=== PATIENT | male | born 1970 | race Caucasian/White ===

== ENCOUNTER 2018-09-16 15:24 | Outpatient (CLI) | payer MEDICARE ==
[2018-09-16 16:27] LABS: #Basophils 0.1 thou/uL (0.0-0.2); #Eosinphils 0.2 thou/uL (0.0-0.7); #Lymphocytes 1.7 thou/uL (1.20-3.40); #Monocytes 0.8 thou/uL (0.11-0.59); #Neutrophils 8.3 thou/uL (1.40-6.50); %Basophils 0.6 % (0.0-1.0); %Eosinophils 2.2 % (0.0-10.0); %Lymphocytes 15.2 % (21.0-51.0); %Monocytes 7.3 % (0.0-10.0); %Neutrophils 74.7 % (42.0-75.0); Hemoglobin 13.9 g/dL (14.0-18.0); Mean Corpuscular HGB CONC 34.6 g/dL (32.0-36.0); Mean Corpuscular Hemoglobin 32.6 pg (27.0-31.0); Mean Corpuscular Volume 94.1 fL (78.0-98.0); Mean Platelet Volume 7.2 fL (7.4-10.4); Platelet Count 209 thou/uL (130-400); RBC Distribution Width 11.6 % (11.5-14.5); Red Blood Cell (RBC) Count 4.27 mill/uL (4.70-6.10); White Blood Cell (WBC) Count 11.2 thou/uL (4.8-10.8)
[2018-09-16 16:41] LABS: ALT (SGPT) 30 U/L (8-55); AST (SGOT) 31 U/L (5-34); Albumin 4.7 g/dL (3.5-5.0); Alkaline Phosphatase 91 U/L (40-150); Anion Gap 18 mmol/L (10-20); BUN (Urea Nitrogen) 16 mg/dL (8.9-20.6); Bilirubin, Total 0.6 mg/dL (0.2-1.2); Calc. Creatinine Clearance 0 mL/min (70-130); Calcium 10.2 mg/dL (7.8-10.44); Carbon Dioxide 25 mmol/L (22-29); Chloride 103 mmol/L (98-107); Estimated GFR-MDRD 72; Glucose 91 mg/dL (70-105); Potassium 4.7 mmol/L (3.5-5.1); Protein, Total 7.7 g/dL (6.0-8.3); Sodium 141 mmol/L (136-145)
== END 2018-09-16 15:25 | disposition home or self-care (01) ==
LOC: LABBT 15:24
PROVIDERS: ATTEND Internal Medicine Cardiovascular Disease
DX: Z01.812 Encounter for preprocedural laboratory examination (principal); R06.02 Shortness of breath
CPT/HCPCS: 80053; 83880; 85025

== ENCOUNTER 2018-09-19 05:33 | Day surgery (SDC) | payer MEDICARE ==
[2018-09-16 15:07] VITALS: BMI 45.8
[2018-09-19] MEDS ORDERED: Diazepam 5 MG TAB ONE (06:42)
[2018-09-19] MEDS ORDERED: Verapamil 5 MG/2 ML VIAL ONE (07:05)
[2018-09-19] MEDS ORDERED: Heparin 10,000 UNITS/1 ML VIAL ONE (07:05)
[2018-09-19] MEDS ORDERED: Nitroglycerin 100MG/250ML BOT 250 ML ONE (07:05)
[2018-09-19] MEDS ORDERED: Fentanyl 100 MCG/2 ML VIAL ONE (07:49)
[2018-09-19] MEDS ORDERED: Iopamidol 370 76% 100 ML VIAL ONE (11:22)
[2018-09-19] MEDS ORDERED: HYDROcodone/Acetaminophen 10/325 mg Tablet ONE (11:25)
[2018-09-19] MEDS ORDERED: HYDROcodone/Acetaminophen 10/325 mg Tablet PO PRN (11:37)
[2018-09-19] MEDS ORDERED: Lorazepam 1 MG TAB PO PRN (11:38)
== END 2018-09-19 14:16 | disposition home or self-care (01) ==
LOC: CCL 05:33
PROVIDERS: ATTEND Internal Medicine Cardiovascular Disease
PROC: 4A023N7 Measurement of Cardiac Sampling and Pressure, Left Heart, Percutaneous Approach (ICD-10-PCS; principal; 2018-09-19)
PROC: B2111ZZ Fluoroscopy of Multiple Coronary Arteries using Low Osmolar Contrast (ICD-10-PCS; 2018-09-19)
DX: I25.10 Atherosclerotic heart disease of native coronary artery without angina pectoris (principal); I10 Essential (primary) hypertension; E78.5 Hyperlipidemia, unspecified; F17.290 Nicotine dependence, other tobacco product, uncomplicated; Z79.1 Long term (current) use of non-steroidal anti-inflammatories (NSAID); Z79.82 Long term (current) use of aspirin; Z79.899 Other long term (current) drug therapy; Z88.2 Allergy status to sulfonamides
CPT/HCPCS: 76942; 93458; C1760; C1769; J1644; J3010; Q9967

== ENCOUNTER 2020-05-23 07:10 | Outpatient (CLI) | payer MEDICARE ==
[2020-05-24 03:58] LABS: SARS-CoV-2 MS2 Positive; SARS-CoV-2 N Gene Negative; SARS-CoV-2 S Gene Negative; SARS-CoV-2 by NAA Not Detected (NotDetected); SARS-CoV-2 orf1ab Negative
== END 2020-05-23 07:11 | disposition home or self-care (01) ==
LOC: LABBT 07:10
PROVIDERS: ATTEND Internal Medicine Gastroenterology
DX: Z20.828 Contact with and (suspected) exposure to other viral communicable diseases (principal)
CPT/HCPCS: 87635; U0003

== ENCOUNTER 2020-05-26 12:03 | Day surgery (SDC) | payer MEDICARE ==
[2020-05-25 11:39] VITALS: BMI 46.1
[~2020-05-26 12:03] MED LIST: Lidocaine 1% PF 5 ML VIAL ONE; PROPOFOL 200 MG/20 ML VIAL ONE
[2020-05-26] MEDS ORDERED: Midazolam HCl 2 mg/2 ml Vial ONE (14:58)
--- NOTE | 2020-05-26 20:39 | OP ---
DATE OF PROCEDURE: 05/26/2020 TITLE OF PROCEDURE: Incomplete colonoscopy with biopsy and injection for purposes of tattoo. PREPROCEDURE DIAGNOSES: 1. Hematochezia. 2. Anemia due to blood loss. POSTPROCEDURE DIAGNOSES: 1. Exam to mid sigmoid colon. 2. Large ulcerated exophytic nearly obstructing mass in the sigmoid colon at 37 cm from the anal verge, biopsied. 3. Small internal hemorrhoids, not actively bleeding. 4. Not able to examine the portion of the colon proximal to the mass. 5. Status post injection of 3.5 mL of SPOT sterile ink just inferior to the sigmoid mass. PROCEDURE IN DETAIL: Written informed consent was obtained. The patient was brought to the endoscopy suite. Total intravenous anesthesia was administered by Dr. Pavon and associates. The patient was placed in the left lateral decubitus position. A digital rectal exam was performed, which revealed small palpable internal hemorrhoids. A Pentax video colonoscope was inserted through the anal canal and advanced under direct visualization to about the mid sigmoid colon. At this level, a nearly obstructing mass was identified and the colonoscope could not be advanced safely above this point. A large nearly obstructing ulcerated exophytic mass was identified. The lesion was friable and firm. Multiple biopsies were obtained for histology. The endoscopic appearance was consistent with a malignant neoplasm. Using the sterile tattoo ink called SPOT, a total of 3 mL of tattoo was injected subcutaneously just at the inferior margin of the tumor to facilitate identification during surgery. No other synchronous masses were identified. A retroflexed exam in the rectum demonstrated small internal hemorrhoids that were not actively bleeding. The colon was decompressed as the colonoscope was completely removed from the patient. There were no immediate complications. He was transferred to the Day Stay surgery area for postprocedure monitoring. RECOMMENDATIONS: 1. Await pathology results. 2. I have spoken with Dr. Eve Griffin, who is on-call for general surgery today. She will see the patient either today or tomorrow morning for a new patient consultation. 3. Further imaging studies and laboratory tests as per Dr. Griffin. 4. Pending clinical course, the patient will likely require a repeat colonoscopy in 6 months to 1 year to clear the proximal colon above the sigmoid mass. 5. Resume previous medications. 6. We will advise the patient to eat a soft low-residue diet for the next 2 days until instructed otherwise by Surgery. Job ID: [id number]
== END 2020-05-26 16:12 | disposition home or self-care (01) ==
LOC: SDC 12:03
PROVIDERS: ATTEND Internal Medicine Gastroenterology
PROC: 0DBN8ZX Excision of Sigmoid Colon, Via Natural or Artificial Opening Endoscopic, Diagnostic (ICD-10-PCS; principal; 2020-05-26)
DX: D12.5 Benign neoplasm of sigmoid colon (principal); K64.8 Other hemorrhoids; D50.0 Iron deficiency anemia secondary to blood loss (chronic); K59.00 Constipation, unspecified; F41.9 Anxiety disorder, unspecified; F32.9 Major depressive disorder, single episode, unspecified; M19.90 Unspecified osteoarthritis, unspecified site; E78.00 Pure hypercholesterolemia, unspecified; G47.30 Sleep apnea, unspecified; F17.290 Nicotine dependence, other tobacco product, uncomplicated; Z79.899 Other long term (current) drug therapy; Z88.2 Allergy status to sulfonamides; Z95.5 Presence of coronary angioplasty implant and graft
CPT/HCPCS: 88305; J2250; J2704

== ENCOUNTER 2020-05-27 12:38 | Outpatient (CLI) | payer MEDICARE ==
[2020-05-27 14:45] LABS: #Basophils 0.1 10x3/uL (0.0-0.2); #Eosinphils 0.3 10x3/uL (0.0-0.5); #Monocytes 0.8 10x3/uL (0.0-1.1); #Neutrophils 5.6 10x3/uL (1.5-8.4); %Basophils 1.1 % (0.0-2.0); %Lymphocytes 17.7 % (18.0-47.0); %Neutrophils 66.8 % (40.0-75.0); Hemoglobin 10.7 g/dL (14.0-18.0); Mean Corpuscular Hemoglobin 24.4 PG (27.0-33.0); Mean Corpuscular Volume 81.5 fl (80.0-100.0); Mean Platelet Volume 9.9 fl (7.4-10.4); Platelet Count 280 10x3/uL (130-400); RBC Distribution Width 14.7 % (11.5-14.5); Red Blood Cell (RBC) Count 4.38 10x6/uL (4.40-5.80); White Blood Cell (WBC) Count 8.3 10x3/uL (4.5-11.0)
[2020-05-27 14:51] LABS: Anion Gap 15 mmol/L (10-20); BUN (Urea Nitrogen) 9 mg/dL (8.9-20.6); Calc. Creatinine Clearance 0 mL/min (70-130); Calcium 9.5 mg/dL (7.8-10.44); Carbon Dioxide 29 mmol/L (22-29); Chloride 100 mmol/L (98-107); Glucose 107 mg/dL (70-105); Potassium 4.4 mmol/L (3.5-5.1); Sodium 140 mmol/L (136-145)
--- NOTE | 2020-05-27 16:20 | EKG ---
Test Reason : Blood Pressure : / mmHG Vent. Rate : 084 BPM Atrial Rate : 084 BPM P-R Int : 184 ms QRS Dur : 098 ms QT Int : 374 ms P-R-T Axes : 070 052 071 degrees QTc Int : 441 ms Normal sinus rhythm Normal ECG Confirmed by DR. Brandi WHITTINGTON ([id number]) on 05/27/2020 4:19:42 PM Referred By: Staurt ANTONIO Confirmed By:DR. Brandi WHITTINGTON
[2020-05-27 20:43] LABS: Hemoglobin A1c 5.5 % (4.0-6.0)
[2020-05-28 03:28] LABS: SARS-CoV-2 MS2 Positive; SARS-CoV-2 N Gene Negative; SARS-CoV-2 S Gene Negative; SARS-CoV-2 by NAA Not Detected (NotDetected); SARS-CoV-2 orf1ab Negative
--- NOTE | 2020-06-12 13:19 | PRG ---
DATE OF SERVICE: 06/12/2020 PRESENT ILLNESS: Mr. Crum is 49-year-old morbidly obese man, BMI of 49.2. The patient is postop day #6, status post laparoscopic hand-assisted abdominal washout, takedown of the colorectal anastomosis and descending colostomy placement. The patient is awake and alert today. He reports adequate pain control. He has poor cough effort. Urinary output remains adequate for this patient's age and weight. He is on no vasopressor or inotropic support. OBJECTIVE: VITAL SIGNS: This morning include, blood pressure 148/89, pulse is 87, respiratory rate is 18, maximum temperature in the last 24 hours 98.9 degrees Fahrenheit, oxygen saturation is 100% on FiO2 of 2 L by nasal cannula oxygen. HEENT: Pupils are equal, round, reactive to light and accommodation. HEART: Reveals regular rate and rhythm. No murmurs or gallops auscultated. LUNGS: Reveal bibasilar rhonchi. Breathing regular and unlabored. ABDOMEN: Soft, morbidly obese. He has medi-qt-[id number] tenderness to palpation with no gross rebound tenderness present. Incisions remain intact and clean. Colostomy is viable and functional with gas, but no stool output. NEUROLOGIC: Reveals no focal deficits present. LABORATORY FINDINGS: Today include a CBC with 14,100 white blood cells, hemoglobin and hematocrit are 7.8 and 25.1 respectively. The platelet count is 303,000. Metabolic profile: Sodium 143, potassium 3.7, chloride is 107, bicarb is 28, BUN 31, creatinine 0.79, glucose 124, magnesium is 2.4, and phosphorus 3.0. IMPRESSION: 1. Postop day #6, status post laparoscopic hand-assisted abdominal washout, takedown of colorectal anastomosis, and creation of descending colostomy. 2. Resolving adynamic ileus. PLAN: 1. Increase activity per Physical and Occupational therapy. 2. Initiate clear liquid diet. The patient is encouraged to increase the activity with the help of the physical and occupational therapy. 3. He is also encouraged to be more aggressive with his pulmonary toilet to avoid pulmonary complications. He indicates understanding information provided to him in the presence of his at bedside. I answered his questions. Job ID: [id number]
--- NOTE | 2020-06-16 10:21 | PRG ---
DATE OF SERVICE: 06/16/2020 SUBJECTIVE: Mr. Crum remains in his bed on the surgical floor. He is postoperative day #10 from his washout following his colorectal anastomotic leak with colostomy creation. He has steadily improved each day. He has been here on the surgical floor. His Casillas catheter was removed a couple of days ago and he is urinating uneventfully. He was advanced to a regular diet yesterday, which he appears to be tolerating. His colostomy continues to function well. His level of activity has increased and he is getting up and going to the bathroom as well as walking outside his room using his walker. He denies any significant pain. He still has a wound VAC on the open portion of his abdominal incision. I planned to see that today and potentially close in a delayed fashion. OBJECTIVE: VITAL SIGNS: Temperature is 97.4, pulse 80, blood pressure 117/79. LUNGS: Clear to auscultation. ABDOMEN: Soft, nondistended, nontender with excellent normoactive bowel sounds. All drains were removed yesterday uneventfully secondary to only serous output. LABORATORY DATA: Chemistry profile is obtained today. Electrolytes are normal. Liver function tests are normal. Albumin is stable at 2.9. CBC was not obtained today, but yesterday showed a stable hemoglobin of 7.9 with a white blood cell count of 15.1, but a descending bandemia. ASSESSMENT AND PLAN: The patient is stable following resection of his colon cancer and treatment of his anastomotic leak. His abdominal sepsis appears to have resolved appropriately. He is tolerating his diet nicely. Today, I will discontinue his TPN. I will hope to examine his wound with the wound care team and potentially close this in a delayed fashion. I will recheck his labs tomorrow. If all appears to be stable, he may be ready for discharge tomorrow. I have consulted to obtain home health nursing for discharge for assistance with ostomy care. Hopefully, this can be arranged for discharge tomorrow even though tomorrow is . Job ID: [id number]
== END 2020-05-27 12:39 | disposition home or self-care (01) ==
LOC: LABBT 12:38
PROVIDERS: ATTEND Surgery
DX: Z01.818 Encounter for other preprocedural examination (principal); Z20.828 Contact with and (suspected) exposure to other viral communicable diseases; K63.89 Other specified diseases of intestine
CPT/HCPCS: 80048; 82378; 83036; 85025; 93005; U0003; 87635; 93010

== ENCOUNTER 2020-05-27 18:00 | Inpatient (IN) | payer MEDICARE ==
[2020-06-01] MEDS ORDERED: Lidocaine 1% PF 5 ML VIAL ONE (09:13)
[2020-06-01] MEDS ORDERED: Ondansetron PF 4 MG/2 ML Vial ONE (09:13)
[2020-06-01] MEDS ORDERED: PROPOFOL 200 MG/20 ML VIAL ONE (09:13)
[2020-06-01] MEDS ORDERED: Succinylcholine 200 MG/10 ml SYRINGE FS ONE (09:13)
[2020-06-01] MEDS ORDERED: Bupivacaine HCl 0.5%/Epinephrine 1:200,000/PF 30 ml Vial ONE (09:13)
[2020-06-01] MEDS ORDERED: Rocuronium Bromide 10 MG/ML (10ML VIAL) ONE (09:13)
[2020-06-01] MEDS ORDERED: Dexamethasone 20 MG/5 ML VIAL ONE (09:13)
[2020-06-01] MEDS ORDERED: Midazolam HCl 2 mg/2 ml Vial ONE (10:21)
[2020-06-01] MEDS ORDERED: Fentanyl 100 MCG/2 ML VIAL ONE ×4 (10:21→19:02)
[2020-06-01] MEDS ORDERED: Ketorolac Tromethamine 30 MG/ML VIAL ONE (10:26)
[2020-06-01] MEDS ORDERED: Acetaminophen 500 MG TAB ONE (10:26)
[2020-06-01] MEDS ORDERED: cefOXitin Sodium/Dextrose 2 GM/50 ML BAG ONE (10:26)
[2020-06-01] MEDS ORDERED: Promethazine HCl 25 MG/ML VIAL IM PRN ×2 (13:05→17:26)
[2020-06-01] MEDS ORDERED: Promethazine HCl 25 MG/ML VIAL SLOW IVP PRN ×2 (13:05→17:26)
[2020-06-01] MEDS ORDERED: Ondansetron HCl/PF 4 MG/2 ML Vial IVP PRN ×2 (13:05→17:26)
[2020-06-01] MEDS ORDERED: Rocuronium Bromide 50 MG/5 ML VIAL ONE (13:38)
[2020-06-01] MEDS ORDERED: ceFOXitin 1 GM VIAL ONE (14:36)
[2020-06-01] MEDS ORDERED: Heparin 1,000 UNITS/ML VIAL ONE (15:16)
[2020-06-01] MEDS ORDERED: SUGAMMADEX SODIUM 500 MG/5 ML VIAL ONE (15:37)
[2020-06-01] MEDS ORDERED: HYDROmorphone 2 MG/ML VIAL ONE (19:23)
[2020-06-01] MEDS ORDERED: D5 1/2 NS w/20 mEq KCL 1,000 ML ONE (19:29)
[2020-06-01] MEDS ORDERED: HYDROcodone/Acetaminophen 10/325 mg Tablet PO PRN (19:35)
[2020-06-01] MEDS ORDERED: Morphine 4 MG/ML VIAL SLOW IVP PRN (19:35)
[2020-06-01] MEDS ORDERED: HYDROmorphone 0.5 MG/0.5 ML SYRINGE ONE (21:01)
[2020-06-01] MEDS ORDERED: Morphine 4 MG/ML VIAL ONE ×2 (21:55→23:40)
[2020-06-02] MEDS: D5 1/2 NS w/20 mEq KCL 1,000 ML IV SCH ×4 (00:18→17:07)
[2020-06-02] MEDS ORDERED: cefOXitin Sodium/Dextrose 2 GM/50 ML BAG ONE (00:28)
[2020-06-02] MEDS ORDERED: Morphine 2 MG/ML VIAL ONE ×5 (01:51→10:32)
[2020-06-02] MEDS ORDERED: Morphine 4 MG/ML VIAL ONE ×5 (01:51→10:32)
[2020-06-02] MEDS: cefOXitin Sodium/Dextrose,Iso 2 GM in Premix Bag 1 BAG IVPB SCH ×4 (04:00→19:51)
[2020-06-02 05:17] LABS: #Lymphocytes 0.9 thou/uL (1.20-3.40); #Monocytes 1.3 thou/uL (0.11-0.59); #Neutrophils 15.2 thou/uL (1.40-6.50); %Basophils 0.1 % (0.0-1.0); %Eosinophils 0.1 % (0.0-10.0); %Lymphocytes 5.1 % (21.0-51.0); %Monocytes 7.7 % (0.0-10.0); %Neutrophils 87.1 % (42.0-75.0); Hemoglobin 9.8 g/dL (14.0-18.0); Mean Corpuscular HGB CONC 32.1 g/dL (32.0-36.0); Mean Corpuscular Hemoglobin 25.8 pg (27.0-31.0); Mean Corpuscular Volume 80.5 fL (78.0-98.0); Mean Platelet Volume 7.5 fL (7.4-10.4); Platelet Count 262 thou/uL (130-400); RBC Distribution Width 14.3 % (11.5-14.5); Red Blood Cell (RBC) Count 3.81 mill/uL (4.70-6.10); White Blood Cell (WBC) Count 17.4 thou/uL (4.8-10.8)
[2020-06-02 05:40] LABS: Anion Gap 12 mmol/L (10-20); BUN (Urea Nitrogen) 10 mg/dL (8.9-20.6); Calc. Creatinine Clearance 0 mL/min (70-130); Calcium 8.1 mg/dL (7.8-10.44); Carbon Dioxide 26 mmol/L (22-29); Chloride 103 mmol/L (98-107); Glucose 152 mg/dL (70-105); Potassium 4.5 mmol/L (3.5-5.1); Sodium 136 mmol/L (136-145)
[2020-06-02] MEDS ORDERED: D5 1/2 NS w/20 mEq KCL 1,000 ML ONE (08:43)
[2020-06-02] MEDS: Pantoprazole 40 MG VIAL IVP SCH (09:25)
[2020-06-02] MEDS: Enoxaparin Sodium 40 MG/0.4 ML SYRINGE SC SCH (09:25)
[2020-06-02] MEDS: Losartan/Hydrochlorothiazide 100 mg/25 mg Tablet PO SCH (09:25)
[2020-06-02] MEDS: Furosemide 40 MG TAB PO SCH (09:25)
[2020-06-02] MEDS ORDERED: HYDROcodone/Acetaminophen 10/325 mg Tablet ONE (09:45)
[2020-06-02] MEDS: Carvedilol 6.25 MG TAB PO SCH ×3 (10:43→19:48)
[2020-06-02] MEDS ORDERED: cefOXitin 2 GM in Sodium Chloride 0.9% 100 ML IVPB SCH (12:00)
[2020-06-02] MEDS: Morphine 4 MG/ML VIAL SLOW IVP PRN (12:42)
--- NOTE | 2020-06-02 14:39 | PDOC.OP ---
Operative Note - Operative Note Operative Note: PROCEDURE: Laparoscopic hand-assisted sigmoid colectomy with splenic flexure mobilization SURGEON: Eve Griffin M.D. DATE: 06/01/2020 PREOPERATIVE DIAGNOSIS: Near obstructing sigmoid colon mass POSTOPERATIVE DIAGNOSIS: Near obstructing sigmoid colon mass HISTORY: Patient with a history of bloody stools who recently underwent a colonoscopy. He was found to have a near obstructing sigmoid mass which had a malignant appearance. The scope was unable to be passed past the mass. Biopsy showed villous adenoma with severe dysplasia but CT showed enlarged mesenteric lymph nodes so the mass is presumed malignant. Recommendation was made to proceed with laparoscopic hand-assisted sigmoid colectomy. FINDINGS: Large mass in the sigmoid colon. No other palpable masses in the remaining colon. PROCEDURE IN DETAIL: After informed consent was obtained and appropriate bowel preparation and oral and IV antibiotics were administered the patient was taken to the operating room where he was placed in supine position and general endotracheal anesthesia was administered. He was placed in lithotomy position and prepped and draped in standard sterile fashion. Local anesthesia was infused the skin and subcutaneous tissues at the periumbilical area and a 6 cm incision made. Dissection was carried down to the fascia which was incised under direct vision. The peritoneal cavity was entered and no adhesions noted. A wound protector and GelPort were placed and carbon dioxide gas insufflated to an intra-abdominal pressure of 15 which the patient tolerated well. The patient was noted to have a large, puckered, hard malignant appearing mass in the sigmoid colon with tattooing distal to the mass. A 5 mm epigastric and 12 mm and 5 mm right lower quadrant ports were placed under direct laparoscopic vision. The white line of Toldt was incised and the sigmoid descending colon mobilized medially to the midline. The splenic flexure was mobilized by dividing the connections at the splenic flexure, allowing the distal transverse colon and splenic flexure to come down into the mid abdomen. The colon was palpated no additional masses were felt. The ureter and gonadal vessels were easily palpable well lateral to the mesentery of the sigmoid colon. The retroperitoneum was incised and the ureter carefully examined. This was confirmed to peristalse and the course was noted to be well away from the area of dissection. The mesorectum at the upper rectum was divided using LigaSure and a laparoscopic stapler placed across the upper rectum. This was closed and fired dividing the upper rectum. The mesorectum and mesentery of the sigmoid colon were then divided at their base using LigaSure, completely resecting the mesentery of the sigmoid colon to its origin. The operative site was examined and hemostasis was verified. The sigmoid colon was then externalized through the wound protector and towels were placed around it. An incision was made in the lower descending colon at the level of the anticipated anastomosis and a [address] d into the descending colon. The colon was divided and the specimen passed from the field. Pursestring suture was placed through the distal descending colon and the 33 mm EEA anvil placed into the descending colon and the pursestring suture tightened around the stalk. The colon was dropped back into the abdominal cavity and the abdomen was reinsufflated. Sizers were easily passed to the end of the rectal stump under direct laparoscopic vision. A 33 mm EEA stapler was then passed to the end of the rectal stump and the spike advanced through the end of the rectum just above the staple line. This was mated to the anvil and the stapler was closed and fired. The EEA stapler was then removed and 2 full-thickness donuts were confirmed on the back table. Saline was instilled into the pelvis and a proctoscope placed into the distal rectum and air insufflated into the rectum with the descending colon digitally clamped, distending the staple line with gas. No bubbling was seen from the staple line which appeared entirely healthy. The saline was then suctioned out of the pelvis and the small intestine returned to its normal anatomic position. The omentum was drawn down over the small bowel. The 12 mm trocar in the right lower quadrant was removed and the fascial defect closed with a 0 Vicryl suture on a GraNee needle under direct laparoscopic vision. The 5 mm right lower quadrant and epigastric trocars were removed and hemostasis verified. The GelPort and wound protector were removed and Seprafilm placed anterior to the omentum. The fascia was closed with a running PDS suture. The wound was copiously irrigated and the skin was closed with interrupted subcutaneous 3-0 Monocryl sutures and a running subcuticular Monocryl sutures. The trocar sites were closed with 4-0 subcuticular Monocryl sutures. Due to the thickness of the subcutaneous tissues a SELAM surface wound VAC was placed to the periumbilical incision. Dermabond dressings were placed to the other incisions and the patient was extubated and taken to recovery in good condition. Estimated blood loss was minimal. There were no complications. Specimen is sigmoid colon, with staple line distal.
[2020-06-02] MEDS ORDERED: Sodium Chloride 0.9% 500 ML IV SCH ×2 (15:30→17:00)
--- NOTE | 2020-06-02 15:31 | PDOC.GSPN ---
Surgery Progress Note: Subj - Subjective Narrative: Patient had a large bloody bowel movement early this morning around 4 AM. This measured about 225 mL. He had another bloody bowel movement which was smaller shortly afterwards. His hemoglobin had dropped about 1.5 preoperative on his morning labs and he was not having any symptoms able to walk without lightheadedness. Around noon he had another small bloody bowel movement but this was not quantified. His most recent blood pressure was 89/47 but other vital signs are normal. I have already ordered a repeat H&H this afternoon but it has not been drawn yet. He is otherwise feeling well. His incisions look good and he has minimal soreness at his operative sites. Assessment/plan: Status post laparoscopic hand-assisted sigmoid colectomy with postoperative rectal bleeding. Likely anastomotic bleeding. Patient is not symptomatic but his blood pressure is a little low. He is not tachycardic or having any other symptoms. I ordered 500 mL of normal saline and he has been typed and crossed. If he continues to bleed I will ask GI to do a flex sig and look at the staple line to see if there is anything they can clip or inject but I would prefer not to do this with close to the time of his surgery. Usually this is self-limiting so we will continue to just observe for now. Surgery Progress Note: Obj - Vital signs Vital signs: Vital Signs - Most Recent Temp Pulse Resp BP Pulse Ox 97.7 F 79 16 89/47 L 94 L 06/02/20 10:55 06/02/20 14:57 06/02/20 10:55 06/02/20 14:57 06/02/20 14:57 Surgery Progress Note: Results - Labs Result Diagrams: 06/02/20 05:02 06/02/20 05:02 Lab results: Laboratory Results - last 12 hr 06/02/20 06/02/20 05:02 05:02 WBC 17.4 H RBC 3.81 L Hgb 9.8 L Hct 30.7 L MCV 80.5 MCH 25.8 L MCHC 32.1 RDW 14.3 Plt Count 262 MPV 7.5 Neutrophils % 87.1 H Lymphocytes % 5.1 L Monocytes % 7.7 Eosinophils % 0.1 Basophils % 0.1 Neutrophils # 15.2 H Lymphocytes # 0.9 L Monocytes # 1.3 H Eosinophils # 0.0 Basophils # 0.0 Sodium 136 Potassium 4.5 Chloride 103 Carbon Dioxide 26 Anion Gap 12 BUN 10 Creatinine 1.16 Estimated GFR (MDRD) 67 Glucose 152 H Calcium 8.1
[2020-06-02 15:33] LABS: Hemoglobin 8.7 g/dL (14.0-18.0)
[2020-06-02] MEDS: Morphine 2 MG/ML VIAL SLOW IVP PRN ×2 (18:06→21:54)
[2020-06-03] MEDS: Morphine 2 MG/ML VIAL SLOW IVP PRN ×2 (00:44→04:16)
[2020-06-03] MEDS: D5 1/2 NS w/20 mEq KCL 1,000 ML IV SCH ×4 (02:06→19:23)
[2020-06-03] MEDS: cefOXitin Sodium/Dextrose,Iso 2 GM in Premix Bag 1 BAG IVPB SCH ×2 (05:03→11:53)
[2020-06-03 05:44] LABS: #Eosinphils 0.1 thou/uL (0.0-0.7); #Lymphocytes 1.6 thou/uL (1.20-3.40); #Monocytes 1.2 thou/uL (0.11-0.59); #Neutrophils 8.6 thou/uL (1.40-6.50); %Basophils 0.3 % (0.0-1.0); %Lymphocytes 14.1 % (21.0-51.0); %Neutrophils 74.5 % (42.0-75.0); Mean Corpuscular HGB CONC 31.2 g/dL (32.0-36.0); Mean Corpuscular Hemoglobin 25.6 pg (27.0-31.0); Mean Corpuscular Volume 81.9 fL (78.0-98.0); Mean Platelet Volume 7.1 fL (7.4-10.4); Platelet Count 222 thou/uL (130-400); RBC Distribution Width 14.3 % (11.5-14.5); Red Blood Cell (RBC) Count 3.11 mill/uL (4.70-6.10); White Blood Cell (WBC) Count 11.6 thou/uL (4.8-10.8)
[2020-06-03 06:02] LABS: Anion Gap 13 mmol/L (10-20); BUN (Urea Nitrogen) 11 mg/dL (8.9-20.6); Calc. Creatinine Clearance 173 mL/min (70-130); Calcium 7.6 mg/dL (7.8-10.44); Carbon Dioxide 24 mmol/L (22-29); Chloride 104 mmol/L (98-107); Glucose 115 mg/dL (70-105); Potassium 4.1 mmol/L (3.5-5.1); Sodium 137 mmol/L (136-145)
[2020-06-03] MEDS: Enoxaparin Sodium 40 MG/0.4 ML SYRINGE SC SCH (08:42)
[2020-06-03] MEDS: Pantoprazole 40 MG VIAL IVP SCH (08:42)
[2020-06-03] MEDS: Morphine 4 MG/ML VIAL SLOW IVP PRN ×4 (08:43→20:54)
[2020-06-03] MEDS: Losartan/Hydrochlorothiazide 100 mg/25 mg Tablet PO SCH (08:44)
[2020-06-03] MEDS: Furosemide 40 MG TAB PO SCH (08:44)
[2020-06-03] MEDS: Carvedilol 6.25 MG TAB PO SCH ×2 (08:44→20:52)
[2020-06-03] MEDS: HYDROcodone/Acetaminophen 10/325 mg Tablet PO PRN ×3 (10:43→22:35)
[2020-06-03] MEDS ORDERED: Losartan/Hydrochlorothiazide 100 mg/25 mg Tablet PO SCH (18:30)
--- NOTE | 2020-06-03 19:44 | PDOC.GSPN ---
Surgery Progress Note: Subj - Subjective Narrative: Patient is feeling better today. He is having some gas pain but is also passing some gas. No further bloody bowel movements since yesterday. He did not really get up much yesterday but denies any shortness of breath chest pain or lightheadedness. No nausea or vomiting. Tolerating ice chips. Hemoglobin is 8. Electrolytes are okay. Urine output is adequate. Abdomen is soft and nondistended. He does have bowel sounds. His incisions look good. He has a Prevena wound VAC on his hand port incision. Assessment/plan: Status post sigmoid colectomy doing well overall. He did have some rectal bleeding likely from his anastomosis but this appears to have st opped. His hemoglobin has drifted down to 8 but he is asymptomatic. We will check this again in the afternoon and again tomorrow morning. I am going to start him on a clear liquid diet and if he tolerates that he can advance to full's. Dr. Nascimento will be taking care of him this weekend. Home once he has resumption of bowel function. I am available if he has any issues. Surgery Progress Note: Obj - Vital signs Vital signs: Vital Signs - Most Recent Temp Pulse Resp BP Pulse Ox 97.6 F 79 18 118/70 96 06/03/20 16:03 06/03/20 16:03 06/03/20 16:03 06/03/20 16:03 06/03/20 16:03 Surgery Progress Note: Results - Labs Result Diagrams: 06/03/20 13:48 06/03/20 05:21 Lab results: Laboratory Results - last 12 hr 06/03/20 13:48 Hgb 8.0 L Hct 25.7 L
[2020-06-03] MEDS: Ketorolac Tromethamine 30 MG/ML VIAL IVP SCH (23:46)
[2020-06-04] MEDS: Morphine 4 MG/ML VIAL SLOW IVP PRN ×3 (02:40→14:29)
[2020-06-04] MEDS: HYDROcodone/Acetaminophen 10/325 mg Tablet PO PRN ×3 (04:21→21:47)
[2020-06-04 05:36] LABS: Mean Corpuscular HGB CONC 29.7 g/dL (32.0-36.0); Mean Corpuscular Hemoglobin 24.3 pg (27.0-31.0); Mean Corpuscular Volume 81.7 fL (78.0-98.0); Mean Platelet Volume 7.2 fL (7.4-10.4); Platelet Count 266 thou/uL (130-400); RBC Distribution Width 14.3 % (11.5-14.5); Red Blood Cell (RBC) Count 3.28 mill/uL (4.70-6.10); White Blood Cell (WBC) Count 15.7 thou/uL (4.8-10.8)
[2020-06-04 05:52] LABS: Anion Gap 12 mmol/L (10-20); BUN (Urea Nitrogen) 6 mg/dL (8.9-20.6); Calc. Creatinine Clearance 215 mL/min (70-130); Calcium 7.7 mg/dL (7.8-10.44); Carbon Dioxide 25 mmol/L (22-29); Chloride 104 mmol/L (98-107); Glucose 120 mg/dL (70-105); Potassium 4.4 mmol/L (3.5-5.1); Sodium 137 mmol/L (136-145)
[2020-06-04] MEDS: D5 1/2 NS w/20 mEq KCL 1,000 ML IV SCH ×3 (07:35→22:29)
[2020-06-04] MEDS: Ketorolac Tromethamine 30 MG/ML VIAL IVP SCH ×2 (09:31→14:27)
[2020-06-04] MEDS: Furosemide 40 MG TAB PO SCH (09:33)
[2020-06-04] MEDS: Losartan/Hydrochlorothiazide 100 mg/25 mg Tablet PO SCH (09:33)
[2020-06-04] MEDS: Carvedilol 6.25 MG TAB PO SCH ×2 (09:33→20:13)
[2020-06-04] MEDS: Enoxaparin Sodium 40 MG/0.4 ML SYRINGE SC SCH (09:33)
[2020-06-04] MEDS: Pantoprazole 40 MG VIAL IVP SCH (09:34)
--- NOTE | 2020-06-04 10:01 | PDOC.GSPN ---
Surgery Progress Note: Subj - Subjective Narrative: The patient is postoperative day 2 from a hand-assisted laparoscopic sigmoid colectomy According to the patient and his , he had a "rough night". He was having d ifficulty getting comfortable. Was having fairly profuse diaphoresis as well as some anxiety. His volunteered that he has done this before when he was unable to have access to his usual volume of beer in the evenings. Otherwise, he states that he is feeling somewhat better this morning. He is passing some flatus. Tolerating his diet without any nausea or vomiting. Incisional pain seems to be well controlled. Surgery Progress Note: Obj - Vital signs Vital signs: Vital Signs - Most Recent Temp Pulse Resp BP Pulse Ox 98.5 F 113 H 14 119/60 93 L 06/04/20 08:04 06/04/20 08:04 06/04/20 08:04 06/04/20 09:33 06/04/20 08:04 - Physical Exam Additional exam: General-obese, nontoxic but borderline anxious Head-[normocephalic, atraumatic] HEENT- [EOMI], [PERRLA] Neck-[trachea midline, supple] Lungs-[grossly clear to auscultation], [normal air movement] Heart-[regular regular], [no murmurs], slightly tachycardic Abdomen-[soft], obese, [nondistended], appropriately tender around incisions, [normal active bowel sounds], no peritoneal findings. Surgery Progress Note: Results - Labs Result Diagrams: 06/04/20 05:01 06/04/20 05:00 Lab results: Laboratory Results - last 12 hr 06/04/20 06/04/20 05:00 05:01 WBC 15.7 H RBC 3.28 L Hgb 8.0 L Hct 26.8 L MCV 81.7 MCH 24.3 L MCHC 29.7 L RDW 14.3 Plt Count 266 MPV 7.2 L Neutrophils % (Manual) Not Reportable Sodium 137 Potassium 4.4 Chloride 104 Carbon Dioxide 25 Anion Gap 12 BUN 6 L Creatinine 0.92 Estimated GFR (MDRD) 87 Glucose 120 H Calcium 7.7 L Surgery Progress Note: A/P - Problem (1) Sigmoid colectomy Current Visit: Yes Status: Acute Assessment and Plan: Patient has not had a fever but he is slightly tachycardic. His hemoglobin has been stable. His bedsheets were fairly damp. I think this is probably more likely sequelae from alcohol withdrawal than an anastomotic leak. He seems to be passing flatus and tolerating his diet. The night sweats and tachycardia could be symptoms of either, but at this point I have a lower suspicion for anastomotic leak. Regardless, I will get plain films. He could also just have an ileus that was causing some abdominal pain and discomfort, but the fact that he is passing flatus weighs against this. White blood cell count is up a little bit. Given his body habitus and general immobility from bilateral hip replacements and osteoarthritis, he is at risk for pulmonary complications. Physical therapy with a walking program as already been ordered. Continue with his diet. Plain films Repeat labs tomorrow (2) Alcohol use Current Visit: Yes Code(s): Z72.89 - OTHER PROBLEMS RELATED TO LIFESTYLE Status: Acute Assessment and Plan: I found a fairly significant that the would volunteer his alcohol use and that he has had a similar episode before. He is also on lorazepam at home. I think this may help with his current situation. I will reorder that.
--- NOTE | 2020-06-04 12:16 | RAD ---
2 VIEWS OF THE ABDOMEN AND UPRIGHT VIEW OF THE CHEST: Date: 06/04/2020 COMPARISON: None. HISTORY: Postop day #2 from colectomy, with abdominal pain. FINDINGS: Supine and upright views of the abdomen and upright views of the chest were performed. There is an enlarged cardiomediastinal silhouette. There is a small left pleural effusion. No consoli dation is seen. There is free air beneath the diaphragms. This is likely related to recent surgery. Air is seen in lo ops of large and small bowel. Degenerative changes are seen in the spine. The patient has bilateral hip prostheses. IMPRESSION: 1. Free air in the abdomen is likely related to recent surgery. 2. Small left pleural effusion. POS: EAA
[2020-06-04] MEDS: Lorazepam 1 MG TAB PO PRN (22:27)
[2020-06-05] MEDS: Ketorolac Tromethamine 30 MG/ML VIAL IVP SCH (00:27)
[2020-06-05] MEDS: HYDROcodone/Acetaminophen 10/325 mg Tablet PO PRN ×4 (05:04→17:55)
[2020-06-05 05:15] LABS: #Eosinphils 0.3 thou/uL (0.0-0.7); #Lymphocytes 1.3 thou/uL (1.20-3.40); #Monocytes 1.4 thou/uL (0.11-0.59); #Neutrophils 12.7 thou/uL (1.40-6.50); %Eosinophils 1.9 % (0.0-10.0); %Lymphocytes 8.5 % (21.0-51.0); %Monocytes 8.6 % (0.0-10.0); Hemoglobin 7.5 g/dL (14.0-18.0); Mean Corpuscular HGB CONC 31.6 g/dL (32.0-36.0); Mean Corpuscular Hemoglobin 25.7 pg (27.0-31.0); Mean Corpuscular Volume 81.4 fL (78.0-98.0); Mean Platelet Volume 7.1 fL (7.4-10.4); Platelet Count 232 thou/uL (130-400); RBC Distribution Width 14.3 % (11.5-14.5); Red Blood Cell (RBC) Count 2.91 mill/uL (4.70-6.10); White Blood Cell (WBC) Count 15.6 thou/uL (4.8-10.8)
[2020-06-05 05:29] LABS: Anion Gap 13 mmol/L (10-20); BUN (Urea Nitrogen) 14 mg/dL (8.9-20.6); Calc. Creatinine Clearance 192 mL/min (70-130); Carbon Dioxide 24 mmol/L (22-29); Chloride 103 mmol/L (98-107); Glucose 112 mg/dL (70-105); Magnesium 1.9 mg/dL (1.6-2.6); Phosphorus 2.8 mg/dL (2.3-4.7); Potassium 4.1 mmol/L (3.5-5.1); Sodium 136 mmol/L (136-145)
[2020-06-05] MEDS: D5 1/2 NS w/20 mEq KCL 1,000 ML IV SCH ×3 (10:35→22:17)
[2020-06-05] MEDS: Enoxaparin Sodium 40 MG/0.4 ML SYRINGE SC SCH (10:41)
[2020-06-05] MEDS: Carvedilol 6.25 MG TAB PO SCH ×2 (10:41→21:33)
[2020-06-05] MEDS: Furosemide 40 MG TAB PO SCH (10:42)
[2020-06-05] MEDS: Losartan/Hydrochlorothiazide 100 mg/25 mg Tablet PO SCH (10:42)
[2020-06-05] MEDS: Pantoprazole 40 MG VIAL IVP SCH (10:43)
--- NOTE | 2020-06-05 12:10 | PDOC.GSPN ---
Surgery Progress Note: Subj - Subjective Narrative: Patient is postoperative day 3 from a hand-assisted laparoscopic sigmoidectomy Patient states that he had a rough night, but when further questioned, this is more to do with hip and shoulder pain from working with physical therapy than anything else. He seems to be tolerating his clears at this point. No nausea or vomiting. He states he is passing small amounts of flatus. Is not having any bowel movements. Incisional pain is stable. The night sweats that he was having the day before seem to have passed. He feels less anxious now that he is back on his lorazepam. Surgery Progress Note: Obj - Vital signs Vital signs: Vital Signs - Most Recent Temp Pulse Resp BP Pulse Ox 97.7 F 77 20 132/79 97 06/05/20 08:00 06/05/20 08:00 06/05/20 08:00 06/05/20 10:41 06/05/20 08:00 - Physical Exam Additional exam: General-[no acute distress, well-nourished], obese, comfortable Head-[normocephalic, atraumatic] HEENT- [EOMI], [PERRLA] Neck-[trachea midline, supple] Lungs-[grossly clear to auscultation], [normal air movement] Heart-[regular regular], [no murmurs] Abdomen-[soft], appears somewhat distended to me-his says it is about normal for him, appropriately tender around incisions, no tenderness to percussion, no peritoneal signs, very hypoactive bowel sounds Musculosketal-[full range of motion], [no gross deformity] Psychiatric-[good insight, good judgment] Skin-[good turgor, no jaundice] Neuro- [GCS 15], [CN II-XII intact] Surgery Progress Note: Results - Labs Result Diagrams: 06/05/20 04:49 06/05/20 04:49 Lab results: Laboratory Results - last 12 hr 06/05/20 06/05/20 04:49 04:49 WBC 15.6 H RBC 2.91 L Hgb 7.5 L Hct 23.7 L MCV 81.4 MCH 25.7 L MCHC 31.6 L RDW 14.3 Plt Count 232 MPV 7.1 L Neutrophils % 81.0 H Lymphocytes % 8.5 L Monocytes % 8.6 Eosinophils % 1.9 Basophils % 0.0 Neutrophils # 12.7 H Lymphocytes # 1.3 Monocytes # 1.4 H Eosinophils # 0.3 Basophils # 0.0 Sodium 136 Potassium 4.1 Chloride 103 Carbon Dioxide 24 Anion Gap 13 BUN 14 Creatinine 1.03 Estimated GFR (MDRD) 76 Glucose 112 H Calcium 8.0 Phosphorus 2.8 Magnesium 1.9 Surgery Progress Note: A/P - Problem (1) Sigmoid colectomy Current Visit: Yes Status: Acute Assessment and Plan: He is postop day 3-he has some tympany without peritoneal signs or increasing pain. His heart rate has decreased back to normal after restarting his lorazepam. He has been afebrile. His white count is the same as it was yesterday. Neutrophils are 81. Platelets are normal. At this point, he is acting more as if he has some delayed restarting of postoperative bowel function. He is not vomiting. He has no nausea. At this point, continue to work with physical therapy. I have encouraged him to be out of bed more than in bed. Continue working with incentive spirometry. Check labs tomorrow. His electrolytes are all within normal limits today. (2) Alcohol use Current Visit: Yes Code(s): Z72.89 - OTHER PROBLEMS RELATED TO LIFESTYLE Status: Acute Assessment and Plan: Better with his lorazepam. Heart rates better. Night sweats seem to have stop ped
[2020-06-05] MEDS: diphenhydrAMINE 25 MG CAP PO PRN (17:55)
[2020-06-05] MEDS: Morphine 4 MG/ML VIAL SLOW IVP PRN (22:15)
[2020-06-06] MEDS: Morphine 4 MG/ML VIAL SLOW IVP PRN ×4 (02:52→08:43)
[2020-06-06] MEDS: Ondansetron PF 4 MG/2 ML Vial IVP PRN (04:18)
[2020-06-06 06:30] LABS: Band 28 % (5-11); Hypochromia SLIGHT = 6-15 cells (100X) (0-5/hpf); Lymphocytes 3 % (21-51); MDiff Complete? YES; Mean Corpuscular HGB CONC 31.1 g/dL (32.0-36.0); Mean Corpuscular Hemoglobin 25.4 pg (27.0-31.0); Mean Corpuscular Volume 81.7 fL (78.0-98.0); Monocytes 4 % (0-10); Neutrophil 65 % (42-75); Platelet Count 380 thou/uL (130-400); Platelet Morphology Comment Appears Adequate; RBC Distribution Width 14.1 % (11.5-14.5); Red Blood Cell (RBC) Count 3.52 mill/uL (4.70-6.10); White Blood Cell (WBC) Count 10.2 thou/uL (4.8-10.8)
[2020-06-06] MEDS: D5 1/2 NS w/20 mEq KCL 1,000 ML IV SCH (08:43)
[2020-06-06] MEDS: Pantoprazole 40 MG VIAL IVP SCH (08:48)
[2020-06-06] MEDS: Enoxaparin Sodium 40 MG/0.4 ML SYRINGE SC SCH (08:49)
[2020-06-06] MEDS ORDERED: Iopamidol 370 76% 50 ML VIAL FS ONE (09:24)
[2020-06-06] MEDS ORDERED: Iopamidol 370 76% 100 ML VIAL ONE (09:24)
[2020-06-06] MEDS ORDERED: PHENYLEPHRINE-NS 100 MCG/ML 10 ML SYRINGE ONE (09:46)
[2020-06-06] MEDS ORDERED: Succinylcholine 200 MG/10 ml SYRINGE FS ONE (09:46)
[2020-06-06] MEDS ORDERED: Vecuronium 10 MG VIAL ONE ×3 (09:46→15:17)
--- NOTE | 2020-06-06 10:04 | PDOC.GSPN ---
Surgery Progress Note: Subj - Subjective Narrative: Patient is still having a lot of pain in his shoulders and back. His abdominal pain is about the same. He describes it as burning. He has gotten up into a chair but has not really felt up to walking. He did have a bowel movement this morning which was nonbloody. He was made n.p.o. last night due to nausea and vomiting but this is better today and he would like to have something to eat. Wound VAC is in place with minimal drainage. Port site incisions look good. Abdomen is soft and nondistended and minimally tender. White count is back down to normal and hemoglobin is actually up a little bit. Vital signs are okay except for some tachycardia this morning. When the nurse rechecked it it was lower however. He did not get his carvedilol or his lorazepam last night or this morning due to being n.p.o. Assessment/plan: Status post sigmoid colectomy with nausea and vomiting last night but passing gas and having a bowel movement this morning. I suspect he had a postoperative ileus due to narcotics and immobility. It has been a challenge getting him up as he is disabled at baseline and morbidly obese. I had ordered walking program for him postoperatively but I have put in a formal order for physical therapy today. I am going to recheck abdominal films due to his nausea and vomiting last night before restarting clears. He is slightly tachycardic this morning but this may be due to missing his lorazepam and carvedilol. I will keep a close eye on this. He is not having any fevers and his white count is normal. Surgery Progress Note: Obj - Vital signs Vital signs: Vital Signs - Most Recent Temp Pulse Resp BP Pulse Ox 98.5 F 117 H 14 107/71 93 L 06/06/20 07:49 06/06/20 07:49 06/06/20 07:49 06/06/20 07:49 06/06/20 07:49 Surgery Progress Note: Results - Labs Result Diagrams: 06/06/20 05:51 06/05/20 04:49 Lab results: Laboratory Results - last 12 hr 06/06/20 05:51 WBC 10.2 RBC 3.52 L Hgb 9.0 L Hct 28.8 L MCV 81.7 MCH 25.4 L MCHC 31.1 L RDW 14.1 Plt Count 380 MPV 7.0 L Neutrophils % (Manual) 65 Band Neuts % (Manual) 28 H Lymphocytes % (Manual) 3 L Monocytes % (Manual) 4 Hypochromia SLIGHT = 6-15 cells Plt Morphology Comment Appears Adequate
[2020-06-06] MEDS: HYDROcodone/Acetaminophen 10/325 mg Tablet PO PRN (10:08)
[2020-06-06] MEDS: Lorazepam 1 MG TAB PO PRN (10:09)
[2020-06-06] MEDS: Losartan/Hydrochlorothiazide 100 mg/25 mg Tablet PO SCH (10:18)
--- NOTE | 2020-06-06 11:25 | RAD ---
XR Abdomen 2 View/1 View Cxr History: Colectomy with nausea and vomiting Comparison: Radiograph 2 days prior Findings: Moderate layering right pleural effusion. No evidence for pneumothorax. Moderate pneumoperitoneum. Left lung is clear. Distended loops of small bowel in the upper abdomen. Impression: 1. Moderate layering right pleural effusion is new. 2. Moderate pneumoperitoneum. 3. Distended loops of small bowel in the abdomen may reflect ileus.
[2020-06-06] MEDS: Carvedilol 6.25 MG TAB PO SCH (12:05)
[2020-06-06] MEDS ORDERED: Sodium Chloride 0.9% 500 ML IV SCH (12:30)
--- NOTE | 2020-06-06 12:55 | PDOC.EVN ---
Event Note - Event Note Event Note: After return from Xray pt moved to bed, c/o worse pain, was noted to be tachycardic in 130's and tachypnic in 30's. BP was low w SBP 90's and O2 sat 93% so placed on 3l NC. XRay showed new R pleural effusion, free air as before, gas in small intestine suggestive of ileus. EKG showed sinus tach w no ST changes. Pt states his pain is better and denies CP or SOB but still has shallow rapid breaths. Have ordered STAT CT chest PE protocol w CT abd/pelvis w IV and rectal contrast to check for PE, leak, abscess. Will move to CCU and get cardiology and hospitalist involved.
[2020-06-06] MEDS: Furosemide 40 MG TAB PO SCH (12:56)
[2020-06-06] MEDS ORDERED: Fentanyl 100 MCG/2 ML VIAL ONE (14:08)
[2020-06-06] MEDS ORDERED: Ketamine 50 MG/ML (10ML VIAL) ONE (14:09)
[2020-06-06] MEDS ORDERED: Phenylephrine 10 MG/ML VIAL ONE (14:09)
[2020-06-06] MEDS ORDERED: Norepinephrine 4 MG/4 ML VIAL ONE (14:09)
[2020-06-06] MEDS ORDERED: Meropenem 2 GM in Sodium Chloride 0.9% 100 ML IVPB SCH (14:15)
[2020-06-06] MEDS ORDERED: Meropenem 2 GM in Admixture Fee 1 EACH IVPB SCH (14:15)
[2020-06-06] MEDS ORDERED: Bupivacaine PF 0.5% 30 ML VIAL ONE (14:17)
[2020-06-06] MEDS ORDERED: EPINEPHrine 1 MG/ML AMP ONE (14:18)
[2020-06-06] MEDS ORDERED: EPINEPHrine 1 MG/10 ML Abboject SYRINGE ONE (14:18)
[2020-06-06] MEDS ORDERED: Sodium Chloride 0.9% 10 ML ONE (14:19)
[2020-06-06] MEDS ORDERED: Sodium Chloride 0.9% 40 ML ONE (14:20)
--- NOTE | 2020-06-06 14:21 | CT ---
CT angiogram thorax with IV contrast and 3-D reconstructions CT abdomen and pelvis with IV contrast HISTORY: Patient is post colectomy with nausea and vomiting and tachycardia. Mass seen within sigmoid colon on prior CT examination on 05/31/2020. COMPARISON: CT abdomen and pelvis on 05/31/2020 CTA THORAX: Due to significant respiratory motion, there is limited evaluation of the segmental and subsegmental pulmonary arteries for evaluation of pulmonary embolus. However, no filling defects are seen within the central pulmonary arteries. Vascular calcifications are seen in the coronary arteries. The thoracic aorta is normal in caliber wi thout evidence of an aortic dissection. There is patchy parenchymal density at left lung base likely related to volume loss. Trace right pleu ral effusion and volume loss is present. Calcified right hilar lymph nodes are identified. Esophagus is filled with fluid like related to gastroesophageal reflux. There is S-shaped scoliotic curvature of thoracolumbar spine with left convex scoliosis of the thorac ic spine. CT ABDOMEN AND PELVIS: There is a large amount of free intraperitoneal gas seen within the abdomen with associated contrast seen freely within the abdomen which arises from the colonic anastomosis at the level of the sigmoid colon. Fluid and gas extends into the upper abdomen. There is also gas seen within the nursing student ior inferior mediastinum likely due to gas tracking from the abdomen. Previously seen mass associated with the sigmoid colon is no longer visualized related to postoperative changes. The liver, spleen, pancreas, bilateral adrenal glands, and kidneys demonstrate a normal CT appearance . Urinary bladder is slightly decompressed and also not well evaluated due to significant artifact from bilateral total hip prostheses. Vascular calcifications are seen in the abdominal aorta and iliac arteries. S-shaped scoliotic curvature of thoracolumbar spine is present. No other interval change. IMPRESSION: 1. Findings most compatible with a bowel leak arising from the sigmoid anastomosis with free intraper itoneal gas as well as contrast seen within the abdomen and pelvis. 2. Pneumomediastinum involving the posterior inferior mediastinum likely related to free intraperiton eal gas tracking into the mediastinum. 3. The esophagus is filled with fluid likely related to gastroesophageal reflux. The stomach is diste nded. 4. Suboptimal evaluation of the segmental and subsegmental pulmonary arteries for evaluation of pulmo nary emboli due to significant motion and primarily related to respiratory motion. No filling defects are seen in the central pulmonary arteries to suggest a large central pulmonary embolus. 5. Above findings discussed with Dr. Griffin on 06/06/2020 at 1406 hours.
[2020-06-06] MEDS ORDERED: Midazolam HCl 5 mg/5 ml Vial ONE (14:57)
[2020-06-06] MEDS ORDERED: Albumin 5% 250 ML ONE (15:25)
[2020-06-06] MEDS ORDERED: Sodium Bicarb 50 MEQ/50 ML Abboject 8.4% SYRINGE ONE ×3 (17:12→19:25)
[2020-06-06] MEDS ORDERED: Albumin 5% 500 ML ONE (17:12)
[2020-06-06 19:21] LABS: CO2 Tension 40.2 mmHg (35.0-45.0); Calcium, Ionized (arterial) 1.12 mmol/L (1.12-1.30); Hemoglobin (Hb) 9.6 g/dL (14.0-18.0); O2 Tension (PaO2), arterial 134.2 mmHg (80.0-100.0); Potassium - ABG Lab 3.75 mmol/L (3.70-5.30); pH, Arterial 7.29 (7.35-7.45)
[2020-06-06 19:23] LABS: Puncture Site Arterial Line
--- NOTE | 2020-06-06 19:23 | RAD ---
Exam: Chest one view HISTORY:Intubation. Status post endotracheal tube placement Comparison: 06/06/2020 at 10:52 AM FINDINGS: Cardiac silhouette:Cardiomegaly, accentuated by portable technique Lines and tubes: Endotracheal tube beyond the clavicles. Nasogastric tube is identified. Sidehole dafne ears to be at the GE junction. Aorta: Unremarkable Pulmonary vessels: Normal Costophrenic angles: Small bilateral effusions LUNGS: Scattered interstitial and alveolar opacities, greatest in the right upper lobe. Pneumothorax: None Osseous abnormalities: None IMPRESSION: 1. Endotracheal tube to the level of the clavicles 2. Nasogastric tube with the sidehole tip in the GE junction. Consider advancing NG tube. CODE T
[2020-06-06] MEDS: Vasopressin 20 UNIT, Admixture Fee 1 EACH in Sodium Chloride 0.9% 50 ML IV SCH (19:30)
[2020-06-06 19:32] LABS: Mean Corpuscular HGB CONC 31.5 g/dL (32.0-36.0); Mean Corpuscular Hemoglobin 25.9 pg (27.0-31.0); Mean Corpuscular Volume 82.3 fL (78.0-98.0); Mean Platelet Volume 7.2 fL (7.4-10.4); Platelet Count 417 thou/uL (130-400); RBC Distribution Width 14.2 % (11.5-14.5); Red Blood Cell (RBC) Count 3.46 mill/uL (4.70-6.10); White Blood Cell (WBC) Count 14.4 thou/uL (4.8-10.8)
[2020-06-06 19:35] LABS: INR-International Normal Ratio 1.2; PTT 37.3 sec (22.9-36.1); Prothrombin Time 15.6 sec (12.0-14.7)
[2020-06-06] MEDS ORDERED: Hydrocortisone Sod Succ/PF 100 mg/2 ml Vial ONE (19:46)
[2020-06-06 19:52] LABS: Lactic Acid 3.2 mmol/L (0.5-2.2)
[2020-06-06] MEDS: Hydrocortisone Sod Succ/PF 100 mg/2 ml Vial IVP SCH (19:52)
[2020-06-06 19:54] LABS: Band 40 % (5-11); Hypochromia SLIGHT = 6-15 cells (100X) (0-5/hpf); Lymphocytes 12 % (21-51); MDiff Complete? YES; Metamyelocyte 11 % (0-0); Monocytes 5 % (0-10); Myelocyte 2 % (0-0); Neutrophil 29 % (42-75); Ovalocytes SLIGHT = 2-5 cells (100X) (0-1/hpf); Platelet Morphology Comment Appears Increased; Polychromasia SLIGHT = 2-3 cells (100X) (0-2/hpf); Reactive Lymphocytes 1 % (0-10); Vacuoles SLIGHT
--- NOTE | 2020-06-06 19:56 | CON ---
DATE OF CONSULTATION: 06/06/2020 TIME SPENT: 45 minutes of critical care time. CONSULTING PHYSICIAN: Eve Griffin MD REASON FOR CONSULTATION: Postoperative ICU management. HISTORY OF PRESENT ILLNESS: The patient is a male, who was taken to the OR today for repair of a postop anastomotic bowel leak. He has been hypotensive since surgery. He is requiring Levophed and vasopressin and was left on mechanical ventilation. PAST MEDICAL HISTORY: Significant for, 1. Morbid obesity. 2. Arthritis. 3. Scoliosis. 4. Hypertension. 5. Hyperlipidemia. PAST SURGICAL HISTORY: 1. He has had bilateral hip replacements. 2. Tonsillectomy. 3. Recent resection of a sigmoid colon mass with pending pathology. FAMILY MEDICAL HISTORY: Remarkable for diabetes, pancreatic cancer. SOCIAL HISTORY: He is a nonsmoker. Does not use illicit drugs. Does not drink. ALLERGIES: SEPTRA AND SULFA DRUGS. MEDICATIONS: Prior to admission, 1. Losartan/hydrochlorothiazide. 2. Lorazepam. 3. Bystolic. 4. Furosemide. 5. Aspirin. 6. Fluoxetine. 7. Pravastatin. 8. Diclofenac. 9. Pantoprazole. 10. Hydrocodone/acetaminophen. 11. Methocarbamol. 12. Benadryl. 13. Stool softener. REVIEW OF SYSTEMS: Cannot be obtained as the patient is currently on mechanical ventilation. PHYSICAL EXAMINATION: VITAL SIGNS: Heart rate 94, blood pressure 95/64, O2 saturation 100%, and respiratory rate 18. The patient is about 6 feet tall and weighs 348 pounds. GENERAL: He is obtunded on mechanical ventilation. HEENT: Pupils are reactive. He has blink reflex. Oropharynx is intubated. NECK: No adenopathy or JVD. LUNGS: He has coarse expiratory wheezing bilaterally. CARDIOVASCULAR: S1 and S2. Regular. ABDOMEN: Soft and nontender. He has a low midline surgical bandage. He has multiple drains coming from that region. EXTREMITIES: No clubbing, cyanosis, or edema. LABORATORY DATA: On ABG, pH of 7.29, pCO2 of 40, pO2 of 134 that was on SIMV rate 16, tidal volume 650, PEEP 5, pressure support 10, and FiO2 of 60%. A chemistry is pending. Hemoglobin on his blood gas is 9.6. Preoperative hemoglobin today was 9.0, platelet count 380, and white count 10.2. IMAGING DATA: Chest x-ray shows cardiomegaly, evidence of pulmonary edema. ASSESSMENT: 1. Postoperative hypotension related to peritonitis/septic shock. 2. Underlying reactive airway disease. 3. Anastomotic leak. PLAN: 1. Support with vasopressors. 2. Adjust mechanical ventilation. 3. Placed on [id number] cardiac monitoring. 4. IV fluids. 5. Bicarb. 6. Empiric antibiotics. 7. Check cortisol, rule out adrenal insufficiency. Job ID: [id number]
[2020-06-06] MEDS ORDERED: Propofol BOLUS 1,000 MG/100 ML VIAL IV PRN (20:00)
[2020-06-06] MEDS ORDERED: Hydrocortisone Sod Succ/PF 100 mg/2 ml Vial IVP SCH (20:00)
[2020-06-06] MEDS ORDERED: DISCONTINUE PREVIOUS NARCOTIC PAIN MEDICATIONS AND BENZODIAZEPINES FS SCH (20:00)
[2020-06-06] MEDS ORDERED: Fentanyl BOLUS 250 ML IVPB PRN (20:00)
[2020-06-06] MEDS ORDERED: Propofol 1,000 MG/100 ML VIAL IV PRN (20:00)
[2020-06-06] MEDS ORDERED: Ventilator Sedation Protocol 1 EACH FS SCH (20:00)
[2020-06-06] MEDS: fentaNYL Citrate/PF 2,000 MCG in Sodium Chloride 0.9% 60 ML IV SCH (20:06)
[2020-06-06 20:08] LABS: ALT (SGPT) 18 U/L (8-55); AST (SGOT) 26 U/L (5-34); Albumin 2.8 g/dL (3.5-5.0); Alkaline Phosphatase 50 U/L (40-110); Anion Gap 14 mmol/L (10-20); BUN (Urea Nitrogen) 17 mg/dL (8.9-20.6); Bilirubin, Total 1.3 mg/dL (0.2-1.2); Calc. Creatinine Clearance 97 mL/min (70-130); Calcium 7.9 mg/dL (7.8-10.44); Carbon Dioxide 20 mmol/L (22-29); Chloride 106 mmol/L (98-107); Globulin 2.3 g/dL (2.4-3.5); Glucose 138 mg/dL (70-105); Magnesium 1.4 mg/dL (1.6-2.6); Phosphorus 1.8 mg/dL (2.3-4.7); Potassium 3.8 mmol/L (3.5-5.1); Protein, Total 5.1 g/dL (6.0-8.3); Sodium 136 mmol/L (136-145)
[2020-06-06] MEDS ORDERED: Electrolyte Replacement Protocol 1 EACH FS PRN (20:15)
[2020-06-06 20:45] LABS: Troponin I 0.024 ng/mL (< 0.028)
[2020-06-06] MEDS ORDERED: Potassium Phosphate 15 MMOL in Sodium Chloride 0.9% 100 ML IVPB SCH (21:00)
[2020-06-06] MEDS ORDERED: Magnesium Sulfate 4 GM in Sodium Chloride 0.9% 250 ML 250 ML IVPB SCH (21:00)
[2020-06-06] MEDS: Sodium Bicarbonate 150 MEQ in Dextrose 5% in Water 1,000 ML IV SCH (21:04)
[2020-06-06] MEDS: EPINEPHrine 4 MG in Dextrose 5% in Water 250 ML IV SCH (21:20)
[2020-06-06 21:21] LABS: Actual Bicarbonate (HCO3a) 20.3 mEq/L (22-28); Base Excess (BEa) -5.6 mEq/L (-2.0 to +3.0); CO2 Tension 41.6 mmHg (35.0-45.0); Calcium, Ionized (arterial) 1.11 mmol/L (1.12-1.30); Carboxyhemoglobin (COHb) 0.8 gm% (0.0-3.0); Hemoglobin (Hb) 9.9 g/dL (14.0-18.0); O2 Tension (PaO2), arterial 134.5 mmHg (80.0-100.0); Potassium - ABG Lab 3.76 mmol/L (3.70-5.30); pH, Arterial 7.31 (7.35-7.45)
[2020-06-06 21:24] LABS: Puncture Site Arterial Line
[2020-06-06] MEDS: Norepinephrine 8 MG in Dextrose 5% in Water 242 ML IVPB PRN (22:24)
[2020-06-06] MEDS: Meropenem 2 GM, Admixture Fee 1 EACH in Sodium Chloride 0.9% 100 ML IVPB SCH (23:52)
[2020-06-07] MEDS: Lorazepam 2 MG/ML VIAL SLOW IVP PRN ×5 (00:17→22:34)
[2020-06-07] MEDS: Norepinephrine 8 MG in Dextrose 5% in Water 242 ML IVPB PRN ×5 (01:44→16:24)
[2020-06-07] MEDS: EPINEPHrine 4 MG in Dextrose 5% in Water 250 ML IV SCH (02:41)
[2020-06-07] MEDS: Hydrocortisone Sod Succ/PF 100 mg/2 ml Vial IVP SCH ×4 (02:42→20:58)
[2020-06-07] MEDS: Vasopressin 20 UNIT, Admixture Fee 1 EACH in Sodium Chloride 0.9% 50 ML IV SCH ×2 (02:45→11:59)
[2020-06-07 03:34] LABS: Lactic Acid 4.1 mmol/L (0.5-2.2)
[2020-06-07 03:38] LABS: ALT (SGPT) 19 U/L (8-55); AST (SGOT) 25 U/L (5-34); Albumin 2.5 g/dL (3.5-5.0); Alkaline Phosphatase 43 U/L (40-110); Anion Gap 17 mmol/L (10-20); BUN (Urea Nitrogen) 21 mg/dL (8.9-20.6); Bilirubin, Total 1.3 mg/dL (0.2-1.2); Calc. Creatinine Clearance 80 mL/min (70-130); Calcium 7.5 mg/dL (7.8-10.44); Carbon Dioxide 22 mmol/L (22-29); Chloride 102 mmol/L (98-107); Globulin 2.3 g/dL (2.4-3.5); Glucose 206 mg/dL (70-105); Magnesium 2.2 mg/dL (1.6-2.6); Potassium 4.5 mmol/L (3.5-5.1); Protein, Total 4.8 g/dL (6.0-8.3); Sodium 136 mmol/L (136-145)
[2020-06-07 03:43] LABS: Band 50 % (5-11); Hemoglobin 9.3 g/dL (14.0-18.0); Lymphocytes 6 % (21-51); MDiff Complete? YES; Mean Corpuscular HGB CONC 30.7 g/dL (32.0-36.0); Mean Corpuscular Hemoglobin 25.4 pg (27.0-31.0); Mean Corpuscular Volume 82.9 fL (78.0-98.0); Mean Platelet Volume 7.5 fL (7.4-10.4); Metamyelocyte 4 % (0-0); Monocytes 6 % (0-10); Neutrophil 34 % (42-75); Phosphorus 3.5 mg/dL (2.3-4.7); Platelet Count 417 thou/uL (130-400); Platelet Morphology Comment Appears Increased; RBC Distribution Width 14.5 % (11.5-14.5); Red Blood Cell (RBC) Count 3.67 mill/uL (4.70-6.10); White Blood Cell (WBC) Count 24.8 thou/uL (4.8-10.8)
[2020-06-07] MEDS: Sodium Bicarbonate 150 MEQ in Dextrose 5% in Water 1,000 ML IV SCH ×3 (05:17→20:48)
[2020-06-07] MEDS ORDERED: Sodium Chloride 0.9% 1,000 ML IV SCH (07:30)
--- NOTE | 2020-06-07 07:51 | PRG ---
DATE OF SERVICE: 06/07/2020 35 minutes of critical care time. SUBJECTIVE: Mr. Crum remains critical condition on mechanical ventilation, multiple vasopressors with septic shock from peritonitis. His blood pressure has required norepinephrine, vasopressin, and epinephrine in order to maintain systolic pressure of 90. His urine output has been very low. OBJECTIVE: VITAL SIGNS: Temperature 98.7, pulse in the 90s, blood pressure 93/52. Total intake has been 3468, output 607, but urine output has been minimal over the last 4 hours. HEENT: Shows dusky skin and intubated oropharynx. NECK: No JVD. LUNGS: Improved wheezing compared to yesterday. CARDIOVASCULAR: S1 and S2, regular. ABDOMEN: Distended. Low midline surgical bandage. Multiple drains, one with purulent drainage. EXTREMITIES: No clubbing, cyanosis, or edema. LABORATORY DATA: His white blood cell count is 24.8, hematocrit 30, and platelet count 417. Sodium 136, potassium 4.5, chloride 102, CO2 of 22, BUN 21, creatinine 2.4, and glucose 206, lactate 4.1, calcium 7.5, total bilirubin 1.3. TSH 0.2. Cortisol level was 26.5. Chest x-ray demonstrates cardiomegaly, no overt infiltrates, ET tube in good position. ASSESSMENT: 1. Peritonitis, status post anastomotic leak after sigmoid colon resection. 2. Acute respiratory failure, requiring mechanical ventilation. 3. Septic shock. 4. Acute renal failure. 5. Morbid obesity. PLAN: His hemodynamics indicate that the patient is in continued shock despite aggressive resuscitation. I think that he would benefit from further fluid challenge, so I will give him a liter of normal saline as well as some albumin. We will continue antibiotics. He may require a second look in the OR. He is not weanable at this time. He was not adrenally insufficient as noted on his cortisol test. Job ID: [id number]
[2020-06-07 07:53] LABS: Actual Bicarbonate (HCO3a) 18.4 mEq/L (22-28); Base Excess (BEa) -6.7 mEq/L (-2.0 to +3.0); CO2 Tension 35.2 mmHg (35.0-45.0); Calcium, Ionized (arterial) 1.05 mmol/L (1.12-1.30); Hemoglobin (Hb) 9.7 g/dL (14.0-18.0); O2 Tension (PaO2), arterial 102.1 mmHg (80.0-100.0); Potassium - ABG Lab 4.48 mmol/L (3.70-5.30); pH, Arterial 7.34 (7.35-7.45)
[2020-06-07 07:59] LABS: Puncture Site Arterial Line
[2020-06-07] MEDS: Albumin 25% 25 GM/100 ML BOT IVPB SCH ×3 (08:01→20:49)
[2020-06-07] MEDS: Pantoprazole 40 MG VIAL IVP SCH (08:15)
--- NOTE | 2020-06-07 08:30 | RAD ---
PORTABLE CHEST: INDICATION: Pneumonia and CCU followup. COMPARISON: 06/06/2020. FINDINGS/IMPRESSION: ET tube and NG Tube again noted. Bilateral effusions. Left basilar atelectasis and/or infiltrate ap pear stable. Upper lung acevedo appear aerated. No acute interval change. POS: AGW
[2020-06-07] MEDS: Meropenem 2 GM, Admixture Fee 1 EACH in Sodium Chloride 0.9% 100 ML IVPB SCH ×3 (08:37→23:05)
[2020-06-07] MEDS: Enoxaparin Sodium 40 MG/0.4 ML SYRINGE SC SCH (08:46)
--- NOTE | 2020-06-07 10:12 | PDOC.GSPN ---
Surgery Progress Note: Subj - Subjective Narrative: Patient is more alert today. He is answering questions yes and no and seems to understand when I tell him about the events of yesterday and his operation. NG output has been minimal. No colostomy output yet. HAI output is serous and also fairly minimal. He is almost 4 L positive yesterday but still requiring a lot of pressors. Epinephrine was added overnight to the Levophed and vasopressin. Urine output has been marginal but he is still making some urine. Cortisol and TSH were both normal. Hemoglobin has actually gone up further. White count and bandemia have also increased. BUN and creatinine are rising. Abdomen is distended. Incisions are dressed. Colostomy mucosa is viable. Chest x-ray looks stable. Not a lot of peripheral edema. Assessment/plan: Critically ill with sepsis due to anastomotic leak after sigmoid colectomy. The intra-abdominal source is controlled. He does not have an anastomotic line any longer and has been thoroughly washed out. He has drains in both paracolic gutters in the pelvis and the output is clear. I do n ot believe there is any benefit to a second look at this time. I agree with Dr. Collins that he is intravascularly depleted despite fluids and albumin yesterday and agree with additional fluids and albumin today. Cardiology and nephrology to take a look at him today. Continue supportive care. I have ordered TPN to start today as he is coming up on a week of no significant oral intake and his prealbumin is quite low. Surgery Progress Note: Obj - Vital signs Vital signs: Vital Signs - Most Recent Temp Pulse Resp BP Pulse Ox 98.7 F 87 18 91/48 L 99 06/07/20 04:00 06/07/20 07:38 06/07/20 07:36 06/07/20 07:38 06/07/20 07:36 Surgery Progress Note: Results - Labs Result Diagrams: 06/07/20 02:55 06/07/20 02:55 Lab results: Laboratory Results - last 12 hr 06/07/20 06/07/20 06/07/20 02:55 02:55 02:55 WBC 24.8 H RBC 3.67 L Hgb 9.3 L Hct 30.5 L MCV 82.9 MCH 25.4 L MCHC 30.7 L RDW 14.5 Plt Count 417 H MPV 7.5 Neutrophils % (Manual) 34 L Band Neuts % (Manual) 50 H Lymphocytes % (Manual) 6 L Monocytes % (Manual) 6 Metamyelocytes % (Man) 4 H Plt Morphology Comment Appears Increased H Specimen Type Puncture Site Bicarbonate Actual ABG pH ABG pCO2 ABG pO2 ABG O2 Sat (Measured) ABG O2 Content ABG Base Excess ABG Hematocrit ABG Hemoglobin ABG Oxyhemoglobin ABG Carboxyhemoglobin ABG Methemoglobin ABG Deoxyhemoglobin Diogenes Test A-a O2 Gradient Ionized Calcium Mode of Support Mechanical Rate Inspired O2 Tidal Volume Pressure Support PEEP or CPAP Sodium 136 Potassium 4.5 Chloride 102 Carbon Dioxide 22 Anion Gap 17 BUN 21 H Creatinine 2.47 H Estimated GFR (MDRD) 28 Glucose 206 H Lactic Acid 4.1 H* Calcium 7.5 L Phosphorus Magnesium 2.2 Total Bilirubin 1.3 H AST 25 ALT 19 Alkaline Phosphatase 43 Serum Total Protein 4.8 L Albumin 2.5 L Globulin 2.3 L Albumin/Globulin Ratio 1.1 L TSH 3rd Generation 06/07/20 06/07/20 06/07/20 02:55 02:55 07:40 WBC RBC Hgb Hct MCV MCH MCHC RDW Plt Count MPV Neutrophils % (Manual) Band Neuts % (Manual) Lymphocytes % (Manual) Monocytes % (Manual) Metamyelocytes % (Man) Plt Morphology Comment Specimen Type ARTERIAL Puncture Site Arterial Line Bicarbonate Actual 18.4 L ABG pH 7.34 L ABG pCO2 35.2 ABG pO2 102.1 H ABG O2 Sat (Measured) 97.9 ABG O2 Content 13.3 L ABG Base Excess -6.7 L ABG Hematocrit 29.0 L ABG Hemoglobin 9.7 L ABG Oxyhemoglobin 96.6 ABG Carboxyhemoglobin 1.0 ABG Methemoglobin 0.30 ABG Deoxyhemoglobin 2.1 Diogenes Test NOT DONE A-a O2 Gradient 210.400 H Ionized Calcium 1.05 L Mode of Support PSIMV Mechanical Rate 18 Inspired O2 50 Tidal Volume 500 Pressure Support 10 PEEP or CPAP 5.0 Sodium 131 L Potassium 4.48 Chloride 101 Carbon Dioxide Anion Gap BUN Creatinine Estimated GFR (MDRD) Glucose Lactic Acid Calcium Phosphorus 3.5 Magnesium Total Bilirubin AST ALT Alkaline Phosphatase Serum Total Protein Albumin Globulin Albumin/Globulin Ratio TSH 3rd Generation 0.2164 L
--- NOTE | 2020-06-07 11:18 | OP ---
DATE OF PROCEDURE: 06/06/2020 PROCEDURE PERFORMED: Laparoscopic hand-assisted abdominal washout, takedown of colorectal anastomosis and descending colostomy, femoral central venous catheter placement with ultrasound guidance, resection of Meckel's diverticulum. PREOPERATIVE DIAGNOSIS: Anastomotic leak. POSTOPERATIVE DIAGNOSES: Anastomotic leak with ischemia of the distal descending colon. HISTORY OF PRESENT ILLNESS: Mr. Crum is a 49-year-old man with a sigmoid cancer, which was near obstructing. He underwent a laparoscopic hand-assisted sigmoid colectomy on Saturday, but this morning became tachycardic, had increased pain and CT revealed an anastomotic leak which was fairly high volume. He was taken directly from [place] to the preop holding area for emergency washout and diversion. DESCRIPTION OF PROCEDURE: After verbal consent was obtained, the patient was placed in supine position in the preop holding area. His groin was prepped and draped in standard sterile fashion. A sterile ultrasound probe used to identify the patent compressible right femoral vein. This was accessed under direct ultrasound guidance with excellent flow of dark venous nonpulsatile blood. A wire was threaded and the tract dilated and a triple-lumen central venous catheter placed over the wire. All 3 ports easily aspirated dark venous nonpulsatile blood and easily flushed without resistance. The catheter was secured to the skin. A sterile dressing placed and vasopressor support instituted. He was then taken to the operating room where he was placed in supine position and general endotracheal anesthesia was administered. An arterial line was placed by Anesthesia and he was prepped and draped in standard sterile fashion. The periumbilical hand port incision was reopened and dissection carried down to the fascia. The fascial sutures were cut and the abdominal cavity entered with gas and some purulent fluid encountered. A wound protector was placed and fluid suctioned out of all 4 quadrants of the body; this had a brownish tinge, but no formed or solid material. Warm saline was instilled in the abdomen, irrigated and interloop adhesions broken up. A GelPort was then placed and carbon dioxide gas insufflated and the previous dissecting ports incisions were reopened and trocars placed under direct laparoscopic vision. The small bowel was drawn out of the pelvis and the colorectal anastomosis identified. There was no obvious leakage from the left side of the anastomosis, but on the right side, there were 2 areas of feculent leakage. Initially, these were going to be addressed with suture repair, but the colon had a somewhat dusky appearance and on examination of the posterior suture line, there was another larger area of breakdown and it was felt that the anastomosis could be narrowed by over-sewing all 3 areas, and there could be ischemia that would lead to failure of the repair. Therefore, the decision was made to resect the anastomosis. An endoscopic stapler was placed across the rectal stump inferior to the anastomosis and fired, dividing the upper rectum. The dusky appearing segment of the distal descending colon was then divided with another load of the laparoscopic stapler and the anastomosis removed through the GelPort and sent to pathology. The abdomen was then copiously irrigated with almost 20 L total of warm saline until all return was clear taking care to irrigate up over the liver and spleen into both pericolic gutters and between all of the bowel loops. The entire small bowel was run from the ligament of Treitz to the terminal ileum. The patient was noted to have a Meckel's diverticulum and there was an irregular growth of the tip of the Meckel's, so this was divided with the stapler in a transverse manner so as not to narrow the lumen and the staple line was inverted with Lembert sutures. The patient was noted to have some bowel adhesions which were more chronic in appearance with fibrinous exudate and reactive thickening of the bowel, whereas most of the other adhesions were more acute. It was felt that he might have had a contained leak which then became generalized leading to his clinical deterioration today. The distal descending colon was somewhat thickened and inflamed and there were multiple thickened appendix epiploica which were resected to allow easier passage of the colon through the abdominal wall for end-colostomy. A circular incision was made over the rectus sheath in the left lower quadrant and dissection carried down to the fascia which was incised in a cruciate manner. The rectus muscles were split in the direction of the fibers and the posterior sheath incised in a cruciate manner as well. The tract was dilated and the colon brought out through the abdominal wall and secured to the fascia with 3-0 Vicryl sutures. HAI drains were placed through the laparoscopic port sites with the medial right lower quadrant drain placed in the pelvis, the lateral right lower quadrant drain placed to the right pericolic gutter and up over the liver, and the left lateral drain placed to the left pericolic gutter and up over the spleen. The NG tube was confirmed to be in good position in the stomach and the 12 mm trocar site in the right lower quadrant was closed under direct laparoscopic vision with 0 Vicryl suture on a GraNee needle. The omentum was drawn back down under the midline incision and Seprafilm placed anterior to this. The wound protector was removed and the midline fascia closed with a running PDS suture. The incisions were copiously irrigated and the midline incision packed with saline-moistened gauze. The HAI drains were secured to the skin with 3-0 nylon sutures and drain dressings placed. The 12 mm port site in the right lower quadrant was copiously irrigated and loosely approximated with a nylon suture as was the epigastric incision. Attention was then turned to maturation of the colostomy. The staple line was removed and an everted [place] type colostomy made by securing the dermis to the full-thickness of the colon edge and a Lembert suture a couple centimeters proximal. This was performed in 4 quadrants and the intervening dermis secured to the full-thickness of the colon edge between these sutures. Colostomy appliance was placed and the JPs were placed to bulb suction and the patient was taken to the critical care unit in critical condition. He did require high-dose pressors throughout the case to maintain a blood pressure, although his O2 sats were normal and his heart rate had diminished into the 90s. Estimated blood loss was minimal. There were no complications. SPECIMENS: Colorectal anastomosis and Meckel's diverticulum. Job ID: [id number] MTDD
--- NOTE | 2020-06-07 12:01 | CON ---
DATE OF CONSULTATION: REASON FOR CONSULTATION: Elevated creatinine. HISTORY OF PRESENT ILLNESS: This is a very pleasant 49-year-old gentleman who developed low blood pressure with a baseline creatinine of 1.0 two days ago which increased to 2.0 and 2.4 today. The patient is making 30 mL of urine per hour. The patient maintains normal blood pressure and is on medicine that is supporting his blood pressure. The patient has a history of morbid obesity. PAST MEDICAL HISTORY: Significant for anastomotic leak, history of contrast exposure, history of sigmoid colectomy, history of arthritis, morbid obesity, hypertension, history of drug use, tonsillectomy, colonic mass. FAMILY HISTORY: Negative for ESRD. ALLERGIES: REVIEWED. HOME MEDICATIONS: List reviewed. HOSPITAL MEDICATIONS: List reviewed. REVIEW OF SYSTEMS: Unobtainable. PHYSICAL EXAMINATION: GENERAL: The patient is resting. VITAL SIGNS: Pulse 81, breathing at 16, blood pressure 130/85. HEENT: Head normocephalic and atraumatic. Eyes intact, no ulcers. Nose intact, no ulcers. Ears intact, no ulcers. NECK: Supple. No JVD. CHEST: Symmetrical and clear. CARDIOVASCULAR: Shows S1 and S2, no rub, no murmur. GASTROINTESTINAL: Abdomen is soft, bowel sounds positive. EXTREMITIES: Show no edema or ulcers. SKIN: Shows no rash or petechiae. MUSCULOSKELETAL: Shows no joint swelling or stiffness. GENITOURINARY: Shows no [place] or CVA tenderness. NEUROLOGIC: Motor intact. Cranial nerves intact. LABORATORY DATA: Reviewed. ASSESSMENT AND PLAN: 1. Chronic kidney disease stage 4 with acute kidney injury, most likely multifactorial. No indication for dialysis. The patient did have a history of contrast exposure. 2. Anemia, stable. Medication based GFR appropriate. No indication for dialysis at this time. The patient remains nonoliguric. Job ID: [id number]
[2020-06-07] MEDS: D5 1/2 NS w/20 mEq KCL 1,000 ML IV SCH (12:05)
[2020-06-07 12:37] LABS: Lactic Acid 3.3 mmol/L (0.5-2.2)
[2020-06-07] MEDS ORDERED: POTASSIUM CHLORIDE IV SCH (14:00)
[2020-06-07] MEDS ORDERED: SODIUM ACETATE IV SCH (14:00)
[2020-06-07] MEDS ORDERED: [UNRECOGNIZED DRUG - OTHER] IV SCH (14:00)
--- NOTE | 2020-06-07 14:44 | CT ---
CT angiogram thorax with IV contrast and 3-D reconstructions CT abdomen and pelvis with IV contrast HISTORY: Patient is post colectomy with nausea and vomiting and tachycardia. Mass seen within sigmoid colon on prior CT examination on 05/31/2020. COMPARISON: CT abdomen and pelvis on 05/31/2020 CTA THORAX: Due to significant respiratory motion, there is limited evaluation of the segmental and subsegmental pulmonary arteries for evaluation of pulmonary embolus. However, no filling defects are seen within the central pulmonary arteries. Vascular calcifications are seen in the coronary arteries. The thoracic aorta is normal in caliber wi thout evidence of an aortic dissection. There is patchy parenchymal density at left lung base likely related to volume loss. Trace right pleu ral effusion and volume loss is present. Calcified right hilar lymph nodes are identified. Esophagus is filled with fluid like related to gastroesophageal reflux. There is S-shaped scoliotic curvature of thoracolumbar spine with left convex scoliosis of the thorac ic spine. CT ABDOMEN AND PELVIS: There is a large amount of free intraperitoneal gas seen within the abdomen with associated contrast seen freely within the abdomen which arises from the colonic anastomosis at the level of the sigmoid colon. Fluid and gas extends into the upper abdomen. There is also gas seen within the assembler golf wood head ior inferior mediastinum likely due to gas tracking from the abdomen. Previously seen mass associated with the sigmoid colon is no longer visualized related to postoperative changes. The liver, spleen, pancreas, bilateral adrenal glands, and kidneys demonstrate a normal CT appearance . Urinary bladder is slightly decompressed and also not well evaluated due to significant artifact from bilateral total hip prostheses. Vascular calcifications are seen in the abdominal aorta and iliac arteries. S-shaped scoliotic curvature of thoracolumbar spine is present. No other interval change. IMPRESSION: 1. Findings most compatible with a bowel leak arising from the sigmoid anastomosis with free intraper itoneal gas as well as contrast seen within the abdomen and pelvis. 2. Pneumomediastinum involving the posterior inferior mediastinum likely related to free intraperiton eal gas tracking into the mediastinum. 3. The esophagus is filled with fluid likely related to gastroesophageal reflux. The stomach is diste nded. 4. Suboptimal evaluation of the segmental and subsegmental pulmonary arteries for evaluation of pulmo nary emboli due to significant motion and primarily related to respiratory motion. No filling defects are seen in the central pulmonary arteries to suggest a large central pulmonary embolus. 5. Above findings discussed with Dr. Griffin on 06/06/2020 at 1406 hours. Transcribed Date/Time: 06/07/2020 2:44 PM
--- NOTE | 2020-06-07 15:50 | CON ---
DATE OF CONSULTATION: REASON FOR CONSULTATION: CAD management. HISTORY OF PRESENT ILLNESS: Mr. Crum is a very pleasant 49-year-old gentleman, whom I have seen and evaluated in the past. He recently had a colonic mass with removal. He continued to have abdominal discomfort. He required reexploration due to free air. Since that time, he has been intubated. He has required pressor support and likely appears to be septic. HOME MEDICATIONS: Include, 1. Losartan/hydrochlorothiazide. 2. Pantoprazole. 3. Diclofenac. 4. Hydrocodone/acetaminophen. 5. Lorazepam. 6. Pravastatin. 7. Methocarbamol. 8. Benadryl. 9. Aspirin. 10. Bystolic. 11. Lasix. PAST MEDICAL HISTORY: Hypertension, hyperlipidemia, scoliosis, osteoarthritis, sleep apnea. PAST SURGICAL HISTORY: Angiogram performed in 08/2018 with [id number] coronary artery disease, hip replacement. SOCIAL HISTORY: No cigarette use. He does dip snuff. ALLERGIES: BACTRIM. REVIEW OF SYSTEMS: Unobtainable. He is currently intubated and sedated. PHYSICAL EXAMINATION: GENERAL: He is currently intubated and sedated. VITAL SIGNS: Blood pressure 109/64, pulse 94, temperature afebrile. The patient is currently on Levophed, vasopressin, and bicarb drip. NEUROLOGIC: The patient is alert and oriented x3 with no focal neurologic deficits. HEENT: Sclerae without icterus. Mouth has moist mucous membranes with normal pallor. NECK: No JVD. Carotid upstroke brisk. No bruits bilaterally. LUNGS: Clear to auscultation with unlabored respirations. BACK: No scoliosis or kyphosis. CARDIAC: Regular rate and rhythm with normal S1 and S2. No S3 or S4 noted. No significant rubs, murmurs, thrills, or gallops noted throughout the precordium. PMI is not displaced. There is no parasternal heave. ABDOMEN: Soft, nontender, nondistended. No peritoneal signs present. No hepatosplenomegaly. No abnormal striae. EXTREMITIES: 2 to 3+ pitting edema. SKIN: No gross abnormalities. PERTINENT LABORATORY DATA: Hemoglobin 9.3. INR 1.2. The pH is 7.34, pO2 of 102, and pCO2 of 35.2. IMPRESSION: 1. Sepsis. 2. Recent colonic surgery. 3. [id number]-[id number] coronary artery disease. RECOMMENDATIONS: We will continue pressor support. The patient's cardiac output is 7.5 with cardiac index of 2.6. SVR is 568. We will recommend echo to assess LVEF. Last LVEF was within normal limits. His urine output has been less than optimal over the last 24 hours. We will continue to monitor closely. We will to follow closely with you. Job ID: [id number]
[2020-06-07] MEDS: fentaNYL Citrate/PF 2,000 MCG in Sodium Chloride 0.9% 60 ML IV SCH (17:36)
[2020-06-07 17:44] LABS: Cardiac Risk 4.3 (Less than 4.5)
[2020-06-08] MEDS: EPINEPHrine 4 MG in Dextrose 5% in Water 250 ML IV SCH ×2 (00:16→04:55)
[2020-06-08] MEDS: Albumin 25% 25 GM/100 ML BOT IVPB SCH ×2 (01:35→09:48)
[2020-06-08] MEDS: Hydrocortisone Sod Succ/PF 100 mg/2 ml Vial IVP SCH ×4 (01:35→20:00)
[2020-06-08] MEDS: Lorazepam 2 MG/ML VIAL SLOW IVP PRN ×2 (02:26→13:05)
[2020-06-08] MEDS: Sodium Bicarbonate 150 MEQ in Dextrose 5% in Water 1,000 ML IV SCH (04:56)
[2020-06-08] MEDS: fentaNYL Citrate/PF 2,000 MCG in Sodium Chloride 0.9% 60 ML IV SCH ×2 (06:38→21:43)
[2020-06-08 06:50] LABS: ALT (SGPT) 13 U/L (8-55); AST (SGOT) 14 U/L (5-34); Alkaline Phosphatase 47 U/L (40-110); Anion Gap 15 mmol/L (10-20); BUN (Urea Nitrogen) 27 mg/dL (8.9-20.6); Bilirubin, Total 1.9 mg/dL (0.2-1.2); Calc. Creatinine Clearance 122 mL/min (70-130); Calcium 7.2 mg/dL (7.8-10.44); Carbon Dioxide 30 mmol/L (22-29); Chloride 95 mmol/L (98-107); Globulin 2.1 g/dL (2.4-3.5); Glucose 203 mg/dL (70-105); Potassium 3.6 mmol/L (3.5-5.1); Protein, Total 5.1 g/dL (6.0-8.3); Sodium 136 mmol/L (136-145)
[2020-06-08 07:07] LABS: Free T4 (Free Thyroxine) 0.77 ng/dL (0.70-1.48)
[2020-06-08 07:08] LABS: Thyroid Stimulating Hormone 0.3805 uIU/mL (0.35-4.94)
[2020-06-08 07:10] LABS: Band 19 % (5-11); Hemoglobin 6.6 g/dL (14.0-18.0); Hypochromia SLIGHT = 6-15 cells (100X) (0-5/hpf); Lymphocytes 10 % (21-51); MDiff Complete? YES; Mean Corpuscular HGB CONC 30.7 g/dL (32.0-36.0); Mean Corpuscular Hemoglobin 25.3 pg (27.0-31.0); Mean Corpuscular Volume 82.4 fL (78.0-98.0); Mean Platelet Volume 7.4 fL (7.4-10.4); Metamyelocyte 1 % (0-0); Monocytes 16 % (0-10); Neutrophil 54 % (42-75); Platelet Count 215 thou/uL (130-400); Platelet Morphology Comment Appears Adequate; RBC Distribution Width 14.4 % (11.5-14.5); Red Blood Cell (RBC) Count 2.63 mill/uL (4.70-6.10)
[2020-06-08 07:16] LABS: Actual Bicarbonate (HCO3a) 30.8 mEq/L (22-28); Base Excess (BEa) 5.5 mEq/L (-2.0 to +3.0); CO2 Tension 50.4 mmHg (35.0-45.0); Calcium, Ionized (arterial) 0.96 mmol/L (1.12-1.30); O2 Tension (PaO2), arterial 100.8 mmHg (80.0-100.0); Potassium - ABG Lab 3.41 mmol/L (3.70-5.30)
[2020-06-08 07:21] LABS: Puncture Site RRA
--- NOTE | 2020-06-08 07:23 | PDOC.PULCC ---
CCU Progress Note: Subj/Obj - Subjective Date: 06/08/20 Time: 07:21 - Objective Allergies/Adverse Reactions: Allergies Allergy/AdvReac Type Severity Reaction Status Date / Time Sulfa (Sulfonamide Allergy "knots on Verified 05/31/20 09:17 Antibiotics) my feet" Medications: Current Medications Albumin Human (Albumin 25% 25 Gm/100 Ml Bot) 25 gm IVPB 0200,0800,1400,2000 [facility] Stop: 06/08/20 14:01 Last Admin: 06/08/20 01:35 Dose: 25 gm Documented by: Albuterol/Ipratropium (Ipratropium/Albuterol Sulfate 3 Ml Neb) 3 ml NEB [id number] [facility]AN Last Admin: 06/08/20 06:51 Dose: 3 ml Documented by: Diphenhydramine HCl (Diphenhydramine 25 Mg Cap) 25 mg PO Q4H PRN PRN Reason: Itching Last Admin: 06/05/20 17:55 Dose: 25 mg Documented by: Enoxaparin Sodium (Enoxaparin Sodium 40 Mg/0.4 Ml Syringe) 40 mg SC 0900 [facility] Last Admin: 06/07/20 08:46 Dose: 40 mg Documented by: Hydrocortisone Sodium Succinate (Hydrocortisone Sod Succ/Pf 100 Mg/2 Ml Vial) 100 mg IVP Q6H [facility] Last Admin: 06/08/20 01:35 Dose: 100 mg Documented by: Norepinephrine Bitartrate 8 mg (/ Dextrose/Water) 250 mls @ 0 mls/hr IVPB INF PRN PRN Reason: Blood Pressure Last Admin: 06/07/20 16:24 Dose: 250 mls Documented by: Vasopressin 20 unit/Miscellaneous Medication 1 each/ Sodium Chloride 51 mls @ 0 mls/hr IV INF [facility]; Protocol Last Admin: 06/07/20 11:59 Dose: 51 mls Documented by: Sodium Bicarbonate 150 meq/ (Dextrose/Water) 1,150 mls @ 150 mls/hr IV .Q7H40M [facility] Last Admin: 06/08/20 04:56 Dose: 1,150 mls Documented by: Fentanyl Citrate 2,000 mcg/ (Sodium Chloride) 100 mls @ 0 mls/hr IV INF [facility]; Protocol Stop: 07/06/20 20:00 Last Admin: 06/08/20 06:38 Dose: 100 mls Documented by: Fentanyl Citrate (Fentanyl Bolus) 250 mls @ 0 mls/hr IVPB PRN PRN PRN Reason: Breakthrough pain/agitation Stop: 07/06/20 20:00 Meropenem 2 gm/ Miscellaneous Medication 1 each/ Sodium Chloride 100 mls @ 200 mls/hr IVPB 0700,1500,2300 [facility] Last Admin: 06/07/20 23:05 Dose: 100 mls Documented by: Epinephrine 4 mg/ Dextrose/ (Water) 254 mls @ 0 mls/hr IV INF [facility]; Protocol Last Admin: 06/08/20 04:55 Dose: 254 mls Documented by: Sodium Acetate 70 meq/Potassium Chloride 20 meq/Potassium Phosphate 15 mmol/Calcium Gluconate 5 meq/Magnesium Sulfate 24 meq/Multivitamins 10 ml/ Chromium/Copper/Manganese/Zinc 10 ml/Amino Acids/Dextrose/ Fat Emulsion Intravenous 2,336.7809 mls @ 50 mls/hr IV 1400 [facility] Last Admin: 06/07/20 15:53 Dose: 2,336.7809 mls Documented by: Dexmedetomidine HCl 400 mcg/ (Sodium Chloride) 100 mls @ 0 mls/hr IVPB INF [facility]; Protocol Lorazepam (Lorazepam 1 Mg Tab) 2 mg PO TID PRN PRN Reason: Anxiety Last Admin: 06/06/20 10:09 Dose: 2 mg Documented by: Lorazepam (Lorazepam 2 Mg/Ml Vial) 2 mg SLOW IVP Q1H PRN PRN Reason: Breakthrough agitation Stop: 07/06/20 20:00 Last Admin: 06/08/20 02:26 Dose: 2 mg Documented by: Miscellaneous Medication (Electrolyte Replacement Protocol 1 Each) 1 each FS PRN PRN PRN Reason: ELECTROLYTES Morphine Sulfate (Morphine 2 Mg/Ml Vial) 2 mg SLOW IVP Q1H PRN PRN Reason: Breakthrough Pain/Agitation Stop: 07/06/20 20:00 Discontinue Previous Narcotic Pain Medications And Benzodiazepines 1 each FS .ONE [facility] Stop: 07/06/20 20:00 Ondansetron HCl (Ondansetron Pf 4 Mg/2 Ml Vial) 4 mg IVP Q4H PRN PRN Reason: Nausea/Vomiting Last Admin: 06/06/20 04:18 Dose: 4 mg Documented by: Pantoprazole Sodium (Pantoprazole 40 Mg Vial) 40 mg IVP DAILY [facility] Last Admin: 06/07/20 08:15 Dose: 40 mg Documented by: Propofol (Propofol 1,000 Mg/100 Ml Vial) 1,000 mg IV INF PRN; Protocol PRN Reason: TO ACHIEVE GOAL RASS Stop: 07/06/20 20:00 Propofol (Propofol Bolus 1,000 Mg/100 Ml Vial) 20 mg IV Q5MIN PRN PRN Reason: BREAKTHROUGH AGITATION Stop: 07/06/20 20:00 Sodium Chloride (Flush - Normal Saline 10 Ml Syringe) 10 ml IVF Q12HR [facility] Last Admin: 06/07/20 21:07 Dose: 10 ml Documented by: Sodium Chloride (Flush - Normal Saline 10 Ml Syringe) 10 ml IVF PRN PRN PRN Reason: Saline Flush Vital Signs and I&O: Vital Signs Temp 98.8 F 06/08/20 04:00 Pulse 85 06/08/20 06:51 Resp 18 06/08/20 06:51 BP 110/59 L 06/08/20 06:50 Pulse Ox 98 06/08/20 06:51 Intake & Output 06/07/20 06/08/20 06/08/20 18:59 06:59 18:59 Intake Total 4866 3531 Output Total 680 1355 Balance 4186 2176 Weight 348 lb 5.286 oz 381 lb 2.868 oz Intake: Intake, IV Amount 4866 3531 Albumin 25% 25 gm IVPB 785 023 5722,0800,1400,2000 [facility] Rx#:[id number] EPINEPHrine 4 mg In 450 Dextrose 5% in Water 250 ml @ Titrate IV INF [facility] Rx#:[id number] Meropenem 2 gm Admixture 100 Fee 1 each In Sodium Chloride 0.9% 100 ml @ 200 mls/hr IVPB 0700,1500 ,2300 [facility] Rx#:[id number] Meropenem 2 gm In Sodium 300 Chloride 0.9% 100 ml @ 200 mls/hr IVPB [facility] Rx#:[id number] Norepinephrine 8 mg In 956 802 Dextrose 5% in Water 242 ml @ As Directed IVPB INF PRN Rx#:[id number] Sodium Acetate 2 mEq/ml 103 622 70 meq Potassium Chloride 20 meq Potassium Phosphate 15 mmol Calcium Gluconate 5 meq Magnesium Sulfate 4.06 MEQ/ML 24 meq Multivitamins, Adult 10 ml Multitrace-4 10 ml In [id number] 5% w/o Lytes 2,000 ml In Fat Emulsion 250 ml @ 50 mls/ hr IV 1400 [facility] Rx#: [id number] Sodium Bicarbonate 150 1753 1807 meq In Dextrose 5% in Water 1,000 ml @ 150 mls/ hr IV .Q7H40M [facility] Rx#: [id number] Sodium Chloride 0.9% 1, 1000 000 ml @ 999 mls/hr IV . Q1H1M [facility] Rx#:[id number] Sodium Chloride 0.9% 10 139 ml IVF PRN PRN Rx#: [id number] Vasopressin 20 unit 65 Admixture Fee 1 each In Sodium Chloride 0.9% 50 ml @ As Directed IV INF [facility] Rx#:[id number] Output: Gastric Drainage 100 50 Drainage 80 HAI #1 30 HAI #2 10 HAI# 3 40 Output, [place] [id number] Other: Voiding Method Indwelling Catheter CCU Progress Note: Data - Labs Result Diagrams: 06/08/20 06:23 06/08/20 06:23 Lab results: Laboratory Results 06/06/20 06/06/20 06/06/20 14:22 15:07 16:12 WBC RBC Hgb Hct MCV MCH MCHC RDW Plt Count MPV Neutrophils % (Manual) Band Neuts % (Manual) Lymphocytes % (Manual) Reactive Lymphs % Monocytes % (Manual) Metamyelocytes % (Man) Myelocytes % Lymphocytes # WBC Morphology Hypochromia Plt Morphology Comment Polychromasia Ovalocytes PT INR APTT Specimen Type Puncture Site Bicarbonate Actual ABG pH ABG pCO2 ABG pO2 ABG O2 Sat (Measured) ABG O2 Content ABG Base Excess ABG Hematocrit ABG Hemoglobin ABG Oxyhemoglobin ABG Carboxyhemoglobin ABG Methemoglobin ABG Deoxyhemoglobin Diogenes Test A-a O2 Gradient Sodium Potassium Chloride Ionized Calcium Mode of Support Mechanical Rate Inspired O2 Tidal Volume Pressure Support PEEP or CPAP Carbon Dioxide Anion Gap BUN Creatinine Estimated GFR (MDRD) Glucose POC Glucose 121 H 122 H Lactic Acid Calcium Phosphorus Magnesium Total Bilirubin AST ALT Alkaline Phosphatase Troponin I Serum Total Protein Albumin Globulin Albumin/Globulin Ratio Prealbumin Triglycerides Cholesterol LDL Cholesterol, Calc HDL Cholesterol Heart Disease Risk Ratio Free T4 Free T3 TSH 3rd Generation Cortisol Blood Type O NEGATIVE Antibody Screen NEGATIVE Crossmatch See Detail 06/06/20 06/06/20 06/06/20 17:10 19:01 19:15 WBC RBC Hgb Hct MCV MCH MCHC RDW Plt Count MPV Neutrophils % (Manual) Band Neuts % (Manual) Lymphocytes % (Manual) Reactive Lymphs % Monocytes % (Manual) Metamyelocytes % (Man) Myelocytes % Lymphocytes # WBC Morphology Hypochromia Plt Morphology Comment Polychromasia Ovalocytes PT INR APTT Specimen Type ARTERIAL Puncture Site Arterial Line Bicarbonate Actual 19.0 L ABG pH 7.29 L ABG pCO2 40.2 ABG pO2 134.2 H ABG O2 Sat (Measured) 98.7 H ABG O2 Content 13.4 L ABG Base Excess -7.0 L ABG Hematocrit 28.0 L ABG Hemoglobin 9.6 L ABG Oxyhemoglobin 97.4 ABG Carboxyhemoglobin 1.0 ABG Methemoglobin 0.30 ABG Deoxyhemoglobin 1.3 Diogenes Test Not Reportable A-a O2 Gradient 243.350 H Sodium 133 L 136 Potassium 3.75 3.8 Chloride 107 H 106 Ionized Calcium 1.12 Mode of Support SIMV Mechanical Rate 16 Inspired O2 60 Tidal Volume 650 Pressure Support 10 PEEP or CPAP 5.0 Carbon Dioxide 20 L Anion Gap 14 BUN 17 Creatinine 2.03 H Estimated GFR (MDRD) 35 Glucose 138 H POC Glucose 121 H Lactic Acid Calcium 7.9 Phosphorus 1.8 L Magnesium 1.4 L Total Bilirubin 1.3 H AST 26 ALT 18 Alkaline Phosphatase 50 Troponin I Serum Total Protein 5.1 L Albumin 2.8 L Globulin 2.3 L Albumin/Globulin Ratio 1.2 Prealbumin Triglycerides Cholesterol LDL Cholesterol, Calc HDL Cholesterol Heart Disease Risk Ratio Free T4 Free T3 TSH 3rd Generation Cortisol Blood Type Antibody Screen Crossmatch 06/06/20 06/06/20 06/06/20 19:15 19:15 19:15 WBC 14.4 H RBC 3.46 L Hgb 9.0 L Hct 28.5 L MCV 82.3 MCH 25.9 L MCHC 31.5 L RDW 14.2 Plt Count 417 H MPV 7.2 L Neutrophils % (Manual) 29 L Band Neuts % (Manual) 40 H Lymphocytes % (Manual) 12 L Reactive Lymphs % 1 Monocytes % (Manual) 5 Metamyelocytes % (Man) 11 H Myelocytes % 2 H Lymphocytes # Not Reportable WBC Morphology SLIGHT Hypochromia SLIGHT = 6-15 cells Plt Morphology Comment Appears Increased H Polychromasia SLIGHT = 2-3 cells Ovalocytes SLIGHT = 2-5 cells PT INR APTT Specimen Type Puncture Site Bicarbonate Actual ABG pH ABG pCO2 ABG pO2 ABG O2 Sat (Measured) ABG O2 Content ABG Base Excess ABG Hematocrit ABG Hemoglobin ABG Oxyhemoglobin ABG Carboxyhemoglobin ABG Methemoglobin ABG Deoxyhemoglobin Diogenes Test A-a O2 Gradient Sodium Potassium Chloride Ionized Calcium Mode of Support Mechanical Rate Inspired O2 Tidal Volume Pressure Support PEEP or CPAP Carbon Dioxide Anion Gap BUN Creatinine Estimated GFR (MDRD) Glucose POC Glucose Lactic Acid 3.2 H Calcium Phosphorus Magnesium Total Bilirubin AST ALT Alkaline Phosphatase Troponin I Serum Total Protein Albumin Globulin Albumin/Globulin Ratio Prealbumin 7.0 L Triglycerides Cholesterol LDL Cholesterol, Calc HDL Cholesterol Heart Disease Risk Ratio Free T4 Free T3 TSH 3rd Generation Cortisol Blood Type Antibody Screen Crossmatch 06/06/20 06/06/20 06/06/20 19:15 19:15 19:15 WBC RBC Hgb Hct MCV MCH MCHC RDW Plt Count MPV Neutrophils % (Manual) Band Neuts % (Manual) Lymphocytes % (Manual) Reactive Lymphs % Monocytes % (Manual) Metamyelocytes % (Man) Myelocytes % Lymphocytes # WBC Morphology Hypochromia Plt Morphology Comment Polychromasia Ovalocytes PT 15.6 H INR 1.2 APTT 37.3 H Specimen Type Puncture Site Bicarbonate Actual ABG pH ABG pCO2 ABG pO2 ABG O2 Sat (Measured) ABG O2 Content ABG Base Excess ABG Hematocrit ABG Hemoglobin ABG Oxyhemoglobin ABG Carboxyhemoglobin ABG Methemoglobin ABG Deoxyhemoglobin Diogenes Test A-a O2 Gradient Sodium Potassium Chloride Ionized Calcium Mode of Support Mechanical Rate Inspired O2 Tidal Volume Pressure Support PEEP or CPAP Carbon Dioxide Anion Gap BUN Creatinine Estimated GFR (MDRD) Glucose POC Glucose Lactic Acid Calcium Phosphorus Magnesium Total Bilirubin AST ALT Alkaline Phosphatase Troponin I 0.024 Serum Total Protein Albumin Globulin Albumin/Globulin Ratio Prealbumin Triglycerides Cholesterol LDL Cholesterol, Calc HDL Cholesterol Heart Disease Risk Ratio Free T4 Free T3 TSH 3rd Generation Cortisol 26.50 Blood Type Antibody Screen Crossmatch 06/06/20 06/07/20 06/07/20 21:18 02:55 02:55 WBC RBC Hgb Hct MCV MCH MCHC RDW Plt Count MPV Neutrophils % (Manual) Band Neuts % (Manual) Lymphocytes % (Manual) Reactive Lymphs % Monocytes % (Manual) Metamyelocytes % (Man) Myelocytes % Lymphocytes # WBC Morphology Hypochromia Plt Morphology Comment Polychromasia Ovalocytes PT INR APTT Specimen Type ARTERIAL Puncture Site Arterial Line Bicarbonate Actual 20.3 L ABG pH 7.31 L ABG pCO2 41.6 ABG pO2 134.5 H ABG O2 Sat (Measured) 98.7 H ABG O2 Content 13.9 L ABG Base Excess -5.6 L ABG Hematocrit 29.0 L ABG Hemoglobin 9.9 L ABG Oxyhemoglobin 97.6 ABG Carboxyhemoglobin 0.8 ABG Methemoglobin 0.30 ABG Deoxyhemoglobin 1.3 Diogenes Test A-a O2 Gradient 241.300 H Sodium 134 L 136 Potassium 3.76 4.5 Chloride 106 102 Ionized Calcium 1.11 L Mode of Support SIMV Mechanical Rate 18 Inspired O2 60 Tidal Volume 500 Pressure Support 10 PEEP or CPAP 5.0 Carbon Dioxide 22 Anion Gap 17 BUN 21 H Creatinine 2.47 H Estimated GFR (MDRD) 28 Glucose 206 H POC Glucose Lactic Acid 4.1 H* Calcium 7.5 L Phosphorus Magnesium 2.2 Total Bilirubin 1.3 H AST 25 ALT 19 Alkaline Phosphatase 43 Troponin I Serum Total Protein 4.8 L Albumin 2.5 L Globulin 2.3 L Albumin/Globulin Ratio 1.1 L Prealbumin Triglycerides Cholesterol LDL Cholesterol, Calc HDL Cholesterol Heart Disease Risk Ratio Free T4 Free T3 TSH 3rd Generation Cortisol Blood Type Antibody Screen Crossmatch 06/07/20 06/07/20 06/07/20 02:55 02:55 02:55 WBC 24.8 H RBC 3.67 L Hgb 9.3 L Hct 30.5 L MCV 82.9 MCH 25.4 L MCHC 30.7 L RDW 14.5 Plt Count 417 H MPV 7.5 Neutrophils % (Manual) 34 L Band Neuts % (Manual) 50 H Lymphocytes % (Manual) 6 L Reactive Lymphs % Monocytes % (Manual) 6 Metamyelocytes % (Man) 4 H Myelocytes % Lymphocytes # WBC Morphology Hypochromia Plt Morphology Comment Appears Increased H Polychromasia Ovalocytes PT INR APTT Specimen Type Puncture Site Bicarbonate Actual ABG pH ABG pCO2 ABG pO2 ABG O2 Sat (Measured) ABG O2 Content ABG Base Excess ABG Hematocrit ABG Hemoglobin ABG Oxyhemoglobin ABG Carboxyhemoglobin ABG Methemoglobin ABG Deoxyhemoglobin Diogenes Test A-a O2 Gradient Sodium Potassium Chloride Ionized Calcium Mode of Support Mechanical Rate Inspired O2 Tidal Volume Pressure Support PEEP or CPAP Carbon Dioxide Anion Gap BUN Creatinine Estimated GFR (MDRD) Glucose POC Glucose Lactic Acid Calcium Phosphorus 3.5 Magnesium Total Bilirubin AST ALT Alkaline Phosphatase Troponin I Serum Total Protein Albumin Globulin Albumin/Globulin Ratio Prealbumin Triglycerides Cholesterol LDL Cholesterol, Calc HDL Cholesterol Heart Disease Risk Ratio Free T4 Free T3 TSH 3rd Generation 0.2164 L Cortisol Blood Type Antibody Screen Crossmatch 06/07/20 06/07/20 06/07/20 02:55 07:40 12:08 WBC RBC Hgb Hct MCV MCH MCHC RDW Plt Count MPV Neutrophils % (Manual) Band Neuts % (Manual) Lymphocytes % (Manual) Reactive Lymphs % Monocytes % (Manual) Metamyelocytes % (Man) Myelocytes % Lymphocytes # WBC Morphology Hypochromia Plt Morphology Comment Polychromasia Ovalocytes PT INR APTT Specimen Type ARTERIAL Puncture Site Arterial Line Bicarbonate Actual 18.4 L ABG pH 7.34 L ABG pCO2 35.2 ABG pO2 102.1 H ABG O2 Sat (Measured) 97.9 ABG O2 Content 13.3 L ABG Base Excess -6.7 L ABG Hematocrit 29.0 L ABG Hemoglobin 9.7 L ABG Oxyhemoglobin 96.6 ABG Carboxyhemoglobin 1.0 ABG Methemoglobin 0.30 ABG Deoxyhemoglobin 2.1 Diogenes Test NOT DONE A-a O2 Gradient 210.400 H Sodium 131 L Potassium 4.48 Chloride 101 Ionized Calcium 1.05 L Mode of Support PSIMV Mechanical Rate 18 Inspired O2 50 Tidal Volume 500 Pressure Support 10 PEEP or CPAP 5.0 Carbon Dioxide Anion Gap BUN Creatinine Estimated GFR (MDRD) Glucose POC Glucose Lactic Acid 3.3 H Calcium Phosphorus Magnesium Total Bilirubin AST ALT Alkaline Phosphatase Troponin I Serum Total Protein Albumin Globulin Albumin/Globulin Ratio Prealbumin Triglycerides 74 Cholesterol 73 LDL Cholesterol, Calc 41 HDL Cholesterol 17 Heart Disease Risk Ratio 4.3 Free T4 Free T3 TSH 3rd Generation Cortisol Blood Type Antibody Screen Crossmatch 06/07/20 06/08/20 06/08/20 22:44 06:06 06:22 WBC RBC Hgb Hct MCV MCH MCHC RDW Plt Count MPV Neutrophils % (Manual) Band Neuts % (Manual) Lymphocytes % (Manual) Reactive Lymphs % Monocytes % (Manual) Metamyelocytes % (Man) Myelocytes % Lymphocytes # WBC Morphology Hypochromia Plt Morphology Comment Polychromasia Ovalocytes PT INR APTT Specimen Type Puncture Site Bicarbonate Actual ABG pH ABG pCO2 ABG pO2 ABG O2 Sat (Measured) ABG O2 Content ABG Base Excess ABG Hematocrit ABG Hemoglobin ABG Oxyhemoglobin ABG Carboxyhemoglobin ABG Methemoglobin ABG Deoxyhemoglobin Diogenes Test A-a O2 Gradient Sodium Potassium Chloride Ionized Calcium Mode of Support Mechanical Rate Inspired O2 Tidal Volume Pressure Support PEEP or CPAP Carbon Dioxide Anion Gap BUN Creatinine Estimated GFR (MDRD) Glucose POC Glucose 167 H 202 H Lactic Acid Calcium Phosphorus Magnesium Total Bilirubin AST ALT Alkaline Phosphatase Troponin I Serum Total Protein Albumin Globulin Albumin/Globulin Ratio Prealbumin Triglycerides Cholesterol LDL Cholesterol, Calc HDL Cholesterol Heart Disease Risk Ratio Free T4 0.77 Free T3 1.11 L TSH 3rd Generation 0.3805 Cortisol Blood Type Antibody Screen Crossmatch 06/08/20 06/08/20 06/08/20 06:23 06:23 06:55 WBC 18.0 H RBC 2.63 L Hgb 6.6 L Hct 21.7 L MCV 82.4 MCH 25.3 L MCHC 30.7 L RDW 14.4 Plt Count 215 MPV 7.4 Neutrophils % (Manual) 54 Band Neuts % (Manual) 19 H Lymphocytes % (Manual) 10 L Reactive Lymphs % Monocytes % (Manual) 16 H Metamyelocytes % (Man) 1 H Myelocytes % Lymphocytes # WBC Morphology Hypochromia SLIGHT = 6-15 cells Plt Morphology Comment Appears Adequate Polychromasia Ovalocytes PT INR APTT Specimen Type ARTERIAL Puncture Site RRA Bicarbonate Actual 30.8 H ABG pH 7.40 ABG pCO2 50.4 H ABG pO2 100.8 H ABG O2 Sat (Measured) 97.6 ABG O2 Content 9.7 L ABG Base Excess 5.5 H ABG Hematocrit 21.0 L ABG Hemoglobin 7.0 L ABG Oxyhemoglobin 96.3 ABG Carboxyhemoglobin 1.0 ABG Methemoglobin 0.30 ABG Deoxyhemoglobin 2.4 Diogenes Test POSITIVE A-a O2 Gradient 192.700 H Sodium 136 131 L Potassium 3.6 3.41 L Chloride 95 L 95 L Ionized Calcium 0.96 L Mode of Support PSIMV Mechanical Rate 18 Inspired O2 50 Tidal Volume 500 Pressure Support 10 PEEP or CPAP 5.0 Carbon Dioxide 30 H Anion Gap 15 BUN 27 H Creatinine 1.77 H Estimated GFR (MDRD) 41 Glucose 203 H POC Glucose Lactic Acid Calcium 7.2 L Phosphorus Magnesium Total Bilirubin 1.9 H AST 14 ALT 13 Alkaline Phosphatase 47 Troponin I Serum Total Protein 5.1 L Albumin 3.0 L Globulin 2.1 L Albumin/Globulin Ratio 1.4 Prealbumin Triglycerides Cholesterol LDL Cholesterol, Calc HDL Cholesterol Heart Disease Risk Ratio Free T4 Free T3 TSH 3rd Generation Cortisol Blood Type Antibody Screen Crossmatch - ABG Interpretation ABG Results: ABG pH 7.40 (7.35-7.45) 06/08/20 06:55 ABG pCO2 50.4 mmHg (35.0-45.0) H 06/08/20 06:55 ABG Base Excess 5.5 mEq/L (-2.0 to +3.0) H 06/08/20 06:55
[2020-06-08] MEDS ORDERED: acetaZOLAMIDE Sodium 500 mg Vial IVP SCH (07:30)
--- NOTE | 2020-06-08 07:44 | PRG ---
DATE OF SERVICE: 06/08/2020 35 minutes critical care time. SUBJECTIVE: The patient remains intubated on mechanical ventilation. He will wake up and follow commands. OBJECTIVE: VITAL SIGNS: Temperature is 98.8, pulse 69, blood pressure 101/54. He is currently on a Levophed drip at 30 mcg/kg/minute 24-hour, intake 8397, output 2035. HEENT: Unremarkable. NECK: No adenopathy or JVD. LUNGS: Clear anteriorly. CARDIOVASCULAR: S1, S2. Regular. ABDOMEN: Distended. Bowel sounds diminished. EXTREMITIES: Edematous. His chest x-ray shows cardiomegaly and some pulmonary edema. LABORATORY DATA: White blood cell count 18, hemoglobin 6.6, hematocrit 21.7, platelet count 215. ABG; pH 7.40, pCO2 of 50, pO2 100 that is on SIMV rate 18, tidal volume 500, PEEP 5, pressure support 10, FiO2 of 50%. Sodium 136, potassium 3.6, chloride 95, CO2 of 30, BUN 27, creatinine 1.7, glucose 203. ASSESSMENT: 1. Septic shock from peritonitis, improved as seen by being able to wean his vasopressin and epinephrine off. 2. Improved acute renal failure. 3. Acute respiratory failure requiring mechanical ventilation. 4. Morbid obesity. 5. Anemia, probably and large part due to delusional changes. PLAN: 1. Begin to slowly wean ventilator. 2. Continue to wean vasopressors. 3. Continue IV antibiotics. 4. Discussed with yesterday afternoon at the bedside. Job ID: [id number]
--- NOTE | 2020-06-08 08:28 | RAD ---
PORTABLE CHEST: Date: 06/08/2020 HISTORY: Pneumonia. CCU follow-up. COMPARISON: 06/07/2020. FINDINGS: ET tube and NG tube are unchanged. Bilateral effusions and bibasilar infiltrates and/or atelectasis obscure the lung bases. There is car diomegaly and mild vascular prominence. Upper lung acevedo appear clear and unchanged. IMPRESSION: No acute change from yesterday. POS: [facility]
[2020-06-08] MEDS ORDERED: Albumin 25% 100 ML ONE (09:43)
[2020-06-08] MEDS: Meropenem 2 GM, Admixture Fee 1 EACH in Sodium Chloride 0.9% 100 ML IVPB SCH ×3 (09:46→23:35)
--- NOTE | 2020-06-08 09:46 | PDOC.GSPN ---
Surgery Progress Note: Subj - Subjective Narrative: Patient is doing better overall. Vasopressin epinephrine weaned off and he is maintaining his blood pressure. We have been able to give him more adequate sedation and his urine output is picked up. Creatinine is down slightly. Hemoglobin has fallen and his chest x-ray looks more wet. White count has come down as well. On exam his abdomen is quiet but his incisions look okay. He has a VAC in place on his hand port site. Colostomy is pink and healthy. No output yet. Rhonchorous breath sounds bilaterally. HAI output is minimal and serous. NG output is minimal but bilious. Assessment/plan: Severe sepsis status post anastomotic leak with peritonitis, d oing better. Decreased hemoglobin is likely due to mobilization of large amount of fluids he received during his resuscitation. I have spoken with Dr. Taveras of nephrology and he is going to try to cut down on IV fluids as much as possible. I would like to get him to goal on TPN within the next day or 2. I discussed his condition and his pathology report with the was at bedside this morning . She understands that he will need to remain on the ventilator for now and that he is still critical but improving. Surgery Progress Note: Obj - Vital signs Vital signs: Vital Signs - Most Recent Temp Pulse Resp BP Pulse Ox 98.8 F 85 18 110/59 L 98 06/08/20 04:00 06/08/20 06:51 06/08/20 06:51 06/08/20 06:50 06/08/20 06:51 Surgery Progress Note: Results - Labs Result Diagrams: 06/08/20 06:23 06/08/20 06:23 Lab results: Laboratory Results - last 12 hr 06/07/20 06/08/20 06/08/20 22:44 06:06 06:22 WBC RBC Hgb Hct MCV MCH MCHC RDW Plt Count MPV Neutrophils % (Manual) Band Neuts % (Manual) Lymphocytes % (Manual) Monocytes % (Manual) Metamyelocytes % (Man) Hypochromia Plt Morphology Comment Specimen Type Puncture Site Bicarbonate Actual ABG pH ABG pCO2 ABG pO2 ABG O2 Sat (Measured) ABG O2 Content ABG Base Excess ABG Hematocrit ABG Hemoglobin ABG Oxyhemoglobin ABG Carboxyhemoglobin ABG Methemoglobin ABG Deoxyhemoglobin Diogenes Test A-a O2 Gradient Ionized Calcium Mode of Support Mechanical Rate Inspired O2 Tidal Volume Pressure Support PEEP or CPAP Sodium Potassium Chloride Carbon Dioxide Anion Gap BUN Creatinine Estimated GFR (MDRD) Glucose POC Glucose 167 H 202 H Calcium Total Bilirubin AST ALT Alkaline Phosphatase Serum Total Protein Albumin Globulin Albumin/Globulin Ratio Free T4 0.77 Free T3 1.11 L TSH 3rd Generation 0.3805 06/08/20 06/08/20 06/08/20 06:23 06:23 06:55 WBC 18.0 H RBC 2.63 L Hgb 6.6 L Hct 21.7 L MCV 82.4 MCH 25.3 L MCHC 30.7 L RDW 14.4 Plt Count 215 MPV 7.4 Neutrophils % (Manual) 54 Band Neuts % (Manual) 19 H Lymphocytes % (Manual) 10 L Monocytes % (Manual) 16 H Metamyelocytes % (Man) 1 H Hypochromia SLIGHT = 6-15 cells Plt Morphology Comment Appears Adequate Specimen Type ARTERIAL Puncture Site RRA Bicarbonate Actual 30.8 H ABG pH 7.40 ABG pCO2 50.4 H ABG pO2 100.8 H ABG O2 Sat (Measured) 97.6 ABG O2 Content 9.7 L ABG Base Excess 5.5 H ABG Hematocrit 21.0 L ABG Hemoglobin 7.0 L ABG Oxyhemoglobin 96.3 ABG Carboxyhemoglobin 1.0 ABG Methemoglobin 0.30 ABG Deoxyhemoglobin 2.4 Diogenes Test POSITIVE A-a O2 Gradient 192.700 H Ionized Calcium 0.96 L Mode of Support PSIMV Mechanical Rate 18 Inspired O2 50 Tidal Volume 500 Pressure Support 10 PEEP or CPAP 5.0 Sodium 136 131 L Potassium 3.6 3.41 L Chloride 95 L 95 L Carbon Dioxide 30 H Anion Gap 15 BUN 27 H Creatinine 1.77 H Estimated GFR (MDRD) 41 Glucose 203 H POC Glucose Calcium 7.2 L Total Bilirubin 1.9 H AST 14 ALT 13 Alkaline Phosphatase 47 Serum Total Protein 5.1 L Albumin 3.0 L Globulin 2.1 L Albumin/Globulin Ratio 1.4 Free T4 Free T3 TSH 3rd Generation
--- NOTE | 2020-06-08 09:52 | PRG ---
DATE OF SERVICE: 06/08/2020 SUBJECTIVE: Mr. Crum remains intubated and sedated. He is off vasopressin. He is only on Levophed. Blood pressure and heart rate remain stable. OBJECTIVE: VITAL SIGNS: Blood pressure 110/59, pulse 87, temperature afebrile. LUNGS: Clear to auscultation. HEART: Regular rate and rhythm. ABDOMEN: Soft, nontender, nondistended. Midline incision present. EXTREMITIES: 2+ pitting edema. PERTINENT LABORATORY DATA: Hemoglobin 6.6, white blood cell count 18. Creatinine 1.77 down from 2.47. IMPRESSION: 1. Sepsis syndrome. 2. Recent colonic mass removal, status post colectomy. 3. Uqwn-ii-eqrcygbz coronary artery disease. 4. Hypotension. RECOMMENDATIONS: Mr. Crum continues on IV antibiotics. His blood pressure appears more stable off vasopressin. Continue to monitor closely. Hemodynamically, he appears stable. Job ID: [id number]
[2020-06-08] MEDS: Enoxaparin Sodium 40 MG/0.4 ML SYRINGE SC SCH (09:53)
[2020-06-08] MEDS: Pantoprazole 40 MG VIAL IVP SCH (09:54)
[2020-06-08] MEDS ORDERED: LYTES IN TPN IVPB PRN (11:24)
[2020-06-08 11:57] LABS: Magnesium 2.3 mg/dL (1.6-2.6); Phosphorus 3.4 mg/dL (2.3-4.7)
[2020-06-08] MEDS ORDERED: POTASSIUM PHOSPHATE IV SCH (14:00)
[2020-06-08] MEDS ORDERED: POTASSIUM CHLORIDE IV SCH (14:00)
[2020-06-08] MEDS ORDERED: [UNRECOGNIZED DRUG - OTHER] IV SCH (14:00)
[2020-06-08] MEDS ORDERED: SODIUM CHLORIDE IV SCH (14:00)
[2020-06-08] MEDS: Norepinephrine 8 MG in Dextrose 5% in Water 242 ML IVPB PRN (15:05)
[2020-06-09] MEDS: Hydrocortisone Sod Succ/PF 100 mg/2 ml Vial IVP SCH ×3 (01:37→21:17)
[2020-06-09 06:40] LABS: ALT (SGPT) 15 U/L (8-55); AST (SGOT) 17 U/L (5-34); Alkaline Phosphatase 55 U/L (40-110); Anion Gap 13 mmol/L (10-20); BUN (Urea Nitrogen) 30 mg/dL (8.9-20.6); Bilirubin, Total 1.4 mg/dL (0.2-1.2); Calc. Creatinine Clearance 0 mL/min (70-130); Calcium 7.7 mg/dL (7.8-10.44); Carbon Dioxide 34 mmol/L (22-29); Chloride 96 mmol/L (98-107); Globulin 2.8 g/dL (2.4-3.5); Glucose 130 mg/dL (70-105); Potassium 4.3 mmol/L (3.5-5.1); Protein, Total 5.8 g/dL (6.0-8.3); Sodium 139 mmol/L (136-145)
[2020-06-09 06:58] LABS: Band 38 % (5-11); Hemoglobin 6.6 g/dL (14.0-18.0); Lymphocytes 4 % (21-51); MDiff Complete? YES; Mean Corpuscular HGB CONC 30.2 g/dL (32.0-36.0); Mean Corpuscular Volume 82.6 fL (78.0-98.0); Mean Platelet Volume 7.9 fL (7.4-10.4); Metamyelocyte 2 % (0-0); Monocytes 3 % (0-10); Neutrophil 53 % (42-75); Nucleated RBC 1 % (0); Platelet Count 205 thou/uL (130-400); Platelet Morphology Comment Appears Adequate; RBC Distribution Width 14.5 % (11.5-14.5); Red Blood Cell (RBC) Count 2.63 mill/uL (4.70-6.10)
[2020-06-09 07:59] LABS: Actual Bicarbonate (HCO3a) 31.1 mEq/L (22-28); Base Excess (BEa) 6.1 mEq/L (-2.0 to +3.0); Calcium, Ionized (arterial) 1.04 mmol/L (1.12-1.30); Carboxyhemoglobin (COHb) 1.4 gm% (0.0-3.0); Hemoglobin (Hb) 6.7 g/dL (14.0-18.0); O2 Tension (PaO2), arterial 107.9 mmHg (80.0-100.0); Potassium - ABG Lab 4.24 mmol/L (3.70-5.30); pH, Arterial 7.42 (7.35-7.45)
[2020-06-09 08:17] LABS: Puncture Site Arterial Line
--- NOTE | 2020-06-09 08:19 | RAD ---
EXAM: Single view of the chest HISTORY: Pneumonia COMPARISON: 06/08/2020 FINDINGS: Single view of the chest shows an enlarged but stable cardiomediastinal silhouette. The en dotracheal tube and NG tube are unchanged in position. There are stable bibasilar infiltrates versus atelectasis. Degenerative changes are seen in the spine. IMPRESSION: Stable exam
[2020-06-09] MEDS: Meropenem 2 GM, Admixture Fee 1 EACH in Sodium Chloride 0.9% 100 ML IVPB SCH ×2 (08:22→14:44)
[2020-06-09] MEDS: Enoxaparin Sodium 40 MG/0.4 ML SYRINGE SC SCH (08:26)
[2020-06-09] MEDS: Pantoprazole 40 MG VIAL IVP SCH (08:27)
--- NOTE | 2020-06-09 09:35 | PRG ---
DATE OF SERVICE: 06/09/2020 35 minutes of critical care time. SUBJECTIVE: The patient is awake, alert, on mechanical ventilation. OBJECTIVE: VITAL SIGNS: Temperature 98.6, pulse 68, blood pressure 132/73. He is on 3 mcg/minute of Levophed. HEENT: Unremarkable. NECK: No adenopathy or JVD. LUNGS: Clear anteriorly. CARDIAC: S1 and S2, regular. ABDOMEN: Soft. Colostomy noted. EXTREMITIES: No edema. LABORATORY DATA: PH 7.42, pCO2 of 49, pO2 of 107, on SIMV, rate 6, tidal volume 500, PEEP 5, pressure support 10, FiO2 of 40%. White blood cell count 14, hematocrit 21.7, and platelet count 205. Sodium 139, potassium 4.3, chloride 96, CO2 of 34, BUN 30, creatinine 1.2, and glucose 130. His x-ray shows some mild pulmonary edema. ASSESSMENT: 1. Acute hypoxic respiratory failure, requiring mechanical ventilation. 2. Peritonitis. 3. Improved renal failure. 4. Anemia. PLAN: 1. The patient is safe for extubation. 2. He is currently on TPN for nutritional support. 3. We will wean his steroids with a goal of stopping those in a few days. 4. Continue the meropenem. 5. Discontinue art-line. Job ID: [id number]
[2020-06-09 10:09] LABS: Magnesium 2.7 mg/dL (1.6-2.6); Phosphorus 3.7 mg/dL (2.3-4.7)
--- NOTE | 2020-06-09 12:12 | PRG ---
DATE OF SERVICE: 06/09/2020 SUBJECTIVE: This is a 49-year-old gentleman being seen for end-stage renal disease. The patient denies any nausea, vomiting, or chest pain. PHYSICAL EXAMINATION: General: The patient is awake and alert. Vital Signs: Afebrile, pulse 75, breathing at 16, blood pressure 128/70. HEENT: Head normocephalic and atraumatic. Eyes intact, no ulcers. Nose intact, no ulcers. Ears intact, no ulcers. Neck: Supple. No JVD. Chest: Symmetrical and clear. Cardiovascular: Shows S1 and S2, no rub, no murmur. Gastrointestinal: Abdomen is soft, bowel sounds positive. Extremities: Show no edema or ulcers. Skin: Shows no rash or petechiae. Musculoskeletal: Shows no joint swelling or stiffness. Genitourinary: Shows no Casillas or CVA tenderness. Neurologic: Motor intact. Cranial nerves intact. LABORATORY DATA: Labs reviewed. ASSESSMENT AND PLAN: 1. Stage 3 chronic kidney, stable. 2. Acute kidney injury, resolved. 3. Hypertension, stable. 4. Anemia, would recommend transfusion. Medication based on GFR appropriate. No indication for dialysis. I will sign off. Please reconsult as needed. Job ID: [id number]
--- NOTE | 2020-06-09 13:25 | PRG ---
DATE OF SERVICE: 06/08/2020 SUBJECTIVE: 49-year-old gentleman, being seen for acute kidney injury. The patient remains intubated. PHYSICAL EXAMINATION: GENERAL: The patient is resting. VITAL SIGNS: Afebrile, pulse 78, breathing at 16, blood pressure 101/56. HEENT: Head normocephalic and atraumatic. Eyes intact, no ulcers. Nose intact, no ulcers. Ears intact, no ulcers. NECK: Supple. No JVD. CHEST: Symmetrical and clear. CARDIOVASCULAR: Shows S1 and S2, no rub, no murmur. GASTROINTESTINAL: Abdomen is soft, bowel sounds positive. EXTREMITIES: Show no edema or ulcers. SKIN: Shows no rash or petechiae. MUSCULOSKELETAL: Shows no joint swelling or stiffness. GENITOURINARY: Shows no Casillas or CVA tenderness. NEUROLOGIC: Motor intact. Cranial nerves intact. LABORATORY DATA: Show hemoglobin 6.6. Creatinine 1.7. ASSESSMENT AND PLAN: 1. Acute kidney injury, improving. 2. Hypertension, stable. 3. Anemia. We would recommend transfusion. 4. Medication based on GFR appropriate. Job ID: [id number]
--- NOTE | 2020-06-09 13:34 | PDOC.GSPN ---
Surgery Progress Note: Subj - Subjective Narrative: Patient was extubated this morning. His hand port incision looks clean. VAC was replaced. He is off all of his pressors. He is still on fentanyl drip for pain. No flatus through his ostomy yet. Serous drainage from his JPs. Urine output has picked up. Abdomen is still little distended and he is quite edematous. No audible bowel sounds but this could be due to body habitus. He has diffuse expiratory greater than inspiratory wheezing. Chest x-ray still s hows some pulmonary edema. H&H is stable although low and BUN and creatinine have come back down almost to normal. Bilirubin is decreasing as well. Assessment/plan: Resolving sepsis status post anastomotic leak. Continue antibiotics and supportive care. Custom TPN has been ordered per dietitian's recommendations. He appears to be mobilizing some of the fluids he received during his resuscitation. His hemoglobin is low but I believe this is primarily due to fluid shifts. Continue n.p.o. and NG tube until we see evidence of return of bowel function. I would anticipate a rather prolonged ileus. Consider delayed primary closure of hand port incision on Saturday. Surgery Progress Note: Obj - Vital signs Vital signs: Vital Signs - Most Recent Temp Pulse Resp BP Pulse Ox 98.3 F 73 16 114/69 99 06/09/20 12:00 06/09/20 12:53 06/09/20 12:53 06/09/20 07:09 06/09/20 12:53 Surgery Progress Note: Results - Labs Result Diagrams: 06/09/20 06:00 06/09/20 06:00 Lab results: Laboratory Results - last 12 hr 06/09/20 06/09/20 06/09/20 04:52 06:00 06:00 WBC 14.0 H RBC 2.63 L Hgb 6.6 L Hct 21.7 L MCV 82.6 MCH 25.0 L MCHC 30.2 L RDW 14.5 Plt Count 205 MPV 7.9 Neutrophils % (Manual) 53 Band Neuts % (Manual) 38 H Lymphocytes % (Manual) 4 L Monocytes % (Manual) 3 Metamyelocytes % (Man) 2 H Nucleated RBCs # (Man) 1 H Plt Morphology Comment Appears Adequate Specimen Type Puncture Site Bicarbonate Actual ABG pH ABG pCO2 ABG pO2 ABG O2 Sat (Measured) ABG O2 Content ABG Base Excess ABG Hematocrit ABG Hemoglobin ABG Oxyhemoglobin ABG Carboxyhemoglobin ABG Methemoglobin ABG Deoxyhemoglobin Diogenes Test A-a O2 Gradient Ionized Calcium Mode of Support % Minute Volume Mechanical Rate Spontaneous Rate Inspired O2 Tidal Volume Pressure Support PEEP or CPAP Sodium 139 Potassium 4.3 Chloride 96 L Carbon Dioxide 34 H Anion Gap 13 BUN 30 H Creatinine 1.26 Estimated GFR (MDRD) 61 Glucose 130 H POC Glucose 125 H Calcium 7.7 L Phosphorus Magnesium Total Bilirubin 1.4 H AST 17 ALT 15 Alkaline Phosphatase 55 Serum Total Protein 5.8 L Albumin 3.0 L Globulin 2.8 Albumin/Globulin Ratio 1.1 L 06/09/20 06/09/20 06/09/20 06:00 07:10 10:50 WBC RBC Hgb Hct MCV MCH MCHC RDW Plt Count MPV Neutrophils % (Manual) Band Neuts % (Manual) Lymphocytes % (Manual) Monocytes % (Manual) Metamyelocytes % (Man) Nucleated RBCs # (Man) Plt Morphology Comment Specimen Type ARTERIAL Puncture Site Arterial Line Bicarbonate Actual 31.1 H ABG pH 7.42 ABG pCO2 49.0 H ABG pO2 107.9 H ABG O2 Sat (Measured) 98.2 H ABG O2 Content 9.3 L ABG Base Excess 6.1 H ABG Hematocrit 20.0 L ABG Hemoglobin 6.7 L ABG Oxyhemoglobin 96.5 ABG Carboxyhemoglobin 1.4 ABG Methemoglobin 0.30 ABG Deoxyhemoglobin 1.8 Diogenes Test NOT DONE A-a O2 Gradient 116.050 H Ionized Calcium 1.04 L Mode of Support SIMV % Minute Volume 6.6 Mechanical Rate 6 Spontaneous Rate 12 Inspired O2 40 Tidal Volume 500 Pressure Support 10 PEEP or CPAP 5.0 Sodium 134 L Potassium 4.24 Chloride 98 Carbon Dioxide Anion Gap BUN Creatinine Estimated GFR (MDRD) Glucose POC Glucose 135 H Calcium Phosphorus 3.7 Magnesium 2.7 H Total Bilirubin AST ALT Alkaline Phosphatase Serum Total Protein Albumin Globulin Albumin/Globulin Ratio
[2020-06-09] MEDS ORDERED: POTASSIUM CHLORIDE IV SCH (14:00)
[2020-06-09] MEDS ORDERED: SODIUM CHLORIDE IV SCH (14:00)
[2020-06-09] MEDS ORDERED: POTASSIUM PHOSPHATE IV SCH (14:00)
[2020-06-09] MEDS ORDERED: [UNRECOGNIZED DRUG - OTHER] IV SCH (14:00)
[2020-06-09] MEDS: fentaNYL Citrate/PF 2,000 MCG in Sodium Chloride 0.9% 60 ML IV SCH (14:05)
--- NOTE | 2020-06-09 16:08 | PRG ---
DATE OF SERVICE: 06/09/2020 SUBJECTIVE: Mr. Crum is on low-dose norepinephrine at 2 mcg as attempted to a decreased to 1 mcg his blood pressure decreases. No further fevers. He is currently on antibiotic therapy. OBJECTIVE: VITAL SIGNS: Blood pressure 116/67, pulse 83, and respirations 20. GENERAL: The patient is currently intubated, sedated. LUNGS: Clear to auscultation. HEART: Regular rate and rhythm. ABDOMEN: Decreased bowel sounds. EXTREMITIES: 2+ pitting edema. PERTINENT LABORATORY DATA: Hemoglobin 6.6 and white blood cell count 14. Echo Doppler dated 06/08/2020, LVEF 55% to 60%. IMPRESSION: 1. Sepsis. 2. Recent colectomy. 3. Morbid obesity. RECOMMENDATIONS: CV status [place], Mr. Crum is stable on low-dose norepinephrine. We will try to continue to wean off norepinephrine. His LVEF is within normal limits. From a CAD standpoint, he has had [id number] coronary artery disease in the past. His LVEF does not appear to be compromised. Job ID: [id number]
[2020-06-10] MEDS: Meropenem 2 GM, Admixture Fee 1 EACH in Sodium Chloride 0.9% 100 ML IVPB SCH ×4 (00:09→23:22)
[2020-06-10 04:58] LABS: ALT (SGPT) 16 U/L (8-55); AST (SGOT) 18 U/L (5-34); Alkaline Phosphatase 62 U/L (40-110); Anion Gap 11 mmol/L (10-20); BUN (Urea Nitrogen) 44 mg/dL (8.9-20.6); Calc. Creatinine Clearance 0 mL/min (70-130); Calcium 8.2 mg/dL (7.8-10.44); Carbon Dioxide 36 mmol/L (22-29); Chloride 98 mmol/L (98-107); Globulin 2.8 g/dL (2.4-3.5); Glucose 135 mg/dL (70-105); Potassium 4.2 mmol/L (3.5-5.1); Protein, Total 5.8 g/dL (6.0-8.3); Sodium 141 mmol/L (136-145)
[2020-06-10 05:38] LABS: Band 27 % (5-11); Hemoglobin 6.2 g/dL (14.0-18.0); Lymphocytes 10 % (21-51); MDiff Complete? YES; Mean Corpuscular HGB CONC 31.8 g/dL (32.0-36.0); Mean Corpuscular Hemoglobin 26.4 pg (27.0-31.0); Mean Corpuscular Volume 83.1 fL (78.0-98.0); Mean Platelet Volume 8.3 fL (7.4-10.4); Monocytes 8 % (0-10); Neutrophil 53 % (42-75); Platelet Count 214 thou/uL (130-400); RBC Distribution Width 14.5 % (11.5-14.5); Reactive Lymphocytes 2 % (0-10); Red Blood Cell (RBC) Count 2.36 mill/uL (4.70-6.10); White Blood Cell (WBC) Count 15.3 thou/uL (4.8-10.8)
--- NOTE | 2020-06-10 07:52 | PRG ---
DATE OF SERVICE: 06/10/2020 SUBJECTIVE: He is resting comfortably on BiPAP. He was successfully extubated yesterday. OBJECTIVE: VITAL SIGNS: His temperature is 98.3, pulse 60, blood pressure 131/72, O2 saturation 100%. 24-hour intake 3094 and output 1800. HEENT: Unremarkable. NECK: No adenopathy or JVD. LUNGS: Diminished breath sounds at the bases. CARDIAC: S1, S2. Regular. ABDOMEN: Soft. EXTREMITIES: No edema. LABORATORY AND DIAGNOSTIC STUDIES: Sodium 141, potassium 4.2, chloride 90, CO2 36, BUN 44, creatinine 1.1, and glucose 135. White count 15.3, hemoglobin 6.2, hematocrit 19.6, and platelet count 214. X-ray shows low tidal volumes. ASSESSMENT: 1. Status post anastomotic leak after sigmoid colectomy. 2. Peritonitis. 3. Acute respiratory failure-status post intubation, now requiring BiPAP. 4. Morbid obesity. 5. Anemia due to blood loss. PLAN: 1. Transfuse PRBC. 2. The patient is continuing on TPN. 3. Wean and discontinue Precedex. 4. Wean and discontinue fentanyl drip. 5. Up in chair as tolerated. 6. Continue IV antibiotics. Job ID: [id number]
[2020-06-10 08:02] LABS: Magnesium 3.2 mg/dL (1.6-2.6); Phosphorus 3.7 mg/dL (2.3-4.7)
[2020-06-10] MEDS: Hydrocortisone Sod Succ/PF 100 mg/2 ml Vial IVP SCH ×3 (08:04→20:01)
[2020-06-10] MEDS: Enoxaparin Sodium 40 MG/0.4 ML SYRINGE SC SCH (08:04)
[2020-06-10] MEDS: Pantoprazole 40 MG VIAL IVP SCH (08:05)
--- NOTE | 2020-06-10 08:06 | PRG ---
DATE OF SERVICE: 06/10/2020 SUBJECTIVE: Mr. Crum was recently extubated. No current complaints. He is off all pressors. He is resting comfortably. OBJECTIVE: VITAL SIGNS: Blood pressure 131/72, pulse 62, and temperature afebrile. LUNGS: Clear to auscultation. HEART: Regular rate and rhythm. ABDOMEN: Soft, nontender, and nondistended. EXTREMITIES: 1+ pitting edema. PERTINENT LABORATORY DATA: Hemoglobin 6.2, white blood cell count 15.3. IMPRESSION: 1. Sepsis. 2. Recent abdominal surgery, status post re-exploration. 3. Obesity. 4. Ooyl-lx-ioehdlkb coronary artery disease. RECOMMENDATIONS: From a CV standpoint, Mr. Crum is currently stable. He will likely need blood transfusion. No significant dysrhythmias present. Overall, LVEF does appear normal. At this point given his cardiovascular status is stable, we will follow peripherally. I will be around this weekend if any questions arise. Job ID: [id number]
--- NOTE | 2020-06-10 09:08 | RAD ---
PORTABLE CHEST: HISTORY: Shortness of breath. COMPARISON: 06/09/2020 exam. FINDINGS: Heart size is enlarged. Right-sided parenchymal lung changes and retrocardiac changes are stable. IMPRESSION: Interval removal of the endotracheal and NG tubes. Otherwise, stable chest. POS: [facility]
[2020-06-10] MEDS: POTASSIUM CHLORIDE IV SCH (13:57)
[2020-06-10] MEDS: [UNRECOGNIZED DRUG - OTHER] IV SCH (13:57)
[2020-06-10] MEDS: SODIUM CHLORIDE IV SCH (13:57)
[2020-06-10] MEDS: POTASSIUM PHOSPHATE IV SCH (13:57)
[2020-06-10] MEDS: Morphine 2 MG/ML VIAL SLOW IVP PRN ×3 (16:41→22:17)
--- NOTE | 2020-06-10 17:23 | PDOC.GSPN ---
Surgery Progress Note: Subj - Subjective Narrative: S: Seen on morning rounds. "I've been better and I've been worse." Pain tolerable, breathing OK, denies nausea. O: VSS, maintaining sats. H/H down further, transfused 1 unit today. Ostomy pink and healthy but no flatus/output yet. VAC in place. Serous HAI drainage. Abd nondistended, noaudible BS but could be due to habitus. WBC, creatinine and bili coming down. A/P: S/p washout, resection of anastomosis and descending colostomy after anastomotic leak causing severe sepsis. Clinically improving, awaiting return of bowel function. Anticipate prolonged ileus; also at risk for SBO due to peritonitis. Chips and sips today. NPO if nausea. PT/OT to eval and treat. May need inpt rehab; was disabled at baseline. Surgery Progress Note: Obj - Vital signs Vital signs: Vital Signs - Most Recent Temp Pulse Resp BP Pulse Ox 98.7 F 76 20 150/72 H 100 06/10/20 16:00 06/10/20 12:25 06/10/20 12:25 06/10/20 11:52 06/10/20 12:25 Surgery Progress Note: Results - Labs Result Diagrams: 06/10/20 03:50 06/10/20 03:50 Lab results: Laboratory Results - last 12 hr 06/09/20 06/10/20 06/10/20 17:28 03:50 03:50 WBC 15.3 H RBC 2.36 L Hgb 6.2 L Hct 19.6 L MCV 83.1 MCH 26.4 L MCHC 31.8 L RDW 14.5 Plt Count 214 MPV 8.3 Neutrophils % (Manual) 53 Band Neuts % (Manual) 27 H Lymphocytes % (Manual) 10 L Reactive Lymphs % 2 Monocytes % (Manual) 8 POC Glucose 120 H Phosphorus 3.7 Magnesium 3.2 H Blood Type Antibody Screen Crossmatch 06/10/20 06/10/20 07:49 10:22 WBC RBC Hgb Hct MCV MCH MCHC RDW Plt Count MPV Neutrophils % (Manual) Band Neuts % (Manual) Lymphocytes % (Manual) Reactive Lymphs % Monocytes % (Manual) POC Glucose 124 H Phosphorus Magnesium Blood Type O NEGATIVE Antibody Screen NEGATIVE Crossmatch See Detail
[2020-06-10 18:30] LABS: Glucose 124 mg/dL (70-105)
[2020-06-10] MEDS: diphenhydrAMINE 25 MG CAP PO PRN (22:17)
[2020-06-11 00:20] LABS: Glucose 121 mg/dL (70-105)
[2020-06-11] MEDS: Morphine 2 MG/ML VIAL SLOW IVP PRN ×5 (00:38→10:02)
[2020-06-11 04:56] LABS: ALT (SGPT) 30 U/L (8-55); AST (SGOT) 36 U/L (5-34); Albumin 2.8 g/dL (3.5-5.0); Alkaline Phosphatase 86 U/L (40-110); Anion Gap 10 mmol/L (10-20); BUN (Urea Nitrogen) 37 mg/dL (8.9-20.6); Bilirubin, Total 1.1 mg/dL (0.2-1.2); Calc. Creatinine Clearance 283 mL/min (70-130); Calcium 8.5 mg/dL (7.8-10.44); Carbon Dioxide 36 mmol/L (22-29); Chloride 104 mmol/L (98-107); Globulin 2.8 g/dL (2.4-3.5); Glucose 115 mg/dL (70-105); Potassium 3.6 mmol/L (3.5-5.1); Protein, Total 5.6 g/dL (6.0-8.3); Sodium 146 mmol/L (136-145)
[2020-06-11 05:20] LABS: Band 9 % (5-11); Eosinophils 1 % (0-10); Hemoglobin 7.1 g/dL (14.0-18.0); Lymphocytes 13 % (21-51); MDiff Complete? YES; Mean Corpuscular HGB CONC 31.3 g/dL (32.0-36.0); Mean Corpuscular Hemoglobin 25.2 pg (27.0-31.0); Mean Corpuscular Volume 80.3 fL (78.0-98.0); Mean Platelet Volume 7.9 fL (7.4-10.4); Metamyelocyte 2 % (0-0); Monocytes 3 % (0-10); Myelocyte 7 % (0-0); Neutrophil 65 % (42-75); Platelet Count 298 thou/uL (130-400); Red Blood Cell (RBC) Count 2.83 mill/uL (4.70-6.10); White Blood Cell (WBC) Count 15.8 thou/uL (4.8-10.8)
[2020-06-11] MEDS: Meropenem 2 GM, Admixture Fee 1 EACH in Sodium Chloride 0.9% 100 ML IVPB SCH ×2 (07:56→15:15)
[2020-06-11] MEDS: Enoxaparin Sodium 40 MG/0.4 ML SYRINGE SC SCH (08:00)
[2020-06-11] MEDS: Hydrocortisone Sod Succ/PF 100 mg/2 ml Vial IVP SCH (08:00)
[2020-06-11] MEDS: Pantoprazole 40 MG VIAL IVP SCH (08:01)
[2020-06-11] MEDS ORDERED: Lidocaine 1% MPF 2 ML VIAL FS SCH (08:45)
[2020-06-11] MEDS ORDERED: Lidocaine 1% (PF) 30 ML VIAL ONE (09:00)
[2020-06-11] MEDS ORDERED: Lorazepam 2 MG/ML VIAL SLOW IVP PRN (10:11)
[2020-06-11] MEDS: Lorazepam 2 MG/ML VIAL SLOW IVP PRN (10:14)
--- NOTE | 2020-06-11 10:34 | PRG ---
DATE OF SERVICE: 06/11/2020 SUBJECTIVE: The patient is doing reasonably well. He did not use the BiPAP last night. He is having some withdrawal symptoms. Apparently, he drinks heavily and also is on narcotics at home. OBJECTIVE: VITAL SIGNS: Temperature 98.9, pulse 98, blood pressure 170/89, O2 saturation 93%. HEENT: Unremarkable. NECK: No JVD. LUNGS: Diminished breath sounds. CARDIAC: S1, S2. Regular. ABDOMEN: Wound VAC noted. LABORATORY DATA: White blood cell count 15.8, hematocrit 22.8, and platelet count 298. Sodium 146, potassium 3.6, chloride 104, CO2 36, BUN 37, creatinine 0.7, and glucose 115. ASSESSMENT: 1. Status post respiratory failure requiring mechanical ventilation. 2. Peritonitis. 3. Morbid obesity. 4. Developing metabolic alkalosis. PLAN: Ativan as needed for alcohol withdrawal. Morphine as needed for narcotic withdrawal. I will go ahead and stop the hydrocortisone. He probably needs to have reduced or eliminated from his TPN. Job ID: [id number]
--- NOTE | 2020-06-11 11:31 | PDOC.GSPN ---
Surgery Progress Note: Subj - Subjective Narrative: Patient is feeling a little better today. He denies shortness of breath. He had a little nausea yesterday but none currently. Vital signs are okay. Blood pressure is up today. Bicarb is high on his metabolic panel so he is getting some Diamox. He is diuresing with brisk urine output. Lungs are clear today. Incision is clean and granulating. The hand port incision was prepped with Betadine, lidocaine was injected to the skin edges circumferentially, and interrupted vertical mattress nylon sutures were placed today and the umbilicus reapproximated. VAC dressing was replaced above and below the closure. Colostomy is somewhat edematous but healthy and patent. No gas in the bag yet and no audible bowel sounds. Hemoglobin has come up appropriately with his transfusion yesterday. Assessment/plan: Doing well status post washout for anastomotic leak with resection of the anastomosis and diverting colostomy. Renal function has recovered and he is diuresing. His lungs sound much better today. He is coughing up some phlegm. Awaiting return of bowel function. Anticipate prolonged ileus; he is also at risk for bowel obstruction due to diffuse p eritonitis. I am going to leave him on sips and chips today since he had some nausea yesterday. I am going to restart some of his home medications including carvedilol, losartan/hydrochlorthiazide, fluoxetine, and methocarbamol. The patient requested that I consult Dr. Blue, his established neurologist, since he has missed several appointments with him. I put in a consult for Saturday if he is in town. Dr. Olivares will be rounding on him tomorrow and Dr. Alvarez will be taking care of him next week while I am out of town. Surgery Progress Note: Obj - Vital signs Vital signs: Vital Signs - Most Recent Temp Pulse Resp BP Pulse Ox 98.9 F 99 20 150/72 H 93 L 06/11/20 10:00 06/11/20 07:17 06/11/20 07:17 06/10/20 11:52 06/11/20 08:00 Surgery Progress Note: Results - Labs Result Diagrams: 06/11/20 04:15 06/11/20 04:15 Lab results: Laboratory Results - last 12 hr 06/10/20 06/11/20 06/11/20 23:51 04:15 04:15 WBC 15.8 H RBC 2.83 L Hgb 7.1 L Hct 22.8 L MCV 80.3 MCH 25.2 L MCHC 31.3 L RDW 15.0 H Plt Count 298 MPV 7.9 Neutrophils % (Manual) 65 Band Neuts % (Manual) 9 Lymphocytes % (Manual) 13 L Monocytes % (Manual) 3 Eosinophils % (Manual) 1 Metamyelocytes % (Man) 2 H Myelocytes % 7 H Sodium 146 H Potassium 3.6 Chloride 104 Carbon Dioxide 36 H Anion Gap 10 BUN 37 H Creatinine 0.77 Estimated GFR (MDRD) Greater than 90 Glucose 121 H 115 H Calcium 8.5 Total Bilirubin 1.1 AST 36 H ALT 30 Alkaline Phosphatase 86 Serum Total Protein 5.6 L Albumin 2.8 L Globulin 2.8 Albumin/Globulin Ratio 1.0 L
[2020-06-11] MEDS: HYDROcodone/Acetaminophen 10/325 mg Tablet PO PRN ×2 (11:40→18:27)
[2020-06-11] MEDS ORDERED: AcetaZOLAMIDE 250 MG TAB PO SCH (11:45)
[2020-06-11] MEDS ORDERED: Losartan/Hydrochlorothiazide 100 mg/25 mg Tablet PO SCH (11:45)
[2020-06-11] MEDS ORDERED: FLUoxetine HCl 20 MG CAP PO SCH (11:45)
[2020-06-11] MEDS ORDERED: Carvedilol 25 MG TAB PO SCH ×2 (11:45→21:00)
[2020-06-11] MEDS: FLUoxetine HCl 20 MG CAP PO SCH (12:19)
[2020-06-11] MEDS: SODIUM CHLORIDE IV SCH (14:13)
[2020-06-11] MEDS: POTASSIUM CHLORIDE IV SCH (14:13)
[2020-06-11] MEDS: [UNRECOGNIZED DRUG - OTHER] IV SCH (14:13)
[2020-06-11] MEDS: POTASSIUM PHOSPHATE IV SCH (14:13)
[2020-06-11] MEDS: Carvedilol 25 MG TAB PO SCH (21:05)
[2020-06-12] MEDS: Meropenem 2 GM, Admixture Fee 1 EACH in Sodium Chloride 0.9% 100 ML IVPB SCH ×4 (00:24→22:53)
[2020-06-12] MEDS: HYDROcodone/Acetaminophen 10/325 mg Tablet PO PRN ×3 (00:26→15:37)
[2020-06-12 05:41] LABS: ALT (SGPT) 51 U/L (8-55); AST (SGOT) 44 U/L (5-34); Alkaline Phosphatase 96 U/L (40-110); Anion Gap 12 mmol/L (10-20); BUN (Urea Nitrogen) 31 mg/dL (8.9-20.6); Bilirubin, Total 1.2 mg/dL (0.2-1.2); Calc. Creatinine Clearance 268 mL/min (70-130); Calcium 8.9 mg/dL (7.8-10.44); Carbon Dioxide 28 mmol/L (22-29); Chloride 107 mmol/L (98-107); Glucose 124 mg/dL (70-105); Magnesium 2.4 mg/dL (1.6-2.6); Potassium 3.7 mmol/L (3.5-5.1); Sodium 143 mmol/L (136-145)
[2020-06-12 06:56] LABS: Band 22 % (5-11); Hemoglobin 7.8 g/dL (14.0-18.0); Lymphocytes 21 % (21-51); MDiff Complete? YES; Mean Corpuscular HGB CONC 30.9 g/dL (32.0-36.0); Mean Corpuscular Hemoglobin 25.6 pg (27.0-31.0); Mean Corpuscular Volume 82.7 fL (78.0-98.0); Mean Platelet Volume 7.8 fL (7.4-10.4); Metamyelocyte 1 % (0-0); Monocytes 6 % (0-10); Myelocyte 6 % (0-0); Neutrophil 44 % (42-75); Platelet Count 303 thou/uL (130-400); RBC Distribution Width 15.3 % (11.5-14.5); Red Blood Cell (RBC) Count 3.03 mill/uL (4.70-6.10); White Blood Cell (WBC) Count 14.1 thou/uL (4.8-10.8)
--- NOTE | 2020-06-12 08:29 | PRG ---
DATE OF SERVICE: 06/12/2020 SUBJECTIVE: The patient was able to get out of bed into a chair yesterday. He slept well last night. Did use the BiPAP. OBJECTIVE: VITAL SIGNS: Temperature 98.7, pulse 95, blood pressure 158/103, and O2 saturation 98%. Intake 2320 and output 5028. HEENT: Unremarkable. NECK: No adenopathy or JVD. LUNGS: Clear. CARDIAC: S1 and S2, regular. ABDOMEN: Obese, soft. Colostomy functioning. Wounds look good. EXTREMITIES: No clubbing, cyanosis, or edema. LABORATORY DATA: Sodium 143, potassium 3.7, chloride 107, CO2 of 28, BUN 31, creatinine 0.7, glucose 124. White blood cell count 14.1, hematocrit 25.1, and platelet count 303. ASSESSMENT: 1. Status post respiratory failure requiring mechanical ventilation. 2. Improved peritonitis. 3. Morbid obesity. 4. Resolving metabolic alkalosis after a dose of Diamox yesterday. PLAN: The patient is improving appropriately. Main issue now is pain management and rehabilitation. The patient is stable for transfer to the surgical floor from my standpoint. As an outpatient at a later day, he may need a sleep study as I believe he probably has significant MYNOR. He will continue meropenem for the peritonitis. Job ID: [id number]
[2020-06-12] MEDS ORDERED: Losartan/Hydrochlorothiazide 100 mg/25 mg Tablet PO SCH (09:00)
[2020-06-12] MEDS ORDERED: AcetaZOLAMIDE 250 MG TAB PO SCH (09:00)
[2020-06-12] MEDS ORDERED: FLUoxetine HCl 20 MG CAP PO SCH (09:00)
[2020-06-12] MEDS: Carvedilol 25 MG TAB PO SCH ×2 (10:02→21:50)
[2020-06-12] MEDS: Losartan/Hydrochlorothiazide 100 mg/25 mg Tablet PO SCH (10:02)
[2020-06-12] MEDS: FLUoxetine HCl 20 MG CAP PO SCH (10:04)
[2020-06-12] MEDS: Enoxaparin Sodium 40 MG/0.4 ML SYRINGE SC SCH (10:05)
[2020-06-12] MEDS: Pantoprazole 40 MG VIAL IVP SCH (10:07)
[2020-06-12] MEDS ORDERED: cloNIDine 0.1 MG TAB PO SCH (11:00)
[2020-06-12] MEDS ORDERED: Lorazepam 2 MG/ML VIAL SLOW IVP PRN (12:32)
[2020-06-12] MEDS: POTASSIUM CHLORIDE IV SCH (13:23)
[2020-06-12] MEDS: SODIUM CHLORIDE IV SCH (13:23)
[2020-06-12] MEDS: POTASSIUM PHOSPHATE IV SCH (13:23)
[2020-06-12] MEDS: [UNRECOGNIZED DRUG - OTHER] IV SCH (13:23)
[2020-06-12] MEDS: Methocarbamol 500 MG TAB PO PRN (15:20)
[2020-06-12] MEDS: cloNIDine 0.1 MG TAB PO SCH (21:50)
[2020-06-13 04:50] LABS: ALT (SGPT) 41 U/L (8-55); AST (SGOT) 24 U/L (5-34); Albumin 2.9 g/dL (3.5-5.0); Alkaline Phosphatase 97 U/L (40-110); Anion Gap 13 mmol/L (10-20); BUN (Urea Nitrogen) 26 mg/dL (8.9-20.6); Bilirubin, Total 0.9 mg/dL (0.2-1.2); Calc. Creatinine Clearance 294 mL/min (70-130); Calcium 9.1 mg/dL (7.8-10.44); Carbon Dioxide 26 mmol/L (22-29); Chloride 106 mmol/L (98-107); Glucose 112 mg/dL (70-105); Potassium 3.9 mmol/L (3.5-5.1); Protein, Total 5.9 g/dL (6.0-8.3); Sodium 141 mmol/L (136-145)
[2020-06-13 05:42] LABS: Band 18 % (5-11); Eosinophils 2 % (0-10); Hemoglobin 7.8 g/dL (14.0-18.0); Lymphocytes 18 % (21-51); MDiff Complete? YES; Mean Corpuscular HGB CONC 30.1 g/dL (32.0-36.0); Mean Corpuscular Hemoglobin 24.2 pg (27.0-31.0); Mean Corpuscular Volume 80.4 fL (78.0-98.0); Mean Platelet Volume 7.9 fL (7.4-10.4); Monocytes 10 % (0-10); Myelocyte 5 % (0-0); Neutrophil 47 % (42-75); Platelet Count 348 thou/uL (130-400); RBC Distribution Width 15.3 % (11.5-14.5); White Blood Cell (WBC) Count 15.4 thou/uL (4.8-10.8)
[2020-06-13] MEDS: Methocarbamol 500 MG TAB PO PRN ×2 (06:31→16:31)
[2020-06-13] MEDS: Meropenem 2 GM, Admixture Fee 1 EACH in Sodium Chloride 0.9% 100 ML IVPB SCH ×2 (07:04→14:47)
--- NOTE | 2020-06-13 08:59 | PRG ---
DATE OF SERVICE: 06/13/2020 SUBJECTIVE: The patient is doing well. No complaints. OBJECTIVE: VITAL SIGNS: Temperature 98.1, pulse 85, blood pressure 160/80, O2 saturation 99%. HEENT: Unremarkable. NECK: No adenopathy or JVD. LUNGS: Clear. CARDIAC: S1 and S2. Regular. ABDOMEN: Soft. Colostomy functioning. EXTREMITIES: No edema. LABORATORY DATA: White blood cell count 15.4, hematocrit 25.7, and platelet count 348. Sodium 141, potassium 3.9, chloride 106, CO2 of 26, BUN 26, creatinine 0.7, glucose 112. ASSESSMENT: 1. Resolved septic shock from peritonitis. 2. Status post respiratory failure requiring mechanical ventilation. 3. Morbid obesity. PLAN: This patient is stable enough for transfer to the surgical unit. There are no overt pulmonary issues. I would recommend a sleep study at some point in the future when he is out of the hospital. No further pulmonary recommendations. Will be available as needed. Job ID: [id number]
[2020-06-13] MEDS: Enoxaparin Sodium 40 MG/0.4 ML SYRINGE SC SCH (09:19)
[2020-06-13] MEDS: cloNIDine 0.1 MG TAB PO SCH ×2 (09:20→20:45)
[2020-06-13] MEDS: Carvedilol 25 MG TAB PO SCH ×2 (09:20→20:45)
[2020-06-13] MEDS: FLUoxetine HCl 20 MG CAP PO SCH (09:20)
[2020-06-13] MEDS: Pantoprazole 40 MG VIAL IVP SCH (09:21)
[2020-06-13] MEDS: Losartan/Hydrochlorothiazide 100 mg/25 mg Tablet PO SCH (09:21)
[2020-06-13] MEDS: HYDROcodone/Acetaminophen 10/325 mg Tablet PO PRN ×3 (09:26→19:54)
[2020-06-13] MEDS: Lorazepam 1 MG TAB PO SCH ×3 (10:36→20:45)
[2020-06-13] MEDS: POTASSIUM CHLORIDE IV SCH (14:34)
[2020-06-13] MEDS: SODIUM CHLORIDE IV SCH (14:34)
[2020-06-13] MEDS: POTASSIUM PHOSPHATE IV SCH (14:34)
[2020-06-13] MEDS: [UNRECOGNIZED DRUG - OTHER] IV SCH (14:34)
--- NOTE | 2020-06-13 19:32 | PRG ---
DATE OF SERVICE: 06/13/2020 SUBJECTIVE: Mr. Crum is a morbidly obese male, who had presented with colon cancer, which was treated with a sigmoid colectomy per Dr. Griffin on June 02. This revealed a T2, N0 colon cancer. He unfortunately had anastomotic leak, which was treated by Dr. Griffin on 06/06/2020. He now has an end colostomy in the left lower abdomen. He has a wound VAC on his midline abdominal incision. He was maintained on the ventilator in the intensive care unit postoperatively. He was just transferred to the floor today (7 days after his tuck-in surgery). He does not have any significant complaints of abdominal pain currently. His tells me, however, that he is on chronic narcotics, taking at least 10 mg of hydrocodone three times per day at home on a chronic basis. He has not really been out of bed other than to transfer from the ICU. He and his tell me that he has limited ambulation at home. He apparently has back pain considerably related to scoliosis. He is on a clear liquid diet, but has taken very little today. He denies nausea. He tells me he has bowel rumbling. OBJECTIVE: VITAL SIGNS: Today, he is afebrile. Pulse is 78 to 80, blood pressure is currently 110/65. He has a Casillas catheter in place. His urine output yesterday was 4700 mL. He has three HAI drains less than 25 mL yesterday. He has some minimal early output from his ostomy. LUNGS: Clear to auscultation anteriorly, but he has some obstructive breath sounds. He has a history of obstructive sleep apnea related to his morbid obesity. ABDOMEN: Morbidly obese, but soft. Bowel sounds are present, but hypoactive. EXTREMITIES: Unremarkable. LABORATORY DATA: His white blood cell count today is 15.4, hemoglobin 7.8, platelet count is 348 with 18 bands. His chemistry panel reveals normal electrolytes. Creatinine is normal at 0.7. Blood sugars are well controlled. Albumin low at 2.9. ASSESSMENT AND PLAN: The patient is stable following his colon cancer resection and subsequent anastomotic leak. I spent a good deal of time speaking with him and his at bedside regarding his need to participate in his recovery. He was given minimal effort with his incentive spirometry. He has refused physical therapy and not gotten out of bed. He is not yet drinking substantial volume of clear liquids. I encouraged that he should advance these efforts. We will continue his current treatment including TPN and meropenem. Job ID: [id number]
[2020-06-14] MEDS: Methocarbamol 500 MG TAB PO PRN ×3 (00:02→23:13)
[2020-06-14] MEDS: Meropenem 2 GM, Admixture Fee 1 EACH in Sodium Chloride 0.9% 100 ML IVPB SCH ×4 (00:02→23:13)
[2020-06-14] MEDS: HYDROcodone/Acetaminophen 10/325 mg Tablet PO PRN ×3 (02:14→20:57)
[2020-06-14] MEDS: Lorazepam 1 MG TAB PO SCH ×3 (09:23→20:57)
[2020-06-14] MEDS: cloNIDine 0.1 MG TAB PO SCH ×2 (09:25→20:57)
[2020-06-14] MEDS: FLUoxetine HCl 20 MG CAP PO SCH (09:26)
[2020-06-14] MEDS: Losartan/Hydrochlorothiazide 100 mg/25 mg Tablet PO SCH (09:26)
[2020-06-14] MEDS: Pantoprazole 40 MG VIAL IVP SCH (09:26)
[2020-06-14] MEDS: Carvedilol 25 MG TAB PO SCH ×2 (09:26→20:56)
[2020-06-14] MEDS: Enoxaparin Sodium 40 MG/0.4 ML SYRINGE SC SCH (09:27)
--- NOTE | 2020-06-14 09:59 | PRG ---
DATE OF SERVICE: 06/14/2020 SUBJECTIVE: Mr. Crum is postoperative day number eight from treatment of his anastomotic perforation from his prior sigmoid colectomy. He tells me he had a good night. He used the BiPAP machine for part of the night but is breathing on his own successfully since then. He continues to complain of his typical pain issues (for which he has been on chronic narcotics for several years). He has no new complaints. He does seem to be much more lucid and clear today than he was when I examined yesterday and is speaking coherently and clearly. PHYSICAL EXAMINATION: VITAL SIGNS: He is afebrile. Pulse 77, blood pressure 129/70. LUNGS: Clear to auscultation. ABDOMEN: Soft with much better bowel sounds. His wound VAC is intact, as are three HAI drains. LABORATORY DATA: His blood glucose continues to be well controlled. Electrolytes were not checked today. CBC was pending. ASSESSMENT: The patient is stable and seems to be improving. I have encouraged him to continue doing incentive spirometry. His Casillas catheter will be removed today. I will advance him to full liquids as he has active bowel sounds. I encouraged him to participate with physical therapy and start to mobilize him up and out of bed. Job ID: [id number]
[2020-06-14 10:44] LABS: Band 22 % (5-11); Eosinophils 2 % (0-10); Hemoglobin 7.8 g/dL (14.0-18.0); Hypochromia SLIGHT = 6-15 cells (100X) (0-5/hpf); Lymphocytes 16 % (21-51); MDiff Complete? YES; Mean Corpuscular HGB CONC 30.9 g/dL (32.0-36.0); Mean Corpuscular Hemoglobin 25.2 pg (27.0-31.0); Mean Corpuscular Volume 81.5 fL (78.0-98.0); Metamyelocyte 2 % (0-0); Monocytes 8 % (0-10); Myelocyte 7 % (0-0); Neutrophil 42 % (42-75); Ovalocytes SLIGHT = 2-5 cells (100X) (0-1/hpf); Platelet Count 362 thou/uL (130-400); Platelet Morphology Comment Appears Adequate; Polychromasia SLIGHT = 2-3 cells (100X) (0-2/hpf); RBC Distribution Width 15.5 % (11.5-14.5); Reactive Lymphocytes 1 % (0-10); Red Blood Cell (RBC) Count 3.09 mill/uL (4.70-6.10); White Blood Cell (WBC) Count 16.1 thou/uL (4.8-10.8)
[2020-06-14] MEDS: Ibuprofen 600 MG TAB PO PRN (12:00)
[2020-06-14] MEDS: diphenhydrAMINE 25 MG CAP PO PRN (13:19)
[2020-06-14] MEDS: [UNRECOGNIZED DRUG - OTHER] IV SCH (14:31)
[2020-06-14] MEDS: POTASSIUM PHOSPHATE IV SCH (14:31)
[2020-06-14] MEDS: POTASSIUM CHLORIDE IV SCH (14:31)
[2020-06-14] MEDS: SODIUM CHLORIDE IV SCH (14:31)
[2020-06-15] MEDS: HYDROcodone/Acetaminophen 10/325 mg Tablet PO PRN ×3 (03:04→21:36)
[2020-06-15] MEDS: Methocarbamol 500 MG TAB PO PRN (06:30)
[2020-06-15] MEDS: Meropenem 2 GM, Admixture Fee 1 EACH in Sodium Chloride 0.9% 100 ML IVPB SCH ×3 (06:31→22:36)
[2020-06-15 07:51] LABS: Hemoglobin 7.9 g/dL (14.0-18.0); Mean Corpuscular HGB CONC 31.4 g/dL (32.0-36.0); Mean Corpuscular Hemoglobin 25.4 pg (27.0-31.0); Mean Corpuscular Volume 81.1 fL (78.0-98.0); Mean Platelet Volume 7.7 fL (7.4-10.4); Platelet Count 433 thou/uL (130-400); Red Blood Cell (RBC) Count 3.12 mill/uL (4.70-6.10); White Blood Cell (WBC) Count 15.1 thou/uL (4.8-10.8)
[2020-06-15 08:08] LABS: Anion Gap 14 mmol/L (10-20); BUN (Urea Nitrogen) 23 mg/dL (8.9-20.6); Calc. Creatinine Clearance 295 mL/min (70-130); Calcium 8.5 mg/dL (7.8-10.44); Carbon Dioxide 24 mmol/L (22-29); Chloride 105 mmol/L (98-107); Glucose 113 mg/dL (70-105); Potassium 4.5 mmol/L (3.5-5.1); Sodium 138 mmol/L (136-145)
[2020-06-15 08:29] LABS: Band 13 % (5-11); Eosinophils 3 % (0-10); Lymphocytes 8 % (21-51); MDiff Complete? YES; Metamyelocyte 2 % (0-0); Monocytes 10 % (0-10); Neutrophil 61 % (42-75); Platelet Morphology Comment Appears Increased; Polychromasia SLIGHT = 2-3 cells (100X) (0-2/hpf); Reactive Lymphocytes 3 % (0-10)
[2020-06-15] MEDS: Carvedilol 25 MG TAB PO SCH ×2 (08:29→21:36)
[2020-06-15] MEDS: FLUoxetine HCl 20 MG CAP PO SCH (08:29)
[2020-06-15] MEDS: Lorazepam 1 MG TAB PO SCH ×3 (08:29→21:36)
[2020-06-15] MEDS: cloNIDine 0.1 MG TAB PO SCH ×2 (08:30→21:36)
[2020-06-15] MEDS: Losartan/Hydrochlorothiazide 100 mg/25 mg Tablet PO SCH (08:30)
[2020-06-15] MEDS: Enoxaparin Sodium 40 MG/0.4 ML SYRINGE SC SCH (08:31)
[2020-06-15] MEDS: Pantoprazole 40 MG VIAL IVP SCH (08:31)
--- NOTE | 2020-06-15 08:44 | RAD ---
CHEST 1 VIEW: Date: 06/15/2020 INDICATION: History of pneumonia follow-up. COMPARISON: Prior exam dated 06/10/2020. FINDINGS: Bilateral air space disease persists. This is greater on the left. No pneumothorax is evident. Heart size within normal limits. Osseous structures are unchanged. IMPRESSION: Persistent bilateral lower lobe air space disease. POS: BH
[2020-06-15 14:29] VITALS: BMI 48.0
[2020-06-15] MEDS ORDERED: [UNRECOGNIZED DRUG - OTHER] IV SCH (14:45)
[2020-06-15] MEDS ORDERED: FAT EMULSION IV SCH (14:45)
[2020-06-15] MEDS ORDERED: MULTITRACE NEONATAL IV SCH (14:45)
[2020-06-15] MEDS ORDERED: MULTIVITAMINS IV SCH (14:45)
[2020-06-15] MEDS: Ibuprofen 600 MG TAB PO PRN (15:36)
[2020-06-15] MEDS: SODIUM CHLORIDE IV SCH (16:00)
[2020-06-15] MEDS: POTASSIUM CHLORIDE IV SCH (16:00)
[2020-06-15] MEDS: POTASSIUM PHOSPHATE IV SCH (16:00)
[2020-06-15] MEDS: [UNRECOGNIZED DRUG - OTHER] IV SCH (16:00)
[2020-06-16] MEDS: Ibuprofen 600 MG TAB PO PRN ×2 (00:33→18:48)
[2020-06-16] MEDS: Methocarbamol 500 MG TAB PO PRN (00:50)
[2020-06-16] MEDS: diphenhydrAMINE 25 MG CAP PO PRN (04:27)
[2020-06-16] MEDS: HYDROcodone/Acetaminophen 10/325 mg Tablet PO PRN ×3 (05:34→23:48)
[2020-06-16] MEDS: Meropenem 2 GM, Admixture Fee 1 EACH in Sodium Chloride 0.9% 100 ML IVPB SCH ×3 (06:26→23:48)
[2020-06-16 06:41] LABS: ALT (SGPT) 27 U/L (8-55); AST (SGOT) 21 U/L (5-34); Albumin 2.9 g/dL (3.5-5.0); Alkaline Phosphatase 102 U/L (40-110); BUN (Urea Nitrogen) 18 mg/dL (8.9-20.6); Bilirubin, Total 0.6 mg/dL (0.2-1.2); Calc. Creatinine Clearance 283 mL/min (70-130); Calcium 8.6 mg/dL (7.8-10.44); Chloride 104 mmol/L (98-107); Globulin 3.3 g/dL (2.4-3.5); Glucose 94 mg/dL (70-105); Phosphorus 3.3 mg/dL (2.3-4.7); Potassium 4.1 mmol/L (3.5-5.1); Protein, Total 6.2 g/dL (6.0-8.3); Sodium 136 mmol/L (136-145)
[2020-06-16 07:15] LABS: Anion Gap 14 mmol/L (10-20); Carbon Dioxide 24 mmol/L (22-29)
[2020-06-16] MEDS ORDERED: Magnesium 2 GM/50 ML 2 GM in Premix Bag 1 BAG IVPB SCH (08:15)
[2020-06-16] MEDS: Enoxaparin Sodium 40 MG/0.4 ML SYRINGE SC SCH (09:00)
[2020-06-16] MEDS: Losartan/Hydrochlorothiazide 100 mg/25 mg Tablet PO SCH (09:00)
[2020-06-16] MEDS: FLUoxetine HCl 20 MG CAP PO SCH (09:01)
[2020-06-16] MEDS: Lorazepam 1 MG TAB PO SCH ×3 (09:01→21:41)
[2020-06-16] MEDS: cloNIDine 0.1 MG TAB PO SCH ×2 (09:01→21:42)
[2020-06-16] MEDS: Carvedilol 25 MG TAB PO SCH ×2 (09:03→21:42)
[2020-06-16] MEDS ORDERED: [UNRECOGNIZED DRUG - OTHER] IV SCH (14:00)
[2020-06-16] MEDS ORDERED: MULTITRACE NEONATAL IV SCH (14:00)
[2020-06-16] MEDS ORDERED: FAT EMULSION IV SCH (14:00)
[2020-06-16] MEDS ORDERED: MULTIVITAMINS IV SCH (14:00)
[2020-06-16] MEDS: Ferrous Sulfate 325 MG TAB PO SCH (16:26)
[2020-06-16] MEDS: Sodium Chloride 0.9% 1,000 ML IV SCH (18:49)
[2020-06-17 05:35] LABS: #Basophils 0.1 thou/uL (0.0-0.2); #Eosinphils 0.5 thou/uL (0.0-0.7); #Lymphocytes 1.6 thou/uL (1.20-3.40); #Monocytes 2.2 thou/uL (0.11-0.59); #Neutrophils 14.9 thou/uL (1.40-6.50); %Basophils 0.3 % (0.0-1.0); %Eosinophils 2.8 % (0.0-10.0); %Monocytes 11.6 % (0.0-10.0); %Neutrophils 77.3 % (42.0-75.0); Hemoglobin 7.8 g/dL (14.0-18.0); Mean Corpuscular HGB CONC 31.5 g/dL (32.0-36.0); Mean Corpuscular Hemoglobin 24.9 pg (27.0-31.0); Mean Corpuscular Volume 79.1 fL (78.0-98.0); Mean Platelet Volume 7.9 fL (7.4-10.4); Platelet Count 527 thou/uL (130-400); RBC Distribution Width 15.2 % (11.5-14.5); Red Blood Cell (RBC) Count 3.14 mill/uL (4.70-6.10); White Blood Cell (WBC) Count 19.3 thou/uL (4.8-10.8)
[2020-06-17 06:04] LABS: Anion Gap 13 mmol/L (10-20); BUN (Urea Nitrogen) 18 mg/dL (8.9-20.6); Calc. Creatinine Clearance 261 mL/min (70-130); Calcium 8.6 mg/dL (7.8-10.44); Carbon Dioxide 26 mmol/L (22-29); Chloride 103 mmol/L (98-107); Glucose 93 mg/dL (70-105); Potassium 4.5 mmol/L (3.5-5.1); Sodium 137 mmol/L (136-145)
[2020-06-17] MEDS: Meropenem 2 GM, Admixture Fee 1 EACH in Sodium Chloride 0.9% 100 ML IVPB SCH (06:29)
[2020-06-17] MEDS: Enoxaparin Sodium 40 MG/0.4 ML SYRINGE SC SCH (07:56)
[2020-06-17] MEDS: Ferrous Sulfate 325 MG TAB PO SCH ×2 (07:57→17:42)
[2020-06-17] MEDS: Carvedilol 25 MG TAB PO SCH ×2 (07:57→20:09)
[2020-06-17] MEDS: Lorazepam 1 MG TAB PO SCH ×3 (07:57→20:09)
[2020-06-17] MEDS: cloNIDine 0.1 MG TAB PO SCH ×2 (07:58→20:08)
[2020-06-17] MEDS: Losartan/Hydrochlorothiazide 100 mg/25 mg Tablet PO SCH (07:58)
[2020-06-17] MEDS: FLUoxetine HCl 20 MG CAP PO SCH (07:58)
[2020-06-17] MEDS: HYDROcodone/Acetaminophen 10/325 mg Tablet PO PRN ×2 (07:58→15:32)
--- NOTE | 2020-06-17 08:43 | PRG ---
DATE OF SERVICE: 06/17/2020 SUBJECTIVE: Mr. Crum is postoperative day #11 from treatment of his anastomotic perforation from his prior sigmoid colectomy. He has made appropriate progress each day since that surgery. He has been advanced up to a solid diet and his TPN was discontinued yesterday. He has no episodes of vomiting, but he and his tell me that he has a decreased appetite. He has had good colostomy function. He has been ambulating with a walking team, but tells me that this exhausts him. He is urinating well. He notes pain after he walks, but he believes that it is his typical back related pain. He denies any focal abdominal discomfort. PHYSICAL EXAMINATION: VITAL SIGNS: Temperature is 98.4, pulse is 90, blood pressure is 154/72. LUNGS: Clear to auscultation. ABDOMEN: Obese, but soft. Bowel sounds are excellent, normoactive. His wound VAC remains on his midline wound. Drain sites are all clean after I had removed his HAI drains. LABORATORY DATA: His white blood cell count went up from 15 on the to 19 today. His hemoglobin is stable at 7.8, platelet count is going up and is 527 today. His basic metabolic panel is entirely normal. ASSESSMENT: The patient is in general doing well following his surgery. I am concerned that his white blood cell count has gone up today. I was hoping to discharge him today, however, in light of his progressive leukocytosis, I would recommend observation. His meropenem was discontinued by Pharmacy (I guess he had a long enough course). I will start him on Levaquin and Flagyl today. I started him on iron supplementation yesterday to help with his anemia as well. We will continue to follow him with hopes to discharge him soon. I will examine his wound today with Wound Care team and consider closing it in a delayed fashion today. Job ID: [id number]
[2020-06-17] MEDS: metroNIDAZOLE 500 MG TAB PO SCH ×3 (09:55→20:09)
[2020-06-17] MEDS: Ibuprofen 600 MG TAB PO PRN (14:28)
[2020-06-17] MEDS: Sodium Chloride 0.9% 1,000 ML IV SCH (15:33)
[2020-06-17] MEDS: Methocarbamol 500 MG TAB PO PRN (19:09)
[2020-06-18] MEDS: HYDROcodone/Acetaminophen 10/325 mg Tablet PO PRN ×3 (02:29→20:17)
[2020-06-18] MEDS: Methocarbamol 500 MG TAB PO PRN ×2 (05:43→15:06)
[2020-06-18 08:33] LABS: Hemoglobin 7.6 g/dL (14.0-18.0); Mean Corpuscular HGB CONC 31.9 g/dL (32.0-36.0); Mean Corpuscular Hemoglobin 25.4 pg (27.0-31.0); Mean Corpuscular Volume 79.6 fL (78.0-98.0); Mean Platelet Volume 7.6 fL (7.4-10.4); Platelet Count 512 thou/uL (130-400); RBC Distribution Width 15.1 % (11.5-14.5); Red Blood Cell (RBC) Count 2.97 mill/uL (4.70-6.10); White Blood Cell (WBC) Count 22.4 thou/uL (4.8-10.8)
[2020-06-18] MEDS: Enoxaparin Sodium 40 MG/0.4 ML SYRINGE SC SCH (08:33)
[2020-06-18] MEDS: Carvedilol 25 MG TAB PO SCH ×2 (08:33→20:12)
[2020-06-18] MEDS: FLUoxetine HCl 20 MG CAP PO SCH (08:35)
[2020-06-18] MEDS: Ferrous Sulfate 325 MG TAB PO SCH ×2 (08:35→18:28)
[2020-06-18] MEDS: Lorazepam 1 MG TAB PO SCH ×3 (08:35→20:11)
[2020-06-18] MEDS: metroNIDAZOLE 500 MG TAB PO SCH ×3 (08:36→20:11)
[2020-06-18] MEDS: Ibuprofen 600 MG TAB PO PRN (08:39)
[2020-06-18 08:48] LABS: ALT (SGPT) 18 U/L (8-55); AST (SGOT) 14 U/L (5-34); Albumin 2.7 g/dL (3.5-5.0); Alkaline Phosphatase 106 U/L (40-110); Anion Gap 14 mmol/L (10-20); BUN (Urea Nitrogen) 19 mg/dL (8.9-20.6); Bilirubin, Total 0.8 mg/dL (0.2-1.2); Calc. Creatinine Clearance 213 mL/min (70-130); Calcium 8.3 mg/dL (7.8-10.44); Carbon Dioxide 25 mmol/L (22-29); Chloride 102 mmol/L (98-107); Globulin 3.4 g/dL (2.4-3.5); Glucose 106 mg/dL (70-105); Potassium 4.7 mmol/L (3.5-5.1); Protein, Total 6.1 g/dL (6.0-8.3); Sodium 136 mmol/L (136-145)
[2020-06-18 09:03] LABS: Band 1 % (5-11); Eosinophils 1 % (0-10); Hypersemented Neutrophil SLIGHT; Lymphocytes 2 % (21-51); MDiff Complete? YES; Monocytes 7 % (0-10); Neutrophil 89 % (42-75); Platelet Morphology Comment Appears Increased
[2020-06-18] MEDS: cloNIDine 0.1 MG TAB PO SCH ×2 (09:25→20:12)
[2020-06-18] MEDS: D5 1/2 NS w/20 mEq KCL 1,000 ML IV SCH ×2 (09:52→20:11)
--- NOTE | 2020-06-18 12:13 | CT ---
CT OF THE ABDOMEN AND PELVIS WITH IV CONTRAST INDICATION: Generalized abdominal pain with nausea vomiting and rising white count after surgery COMPARISON: CT of the chest abdomen and pelvis dated June 06, [address] the abdomen and pelvis dated May 31, 2020. FINDINGS: ABDOMEN: Lung bases: There is bibasilar subsegmental atelectasis. Liver: No focal lesion. Gallbladder: Mildly distended Pancreas: Normal. Adrenal glands: Normal. Spleen: Normal. Kidneys and ureters: Normal. No hydronephrosis. Vasculature: There are mild vascular calcifications seen involving the visualized vasculature. Lymph nodes:No lymphadenopathy. Free fluid in abdomen:The extent of the fluid, contrast and gas collections within the abdomen and pe lvis has improved significantly from the prior exam. There is a 5.3 x 1.8 cm peripherally enhancing fluid collection adjacent to the greater curvature of the stomach, within the gastrosplenic ligament, on image 20 of series 2. There is mild nonloculated fluid collection within Morison's pouch. There is inflammatory stranding within the omentum. Small amount of fluid is seen within the lower sigmoid mesentery. PELVIS: Small and large bowel: There is postsurgical change of interval development of a in left lower quadra nt ostomy. There is a tiny focus of extraluminal gas seen within the left upper quadrant abdomen on image 58 of series 2. There is a mild amount retained stool within the colon. There is now a long Vinod tman's pouch. There are few mildly prominent loops of small bowel within the upper central abdomen. There is some thickening of loops of jejunum within the left upper quadrant of the abdomen.. Appendix:Normal Bladder: Decompressed Rectal and perirectal soft tissues:Normal. Reproductive structures: Not well seen due to beam scattering artifact from bilateral total hip prost heses. Free fluid in pelvis: Minimal Lymphadenopathy pelvis: No lymphadenopathy. There is a right femoral central venous catheter projecti ng up to the right external iliac vein. Osseous structures: There is thoracolumbar scoliosis. There are bilateral total hip prosthesis. No ac dion fracture is evident. There is scattered degenerative and osteoarthritic changes. Soft tissues:Normal. IMPRESSION: 1. Improvement in the extent of the free air, free fluid and enteric contrast within the abdomen or p robb. There is some residual inflammatory stranding involving the omentum with small pockets of fluid seen within the sigmoid mesentery as well as adjacent to the greater curvature of the stomach, within the gastrosplenic ligament. Small focus of extra luminal gas remains within the abdomen within the left lower quadrant on image 59 of series 2 which may be postprocedural in nature. Small a mount of free fluid is seen within Morison's pouch. No percutaneously drainable fluid collection is evident. 2. Interval establishment of the left lower quadrant end colostomy and a long Padilla's pouch. 3. Mildly dilated loops of small bowel within the central abdomen with wall thickening involving loop s of jejunum in the left upper quadrant may reflect an enteritis. 4. Mild gallbladder distention. 5. Bibasilar subsegmental atelectasis
[2020-06-18] MEDS ORDERED: Iopamidol 370 76% 50 ML VIAL FS ONE (13:38)
[2020-06-18] MEDS ORDERED: Iopamidol-370 76% 500 ML 1 ML ONE (13:38)
[2020-06-18] MEDS: Sodium Chloride 0.9% 1,000 ML IV SCH (19:11)
[2020-06-18] MEDS: Vancomycin 1.5 GRAM/300 ML BAG 1.5 GM in Premix Bag 1 BAG IVPB SCH (23:29)
--- NOTE | 2020-06-18 23:42 | PRG ---
DATE OF SERVICE: 06/18/2020 SUBJECTIVE: Mr. Crum is postoperative day #12 from treatment of his anastomotic perforation from his prior sigmoid colectomy. I had initially hoped to discharge him home yesterday, but did not secondary to leukocytosis. Today, early this morning, when I reviewed his records, noted that his leukocytosis was progressive. His white blood cell count had gone from 19 yesterday to 22.4 today with a markedly left shift. Hemoglobin is relatively stable at 7.6. Platelet count is still somewhat elevated at 512. Additionally, I noted that his reported blood pressure last night for several hours had a systolic in the 90s. In light of what appeared to be new onset hypotension and leukocytosis, I again recognized that he was not going to be able to be discharged. I started him on IV fluids. Since that time, his blood pressure has been within normal limits with systolic blood pressure ranging in the 120s primarily. I also obtained a CT scan of abdomen and pelvis. This revealed only residual inflammatory stranding with tiny pockets of fluid seen within the abdomen. There was a fluid collection adjacent to the greater curvature of the stomach. There was no evidence of intraabdominal abscess. There was no apparent abdominal source of leukocytosis. Patient and tell me that he is not felt particularly well today. He did not go walking today. He has had significant contrast output from his colostomy following his CT scan. He tells me he did not have much appetite after that, however. PHYSICAL EXAMINATION: VITAL SIGNS: Temperature 98.9, pulse currently is 106, blood pressure 122/69. LUNGS: Clear to auscultation. ABDOMEN: Benign. LABORATORIES: Labs are as referenced above. ASSESSMENT: Patient with leukocytosis. He had some transient hypotension earlier this morning. This appears to resolve with IV fluid administration. It was recognized that his right femoral central line was placed at the time of his surgery 11 or 12 days ago. In light of his extreme obesity, it is entirely possible there is an increased chance of infection associated with this. I will order blood cultures of this and empirically start him on vancomycin and will await the results. I attempted a left femoral central line placement this evening with ultrasound guidance and never could hit a blood vessel. He does tend to tense in this area and he has extraordinary amount of fatty tissue makes accessing this difficult for me this evening was impossible. I abandoned efforts after several attempts. Instead, I will order a PICC line to be placed by Radiology tomorrow. Blood cultures will still be obtained tonight. I will hopefully remove his femoral catheter after his PICC line is placed. Otherwise, continue his oral antibiotics, his IV vancomycin, his regular diet, and wound care. Job ID: [id number]
[2020-06-19 05:34] LABS: #Eosinphils 0.1 thou/uL (0.0-0.7); #Lymphocytes 1.1 thou/uL (1.20-3.40); #Monocytes 2.2 thou/uL (0.11-0.59); #Neutrophils 18.1 thou/uL (1.40-6.50); %Eosinophils 0.5 % (0.0-10.0); %Lymphocytes 5.2 % (21.0-51.0); %Monocytes 10.4 % (0.0-10.0); %Neutrophils 83.9 % (42.0-75.0); Hemoglobin 7.2 g/dL (14.0-18.0); Mean Corpuscular HGB CONC 30.8 g/dL (32.0-36.0); Mean Corpuscular Hemoglobin 24.7 pg (27.0-31.0); Mean Corpuscular Volume 80.1 fL (78.0-98.0); Mean Platelet Volume 7.3 fL (7.4-10.4); Platelet Count 510 thou/uL (130-400); White Blood Cell (WBC) Count 21.5 thou/uL (4.8-10.8)
[2020-06-19 05:55] LABS: Anion Gap 14 mmol/L (10-20); BUN (Urea Nitrogen) 21 mg/dL (8.9-20.6); Calc. Creatinine Clearance 183 mL/min (70-130); Calcium 8.1 mg/dL (7.8-10.44); Carbon Dioxide 23 mmol/L (22-29); Chloride 102 mmol/L (98-107); Glucose 106 mg/dL (70-105); Potassium 4.3 mmol/L (3.5-5.1); Sodium 135 mmol/L (136-145)
[2020-06-19] MEDS ORDERED: Labetalol HCl 100 MG/20 ML VIAL ONE (06:18)
[2020-06-19] MEDS: Methocarbamol 500 MG TAB PO PRN (06:24)
[2020-06-19] MEDS: D5 1/2 NS w/20 mEq KCL 1,000 ML IV SCH ×3 (08:25→21:48)
[2020-06-19] MEDS: Enoxaparin Sodium 40 MG/0.4 ML SYRINGE SC SCH (08:25)
[2020-06-19] MEDS: Carvedilol 25 MG TAB PO SCH ×2 (08:26→20:40)
[2020-06-19] MEDS: metroNIDAZOLE 500 MG TAB PO SCH ×3 (08:26→20:38)
[2020-06-19] MEDS: FLUoxetine HCl 20 MG CAP PO SCH (08:27)
[2020-06-19] MEDS: Lorazepam 1 MG TAB PO SCH ×3 (08:27→20:39)
[2020-06-19] MEDS: Ferrous Sulfate 325 MG TAB PO SCH ×2 (08:27→18:14)
[2020-06-19] MEDS: cloNIDine 0.1 MG TAB PO SCH ×2 (08:28→20:37)
[2020-06-19] MEDS: HYDROcodone/Acetaminophen 10/325 mg Tablet PO PRN ×2 (10:50→19:46)
[2020-06-19] MEDS: Vancomycin 1.5 GRAM/300 ML BAG 1.5 GM in Premix Bag 1 BAG IVPB SCH (10:51)
--- NOTE | 2020-06-19 16:56 | SPC ---
SPC CVP LINE PICC INITAL >5: 06/19/2020 4:49 PM INDICATION: Infected femoral central venous catheter; need for long-term IV access PROCEDURE: Peripherally placed 55 cm single lumen power PICC line. PICC Line Placement: The left arm was prepped and draped in sterile fashion. One percent lidocaine was used for local anesthetic. Under fluoroscopic and ultrasound guidance, the left basilic vein was patent and accessed with a micr opuncture needle. A guide wire was then advanced into the left basilic vein. A vascular sheath was then advanced over a guide wire, and a single lumen PICC line was trimmed. The PICC line was th en advanced into the central venous system. A final placement film demonstrates the tip of the catheter terminated in the caval-atrial junction. After confirmation of the catheter position, the catheter was sutured in place at the skin entry site . There was no immediate complication. Total fluoroscopic time 0.3 minutes. Total exposure 6454 mgray/sq cm IMPRESSION: Peripheral placement of a single lumen power PICC line into the left basilic vein using fluoroscopic and ultrasound guidance.
[2020-06-19] MEDS: Sodium Chloride 0.9% 1,000 ML IV SCH (18:01)
[2020-06-19] MEDS: Ibuprofen 600 MG TAB PO PRN (18:14)
[2020-06-20] MEDS: Vancomycin 1.5 GRAM/300 ML BAG 1.5 GM in Premix Bag 1 BAG IVPB SCH ×2 (00:17→12:02)
[2020-06-20] MEDS: Methocarbamol 500 MG TAB PO PRN (01:00)
[2020-06-20] MEDS: HYDROcodone/Acetaminophen 10/325 mg Tablet PO PRN ×2 (05:12→19:20)
[2020-06-20] MEDS: Ferrous Sulfate 325 MG TAB PO SCH ×2 (08:52→16:11)
[2020-06-20] MEDS: FLUoxetine HCl 20 MG CAP PO SCH (08:52)
[2020-06-20] MEDS: metroNIDAZOLE 500 MG TAB PO SCH ×2 (08:52→14:59)
[2020-06-20] MEDS: Losartan/Hydrochlorothiazide 100 mg/25 mg Tablet PO SCH (08:52)
[2020-06-20] MEDS: Lorazepam 1 MG TAB PO SCH ×3 (08:52→20:26)
[2020-06-20] MEDS: cloNIDine 0.1 MG TAB PO SCH ×2 (08:53→20:25)
[2020-06-20] MEDS: Carvedilol 25 MG TAB PO SCH ×2 (08:53→20:26)
[2020-06-20] MEDS: Enoxaparin Sodium 40 MG/0.4 ML SYRINGE SC SCH (08:54)
[2020-06-20] MEDS ORDERED: HYDROcodone/Acetaminophen 10/325 mg Tablet PO PRN ×2 (09:23)
--- NOTE | 2020-06-20 09:40 | PDOC.GSPN ---
Surgery Progress Note: Subj - Subjective Narrative: Patient is feeling okay today. Nausea is better. Ostomy is working well. When he gets up and walks around he has more drainage on his steve surface vac dressing. Vital signs good. Blood pressure stable. No fevers. No labs drawn today. Blood cultures are no growth to date as is the catheter tip. Steve surface vac was removed. There was some oily drainage from the incision and white foam and a regular VAC dressing replaced. The drainage was sent for Gram stain and culture. Assessment/plan: Status post sigmoid colectomy with postoperative anastomotic leak and feculent peritonitis status post extensive washout and diverting colostomy. Doing well except for persistent leukocytosis. CT showed a small fluid collection in the sigmoid mesentery and a slightly larger one adjacent to the stomach. He is on levofloxacin and Flagyl for this. He had a femoral line placed emergently when he was hypotensive preoperatively to his washout and this was removed yesterday after his PICC line was placed. He is on vancomycin empirically to cover line infection. He had a little drainage from his hand port incision and this has been packed with a VAC dressing. Dr. Burnette is going to see him today. He has a PICC line in case he needs to have prolonged IV an tibiotics. He has been up ambulating today but was not able to yesterday due to pain. He is chronically disabled due to scoliosis and arthritis. I have written for a as needed dose of [place] after physical therapy as he states that it takes several hours for him to recover after getting up with physical therapy and he is only receiving [place] every 8 hours which is his usual home regimen. He is high risk for laparoscopic drainage of the fluid collection adjacent to the stomach, but this could potentially be accessed with endoscopic ultrasound if necessary. This would likely necessitate transport to [place] for advanced endoscopic procedures, which can be difficult to schedule around the holidays however. Surgery Progress Note: Obj - Vital signs Vital signs: Vital Signs - Most Recent Temp Pulse Resp BP Pulse Ox 98.3 F 95 18 118/65 97 06/20/20 03:50 06/20/20 03:50 06/20/20 03:50 06/20/20 08:53 06/20/20 03:50 Surgery Progress Note: Results - Labs Result Diagrams: 06/19/20 05:22 06/19/20 05:22 Lab results: Laboratory Results - last 12 hr 06/17/20 06/20/20 05:56 05:13 POC Glucose 104 H 104 H
[2020-06-20 11:30] LABS: Vancomycin, Trough 13.9 ug/mL
[2020-06-20] MEDS: D5 1/2 NS w/20 mEq KCL 1,000 ML IV SCH ×2 (12:12→22:27)
[2020-06-20] MEDS: Vancomycin HCl 1.75 GM in Sodium Chloride 0.9% 500 ML IVPB SCH (13:00)
[2020-06-20] MEDS: Sodium Chloride 0.9% 1,000 ML IV SCH (14:59)
--- NOTE | 2020-06-20 17:21 | CON ---
DATE OF CONSULTATION: 06/20/2020 REASON FOR CONSULTATION: Colon cancer with partial colectomy and then leak at the anastomotic site with peritonitis and then leukocytosis persistence. HISTORY OF PRESENT ILLNESS: A 49-year-old patient who had hematochezia and a colonoscopy showed a mass and he underwent resection. The initial biopsy from the sigmoid colon was on May 26 and it showed a villous adenoma with focal high-grade dysplasia of the sigmoid colon. Surgery was on June 02 and biopsy showed an invasive adenocarcinoma, moderately differentiated. There was superficial invasion into muscularis propria. There was evidence of lymphovascular invasion as well. The margins were negative. He persisted with pain postoperatively and then leakage was diagnosed and the patient required intervention on the by Dr. Griffin. This consisted of hand-assisted washout, laparoscopic takedown of colorectal anastomosis and descending colostomy. So, this was on the and he spent some time in the ICU and then Dr. Collins had been consulted and Dr. Moore as well for management of his acute ICU stay needs. He did require mechanical ventilation for a while. The microbiology of this stage is not available. I do not think if there is any sample submitted. He was treated with Flagyl, levofloxacin, vancomycin. He has remained afebrile. His white cell count kind of oscillates, it started at around 17, went down to 10, and then went up to 22,000, now 21,000. He is a little bit diaphoretic. He obviously has significant obstructive sleep apnea. He denies any headaches. No dyspnea. No chest pain. No cough. He has chronic back pain, which is unchanged. He has moderate pain in the abdominal cavity area. Yesterday, a triple-lumen catheter was present in the right groin, was switched to a PICC line in the left upper extremity. PAST MEDICAL HISTORY: Obesity, sleep apnea, colon cancer with segmental resection of sigmoid, scoliosis, osteoarthritis, hypertension, hyperlipidemia, and hip replacements. FAMILY HISTORY: Diabetes type 2, pancreatic cancer. SOCIAL HISTORY: Never smoker. . ALLERGIES: SULFA DRUGS. CURRENT MEDICATIONS: 1. Coreg. 2. Catapres. 3. Benadryl. 4. Lovenox. 5. Prozac. 6. Hyzaar. 7. Dorothy. 8. Motrin. 9. Levaquin. 10. Robaxin. 11. Flagyl. 12. Protonix. 13. Vancomycin. PHYSICAL EXAMINATION: VITAL SIGNS: His temperature normal, saturating 97% on room air. He is now on 2 L nasal cannula, saturating 98%. His heart rate is 88, blood pressure 118/65. SKIN: He is diaphoretic a little bit and flushed skin in the facial area. He is little bit tachypneic. The patient has a colostomy with some amount of brown soft stool in the bag. Midline negative pressure dressing. Small segment of the incision and one of the incisions for the hand-assisted laparoscopic washout. He has a PICC line in left upper extremity. Triple-lumen has been removed. He is voiding in the urinal without difficulty. HEENT: Ocular movements conjugate. Sclerae white. Pupils are equal. Oral cavity normal. NECK: Supple. LUNGS: Symmetric, clear breath sounds. He has obvious upper airway obstructive signs and symptoms when he is breathing. HEART: S1 and S2, regular rate. ABDOMEN: Soft, moderately distended, and mildly tender diffusely. No bladder distention. GENITAL: Normal. EXTREMITIES: Osteoarthrosis. 1+ edema in lower extremities. Pulses 1+ in dorsalis pedis. Moves all extremities equally. NEUROLOGIC: Cognitive function appears to be intact. LABORATORY DATA: As noted, the white cell count up to 22,000 and 21.5, hemoglobin 7.2, platelets 510. Creatinine is down to 1.13. Cath tip cultures are pending. Abdominal incision cultures pending. Blood cultures, no growth [address] repeat from June 18 showed less free air, less free fluid, residual inflammatory stranding noted, small pockets of fluid seen within sigmoid and mesentery, adjacent with greater curvature of the stomach, colostomy, atelectases. ASSESSMENT: Obesity; hypertension; adenocarcinoma of sigmoid, status post resection, leak following primary anastomosis and peritonitis, followed by washout and colostomy; now worsening neutrophilia. DISCUSSION: Despite the worsening neutrophilia, the bands are down to 1% at least, the latest one from the , there was a differential. Nonetheless, in view of the prevalence of more resistant gram-negative rods, I believe that it is worthwhile to switch him to a broader gram-negative coverage rather than continue using levofloxacin for this role. We will keep the vancomycin going, but probably can discontinue if the catheter-tip cultures and abdominal incision do not show MRSA. Discontinue Flagyl as well since meropenem has 100% anaerobic coverage. Job ID: [id number]
[2020-06-20] MEDS: MEROPENEM 1 GM/50 ML 1 GM in Premix Bag 1 BAG IVPB SCH (21:10)
[2020-06-21] MEDS: Vancomycin HCl 1.75 GM in Sodium Chloride 0.9% 500 ML IVPB SCH (00:09)
[2020-06-21] MEDS: Methocarbamol 500 MG TAB PO PRN ×2 (00:09→20:24)
[2020-06-21] MEDS: HYDROcodone/Acetaminophen 10/325 mg Tablet PO PRN ×3 (03:13→23:58)
[2020-06-21] MEDS: D5 1/2 NS w/20 mEq KCL 1,000 ML IV SCH ×3 (05:20→20:11)
[2020-06-21] MEDS: MEROPENEM 1 GM/50 ML 1 GM in Premix Bag 1 BAG IVPB SCH ×3 (05:20→21:02)
[2020-06-21 06:16] LABS: #Basophils 0.1 thou/uL (0.0-0.2); #Eosinphils 0.1 thou/uL (0.0-0.7); #Monocytes 1.5 thou/uL (0.11-0.59); #Neutrophils 8.4 thou/uL (1.40-6.50); %Basophils 0.5 % (0.0-1.0); %Eosinophils 0.8 % (0.0-10.0); %Lymphocytes 8.7 % (21.0-51.0); %Monocytes 13.6 % (0.0-10.0); %Neutrophils 76.3 % (42.0-75.0); Hemoglobin 6.5 g/dL (14.0-18.0); Mean Corpuscular HGB CONC 30.3 g/dL (32.0-36.0); Mean Corpuscular Hemoglobin 24.5 pg (27.0-31.0); Mean Corpuscular Volume 80.7 fL (78.0-98.0); Mean Platelet Volume 7.5 fL (7.4-10.4); Platelet Count 464 thou/uL (130-400); Red Blood Cell (RBC) Count 2.65 mill/uL (4.70-6.10)
[2020-06-21 06:32] LABS: Anion Gap 12 mmol/L (10-20); BUN (Urea Nitrogen) 13 mg/dL (8.9-20.6); Calc. Creatinine Clearance 240 mL/min (70-130); Calcium 7.8 mg/dL (7.8-10.44); Carbon Dioxide 20 mmol/L (22-29); Chloride 106 mmol/L (98-107); Glucose 124 mg/dL (70-105); Sodium 134 mmol/L (136-145)
[2020-06-21 07:45] LABS: #Basophils 0.1 thou/uL (0.0-0.2); #Eosinphils 0.1 thou/uL (0.0-0.7); #Monocytes 1.5 thou/uL (0.11-0.59); #Neutrophils 8.6 thou/uL (1.40-6.50); %Basophils 0.5 % (0.0-1.0); %Lymphocytes 8.9 % (21.0-51.0); %Monocytes 13.1 % (0.0-10.0); %Neutrophils 76.5 % (42.0-75.0); Hemoglobin 6.9 g/dL (14.0-18.0); Mean Corpuscular HGB CONC 30.9 g/dL (32.0-36.0); Mean Corpuscular Hemoglobin 24.9 pg (27.0-31.0); Mean Corpuscular Volume 80.5 fL (78.0-98.0); Mean Platelet Volume 7.3 fL (7.4-10.4); Platelet Count 483 thou/uL (130-400); RBC Distribution Width 15.2 % (11.5-14.5); Red Blood Cell (RBC) Count 2.79 mill/uL (4.70-6.10); White Blood Cell (WBC) Count 11.2 thou/uL (4.8-10.8)
[2020-06-21] MEDS: Ferrous Sulfate 325 MG TAB PO SCH ×2 (08:25→16:29)
[2020-06-21] MEDS: Lorazepam 1 MG TAB PO SCH ×3 (08:25→20:12)
[2020-06-21] MEDS: FLUoxetine HCl 20 MG CAP PO SCH (08:25)
[2020-06-21] MEDS: Carvedilol 25 MG TAB PO SCH ×2 (08:26→20:12)
[2020-06-21] MEDS: cloNIDine 0.1 MG TAB PO SCH ×2 (08:26→20:12)
[2020-06-21] MEDS: Losartan/Hydrochlorothiazide 100 mg/25 mg Tablet PO SCH (08:26)
[2020-06-21] MEDS: Enoxaparin Sodium 40 MG/0.4 ML SYRINGE SC SCH (08:27)
[2020-06-21 10:38] LABS: Actual Bicarbonate (HCO3a) 20.8 mEq/L (22-28); Analyzer IN Cardio OR; Base Excess (BEa) -6.2 mEq/L (-2.0 to +3.0); Calcium, Ionized (arterial) 1.16 mmol/L (1.12-1.30); Carboxyhemoglobin (COHb) 0.7 gm% (0.0-3.0); Hemoglobin (Hb) 10.1 g/dL (14.0-18.0); O2 Tension (PaO2), arterial 291.9 mmHg (80.0-100.0); Potassium - ABG Lab 4.35 mmol/L (3.70-5.30); pH, Arterial 7.26 (7.35-7.45)
[2020-06-21 10:39] LABS: Actual Bicarbonate (HCO3a) 18.1 mEq/L (22-28); Analyzer IN Cardio OR; Base Excess (BEa) -8.8 mEq/L (-2.0 to +3.0); CO2 Tension 43.5 mmHg (35.0-45.0); Calcium, Ionized (arterial) 1.38 mmol/L (1.12-1.30); Carboxyhemoglobin (COHb) 0.9 gm% (0.0-3.0); Hemoglobin (Hb) 9.7 g/dL (14.0-18.0); Potassium - ABG Lab 4.18 mmol/L (3.70-5.30)
[2020-06-21 10:39] LABS: Actual Bicarbonate (HCO3a) 20.3 mEq/L (22-28); Analyzer IN Cardio OR; Base Excess (BEa) -6.9 mEq/L (-2.0 to +3.0); CO2 Tension 47.8 mmHg (35.0-45.0); Calcium, Ionized (arterial) 1.11 mmol/L (1.12-1.30); Hemoglobin (Hb) 10.3 g/dL (14.0-18.0); O2 Tension (PaO2), arterial 128.1 mmHg (80.0-100.0); Potassium - ABG Lab 4.16 mmol/L (3.70-5.30)
[2020-06-21 10:40] LABS: Actual Bicarbonate (HCO3a) 19.2 mEq/L (22-28); Analyzer IN Cardio OR; Base Excess (BEa) -7.2 mEq/L (-2.0 to +3.0); CO2 Tension 42.7 mmHg (35.0-45.0); Calcium, Ionized (arterial) 1.16 mmol/L (1.12-1.30); Carboxyhemoglobin (COHb) 0.8 gm% (0.0-3.0); Hemoglobin (Hb) 9.5 g/dL (14.0-18.0); O2 Tension (PaO2), arterial 359.4 mmHg (80.0-100.0); Potassium - ABG Lab 3.85 mmol/L (3.70-5.30); pH, Arterial 7.27 (7.35-7.45)
[2020-06-21 10:49] LABS: Puncture Site Arterial Line
[2020-06-21 10:50] LABS: Puncture Site Arterial Line; pH, Arterial 7.25 (7.35-7.45)
[2020-06-21 10:51] LABS: Puncture Site Arterial Line; pH, Arterial 7.24 (7.35-7.45)
[2020-06-21 10:52] LABS: Puncture Site Arterial Line
--- NOTE | 2020-06-21 14:51 | PDOC.GSPN ---
Surgery Progress Note: Subj - Subjective Narrative: Feeling okay today. Walked in the [place] with walker and has also been pushing himself in his wheelchair. He has limited mobility and his has requested a wheelchair for home use which is appropriate. He has a hospital bed but this does not have railings which would also be useful in helping him with transfers. Minimal drainage from vac. Other incisions look good. White count has come down. Hemoglobin has also drifted down. Electrolytes look okay. He is eating most of his meals but does not like the Ensure. Assessment/plan: Doing well status post colectomy with anastomotic leak requiring washout and diversion. Dr. Burnette switched him back to IV meropenem and his white count has come down. Blood cultures and cath tip cultures are negative to date and the vancomycin will likely be discontinued when these are final. He will likely be ready for discharge tomorrow on IV antibiotics. His blood count has drifted down as well likely due to his prolonged illness. No evidence of internal bleeding or GI bleeding. I did opt to transfuse 1 unit to day. If lab work looks good tomorrow and he continues to clinically look well, he will likely be ready for discharge home with home health wound care, physical therapy, and antibiotics. Surgery Progress Note: Obj - Vital signs Vital signs: Vital Signs - Most Recent Temp Pulse Resp BP Pulse Ox 98.5 F 72 18 119/65 94 L 06/21/20 11:18 06/21/20 13:20 06/21/20 11:18 06/21/20 13:20 06/21/20 11:18 Surgery Progress Note: Results - Labs Result Diagrams: 06/21/20 07:22 06/21/20 05:43 Lab results: Laboratory Results - last 12 hr 06/06/20 06/06/20 06/06/20 15:05 16:10 17:08 WBC RBC Hgb Hct MCV MCH MCHC RDW Plt Count MPV Neutrophils % Lymphocytes % Monocytes % Eosinophils % Basophils % Neutrophils # Lymphocytes # Monocytes # Eosinophils # Basophils # Specimen Type ARTERIAL ARTERIAL ARTERIAL Puncture Site Arterial Line Arterial Line Arterial Line Bicarbonate Actual 20.8 L 20.3 L 18.1 L ABG pH 7.26 L 7.25 L* 7.24 L* ABG pCO2 48.0 H 47.8 H 43.5 ABG pO2 291.9 H 128.1 H 85.0 ABG O2 Sat (Measured) 99.6 H 98.2 H 95.2 ABG O2 Content 14.8 L 14.3 L 13.0 L ABG Base Excess -6.2 L -6.9 L -8.8 L ABG Hematocrit 30.0 L 30.0 L 29.0 L ABG Hemoglobin 10.1 L 10.3 L 9.7 L ABG Oxyhemoglobin 98.6 H 96.9 94.1 ABG Carboxyhemoglobin 0.7 1.0 0.9 ABG Methemoglobin 0.30 0.30 0.30 ABG Deoxyhemoglobin 0.4 1.8 4.7 H Diogenes Test Not Reportable Not Reportable Not Reportable Sodium 133 L 131 L 134 L Potassium 4.35 4.16 4.18 Chloride 105 107 H 109 H Ionized Calcium 1.16 1.11 L 1.38 H Mode of Support OR ABG OR ABG OR ABG Carbon Dioxide Anion Gap BUN Creatinine Estimated GFR (MDRD) Glucose POC Glucose Calcium Blood Type Antibody Screen Crossmatch 06/06/20 06/10/20 06/21/20 18:14 07:49 05:08 WBC RBC Hgb Hct MCV MCH MCHC RDW Plt Count MPV Neutrophils % Lymphocytes % Monocytes % Eosinophils % Basophils % Neutrophils # Lymphocytes # Monocytes # Eosinophils # Basophils # Specimen Type ARTERIAL Puncture Site Arterial Line Bicarbonate Actual 19.2 L ABG pH 7.27 L ABG pCO2 42.7 ABG pO2 359.4 H ABG O2 Sat (Measured) 99.8 H ABG O2 Content 14.2 L ABG Base Excess -7.2 L ABG Hematocrit 28.0 L ABG Hemoglobin 9.5 L ABG Oxyhemoglobin 98.7 H ABG Carboxyhemoglobin 0.8 ABG Methemoglobin 0.30 ABG Deoxyhemoglobin 0.2 Diogenes Test Not Reportable Sodium 134 L Potassium 3.85 Chloride 108 H Ionized Calcium 1.16 Mode of Support OR ABG Carbon Dioxide Anion Gap BUN Creatinine Estimated GFR (MDRD) Glucose POC Glucose 126 H Calcium Blood Type Antibody Screen Crossmatch See Detail 06/21/20 06/21/20 06/21/20 05:43 05:43 07:22 WBC 11.0 H 11.2 H RBC 2.65 L 2.79 L Hgb 6.5 L 6.9 L Hct 21.4 L 22.4 L MCV 80.7 80.5 MCH 24.5 L 24.9 L MCHC 30.3 L 30.9 L RDW 15.0 H 15.2 H Plt Count 464 H 483 H MPV 7.5 7.3 L Neutrophils % 76.3 H 76.5 H Lymphocytes % 8.7 L 8.9 L Monocytes % 13.6 H 13.1 H Eosinophils % 0.8 1.0 Basophils % 0.5 0.5 Neutrophils # 8.4 H 8.6 H Lymphocytes # 1.0 L 1.0 L Monocytes # 1.5 H 1.5 H Eosinophils # 0.1 0.1 Basophils # 0.1 0.1 Specimen Type Puncture Site Bicarbonate Actual ABG pH ABG pCO2 ABG pO2 ABG O2 Sat (Measured) ABG O2 Content ABG Base Excess ABG Hematocrit ABG Hemoglobin ABG Oxyhemoglobin ABG Carboxyhemoglobin ABG Methemoglobin ABG Deoxyhemoglobin Diogenes Test Sodium 134 L Potassium 4.0 Chloride 106 Ionized Calcium Mode of Support Carbon Dioxide 20 L Anion Gap 12 BUN 13 Creatinine 0.86 Estimated GFR (MDRD) Greater than 90 Glucose 124 H POC Glucose Calcium 7.8 Blood Type Antibody Screen Crossmatch 06/21/20 06/21/20 07:22 11:22 WBC RBC Hgb Hct MCV MCH MCHC RDW Plt Count MPV Neutrophils % Lymphocytes % Monocytes % Eosinophils % Basophils % Neutrophils # Lymphocytes # Monocytes # Eosinophils # Basophils # Specimen Type Puncture Site Bicarbonate Actual ABG pH ABG pCO2 ABG pO2 ABG O2 Sat (Measured) ABG O2 Content ABG Base Excess ABG Hematocrit ABG Hemoglobin ABG Oxyhemoglobin ABG Carboxyhemoglobin ABG Methemoglobin ABG Deoxyhemoglobin Diogenes Test Sodium Potassium Chloride Ionized Calcium Mode of Support Carbon Dioxide Anion Gap BUN Creatinine Estimated GFR (MDRD) Glucose POC Glucose 107 H Calcium Blood Type O NEGATIVE Antibody Screen NEGATIVE Crossmatch See Detail
[2020-06-21] MEDS: Sodium Chloride 0.9% 1,000 ML IV SCH (16:29)
[2020-06-22] MEDS: Methocarbamol 500 MG TAB PO PRN ×2 (04:53→19:32)
[2020-06-22] MEDS: D5 1/2 NS w/20 mEq KCL 1,000 ML IV SCH ×2 (04:53→17:48)
[2020-06-22] MEDS: MEROPENEM 1 GM/50 ML 1 GM in Premix Bag 1 BAG IVPB SCH ×3 (05:50→21:36)
[2020-06-22 07:18] LABS: #Eosinphils 0.1 thou/uL (0.0-0.7); #Lymphocytes 1.1 thou/uL (1.20-3.40); #Monocytes 1.5 thou/uL (0.11-0.59); #Neutrophils 8.6 thou/uL (1.40-6.50); %Basophils 0.4 % (0.0-1.0); %Eosinophils 1.1 % (0.0-10.0); %Lymphocytes 9.4 % (21.0-51.0); %Monocytes 13.6 % (0.0-10.0); %Neutrophils 75.5 % (42.0-75.0); Hemoglobin 7.3 g/dL (14.0-18.0); Mean Corpuscular HGB CONC 32.1 g/dL (32.0-36.0); Mean Corpuscular Hemoglobin 26.2 pg (27.0-31.0); Mean Corpuscular Volume 81.7 fL (78.0-98.0); Mean Platelet Volume 7.9 fL (7.4-10.4); Platelet Count 397 thou/uL (130-400); RBC Distribution Width 15.7 % (11.5-14.5); White Blood Cell (WBC) Count 11.4 thou/uL (4.8-10.8)
[2020-06-22] MEDS: HYDROcodone/Acetaminophen 10/325 mg Tablet PO PRN ×2 (07:56→21:30)
[2020-06-22] MEDS: Ferrous Sulfate 325 MG TAB PO SCH ×2 (09:35→16:33)
[2020-06-22] MEDS: Carvedilol 25 MG TAB PO SCH ×2 (09:35→21:31)
[2020-06-22] MEDS: Losartan/Hydrochlorothiazide 100 mg/25 mg Tablet PO SCH (09:36)
[2020-06-22] MEDS: Lorazepam 1 MG TAB PO SCH ×3 (09:36→21:31)
[2020-06-22] MEDS: cloNIDine 0.1 MG TAB PO SCH ×2 (09:36→21:31)
[2020-06-22] MEDS: FLUoxetine HCl 20 MG CAP PO SCH (09:36)
[2020-06-22] MEDS: Enoxaparin Sodium 40 MG/0.4 ML SYRINGE SC SCH (09:37)
--- NOTE | 2020-06-22 11:58 | PDOC.GSPN ---
Surgery Progress Note: Subj - Subjective Narrative: Saw patient with wound care team today. His incision looks clean and there is no expressible drainage. VAC was replaced. He is feeling well and has been coughing up some phlegm after breathing treatments. He is pulling 1500 mL on incentive spirometry. He is walking short distances with his walker and propelling himself using his wheelchair. Vital signs are stable. Hemoglobin has risen appropriately after transfusion yesterday. White count is still 11 which is down since restarting his meropenem. Blood, catheter tip, and wound cultures are still negative. Colostomy is healthy and producing stool and gas. Sutures at laparoscopic port sites were removed today. Assessment/plan: Status post sigmoid colectomy with postoperative anastomotic leak requiring diversion and washout. He is recovering well. He will need a home VAC for his abdominal wound. He has 2 small intra-abdominal collections and Dr. Burnette has recommended continuing IV meropenem for 2 weeks after discharge. We are trying to arrange this through home health. He was disabled at baseline due to severe scoliosis and arthritis with morbid obesity contributing. Currently he has difficulty ambulating more than 150 feet with his walker and I have recommended a wheelchair for home use for patient safety during transport to doctors appointments. This has been ordered. He has a bed that allows him to elevate his head due to his obstructive sleep apnea but this does not have any railings. Currently his mobility is very limited and he would greatly benefit from a hospital bed with railings to assist him in independent transfers. Due to his size his is unable to assist him much and a hospital bed would greatly contribute to his home safety and independence. Medically he is ready for discharge. We are trying to arrange the necessary equipment for safe discharge home. Surgery Progress Note: Obj - Vital signs Vital signs: Vital Signs - Most Recent Temp Pulse Resp BP Pulse Ox 97.5 F L 102 H 16 114/66 95 06/22/20 11:29 06/22/20 11:29 06/22/20 11:29 06/22/20 11:29 06/22/20 11:29 Surgery Progress Note: Results - Labs Result Diagrams: 06/22/20 05:55 06/21/20 05:43 Lab results: Laboratory Results - last 12 hr 06/22/20 06/22/20 06/22/20 05:54 05:55 10:51 WBC 11.4 H RBC 2.80 L Hgb 7.3 L Hct 22.9 L MCV 81.7 MCH 26.2 L MCHC 32.1 RDW 15.7 H Plt Count 397 MPV 7.9 Neutrophils % 75.5 H Lymphocytes % 9.4 L Monocytes % 13.6 H Eosinophils % 1.1 Basophils % 0.4 Neutrophils # 8.6 H Lymphocytes # 1.1 L Monocytes # 1.5 H Eosinophils # 0.1 Basophils # 0.0 POC Glucose 123 H 130 H
[2020-06-22] MEDS: Sodium Chloride 0.9% 1,000 ML IV SCH (14:20)
--- NOTE | 2020-06-22 15:07 | PRG ---
DATE OF SERVICE: 06/22/2020 SUBJECTIVE: Lying in bed again, he looks better than when I last saw him. He was not diaphoretic today, but apparently overnight had some respiratory issues. He does not have any more any issues or such problems this morning. No headaches. He is able to eat. No cough. Less abdominal pain, that is more accurately said and he is voiding in the urinal. OBJECTIVE: VITAL SIGNS: His temperature has been normal, BP 114/66, little tachycardic at 102, breathing 16 times a minute, and O2 saturations are 95. GENERAL: Awake, alert, and oriented. HEENT: His facial appearance looks better than when I last saw him. His ocular movements are conjugate. LUNGS: Symmetric. Clear breath sounds. HEART: S1 and S2. Regular rate. ABDOMEN: Moderately distended, but less tender than when I last examined him. He has a midline negative pressure dressing and a colostomy. EXTREMITIES: Able to move extremities. LABORATORY DATA: His white cell count is 11.4, hemoglobin 7.3, and platelets 397, and this is a marked improvement compared to the previous numbers. Creatinine 0.86 from yesterday. Microbiology from this abdominal incision behind the negative pressure dressing with Enterococcus and currently on meropenem and vancomycin has been discontinued. ASSESSMENT AND DISCUSSION: 1. Obesity. 2. Hypertension. 3. Adenocarcinoma of sigmoid, resected, leak following primary anastomosis. 4. Peritonitis followed by washout and colostomy. 5. Improvement in neutrophilia and overall clinical findings. The patient will continue on meropenem for another few days. Monitor inflammatory markers, most likely not going to require repeat imaging study, but depending on the progress of his temperature, vital signs, and overall clinical symptoms, he may require repeat CT of abdomen to stage his inflammatory process. Addendum: received result of Karius test: Streptococcus constelatus, will switch her to Rocephin 2 g daily, same duration of tx. Job ID: [id number] [facility]
[2020-06-22] MEDS: Ondansetron PF 4 MG/2 ML Vial IVP PRN (16:46)
[2020-06-22] MEDS: Ibuprofen 600 MG TAB PO PRN (21:29)
[2020-06-22] MEDS: Docusate 100 MG CAP PO SCH (21:31)
[2020-06-23] MEDS: HYDROcodone/Acetaminophen 10/325 mg Tablet PO PRN ×4 (03:22→23:35)
[2020-06-23] MEDS: D5 1/2 NS w/20 mEq KCL 1,000 ML IV SCH (04:15)
[2020-06-23] MEDS: MEROPENEM 1 GM/50 ML 1 GM in Premix Bag 1 BAG IVPB SCH ×3 (06:19→21:00)
[2020-06-23 06:44] LABS: #Basophils 0.1 thou/uL (0.0-0.2); #Eosinphils 0.2 thou/uL (0.0-0.7); #Lymphocytes 1.1 thou/uL (1.20-3.40); #Monocytes 1.9 thou/uL (0.11-0.59); #Neutrophils 10.4 thou/uL (1.40-6.50); %Basophils 0.5 % (0.0-1.0); %Eosinophils 1.3 % (0.0-10.0); %Lymphocytes 7.9 % (21.0-51.0); %Monocytes 13.7 % (0.0-10.0); %Neutrophils 76.5 % (42.0-75.0); Hemoglobin 7.5 g/dL (14.0-18.0); Mean Corpuscular Hemoglobin 25.2 pg (27.0-31.0); Mean Corpuscular Volume 81.5 fL (78.0-98.0); Mean Platelet Volume 7.2 fL (7.4-10.4); Platelet Count 410 thou/uL (130-400); Red Blood Cell (RBC) Count 2.95 mill/uL (4.70-6.10); White Blood Cell (WBC) Count 13.5 thou/uL (4.8-10.8)
[2020-06-23 07:03] LABS: ALT (SGPT) 7 U/L (8-55); AST (SGOT) 8 U/L (5-34); Albumin 2.3 g/dL (3.5-5.0); Alkaline Phosphatase 72 U/L (40-110); Anion Gap 13 mmol/L (10-20); BUN (Urea Nitrogen) 11 mg/dL (8.9-20.6); Bilirubin, Total 0.4 mg/dL (0.2-1.2); Calc. Creatinine Clearance 246 mL/min (70-130); Carbon Dioxide 22 mmol/L (22-29); Chloride 107 mmol/L (98-107); Globulin 3.4 g/dL (2.4-3.5); Glucose 124 mg/dL (70-105); Potassium 4.2 mmol/L (3.5-5.1); Protein, Total 5.7 g/dL (6.0-8.3); Sodium 138 mmol/L (136-145)
[2020-06-23] MEDS ORDERED: Multivit, Therapeutic 1 TAB PO SCH (09:00)
[2020-06-23] MEDS: cloNIDine 0.1 MG TAB PO SCH (09:57)
[2020-06-23] MEDS: Ferrous Sulfate 325 MG TAB PO SCH ×2 (09:57→15:13)
[2020-06-23] MEDS: FLUoxetine HCl 20 MG CAP PO SCH (09:58)
[2020-06-23] MEDS: Docusate 100 MG CAP PO SCH ×2 (09:58→20:16)
[2020-06-23] MEDS: Lorazepam 1 MG TAB PO SCH ×3 (09:58→20:15)
[2020-06-23] MEDS: Carvedilol 25 MG TAB PO SCH ×2 (09:59→20:15)
[2020-06-23] MEDS: Losartan/Hydrochlorothiazide 100 mg/25 mg Tablet PO SCH (09:59)
[2020-06-23] MEDS: Polyethylene Glycol 3350 17 GM Packet PO SCH (09:59)
[2020-06-23] MEDS: Enoxaparin Sodium 40 MG/0.4 ML SYRINGE SC SCH (09:59)
--- NOTE | 2020-06-23 10:57 | PDOC.GSPN ---
Surgery Progress Note: Subj - Subjective Narrative: Patient was very eager to go home yesterday but his is concerned about her ability to care for him at home alone. He apparently did not get out of bed or participate with physical therapy at all yesterday and mostly just slept. She is also concerned that he has not been eating much. He has been complaining of nausea off and on although his bowel sounds are good and he is passing flatus through his ostomy. The wheelchair that was delivered to his home is too small and they cannot get a larger one until Saturday. Vital signs are okay although his blood pressure was 107 systolic this morning so his morning blood pressure medications were held. White count is 13 and hemoglobin is stable. Albumin is low at 2.3. Urine output has been good. Wound culture grew Enterococcus which is sensitive to Carbapenems. Abdomen is soft without focal tenderness and he has excellent bowel sounds. His ostomy is healthy and there is a small amount of liquid stool in the bag. Assessment/plan: Status post laparoscopic sigmoid colectomy with anastomotic leak requiring washout and diversion with resection of the anastomosis. He has a small fluid collection in the sigmoid mesentery and another between the stomach and spleen which we are managing with IV antibiotics with significant improvement in his leukocytosis since restarting his meropenem. His wound was slightly reopened and he has a VAC in place due to drainage from the incision but there has not been much output from this and the wound is looking good. He is disabled at baseline due to severe scoliosis arthritis and morbid obesity. His does not feel that she can safely care for him at home and he is not participating enough with physical therapy to be a rehab candidate. They declined senior care placement due to bad experiences with nursing homes in the area. He will likely be here through the weekend until appropriate home equipment can be delivered. He was encouraged to work with physical therapy and specific goals were set for him to get out of bed twice to a chair and to a mbulate once. Since his oral intake has been somewhat erratic I am going to put him back on PPN. I will ask the dietitian to see him again as well. He has drunk 1 can of Ensure clear today and I encouraged him to try to drink at least 1 more. Surgery Progress Note: Obj - Vital signs Vital signs: Vital Signs - Most Recent Temp Pulse Resp BP Pulse Ox 98 F 81 18 107/67 95 06/23/20 07:35 06/23/20 07:35 06/23/20 07:35 06/23/20 07:35 06/23/20 07:35 Surgery Progress Note: Results - Labs Result Diagrams: 06/23/20 06:25 06/23/20 06:25 Lab results: Laboratory Results - last 12 hr 06/23/20 06/23/20 06/23/20 05:41 06:25 06:25 WBC 13.5 H RBC 2.95 L Hgb 7.5 L Hct 24.0 L MCV 81.5 MCH 25.2 L MCHC 31.0 L RDW 16.0 H Plt Count 410 H MPV 7.2 L Neutrophils % 76.5 H Lymphocytes % 7.9 L Monocytes % 13.7 H Eosinophils % 1.3 Basophils % 0.5 Neutrophils # 10.4 H Lymphocytes # 1.1 L Monocytes # 1.9 H Eosinophils # 0.2 Basophils # 0.1 Sodium 138 Potassium 4.2 Chloride 107 Carbon Dioxide 22 Anion Gap 13 BUN 11 Creatinine 0.84 Estimated GFR (MDRD) Greater than 90 Glucose 124 H POC Glucose 130 H Calcium 8.0 Total Bilirubin 0.4 AST 8 ALT 7 L Alkaline Phosphatase 72 Serum Total Protein 5.7 L Albumin 2.3 L Globulin 3.4 Albumin/Globulin Ratio 0.7 L
[2020-06-23] MEDS ORDERED: D5W-AA 4.25% with LYTES 1,000 ML IV SCH (14:15)
[2020-06-23] MEDS: Sodium Chloride 0.9% 1,000 ML IV SCH (14:36)
[2020-06-23] MEDS: Ibuprofen 600 MG TAB PO PRN (17:47)
[2020-06-23] MEDS: diphenhydrAMINE 25 MG CAP PO PRN (18:03)
[2020-06-24] MEDS ORDERED: Calcium Acetate 667 MG CAP ONE (03:41)
[2020-06-24] MEDS: Ibuprofen 600 MG TAB PO PRN (03:44)
[2020-06-24] MEDS: diphenhydrAMINE 25 MG CAP PO PRN ×2 (03:44→09:46)
[2020-06-24] MEDS: Methocarbamol 500 MG TAB PO PRN ×2 (03:47→17:01)
[2020-06-24] MEDS: MEROPENEM 1 GM/50 ML 1 GM in Premix Bag 1 BAG IVPB SCH ×3 (05:49→21:11)
[2020-06-24 07:01] LABS: #Basophils 0.1 thou/uL (0.0-0.2); #Eosinphils 0.2 thou/uL (0.0-0.7); #Lymphocytes 0.9 thou/uL (1.20-3.40); #Monocytes 1.5 thou/uL (0.11-0.59); #Neutrophils 8.7 thou/uL (1.40-6.50); %Basophils 0.5 % (0.0-1.0); %Lymphocytes 7.6 % (21.0-51.0); %Monocytes 13.2 % (0.0-10.0); %Neutrophils 76.7 % (42.0-75.0); Hemoglobin 7.1 g/dL (14.0-18.0); Mean Corpuscular HGB CONC 31.1 g/dL (32.0-36.0); Mean Corpuscular Hemoglobin 25.6 pg (27.0-31.0); Mean Corpuscular Volume 82.2 fL (78.0-98.0); Mean Platelet Volume 7.1 fL (7.4-10.4); Platelet Count 332 thou/uL (130-400); RBC Distribution Width 15.8 % (11.5-14.5); Red Blood Cell (RBC) Count 2.79 mill/uL (4.70-6.10); White Blood Cell (WBC) Count 11.3 thou/uL (4.8-10.8)
[2020-06-24 07:28] LABS: ALT (SGPT) Less than 7 U/L (8-55); AST (SGOT) 9 U/L (5-34); Albumin 2.3 g/dL (3.5-5.0); Alkaline Phosphatase 73 U/L (40-110); Anion Gap 11 mmol/L (10-20); BUN (Urea Nitrogen) 14 mg/dL (8.9-20.6); Bilirubin, Total 0.3 mg/dL (0.2-1.2); Calc. Creatinine Clearance 255 mL/min (70-130); Carbon Dioxide 26 mmol/L (22-29); Chloride 106 mmol/L (98-107); Globulin 3.5 g/dL (2.4-3.5); Glucose 114 mg/dL (70-105); Potassium 4.3 mmol/L (3.5-5.1); Protein, Total 5.8 g/dL (6.0-8.3); Sodium 139 mmol/L (136-145)
[2020-06-24] MEDS: Lorazepam 1 MG TAB PO SCH ×3 (09:47→21:09)
[2020-06-24] MEDS: Losartan/Hydrochlorothiazide 100 mg/25 mg Tablet PO SCH (09:47)
[2020-06-24] MEDS: Carvedilol 25 MG TAB PO SCH ×2 (09:50→21:09)
[2020-06-24] MEDS: Ferrous Sulfate 325 MG TAB PO SCH ×2 (09:50→17:02)
[2020-06-24] MEDS: Docusate 100 MG CAP PO SCH ×2 (09:51→21:09)
[2020-06-24] MEDS: Polyethylene Glycol 3350 17 GM Packet PO SCH (09:52)
[2020-06-24] MEDS: Folic Acid 1 MG TAB PO SCH (09:52)
[2020-06-24] MEDS: Enoxaparin Sodium 40 MG/0.4 ML SYRINGE SC SCH (09:52)
[2020-06-24] MEDS: FLUoxetine HCl 20 MG CAP PO SCH (09:52)
[2020-06-24] MEDS: HYDROcodone/Acetaminophen 10/325 mg Tablet PO PRN ×2 (10:00→18:31)
[2020-06-24 10:19] LABS: INR-International Normal Ratio 1.1; PTT 29.7 sec (22.9-36.1); Prothrombin Time 14.6 sec (12.0-14.7)
[2020-06-24 10:30] LABS: Phosphorus 4.6 mg/dL (2.3-4.7)
[2020-06-24 10:34] LABS: Phosphorus 4.6 mg/dL (2.3-4.7)
[2020-06-24 10:35] LABS: Cardiac Risk 5.9 (Less than 4.5); Magnesium 1.9 mg/dL (1.6-2.6)
--- NOTE | 2020-06-24 11:01 | PDOC.GSPN ---
Surgery Progress Note: Subj - Subjective Narrative: Patient is feeling okay today. He was very tired yesterday was only able to stand with physical therapy, walk. He did get up to the chair in the morning. He had a good sized bowel movement through his ostomy and ate better this morning, taking in pretty much his entire breakfast. He prefers the apple juice to the Ensure clear. He is pulling 1500 on incentive spirometer. He broke out in a rash yesterday evening about 3 hours after his PPN was started. He had also received Drybranch. The rash resolved rapidly with Benadryl. Vital signs are okay. Clonidine was discontinued yesterday but he has not had any rebound hypertension. White count is stable at 11. Hemoglobin is stable and electrolytes are okay. Albumin is quite low and prealbumin was less than 5 which is actually worse than earlier in his hospital course. Incision looks good with no expressible drainage. It is healing and the subcutaneous space is closing in with the VAC. His abdomen is nondistended and has normal bowel sounds and his ostomy looks healthy. Assessment/plan: Severe debilitation and hypoproteinemia. He has tolerated TPN in the past I am going to restart this. If he maintains his oral intake at adequate levels and takes his supplements as instructed we may be able to discontinue this. The nurse is going to watch very carefully for any evidence of recurrent rash, but he has tolerated TPN in the past. If he does not tolerate TPN and his oral intake remains inadequate we may need to place a feeding tube. His is concerned about some confusion he has had which I think is due to narcotics and sleep apnea. He is completely oriented this morning conversing appropriately. I will ask the hospitalist to evaluate him for this however, as well as management of his blood pressure medications. According to his , he appears to be having hallucinations intermittently although he has always been oriented and appropriate for me. He may be sundowning, so I instructed him to stay up during the day and sit in a chair as much as possible rather than lying in bed. Surgery Progress Note: Obj - Vital signs Vital signs: Vital Signs - Most Recent Temp Pulse Resp BP Pulse Ox 97.6 F 81 16 137/68 92 L 06/24/20 07:15 06/24/20 07:15 06/24/20 07:15 06/24/20 07:15 06/24/20 07:15 Surgery Progress Note: Results - Labs Result Diagrams: 06/24/20 06:45 06/24/20 06:45 Lab results: Laboratory Results - last 12 hr 06/24/20 06/24/20 06/24/20 05:29 06:45 06:45 WBC RBC Hgb Hct MCV MCH MCHC RDW Plt Count MPV Neutrophils % Lymphocytes % Monocytes % Eosinophils % Basophils % Neutrophils # Lymphocytes # Monocytes # Eosinophils # Basophils # PT INR APTT Sodium 139 Potassium 4.3 Chloride 106 Carbon Dioxide 26 Anion Gap 11 BUN 14 Creatinine 0.81 Estimated GFR (MDRD) Greater than 90 Glucose 114 H POC Glucose 128 H Calcium 8.0 Phosphorus Magnesium Total Bilirubin 0.3 AST 9 ALT Less than 7 L Alkaline Phosphatase 73 Serum Total Protein 5.8 L Albumin 2.3 L Globulin 3.5 Albumin/Globulin Ratio 0.7 L Prealbumin Less than 5.0 L Triglycerides Cholesterol LDL Cholesterol, Calc HDL Cholesterol Heart Disease Risk Ratio 06/24/20 06/24/20 06/24/20 06:45 09:44 09:44 WBC 11.3 H RBC 2.79 L Hgb 7.1 L Hct 23.0 L MCV 82.2 MCH 25.6 L MCHC 31.1 L RDW 15.8 H Plt Count 332 MPV 7.1 L Neutrophils % 76.7 H Lymphocytes % 7.6 L Monocytes % 13.2 H Eosinophils % 2.0 Basophils % 0.5 Neutrophils # 8.7 H Lymphocytes # 0.9 L Monocytes # 1.5 H Eosinophils # 0.2 Basophils # 0.1 PT INR APTT Sodium Potassium Chloride Carbon Dioxide Anion Gap BUN Creatinine Estimated GFR (MDRD) Glucose POC Glucose Calcium Phosphorus 4.6 Magnesium 1.9 Total Bilirubin AST ALT Alkaline Phosphatase Serum Total Protein Albumin Globulin Albumin/Globulin Ratio Prealbumin Triglycerides 108 Cholesterol 112 LDL Cholesterol, Calc 71 HDL Cholesterol 19 Heart Disease Risk Ratio 5.9 06/24/20 06/24/20 09:44 09:44 WBC RBC Hgb Hct MCV MCH MCHC RDW Plt Count MPV Neutrophils % Lymphocytes % Monocytes % Eosinophils % Basophils % Neutrophils # Lymphocytes # Monocytes # Eosinophils # Basophils # PT 14.6 INR 1.1 APTT 29.7 Sodium Potassium Chloride Carbon Dioxide Anion Gap BUN Creatinine Estimated GFR (MDRD) Glucose POC Glucose Calcium Phosphorus 4.6 Magnesium Total Bilirubin AST ALT Alkaline Phosphatase Serum Total Protein Albumin Globulin Albumin/Globulin Ratio Prealbumin Triglycerides Cholesterol LDL Cholesterol, Calc HDL Cholesterol Heart Disease Risk Ratio
[2020-06-24] MEDS ORDERED: diphenhydrAMINE 50 MG/ML VIAL IVP PRN (12:08)
[2020-06-24] MEDS: Sodium Chloride 0.9% 1,000 ML IV SCH ×2 (13:25→21:10)
[2020-06-24] MEDS: Ondansetron PF 4 MG/2 ML Vial IVP PRN (18:30)
[2020-06-24] MEDS: MULTIVITAMINS IV SCH (21:57)
[2020-06-24] MEDS: [UNRECOGNIZED DRUG - OTHER] IV SCH (21:57)
[2020-06-24] MEDS: SODIUM ACETATE IV SCH (21:57)
[2020-06-24] MEDS: TRACE ELEMENTS IV SCH (21:57)
[2020-06-24] MEDS ORDERED: [UNRECOGNIZED DRUG - REMARK] IV SCH (22:00)
[2020-06-25] MEDS: MEROPENEM 1 GM/50 ML 1 GM in Premix Bag 1 BAG IVPB SCH ×3 (05:07→21:08)
[2020-06-25] MEDS: HYDROcodone/Acetaminophen 10/325 mg Tablet PO PRN ×2 (05:12→14:34)
[2020-06-25 07:22] LABS: INR-International Normal Ratio 1.1; PTT 33.3 sec (22.9-36.1); Prothrombin Time 14.1 sec (12.0-14.7)
[2020-06-25 07:36] LABS: Phosphorus 4.2 mg/dL (2.3-4.7)
[2020-06-25 08:00] LABS: ALT (SGPT) 10 U/L (8-55); AST (SGOT) 13 U/L (5-34); Albumin 2.5 g/dL (3.5-5.0); Alkaline Phosphatase 76 U/L (40-110); Anion Gap 13 mmol/L (10-20); BUN (Urea Nitrogen) 12 mg/dL (8.9-20.6); Bilirubin, Total 0.3 mg/dL (0.2-1.2); Calc. Creatinine Clearance 275 mL/min (70-130); Calcium 8.4 mg/dL (7.8-10.44); Carbon Dioxide 26 mmol/L (22-29); Cardiac Risk 6.9 (Less than 4.5); Chloride 105 mmol/L (98-107); Cholesterol 110 mg/dl (< 200 Desired); Globulin 3.6 g/dL (2.4-3.5); Glucose 111 mg/dL (70-105); HDL Cholesterol 16 mg/dL (>60 Neg Risk); LDL Cholesterol, Calculated 71 mg/dL; Protein, Total 6.1 g/dL (6.0-8.3); Sodium 140 mmol/L (136-145); Triglycerides 116 mg/dL (Less than 150)
[2020-06-25] MEDS: Enoxaparin Sodium 40 MG/0.4 ML SYRINGE SC SCH (08:19)
[2020-06-25] MEDS: Ferrous Sulfate 325 MG TAB PO SCH ×2 (08:19→17:33)
[2020-06-25] MEDS: Polyethylene Glycol 3350 17 GM Packet PO SCH (08:19)
[2020-06-25] MEDS: FLUoxetine HCl 20 MG CAP PO SCH (08:20)
[2020-06-25] MEDS: Losartan/Hydrochlorothiazide 100 mg/25 mg Tablet PO SCH (08:20)
[2020-06-25] MEDS: Carvedilol 25 MG TAB PO SCH ×2 (08:20→21:08)
[2020-06-25] MEDS: Folic Acid 1 MG TAB PO SCH (08:20)
[2020-06-25] MEDS: Docusate 100 MG CAP PO SCH ×2 (08:21→21:08)
[2020-06-25] MEDS: Lorazepam 1 MG TAB PO SCH ×3 (08:21→21:08)
--- NOTE | 2020-06-25 10:57 | PRG ---
DATE OF SERVICE: 06/25/2020 SUBJECTIVE: Mr. Crum has no complaints today. He had more colostomy output overnight, still did not eat much for dinner. OBJECTIVE: VITAL SIGNS: He is afebrile and his vital signs are stable. ABDOMEN: Soft. His wounds are all healing well. His colostomy has air and stool in the bag. LABORATORY DATA: His hemoglobin today is 7.1, his white count 11, creatinine is 0.75, albumin is 2.5. Preop albumin is less than 5. ASSESSMENT: Status post abdominal anastomotic leak, now stable, but with anorexia, deconditioning. PLAN: Discussed options with Mr. Crum. His nutrition is poor. He needs to eat more. Now that his colon is working, a better option, ultimately if he does not improve on p.o. intake, would be feeding tube and tube feeds as opposed to long-term TPN, which is going to cause cholestasis. He is encouraged to eat more. He understands that he needs to and will try today. Job ID: [id number]
[2020-06-25] MEDS: Ibuprofen 600 MG TAB PO PRN (11:56)
--- NOTE | 2020-06-25 17:20 | PDOC.HOSPP ---
- Subjective Encounter Date: 06/25/20 Encounter Time: 10:25 Subjective: Patient seen and examined for medical management. Appetite slowly improving. On TPN. Denies any chest pain or shortness of breath. - Objective Vital Signs & Weight: Vital Signs (12 hours) Temp Pulse Resp BP BP Pulse Ox 06/25/20 14:45 97.6 F 81 20 143/86 H 95 06/25/20 10:53 97.4 F L 79 18 165/83 H 95 06/25/20 08:15 95 06/25/20 07:41 97.6 F 84 20 145/82 H 95 Weight Admit Weight 348 lb Weight 364 lb 2 oz Most Recent Monitor Data Heart Rate from ECG 83 NIBP 144/83 NIBP BP-Mean 100 Respiration from ECG 16 SpO2 98 I&O: 06/24/20 06/25/20 06/26/20 06:59 06:59 06:59 Intake Total 3100 3494 Output Total 1125 3625 Balance 1974 - Result Diagrams: 06/24/20 06:45 06/25/20 07:05 Additional Labs: Accuchecks 06/25/20 06/25/20 06/24/20 10:54 05:29 23:22 POC Glucose 120 H 111 H 120 H 06/24/20 20:17 POC Glucose 111 H Abnormal Lab Results - Last 48 hrs 06/24/20 06:45: ALT Less than 7 L, Serum Total Protein 5.8 L, Albumin 2.3 L, Albumin/Globulin Ratio 0.7 L 06/24/20 06:45: Prealbumin Less than 5.0 L 06/24/20 06:45: WBC 11.3 H, RBC 2.79 L, Hgb 7.1 L, Hct 23.0 L, MCH 25.6 L, MCHC 31.1 L, RDW 15.8 H, MPV 7.1 L, Neutrophils % 76.7 H, Lymphocytes % 7.6 L, Monocytes % 13.2 H, Neutrophils # 8.7 H, Lymphocytes # 0.9 L, Monocytes # 1.5 H 06/24/20 10:56: Prealbumin Less than 5.0 L 06/25/20 07:05: Albumin 2.5 L, Globulin 3.6 H, Albumin/Globulin Ratio 0.7 L 06/25/20 07:05: Prealbumin Less than 5.0 L Microbiology - Entire Visit 06/18/20 23:04 Venous blood - Left Arm Blood Culture - Final NO GROWTH IN 5 DAYS 06/18/20 23:04 Venous blood - Right Arm Blood Culture - Final NO GROWTH IN 5 DAYS 06/19/20 16:30 Catheter Tip Catheter Tip Culture - Final 06/20/20 09:25 Abdomen - Incision Bacterial Culture - Final Enterococcus faecalis Radiology Reviewed by me: Yes (Chest x-rayno infiltrate) Hospitalist ROS - Review of Systems Constitutional: denies: fever, chills, sweats, weakness, malaise, other Cardiovascular: denies: chest pain, palpitations, orthopnea, paroxysmal noc. dyspnea, edema, light headedness, other - Medication Medications: Active Medications Generic Name Dose Route Start Last Admin Trade Name Freq PRN Reason Stop Dose Admin Hydrocodone Bitart/Acetaminophen 1 tab 06/11/20 10:58 06/25/20 14:34 Hydrocodone/Acetaminophen 10/325 Mg Tablet PO 1 tab TID PRN Administration Mild-Moderate Pain (1-5) Hydrocodone Bitart/Acetaminophen 2 tab 06/11/20 11:07 06/25/20 05:12 Hydrocodone/Acetaminophen 10/325 Mg Tablet PO 2 tab TID PRN Administration Severe Pain (7-10) Hydrocodone Bitart/Acetaminophen 1 tab 06/20/20 09:23 06/20/20 11:17 Hydrocodone/Acetaminophen 10/325 Mg Tablet PO 1 tab DAILYPRN PRN Administration Breakthrough Pain Albuterol/Ipratropium 3 ml 06/12/20 08:08 06/24/20 16:17 Ipratropium/Albuterol Sulfate 3 Ml Neb NEB 3 ml [id number] PRN Administration Dyspnea/Wheezing/SOB Carvedilol 12.5 mg 06/11/20 21:00 06/25/20 08:20 Carvedilol 25 Mg Tab PO 12.5 mg BID SHAN Administration Diphenhydramine HCl 25 mg 06/05/20 16:51 06/24/20 09:46 Diphenhydramine 25 Mg Cap PO 25 mg Q4H PRN Administration Itching Docusate Sodium 100 mg 06/22/20 21:00 06/25/20 08:21 Docusate 100 Mg Cap PO 100 mg BID SHAN Administration Enoxaparin Sodium 40 mg 06/02/20 09:00 06/25/20 08:19 Enoxaparin Sodium 40 Mg/0.4 Ml Syringe SC 40 mg 0900 SHAN Administration Ferrous Sulfate 325 mg 06/16/20 17:00 06/25/20 08:19 Ferrous Sulfate 325 Mg Tab PO 325 mg BID-WM SHAN Administration Fluoxetine HCl 20 mg 06/12/20 09:00 06/25/20 08:20 Fluoxetine Hcl 20 Mg Cap PO 20 mg DAILY SHAN Administration Folic Acid 1 mg 06/24/20 09:00 06/25/20 08:20 Folic Acid 1 Mg Tab PO 1 mg DAILY SHAN Administration HCTZ/Losartan Potassium 1 tab 06/12/20 09:00 06/25/20 08:20 Losartan/Hydrochlorothiazide 100 Mg/25 Mg Tablet PO 1 tab QAM SHAN Administration Sodium Chloride 1,000 mls @ 30 mls/hr 06/16/20 15:15 06/24/20 21:10 Normal Saline 0.9% IV 1,000 mls .Q24H SHAN Administration TKO Meropenem 1 gm/ Device 50 mls @ 100 mls/hr 06/20/20 22:00 06/25/20 14:28 IVPB 50 mls Q8HR SHAN Administration Multivitamins 10 ml/ Chromium/ 1,890.7021 mls @ 78.779 mls/hr 06/24/20 22:00 06/24/20 21:57 Copper/Manganese/Zinc 9 ml/ IV 1,890.7021 mls Sodium Acetate 40 meq/ Sodium 2200 SHAN Administration Chloride 30 meq/ Potassium Chloride 20 meq/ Potassium Phosphate 30 mmol/ Calcium Gluconate 10 meq/ Magnesium Sulfate 10 meq/ Amino Acids/ Dextrose/Water/ Sterile Water Ibuprofen 600 mg 06/13/20 13:22 06/25/20 11:56 Ibuprofen 600 Mg Tab PO 600 mg Q6H PRN Administration Pain Lorazepam 2 mg 06/13/20 09:00 06/25/20 14:32 Lorazepam 1 Mg Tab PO 2 mg TID SHAN Administration Methocarbamol 500 mg 06/11/20 11:01 06/24/20 17:01 Methocarbamol 500 Mg Tab PO 500 mg Q8HR PRN Administration Muscle Spasm Ondansetron HCl 4 mg 06/05/20 23:04 06/24/20 18:30 Ondansetron Pf 4 Mg/2 Ml Vial IVP 4 mg Q4H PRN Administration Nausea/Vomiting Pantoprazole Sodium 40 mg 06/16/20 09:00 06/25/20 08:20 Pantoprazole 40 Mg Tab PO 40 mg DAILY SHAN Administration Polyethylene Glycol 17 gm 06/23/20 09:00 06/25/20 08:19 Polyethylene Glycol 3350 17 Gm Packet PO 17 gm DAILY SHAN Administration Sodium Chloride 10 ml 06/02/20 09:00 06/25/20 08:19 Flush - Normal Saline 10 Ml Syringe IVF 10 ml Q12HR SHAN Administration - Exam General Appearance: NAD Heart: RRR, no gallops Respiratory: no wheezes, no rales Respiratory - other findings: Diminished air entry at bases Gastrointestinal: soft, no guarding, no rigidity Extremities: no cyanosis Hosp A/P - Plan DVT proph w/lovenox, DVT proph w/SCDs Asthma Anxiety Obstructive sleep apnea Hyperlipidemia Hypertension GERD Sulfa allergy Morbid obesity with a BMI of 48 Physical deconditioning History of scoliosis Plan: Continue carvedilol with losartan HCTZ. Continue lorazepam with fluoxetine. Continue PPIs. Pain control. Labs reviewed. Incentive spirometer. Continue physical therapy. Add albuterol inhalers. We will continue to follow. Thank you for this consultation.
[2020-06-25] MEDS: [UNRECOGNIZED DRUG - OTHER] IV SCH (22:30)
[2020-06-25] MEDS: TRACE ELEMENTS IV SCH (22:30)
[2020-06-25] MEDS: MULTIVITAMINS IV SCH (22:30)
[2020-06-25] MEDS: SODIUM ACETATE IV SCH (22:30)
[2020-06-26] MEDS: HYDROcodone/Acetaminophen 10/325 mg Tablet PO PRN ×3 (00:10→23:34)
[2020-06-26] MEDS: diphenhydrAMINE 25 MG CAP PO PRN ×2 (03:13→23:33)
[2020-06-26] MEDS: MEROPENEM 1 GM/50 ML 1 GM in Premix Bag 1 BAG IVPB SCH ×3 (06:46→22:26)
[2020-06-26] MEDS: Ferrous Sulfate 325 MG TAB PO SCH ×2 (08:15→17:41)
[2020-06-26] MEDS: Folic Acid 1 MG TAB PO SCH (08:15)
[2020-06-26] MEDS: Losartan/Hydrochlorothiazide 100 mg/25 mg Tablet PO SCH (08:15)
[2020-06-26] MEDS: Docusate 100 MG CAP PO SCH ×2 (08:15→22:26)
[2020-06-26] MEDS: Lorazepam 1 MG TAB PO SCH ×3 (08:15→22:26)
[2020-06-26] MEDS: Polyethylene Glycol 3350 17 GM Packet PO SCH (08:16)
[2020-06-26] MEDS: FLUoxetine HCl 20 MG CAP PO SCH (08:16)
[2020-06-26] MEDS: Carvedilol 25 MG TAB PO SCH ×2 (08:16→22:27)
[2020-06-26] MEDS: Enoxaparin Sodium 40 MG/0.4 ML SYRINGE SC SCH (08:16)
--- NOTE | 2020-06-26 09:34 | PRG ---
DATE OF SERVICE: 06/26/2020 SUBJECTIVE: Mr. Crum has no complaints. He did not get out of bed with therapy yesterday. He is trying to eat more, but still has fairly significant anorexia. He denies abdominal pain. He is afebrile. His vital signs are stable. No new labs today. ASSESSMENT: 1. Status post peritonitis from anastomotic leak, improved. 2. Severe deconditioning with anorexia, not eating enough, low pre-albumin. PLAN: Again, we talked about eating more, getting more nutrition enterally, not via TPN, and if not going to be able to take enough by mouth, tube feeds would be a better option than longer-term TPN. We also discussed his ability to go home. He is very limited physically. His is limited in helping and we discussed that there is no good home health options for getting him out of bed, which is why his best option is residential. They are very hesitant for this, but nurse case management should talk to them about options on Saturday. Job ID: [id number]
[2020-06-26] MEDS: Sodium Chloride 0.9% 1,000 ML IV SCH (15:19)
--- NOTE | 2020-06-26 18:07 | RAD ---
EXAM: CHEST ONE VIEW HISTORY: Cough. Abnormal lung exam. COMPARISON: 06/15/2020 FINDINGS: Left-sided PICC line is now noted in place with tip overlying the cavoatrial junction. Cardiac silhou ette is magnified by projection and parenchymal opacities at each lung base noted on the prior exam have resolved; however,, there is a new linear density at the right lung base which may represent sub segmental atelectasis. No consolidation or obvious pleural effusion is seen. No other interval change. IMPRESSION: 1. Probable subsegmental atelectasis right lung base. However, follow-up evaluation is recommended as developing area of pneumonitis would be difficult to entirely exclude. 2. Left-sided PICC line noted in place.
--- NOTE | 2020-06-26 18:26 | PDOC.HOSPP ---
- Subjective Encounter Date: 06/26/20 Encounter Time: 11:00 Subjective: .Patient seen and examined for medical management. Appetite slowly improving. - Objective Vital Signs & Weight: Vital Signs (12 hours) Temp Pulse Resp BP BP BP Pulse Ox 06/26/20 15:56 97.5 F L 78 16 143/83 H 96 06/26/20 11:21 97.6 F 80 18 158/94 H 96 06/26/20 08:11 94 L 06/26/20 07:11 97.6 F 80 20 164/97 H 94 L Weight Admit Weight 348 lb Weight 364 lb 2 oz Most Recent Monitor Data Heart Rate from ECG 83 NIBP 144/83 NIBP BP-Mean 100 Respiration from ECG 16 SpO2 98 I&O: 06/25/20 06/26/20 06/27/20 06:59 06:59 06:59 Intake Total 3494 4263.6 592 Output Total 3625 2750 1375 Balance -131 1513.6 -783 Result Diagrams: 06/24/20 06:45 06/25/20 07:05 Additional Labs: Accuchecks 06/26/20 06/26/20 06/25/20 17:38 05:10 23:23 POC Glucose 119 H 119 H 113 H Hospitalist ROS - Review of Systems Cardiovascular: denies: chest pain, palpitations, orthopnea, paroxysmal noc. dyspnea, edema, light headedness, other Gastrointestinal: denies: nausea, vomiting, abdominal pain, diarrhea, constipation, melena, hematochezia, other - Medication Medications: Active Medications Generic Name Dose Route Start Last Admin Trade Name Freq PRN Reason Stop Dose Admin Hydrocodone Bitart/Acetaminophen 1 tab 06/11/20 10:58 06/26/20 12:24 Hydrocodone/Acetaminophen 10/325 Mg Tablet PO 1 tab TID PRN Administration Mild-Moderate Pain (1-5) Hydrocodone Bitart/Acetaminophen 2 tab 06/11/20 11:07 06/26/20 00:10 Hydrocodone/Acetaminophen 10/325 Mg Tablet PO 2 tab TID PRN Administration Severe Pain (7-10) Hydrocodone Bitart/Acetaminophen 1 tab 06/20/20 09:23 06/20/20 11:17 Hydrocodone/Acetaminophen 10/325 Mg Tablet PO 1 tab DAILYPRN PRN Administration Breakthrough Pain Albuterol/Ipratropium 3 ml 06/25/20 17:21 06/25/20 23:11 Ipratropium/Albuterol Sulfate 3 Ml Neb NEB 3 ml [id number] PRN Administration SOB &/or Wheezing Carvedilol 12.5 mg 06/11/20 21:00 06/26/20 08:16 Carvedilol 25 Mg Tab PO 12.5 mg BID SHAN Administration Diphenhydramine HCl 25 mg 06/05/20 16:51 06/26/20 03:13 Diphenhydramine 25 Mg Cap PO 25 mg Q4H PRN Administration Itching Docusate Sodium 100 mg 06/22/20 21:00 06/26/20 08:15 Docusate 100 Mg Cap PO 100 mg BID SHAN Administration Enoxaparin Sodium 40 mg 06/02/20 09:00 06/26/20 08:16 Enoxaparin Sodium 40 Mg/0.4 Ml Syringe SC 40 mg 0900 SHAN Administration Ferrous Sulfate 325 mg 06/16/20 17:00 06/26/20 17:41 Ferrous Sulfate 325 Mg Tab PO 325 mg BID-WM SHAN Administration Fluoxetine HCl 20 mg 06/12/20 09:00 06/26/20 08:16 Fluoxetine Hcl 20 Mg Cap PO 20 mg DAILY SHAN Administration Folic Acid 1 mg 06/24/20 09:00 06/26/20 08:15 Folic Acid 1 Mg Tab PO 1 mg DAILY SHAN Administration HCTZ/Losartan Potassium 1 tab 06/12/20 09:00 06/26/20 08:15 Losartan/Hydrochlorothiazide 100 Mg/25 Mg Tablet PO 1 tab QAM SHAN Administration Sodium Chloride 1,000 mls @ 30 mls/hr 06/16/20 15:15 06/26/20 15:19 Normal Saline 0.9% IV 1,000 mls .Q24H SHAN Administration TKO Meropenem 1 gm/ Device 50 mls @ 100 mls/hr 06/20/20 22:00 06/26/20 14:40 IVPB 50 mls Q8HR SHAN Administration Multivitamins 10 ml/ Chromium/ 1,890.7021 mls @ 78.779 mls/hr 06/24/20 22:00 06/25/20 22:30 Copper/Manganese/Zinc 9 ml/ IV 1,890.7021 mls Sodium Acetate 40 meq/ Sodium 2200 SHAN Administration Chloride 30 meq/ Potassium Chloride 20 meq/ Potassium Phosphate 30 mmol/ Calcium Gluconate 10 meq/ Magnesium Sulfate 10 meq/ Amino Acids/ Dextrose/Water/ Sterile Water Ibuprofen 600 mg 06/13/20 13:22 06/25/20 11:56 Ibuprofen 600 Mg Tab PO 600 mg Q6H PRN Administration Pain Lorazepam 2 mg 06/13/20 09:00 06/26/20 14:40 Lorazepam 1 Mg Tab PO 2 mg TID SHAN Administration Methocarbamol 500 mg 06/11/20 11:01 06/24/20 17:01 Methocarbamol 500 Mg Tab PO 500 mg Q8HR PRN Administration Muscle Spasm Ondansetron HCl 4 mg 06/05/20 23:04 06/24/20 18:30 Ondansetron Pf 4 Mg/2 Ml Vial IVP 4 mg Q4H PRN Administration Nausea/Vomiting Pantoprazole Sodium 40 mg 06/16/20 09:00 06/26/20 08:16 Pantoprazole 40 Mg Tab PO 40 mg DAILY SHAN Administration Polyethylene Glycol 17 gm 06/23/20 09:00 06/26/20 08:16 Polyethylene Glycol 3350 17 Gm Packet PO 17 gm DAILY SHAN Administration Sodium Chloride 10 ml 06/02/20 09:00 06/26/20 08:17 Flush - Normal Saline 10 Ml Syringe IVF 10 ml Q12HR SHAN Administration - Exam General Appearance: NAD Heart: RRR, no gallops Respiratory: no wheezes Gastrointestinal: soft, no guarding, no rigidity Extremities: no cyanosis, no clubbing Neurological: no new deficit Hosp A/P - Plan DVT proph w/SCDs Asthma Anxiety Obstructive sleep apnea Hyperlipidemia Hypertension GERD Sulfa allergy Morbid obesity with a BMI of 48 Physical deconditioning History of scoliosis Plan: Continue supportive care. Will discontinue TPN once tolerating p.o. Continue carvedilol, Protonix, Hyzaar and Prozac. Continue physical therapy and incentive spirometer
[2020-06-26] MEDS: SODIUM ACETATE IV SCH (23:19)
[2020-06-26] MEDS: TRACE ELEMENTS IV SCH (23:19)
[2020-06-26] MEDS: MULTIVITAMINS IV SCH (23:19)
[2020-06-26] MEDS: [UNRECOGNIZED DRUG - OTHER] IV SCH (23:19)
[2020-06-26] MEDS: Methocarbamol 500 MG TAB PO PRN (23:34)
[2020-06-27 02:08] LABS: SARS-CoV-2 MS2 Positive; SARS-CoV-2 N Gene Negative; SARS-CoV-2 S Gene Negative; SARS-CoV-2 by NAA Not Detected (NotDetected); SARS-CoV-2 orf1ab Negative
[2020-06-27 04:36] LABS: Anion Gap 12 mmol/L (10-20); BUN (Urea Nitrogen) 17 mg/dL (8.9-20.6); Calc. Creatinine Clearance 328 mL/min (70-130); Carbon Dioxide 29 mmol/L (22-29); Chloride 103 mmol/L (98-107); Glucose 107 mg/dL (70-105); Magnesium 1.7 mg/dL (1.6-2.6); Sodium 140 mmol/L (136-145)
[2020-06-27] MEDS: MEROPENEM 1 GM/50 ML 1 GM in Premix Bag 1 BAG IVPB SCH ×2 (05:16→22:32)
--- NOTE | 2020-06-27 05:51 | PRG ---
DATE OF SERVICE: 06/26/2020 SUBJECTIVE: Mr. Crum is still in the hospital, having a lot of issues with his nutritional intake, very nauseated. also tells me he has been coughing a lot with some kind of thick whitish sputum production. He is lying in bed. He had been sitting up in the recliner chair by the bedside earlier today. Not much in terms of abdominal pain, although when he stands up, it kind of hurts. No back pain. No joint symptoms. OBJECTIVE: VITAL SIGNS: In general, he has been afebrile, blood pressure 140/83, heart rate 78. GENERAL: He is kind of chronically ill appearing. HEENT: His pupils are equal. NECK: Supple. LUNGS: With a few crackles at the bases. HEART: S1 and S2, regular rate. ABDOMEN: Moderately distended and mildly tender. Colostomy is working fine. Ostomy itself looks good. EXTREMITIES: Moves all extremities, although he is diffusely weak. LABORATORY DATA: White cell count of 11.3, hemoglobin 7.1, platelets 332, and lymphocyte count is down to 0.9. Creatinine last checked on the 2nd was 0.75. Liver profile normal. Albumin 2.5. No new microbiology data. The last imaging study was an abdomen and pelvis CT about a week ago. 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 Still having issues with nutritional intake, and now, he started with respiratory symptoms, so we are going to go ahead and recheck his SARS-CoV-2 PCR and antibody level and get a chest x-ray. Continue meropenem. The Job ID: [id number] [facility]
[2020-06-27] MEDS ORDERED: Magnesium Sulfate 2 GM in Sodium Chloride 0.9% 100 ML IVPB SCH (08:30)
[2020-06-27] MEDS: HYDROcodone/Acetaminophen 10/325 mg Tablet PO PRN (08:39)
[2020-06-27] MEDS: Polyethylene Glycol 3350 17 GM Packet PO SCH (08:40)
[2020-06-27] MEDS: Losartan/Hydrochlorothiazide 100 mg/25 mg Tablet PO SCH (08:42)
[2020-06-27] MEDS: FLUoxetine HCl 20 MG CAP PO SCH (08:42)
[2020-06-27] MEDS: Ferrous Sulfate 325 MG TAB PO SCH ×2 (08:42→17:12)
[2020-06-27] MEDS: Folic Acid 1 MG TAB PO SCH (08:43)
[2020-06-27] MEDS: Carvedilol 25 MG TAB PO SCH ×2 (08:43→20:59)
[2020-06-27] MEDS: Docusate 100 MG CAP PO SCH ×2 (08:43→20:59)
[2020-06-27] MEDS ORDERED: Magnesium 2 GM/50 ML 2 GM in Premix Bag 1 BAG IVPB SCH (08:45)
[2020-06-27] MEDS: Lorazepam 1 MG TAB PO SCH ×3 (08:46→20:58)
[2020-06-27] MEDS: Enoxaparin Sodium 40 MG/0.4 ML SYRINGE SC SCH (08:49)
[2020-06-27 13:38] LABS: SARS-CoV-2 IgG Ab Non-Reactive (NonReactive); SARS-CoV-2 IgG Index 0.06 S/CO (< 1.40)
--- NOTE | 2020-06-27 13:51 | PRG ---
DATE OF SERVICE: SUBJECTIVE: Mr. Crum has no complaints today. His COVID was repeat, negative. His family wants him to be discharged. OBJECTIVE: VITAL SIGNS: He is afebrile and his vital signs are stable. ABDOMEN: Soft. His wound has a VAC on it. ASSESSMENT: Prolonged hospitalization secondary to peritonitis and anastomotic leak, now improved. He can be discharged home today if home health and home IV antibiotics were all setup. Job ID: [id number]
[2020-06-27] MEDS ORDERED: Meropenem 1 GM in Sodium Chloride 0.9% 100 ML IVPB SCH (14:00)
[2020-06-27] MEDS: Methocarbamol 500 MG TAB PO PRN (15:11)
[2020-06-27] MEDS: Sodium Chloride 0.9% 1,000 ML IV SCH ×2 (17:08→22:45)
[2020-06-27] MEDS: cloNIDine 0.1 MG TAB PO SCH (20:59)
[2020-06-27] MEDS: TRACE ELEMENTS IV SCH (22:32)
[2020-06-27] MEDS: [UNRECOGNIZED DRUG - OTHER] IV SCH (22:32)
[2020-06-27] MEDS: SODIUM ACETATE IV SCH (22:32)
[2020-06-27] MEDS: MULTIVITAMINS IV SCH (22:32)
--- NOTE | 2020-06-27 22:49 | PDOC.HOSPP ---
- Subjective Encounter Date: 06/27/20 Encounter Time: 14:00 Subjective: Patient seen and examined for medical management. Denies any chest pain or shortness of breath. On TPN. Appetite slowly improving - Objective Vital Signs & Weight: Vital Signs (12 hours) Temp Pulse Resp BP BP BP Pulse Ox 06/27/20 20:59 149/88 H 06/27/20 19:44 98.0 F 79 18 149/88 H 97 06/27/20 16:48 97.9 F 82 16 158/95 H 95 06/27/20 11:54 97.6 F 79 14 157/87 H 95 Weight Admit Weight 348 lb Weight 364 lb 2 oz Most Recent Monitor Data Heart Rate from ECG 83 NIBP 144/83 NIBP BP-Mean 100 Respiration from ECG 16 SpO2 98 I&O: 06/26/20 06/27/20 06/28/20 06:59 06:59 06:59 Intake Total 4263.6 1792 2900 Output Total 2750 3775 2200 Balance 1513.6 -1983 700 Result Diagrams: 06/24/20 06:45 06/27/20 03:30 Additional Labs: Accuchecks 06/27/20 06/26/20 11:05 11:13 POC Glucose 155 H 118 H Hospitalist ROS - Review of Systems Respiratory: denies: cough, dry, shortness of breath, hemoptysis, SOB with excertion, pleuritic pain, sputum, wheezing, other Cardiovascular: denies: chest pain, palpitations, orthopnea, paroxysmal noc. dyspnea, edema, light headedness, other - Medication Medications: Active Medications Generic Name Dose Route Start Last Admin Trade Name Freq PRN Reason Stop Dose Admin Hydrocodone Bitart/Acetaminophen 1 tab 06/11/20 10:58 06/27/20 08:39 Hydrocodone/Acetaminophen 10/325 Mg Tablet PO 1 tab TID PRN Administration Mild-Moderate Pain (1-5) Hydrocodone Bitart/Acetaminophen 2 tab 06/11/20 11:07 06/26/20 00:10 Hydrocodone/Acetaminophen 10/325 Mg Tablet PO 2 tab TID PRN Administration Severe Pain (7-10) Albuterol/Ipratropium 3 ml 06/25/20 17:21 06/25/20 23:11 Ipratropium/Albuterol Sulfate 3 Ml Neb NEB 3 ml [id number] PRN Administration SOB &/or Wheezing Carvedilol 12.5 mg 06/11/20 21:00 06/27/20 20:59 Carvedilol 25 Mg Tab PO 12.5 mg BID SHAN Administration Clonidine 0.1 mg 06/27/20 21:00 06/27/20 20:59 Clonidine 0.1 Mg Tab PO 0.1 mg BID SHAN Administration Diphenhydramine HCl 25 mg 06/05/20 16:51 06/26/20 23:33 Diphenhydramine 25 Mg Cap PO 25 mg Q4H PRN Administration Itching Docusate Sodium 100 mg 06/22/20 21:00 06/27/20 20:59 Docusate 100 Mg Cap PO 100 mg BID SHAN Administration Enoxaparin Sodium 40 mg 06/02/20 09:00 06/27/20 08:49 Enoxaparin Sodium 40 Mg/0.4 Ml Syringe SC Not Given 0900 SHAN Ferrous Sulfate 325 mg 06/16/20 17:00 06/27/20 17:12 Ferrous Sulfate 325 Mg Tab PO 325 mg BID-WM SHAN Administration Fluoxetine HCl 20 mg 06/12/20 09:00 06/27/20 08:42 Fluoxetine Hcl 20 Mg Cap PO 20 mg DAILY SHAN Administration Folic Acid 1 mg 06/24/20 09:00 06/27/20 08:43 Folic Acid 1 Mg Tab PO 1 mg DAILY SHAN Administration HCTZ/Losartan Potassium 1 tab 06/12/20 09:00 06/27/20 08:42 Losartan/Hydrochlorothiazide 100 Mg/25 Mg Tablet PO 1 tab QAM SHAN Administration Sodium Chloride 1,000 mls @ 30 mls/hr 06/16/20 15:15 06/27/20 17:08 Normal Saline 0.9% IV Not Given .Q24H SHAN TKO Multivitamins 10 ml/ Chromium/ 1,890.7021 mls @ 78.779 mls/hr 06/24/20 22:00 06/26/20 23:19 Copper/Manganese/Zinc 9 ml/ IV 1,890.7021 mls Sodium Acetate 40 meq/ Sodium 2200 SHAN Administration Chloride 30 meq/ Potassium Chloride 20 meq/ Potassium Phosphate 30 mmol/ Calcium Gluconate 10 meq/ Magnesium Sulfate 10 meq/ Amino Acids/ Dextrose/Water/ Sterile Water Ibuprofen 600 mg 06/13/20 13:22 06/25/20 11:56 Ibuprofen 600 Mg Tab PO 600 mg Q6H PRN Administration Pain Lorazepam 2 mg 06/13/20 09:00 06/27/20 20:58 Lorazepam 1 Mg Tab PO 2 mg TID SHAN Administration Methocarbamol 500 mg 06/11/20 11:01 06/27/20 15:11 Methocarbamol 500 Mg Tab PO 500 mg Q8HR PRN Administration Muscle Spasm Ondansetron HCl 4 mg 06/05/20 23:04 06/24/20 18:30 Ondansetron Pf 4 Mg/2 Ml Vial IVP 4 mg Q4H PRN Administration Nausea/Vomiting Pantoprazole Sodium 40 mg 06/16/20 09:00 06/27/20 08:43 Pantoprazole 40 Mg Tab PO 40 mg DAILY SHAN Administration Polyethylene Glycol 17 gm 06/23/20 09:00 06/27/20 08:40 Polyethylene Glycol 3350 17 Gm Packet PO 17 gm DAILY SHAN Administration Sodium Chloride 10 ml 06/02/20 09:00 06/27/20 20:59 Flush - Normal Saline 10 Ml Syringe IVF 10 ml Q12HR SHAN Administration - Exam General Appearance: NAD Neck: supple, no JVD Heart: no gallops, no rubs Respiratory: no wheezes, no rales Gastrointestinal: soft, no guarding, no rigidity Extremities: no cyanosis Musculoskeletal: generalized weakness Psychiatric: A&O x 3 Hosp A/P - Plan DVT proph w/SCDs Asthma Anxiety Obstructive sleep apnea Hyperlipidemia Hypertension GERD Sulfa allergy Morbid obesity with a BMI of 48 Physical deconditioning History of scoliosis Plan: Patient has been accepted by [facility]. Already has PICC line. Repeat COVID 19 testing came back negative. He is awaiting outpatient antibiotics after. Replace magnesium. Continue meropenem per infectious disease. Continue current dose of carvedilol, clonidine with losartan/hydrochlorothiazide. Continue PPIs. Continue physical therapy.
[2020-06-28] MEDS: HYDROcodone/Acetaminophen 10/325 mg Tablet PO PRN ×2 (00:16→08:17)
[2020-06-28] MEDS: MEROPENEM 1 GM/50 ML 1 GM in Premix Bag 1 BAG IVPB SCH (06:08)
[2020-06-28] MEDS: Enoxaparin Sodium 40 MG/0.4 ML SYRINGE SC SCH (08:16)
[2020-06-28] MEDS: Folic Acid 1 MG TAB PO SCH (08:17)
[2020-06-28] MEDS: cloNIDine 0.1 MG TAB PO SCH (08:17)
[2020-06-28] MEDS: FLUoxetine HCl 20 MG CAP PO SCH (08:17)
[2020-06-28] MEDS: Lorazepam 1 MG TAB PO SCH (08:17)
[2020-06-28] MEDS: Carvedilol 25 MG TAB PO SCH (08:18)
[2020-06-28] MEDS: Losartan/Hydrochlorothiazide 100 mg/25 mg Tablet PO SCH (08:18)
[2020-06-28] MEDS: Docusate 100 MG CAP PO SCH (08:21)
[2020-06-28] MEDS: Polyethylene Glycol 3350 17 GM Packet PO SCH (08:21)
[2020-06-28] MEDS: Ferrous Sulfate 325 MG TAB PO SCH (08:21)
[2020-06-28 11:59] VITALS: BP 158/94; TEMP 94.4
[2020-06-28] MEDS ORDERED: Meropenem 1 GM in Sodium Chloride 0.9% 100 ML IVPB SCH (14:00)
--- NOTE | 2020-06-28 14:24 | PDOC.GSPN ---
Surgery Progress Note: Subj - Subjective Narrative: Patient states that he is feeling better today. He has been doing his own transfers and getting up to a chair but is unable to walk more than a few steps. He is not standing for very long either. He has drunk 1 container of Ensure clear today and had a full club sandwich for lunch. TPN is still going. We are still awaiting approval for home IV antibiotics. Vital signs are okay. Electrolytes are okay. Back has minimal drainage and the incision looks good yesterday. His colostomy is healthy with some gas and stool in the bag. Abdomen is soft and nondistended with normal bowel sounds. Assessment/plan: Doing well but still with somewhat marginal oral intake. Continue TPN while inpatient. Patient understands the expectation is that he will drink 2 to 3 cans of Ensure or Enlive daily, avoid empty calories like juice, and eat 2 healthy meals daily. He and his both expressed agreement with the need to return to the hospital if he cannot meet these goals at home to avoid dehydration and malnutrition. He and his are both either to disch arge home but we are still waiting on approval for home IV antibiotics. Surgery Progress Note: Obj - Vital signs Vital signs: Vital Signs - Most Recent Temp Pulse Resp BP Pulse Ox 94.4 F L 83 16 158/94 H 96 06/28/20 11:57 06/28/20 11:57 06/28/20 11:57 06/28/20 11:57 06/28/20 11:57 Surgery Progress Note: Results - Labs Result Diagrams: 06/24/20 06:45 06/27/20 03:30 Lab results: Laboratory Results - last 12 hr 06/28/20 06/28/20 05:43 11:26 POC Glucose 140 H 127 H
== END 2020-06-28 16:35 | disposition home health service (06) | DRG 329 ==
LOC: SURG A 06-01 09:18 → SJJU 06-02 10:57 → CCU 06-06 16:07 → SJJU 06-13 10:12
PROVIDERS: ADMIT Surgery; ATTEND Surgery
PROC: 3E033XZ Introduction of Vasopressor into Peripheral Vein, Percutaneous Approach (ICD-10-PCS; 2020-06-01)
PROC: 3E0T3BZ Introduction of Anesthetic Agent into Peripheral Nerves and Plexi, Percutaneous Approach (ICD-10-PCS; 2020-06-01)
PROC: 0DBN0ZZ Excision of Sigmoid Colon, Open Approach (ICD-10-PCS; principal; 2020-06-02)
PROC: 3E0336Z Introduction of Nutritional Substance into Peripheral Vein, Percutaneous Approach (ICD-10-PCS; 2020-06-06)
PROC: 0DB80ZZ Excision of Small Intestine, Open Approach (ICD-10-PCS; 2020-06-06)
PROC: 0DBP0ZZ Excision of Rectum, Open Approach (ICD-10-PCS; 2020-06-06)
PROC: 5A1945Z Respiratory Ventilation, 24-96 Consecutive Hours (ICD-10-PCS; 2020-06-06)
PROC: 0BH17EZ Insertion of Endotracheal Airway into Trachea, Via Natural or Artificial Opening (ICD-10-PCS; 2020-06-06)
PROC: 0D1M0Z4 Bypass Descending Colon to Cutaneous, Open Approach (ICD-10-PCS; 2020-06-06)
PROC: 30233N1 Transfusion of Nonautologous Red Blood Cells into Peripheral Vein, Percutaneous Approach (ICD-10-PCS; 2020-06-10)
PROC: 02HV33Z Insertion of Infusion Device into Superior Vena Cava, Percutaneous Approach (ICD-10-PCS; 2020-06-19)
PROC: B518ZZA Fluoroscopy of Superior Vena Cava, Guidance (ICD-10-PCS; 2020-06-19)
DX: C18.7 Malignant neoplasm of sigmoid colon (principal); R65.21 Severe sepsis with septic shock; A41.9 Sepsis, unspecified organism; J96.01 Acute respiratory failure with hypoxia; K65.9 Peritonitis, unspecified; Z68.42 Body mass index [BMI] 45.0-49.9, adult; N17.9 Acute kidney failure, unspecified; N18.4 Chronic kidney disease, stage 4 (severe); D62 Acute posthemorrhagic anemia; E87.3 Alkalosis; K91.89 Other postprocedural complications and disorders of digestive system; K56.7 Ileus, unspecified; D72.0 Genetic anomalies of leukocytes; Y83.9 Surgical procedure, unspecified as the cause of abnormal reaction of the patient, or of later complication, without mention of misadventure at the time of the procedure; R53.81 Other malaise; R63.0 Anorexia; M79.89 Other specified soft tissue disorders; R59.0 Localized enlarged lymph nodes; Z20.822 Contact with and (suspected) exposure to COVID-19; Z96.643 Presence of artificial hip joint, bilateral; I10 Essential (primary) hypertension; M19.90 Unspecified osteoarthritis, unspecified site; J44.9 Chronic obstructive pulmonary disease, unspecified; E66.01 Morbid (severe) obesity due to excess calories; I25.10 Atherosclerotic heart disease of native coronary artery without angina pectoris; G47.33 Obstructive sleep apnea (adult) (pediatric); F41.9 Anxiety disorder, unspecified; J45.909 Unspecified asthma, uncomplicated; Z79.899 Other long term (current) drug therapy; Z79.82 Long term (current) use of aspirin; Z90.89 Acquired absence of other organs; Z72.89 Other problems related to lifestyle; Z88.2 Allergy status to sulfonamides; E78.00 Pure hypercholesterolemia, unspecified; Z90.49 Acquired absence of other specified parts of digestive tract; K63.89 Other specified diseases of intestine; M41.9 Scoliosis, unspecified; Z85.07 Personal history of malignant neoplasm of pancreas; Q43.0 Meckel's diverticulum (displaced) (hypertrophic)
CPT/HCPCS: 36415; 36416; 36430; 36569; 36600; 71045; 71275; 74022; 74177; 80048; 80053; 80061; 80202; 82533; 82805; 83605; 83735; 84100; 84134; 84439; 84443; 84481; 84484; 85025; 85610; 85730; 86769; 86850; 86900; 86901; 87040; 87070; 87071; 87077; 87186; 87205; 87635; 88304; 88307; 88309; 93005; 93010; 93306; 94002; 94003; 94640; 94660; 94799; A4217; C1751; C9113; J0171; J0694; J1100; J1170; J1642; J1644; J1650; J1720; J1885; J2001; J2060; J2185; J2250; J2270; J2370; J2405; J2704; J3010; J3370; J3475; J3480; J3490; J7030; J7050; J7070; J7620; P9016; P9045; P9047; Q0163; Q9967; S0020; U0003

== ENCOUNTER 2020-05-31 08:22 | Outpatient (CLI) | payer MEDICARE ==
[2020-05-31] MEDS ORDERED: Iopamidol 370 76% 100 ML VIAL ONE (10:31)
--- NOTE | 2020-05-31 11:03 | CT ---
CT of the abdomen and pelvis: 05/31/2020 COMPARISON: None HISTORY: Abnormal colonoscopy, colon mass TECHNIQUE: Axial CT imaging at 5 mm intervals from lung bases through pubic symphysis with IV and ora l contrast. Coronal and sagittal reformatted imaging. FINDINGS: There is focal volume loss with associated bronchiectasis within the inferior aspect of the left lung base. Mild linear density on the basis of scar suspected within the inferior right lower lobe. No free intraperitoneal air. Bilateral hip arthroplasties are present. Streak artifact limits d etailed assessment of the inferior aspect of the pelvis. The liver, gallbladder, and spleen appear grossly unremarkable. The pancreas, adrenal glands, and kidneys appear unremarkable as well. There is a soft tissue mass within the sigmoid colon, best seen on axial image 84 measuring approxima tely 6.2 cm in length, suspicious for colonic malignancy. This does not cause colonic obstruction. Incidentally noted diverticula of the sigmoid colon and the distal descending colon noted. No evidenc e for small bowel obstruction. The appendix is unremarkable. Along the superior aspect of the above-described sigmoid colon mass are regional mesenteric enlarged lymph nodes, best seen on coronal imaging approximately 2.5 cm superior to the colonic mass. These enlarged lymph nodes measure up to 1 cm in short axis dimension. No discrete pelvic sidewall lymphade nopathy is noted although evaluation is somewhat limited secondary to streak artifact from bilateral hip arthroplasties. No inguinal adenopathy. No enlarged lymph nodes are seen within the ret roperitoneum. Subcentimeter lymph nodes are noted at the root of the mesentery, nonspecific. No lymphadenopathy in the gastrohepatic ligament or balbir hepatis. The vascular structures of the abdomen/pelvis demonstrate scattered atherosclerotic calcification of the abdominal aorta, primarily in the infrarenal region. Review of the osseous structures demonstrates prominent scoliosis of the thoracic and lumbar spine with apex to the right within the l ower thoracic spine and apex to the left at the thoracolumbar junction. No worrisome lytic or blastic bone lesions. IMPRESSION: Soft tissue mass within the sigmoid colon suspicious for malignancy measuring approximate ly 6.2 cm in length. Regional enlarged lymph nodes within the adjacent mesentery suggest metastatic disease. No hepatic lesions are seen.
== END 2020-05-31 08:23 | disposition home or self-care (01) ==
LOC: CT 08:22
PROVIDERS: ATTEND Surgery
DX: K63.89 Other specified diseases of intestine (principal); M79.89 Other specified soft tissue disorders; R59.0 Localized enlarged lymph nodes
CPT/HCPCS: 74177

== ENCOUNTER 2020-07-07 03:22 | Inpatient (IN) | payer MEDICARE ==
[2020-07-07 04:02] LABS: Hemoglobin 11.7 g/dL (14.0-18.0); Mean Corpuscular HGB CONC 30.9 g/dL (32.0-36.0); Mean Corpuscular Hemoglobin 25.1 pg (27.0-31.0); Mean Corpuscular Volume 81.2 fL (78.0-98.0); Mean Platelet Volume 8.4 fL (7.4-10.4); Platelet Count 505 thou/uL (130-400); RBC Distribution Width 18.3 % (11.5-14.5); Red Blood Cell (RBC) Count 4.65 mill/uL (4.70-6.10); White Blood Cell (WBC) Count 37.5 thou/uL (4.8-10.8)
[2020-07-07 04:08] LABS: Anion Gap 17 mmol/L (10-20); BUN (Urea Nitrogen) 19 mg/dL (8.9-20.6); Carbon Dioxide 21 mmol/L (22-29); Chloride 103 mmol/L (98-107); Potassium 4.6 mmol/L (3.5-5.1); Sodium 136 mmol/L (136-145)
[2020-07-07 04:09] LABS: ALT (SGPT) 27 U/L (8-55); AST (SGOT) 20 U/L (5-34); Albumin 2.9 g/dL (3.5-5.0); Alkaline Phosphatase 89 U/L (40-110); Bilirubin, Total 0.7 mg/dL (0.2-1.2); Calc. Creatinine Clearance 0 mL/min (70-130); Globulin 3.4 g/dL (2.4-3.5); Glucose 240 mg/dL (70-105); Lipase 60 U/L (8-78); Protein, Total 6.3 g/dL (6.0-8.3)
[2020-07-07] MEDS ORDERED: Cefepime 2 GM VIAL ONE (04:22)
[2020-07-07] MEDS ORDERED: Vancomycin 1 GM/200 ML BAG ONE (04:22)
[2020-07-07 04:54] LABS: Band 15 % (5-11); Eosinophils 1 % (0-10); Hypochromia SLIGHT = 6-15 cells (100X) (0-5/hpf); Lymphocytes 4 % (21-51); MDiff Complete? YES; Metamyelocyte 2 % (0-0); Monocytes 10 % (0-10); Neutrophil 68 % (42-75); Platelet Morphology Comment Appears Increased
[2020-07-07] MEDS ORDERED: Norepinephrine 8 MG/0.9% NS 250 ML ONE (05:10)
[2020-07-07 07:30] LABS: Lactic Acid 3.1 mmol/L (0.5-2.2)
--- NOTE | 2020-07-07 07:41 | CT ---
PRELIMINARY REPORT/[facility]/EMERGENCY AFTER HOURS PROCEDURE: EXAM: CTA Chest with Intravenous Contrast CLINICAL HISTORY: Around 10 PM tonight he began to complain of itching to his torso and extremities. Noticed a rash at that time. He then had several episodes of loss of consciousness. Reports that when he tried to sit up to get out of bed, he passed out and fell back into the bed. This happened se veral times, each associated with him sitting up. Previous on PACS TECHNIQUE: Axial CTA images of the chest with intravenous contrast. Three-dimensional MIP/volume rend ered reformations were performed. CONTRAST: With; ISOVUE 370,50mL COMPARISON: June 06, 2020 FINDINGS: PULMONARY ARTERIES There is no intraluminal filling defect suspicious for PE. AORTA No thoracic aortic aneurysm or dissection. LUNGS The lungs are mostly clear. Some minimal atelectasis and/or pleural parenchymal scarring at th e lung bases. Some chronic airspace disease noted at the left lung base No pulmonary mass. No focal airspace consolidation. PLEURAL SPACES No pleural effusion. No pneumothorax. HEART AND MEDIASTINUM No cardiomegaly. No significant pericardial effusion. Coronary artery calcific ations are noted. Thoracic aorta is unremarkable. LYMPH NODES No lymphadenopathy. BONES No focal osseous abnormality or acute fracture. Scoliosis. IMPRESSION: No significant, acute cardiopulmonary abnormalities. Some chronic changes at the lung ba ses. No pulmonary emboli. ELECTRONICALLY SIGNED BY: Rui Wild MD Jul 07, 2020 7:12:36 AM [employer] FINAL REPORT CT ANGIOGRAM OF THE CHEST: HISTORY: Rash. Itching. Syncope. COMPARISON: None. TECHNIQUE: CT angiogram of the chest is performed in the axial plane. Three-dimensional reformatted images are s ubmitted for interpretation. FINDINGS: Mediastinum: No mass, lymphadenopathy or hematoma. Heart: Normal size. No significant pericardial fluid. Aorta: No aneurysm or dissection . Upper solid abdominal viscera: No abnormality enhancement. Trachea and central bronchi: Patent. Pleural spaces: No effusion. Lung parenchyma: No masses or consolidation. Pneumothorax: None. Osseous structures: No lytic or blastic lesions. Pulmonary arteries: Adequate contrast opacification pulmonary arterial system to the level of segment al arteries. No filling defect to suggest pulmonary embolism. IMPRESSION: 1. This report is in agreement with initial report by [facility]. 2. No evidence of pulmonary artery embolism to the level of the segmental arteries. Transcribed Date/Time: 07/07/2020 7:47 AM
--- NOTE | 2020-07-07 07:59 | CT ---
PRELIMINARY REPORT/[facility]/EMERGENCY AFTER HOURS PROCEDURE: EXAM: CT Abdomen and Pelvis with Intravenous Contrast CLINICAL HISTORY: Around 10 PM tonight he began to complain of itching to his torso and extremities. noticed a rash at that time. He then had several episodes of loss of consciousness. reports that when he tried to sit up to get out of bed, he passed out and fell back into the bed. This happened se veral times, each associated with him sitting up. previous on PACS TECHNIQUE: Axial computed tomography images of the abdomen and pelvis with intravenous contrast. CONTRAST: With; ISOVUE 370,50mL COMPARISON: June 18, 2020 FINDINGS: LUNG BASES: No basilar airspace consolidation or pleural effusion. LIVER: Unremarkable. GALLBLADDER AND BILE DUCTS: Again moderately distended and somewhat ill-defined but unchanged in the interval. No calcified stone. No ductal dilation. PANCREAS: Unremarkable. SPLEEN: Unremarkable. ADRENAL GLANDS: Unremarkable. KIDNEYS, URETERS, AND BLADDER: Unremarkable. No hydronephrosis or nephrolithiasis. No ureteral or arcelia dder calculi. STOMACH AND BOWEL: No obstruction. No wall thickening. No CT evidence of colitis or acute diverticuli tis. Some mesenteric induration noted on the prior study is again seen but has improved somewhat in the interval. A few mildly thickened small bowel loops are again noted as well. Findings are bandar rly nonspecific. Overall, the appearance of the GI tract has improved. There are no new abnormalities. APPENDIX: No CT evidence for appendicitis. PERITONEUM: No free fluid. No free air. LYMPH NODES: No lymphadenopathy. VASCULATURE: No aortic aneurysm. BONES: No fracture or suspicious osseous abnormality. ABDOMINAL WALL AND SOFT TISSUES: Unremarkable. IMPRESSION: No specific, acute, or newly appearing abnormalities in the abdomen or pelvis since previ ous with some improvement in the interval. ELECTRONICALLY SIGNED BY: Rui Wild MD Jul 07, 2020 7:15:48 AM [employer] FINAL REPORT EMERGENT AFTER HOURS CT ABDOMEN AND PELVIS WITH IV CONTRAST: HISTORY: Several episodes of loss of consciousness. Complains of itching to torso and extremities. COMPARISON: 06/18/2020. IMPRESSION: 1. Interval improvement in free intraperitoneal fluid and stranding/edema throughout the abdomen when compared to prior exam. Fluid collection adjacent to the fundus/greater curvature of the stomach has decreased in size measuring 3.2 cm x 1.5 cm and previously measuring 5.3 cm x 1.9 cm. The collect ion seen just inferior and anterior to the aortic bifurcation has almost completely resolved compared to the prior exam. No new fluid collection is seen. There is persistent mild presacral fluid and stranding present. 2. Left lower quadrant colostomy and Padilla's pouch are again seen. 3. Mild wall thickening of the proximal jejunum is again present which was also seen on prior exam. L oops of small bowel are normal in caliber. 4. Persistent mild gallbladder distention which has mildly improved. 5. Parenchymal densities at each lung base which may represent residual atelectasis and/or scarring. Calcified right infrahilar lymph node is present. 6. Findings are in agreement with preliminary report by [facility]. Transcribed Date/Time: 07/07/2020 8:16 AM
--- NOTE | 2020-07-07 08:32 | RAD ---
Exam: Chest one view HISTORY:Cough. Abnormal lung exam. Dyspnea. Comparison: 06/26/2020 FINDINGS: Cardiac silhouette: Normal Aorta: Stable elongation aorta. Lines and tubes: Stable left PICC line. Pulmonary vessels: Normal Costophrenic angles: Clear LUNGS: No masses or consolidation. Bibasilar scarring/atelectasis is redemonstrated. Pneumothorax: None Osseous abnormalities: None IMPRESSION: No acute cardiopulmonary process.
[2020-07-07] MEDS ORDERED: Acetaminophen 325 MG TAB PO PRN (09:24)
[2020-07-07] MEDS ORDERED: Senokot S 8.6-50 MG TAB PO PRN (09:24)
[2020-07-07] MEDS ORDERED: MEROPENEM 1 GM/50 ML 1 GM in Premix Bag 1 BAG IVPB SCH (11:00)
[2020-07-07 11:15] LABS: SARS-CoV-2 NAA Rapid Test Not Detected (NotDetected)
[2020-07-07] MEDS ORDERED: Ondansetron PF 4 MG/2 ML Vial IVP PRN (11:42)
[2020-07-07] MEDS ORDERED: Metoprolol Tartrate 5 MG/5 ML VIAL IVP PRN (11:42)
[2020-07-07] MEDS ORDERED: Norepinephrine 8 MG/0.9% NS 250 ML IVPB SCH (11:45)
[2020-07-07] MEDS ORDERED: Ondansetron PF 4 MG/2 ML Vial ONE (12:13)
[2020-07-07] MEDS: Albumin 25% 25 GM/100 ML BOT IVPB SCH ×2 (12:48→17:06)
[2020-07-07] MEDS ORDERED: methylPREDNISolone Sod Succ/PF 125 MG/2 ML VIAL ONE (12:59)
[2020-07-07] MEDS: methylPREDNISolone Sod Succ/PF 125 MG/2 ML VIAL IVP SCH (13:06)
--- NOTE | 2020-07-07 13:19 | PDOC.GSCN ---
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 He experienced an anastomotic leak with resulting septic shock requiring return to the operating room and takedown of the anastomosis and end colostomy placement. He had a prolonged recovery but was discharged home about a week ago on IV antibiotics. I saw him in the clinic yesterday and he was doing well. His lab work which was done Saturday was improved with the white count normal and albumin improving and renal function normal. His wound had filled then with the wound VAC and his was packing the incision and his colostomy was functioning well. His appetite and activity level had increased and he was no longer using a wheelchair. He was able to ambulate from the parking lot to the clinic using his walker. After he left the clinic he went to [facility] and states that the hamburger did not really agree with him. He was having a lot of heartburn and sat up late to try to manage the symptoms. Around 10:00 he started developing a rash which rapidly spread over his entire body. He took 2 Benadryl to see if this would help but it did not and by the time they decided to come into the hospital he was to weak and dizzy to stand and they had to call an ambulance. He states that when he would try to get up he would basically pass out and have to lie back down. On his arrival he was hypotensive and was given IV fluids and started on Levophed as well as IV steroids. He was initially short of breath but this is resolved. He has not had any fevers or chills. His colostomy output has been normal and he has no abdominal pain. Stool sample was positive for C. difficile. Surgery Consult: ROS - Review of Systems Constitutional: reports: weakness. denies: as per HPI, anorexia, chills, daytime sleepiness, excessive sweating, fatigue, fever(s), frequent falls, headache(s), increased appetite, lethargy, malaise, night sweats, stops breathing during sleep, snoring, weight gain, weight loss, other HEENT: denies: Head Aches, Visual Changes, Eye Pain, Ear Pain, Dysphasia, Sinus Congestion, Post Nasal Drip, Sore Throat, Other Cardiovascular: reports: regular rate and rhythm. denies: irregular rate, no murmur, other Respiratory: denies: as per HPI, chest congestion, cough, dyspnea, hemoptysis, dyspnea on exertion, wheezing, snoring, stridor, pain on inspiration, excessive phlegm production, change in phlegm color, pain with cough, other Gastrointestinal: denies: as per HPI, abdominal pain, belching, bloating, change in bowel habits, coffee ground emesis, constipation, cramping, change in stool character, diarrhea, dyspepsia, dysphagia, excessive flatus, early satiety, feca l incontinence, heartburn, hematemesis, hematochezia, loose stool, melena, nausea, odynophagia, tenesmus, vomiting, other Musculoskeletal: reports: back pain, defomity (Chronic scoliosis and back pain). denies: as per HPI, abnormal gait, arthralgias, atrophy, joint swelling, loss of height, limited range of motion, muscle cramps, muscle weakness, myalgias, neck pain, numbness, radiating pain into limb, stiffness, tingling, other Integumentary: reports: rash, wounds. denies: as per HPI, acne, alopecia, bleeding lesions, change in hair, changing lesions, change in nails, change in pigmentation, dry skin, erythema, furuncle, lesions, non-healing lesions, new lesions, photosensitivity, pruritus, sores, skin pain, striae, skin ulcer, swelling, unusual bruising, jaundice, other Neurologial: reports: dizziness. denies: as per HPI, abnormal gait, abnormal hearing, abnormal movements, abnormal speech, behavioral changes, confusion, convulsions, disequilibrium, frequent falls, focal weakness, headache(s), lack of coordination, loss of vision, memory loss, numbness, paresthesias, restless legs, radicular pain, sensory deficit, syncope, tingling, tremor(s), vertigo, weakness, other visual disturbances, other Psychiatric: denies: as per HPI, auditory halluncinations, anhedonia, anxiety, abnormal sleep pattern, behavioral changes, change in appetite, change in libido, confusion, difficulty concentrating, depression, hallucinations, homicidal ideation, hopelessness, irritability, mood swings, paranoia, panic attacks, suicidal ideation, visual hallucinations, tactile, other Surgery Consult: PMH Source: patient, family Past Medical History: Sigmoid colon cancer, morbid obesity, sleep apnea not currently using CPAP mac reza, hypertension, chronic scoliosis and back pain and arthritis, hyperlipidemia, GERD Past Surgical History: Bilateral hip replacements, recent sigmoid colectomy with anastomotic leak requiring takedown and diverting colostomy - Past Family History Pertinent family history: Pancreatic cancer, diabetes in mother - Past Social History Smoking Status: Other (snuff) Alcohol Use: heavy, other (History of heavy alcohol use) Drug Use History: other (Chronic narcotic use) Living Situation: Surgery Consult: Exam - Physical Exam General: no distress Eye: normal ocular movement Neck: no masses, trachea midline Respiratory: clear to auscultation, normal respiratory effort Abdomen: non tender, soft, surgical scars (Laparoscopic incisions and colostomy site are healthy), wound (Midline wound has a small open area which is clean and granulating) Hernia: none Genitourinary (Male): normal penis with no external lesions, other (Rash does extend into the genital area) Integumentary: other (Extensive slightly raised erythematous pruritic maculopapular rash consistent with allergic eruption) Neurologic: normal coordination, normal sensation Musculoskeletal: other (Severe scoliosis) Psychiatric: memory intact, oriented to time, oriented to person, oriented to place, speech is normal Surgery Consult: Meds - Medications MAR Reviewed: Yes Medications: Current Medications Acetaminophen (Acetaminophen 325 Mg Tab) 650 mg PO Q4H PRN PRN Reason: Headache/Fever/Mild Pain (1-3) Hydrocodone Bitart/Acetaminophen (Hydrocodone/Acetaminophen 5/325 Mg Tablet) 1 tab PO Q4H PRN PRN Reason: Moderate Pain (4-6) Albumin Human (Albumin 25% 25 Gm/100 Ml Bot) 25 gm IVPB Q6HR SHAN Stop: 07/07/20 18:01 Last Admin: 07/07/20 12:48 Dose: 25 gm Documented by: Diphenhydramine HCl (Diphenhydramine 50 Mg/Ml Vial) 12.5 mg IVP Q6H PRN PRN Reason: Pruritis Famotidine (Famotidine/Pf 20 Mg/2ml Vial) 20 mg SLOW IVP Q12HR SHAN Meropenem 1 gm/ Device 50 mls @ 100 mls/hr IVPB 0300,1100,1900 [facility] Last Admin: 07/07/20 12:22 Dose: 50 mls Documented by: Norepinephrine Bitartrate (Levophed) 250 mls @ 0 mls/hr IVPB INF [facility]; Protocol Methylprednisolone Sodium Succinate (Methylprednisolone Sod Succ/Pf 125 Mg/2 Ml Vial) 60 mg IVP Q8HR [facility] Stop: 07/08/20 14:01 Last Admin: 07/07/20 13:06 Dose: 60 mg Documented by: Metoprolol Tartrate (Metoprolol Tartrate 5 Mg/5 Ml Vial) 5 mg IVP Q4H PRN PRN Reason: HR >90 AND/OR SBP >150 Ondansetron HCl (Ondansetron Pf 4 Mg/2 Ml Vial) 4 mg IVP Q4H PRN PRN Reason: Nausea/Vomiting Last Admin: 07/07/20 12:22 Dose: 4 mg Documented by: Senna/Docusate Sodium (Senokot S 8.6-50 Mg Tab) 2 tab PO BIDPRN PRN PRN Reason: Constipation Sodium Chloride (Flush - Normal Saline 10 Ml Syringe) 10 ml IVF Q12HR SHAN Sodium Chloride (Flush - Normal Saline 10 Ml Syringe) 10 ml IVF PRN PRN PRN Reason: Saline Flush Vancomycin HCl (Vancomycin Hcl 25 Mg/Ml Oral) 250 mg PO QID [facility] - Allergies Allergies/Adverse Reactions: Allergies Allergy/AdvReac Type Severity Reaction Status Date / Time Sulfa (Sulfonamide Allergy "knots on Verified 05/31/20 09:17 Antibiotics) my feet" Surgery Consult: Results - Labs Result Diagrams: 07/07/20 03:38 07/07/20 03:38 Lab results: Laboratory Results WBC 37.5 thou/uL (4.8-10.8) H 07/07/20 03:38 RBC 4.65 mill/uL (4.70-6.10) L 07/07/20 03:38 Hgb 11.7 g/dL (14.0-18.0) L 07/07/20 03:38 Hct 37.7 % (42.0-52.0) L 07/07/20 03:38 MCV 81.2 fL (78.0-98.0) 07/07/20 03:38 MCH 25.1 pg (27.0-31.0) L 07/07/20 03:38 MCHC 30.9 g/dL (32.0-36.0) L 07/07/20 03:38 RDW 18.3 % (11.5-14.5) H 07/07/20 03:38 Plt Count 505 thou/uL (130-400) H 07/07/20 03:38 MPV 8.4 fL (7.4-10.4) 07/07/20 03:38 Neutrophils % (Manual) 68 % (42-75) 07/07/20 03:38 Band Neuts % (Manual) 15 % (5-11) H 07/07/20 03:38 Lymphocytes % (Manual) 4 % (21-51) L 07/07/20 03:38 Monocytes % (Manual) 10 % (0-10) 07/07/20 03:38 Eosinophils % (Manual) 1 % (0-10) 07/07/20 03:38 Metamyelocytes % (Man) 2 % (0-0) H 07/07/20 03:38 Lymphocytes # Not Reportable 07/07/20 03:38 Hypochromia SLIGHT = 6-15 cells (100X) (0-5/hpf) 07/07/20 03:38 Plt Morphology Comment Appears Increased H 07/07/20 03:38 D-Dimer 4.44 *mcg/mL (0.27-0.43) H 07/07/20 03:38 Sodium 136 mmol/L (136-145) 07/07/20 03:38 Potassium 4.6 mmol/L (3.5-5.1) 07/07/20 03:38 Chloride 103 mmol/L (98-107) 07/07/20 03:38 Carbon Dioxide 21 mmol/L (22-29) L 07/07/20 03:38 Anion Gap 17 mmol/L (10-20) 07/07/20 03:38 BUN 19 mg/dL (8.9-20.6) 07/07/20 03:38 Creatinine 1.45 mg/dL (0.7-1.3) H 07/07/20 03:38 Estimated GFR (MDRD) 52 07/07/20 03:38 Glucose 240 mg/dL (70-105) H 07/07/20 03:38 Lactic Acid 3.1 mmol/L (0.5-2.2) H 07/07/20 07:04 Calcium 8.0 mg/dL (7.8-10.44) 07/07/20 03:38 Total Bilirubin 0.7 mg/dL (0.2-1.2) 07/07/20 03:38 AST 20 U/L (5-34) 07/07/20 03:38 ALT 27 U/L (8-55) 07/07/20 03:38 Alkaline Phosphatase 89 U/L (40-110) 07/07/20 03:38 Troponin I 0.020 ng/mL (< 0.028) 07/07/20 03:38 Serum Total Protein 6.3 g/dL (6.0-8.3) 07/07/20 03:38 Albumin 2.9 g/dL (3.5-5.0) L 07/07/20 03:38 Globulin 3.4 g/dL (2.4-3.5) 07/07/20 03:38 Albumin/Globulin Ratio 0.9 g/dL (1.2-2.2) L 07/07/20 03:38 Lipase 60 U/L (8-78) 07/07/20 03:38 Influenza A RNA INAAT Not Detected (NotDetected) 07/07/20 10:00 Influenza B RNA INAAT Not Detected (NotDetected) 07/07/20 10:00 SARS-CoV-2 Rap RNA(RT-PCR) Not Detected (NotDetected) 07/07/20 10:00 - Radiology Interpretation CT scan - abdomen Status: image reviewed by me, report reviewed by me (Small fluid collection in the sigmoid mesentery appears to have resolved. The small fluid collection adjacent to the stomach is smaller. No acute findings in the abdomen) Surgery Consult: A/P - Problem (1) Anaphylaxis Current Visit: Yes Code(s): T78.2XXA - ANAPHYLACTIC SHOCK, UNSPECIFIED, INITIAL ENCOUNTER Status: Suspected Assessment and Plan: Patient is appropriately receiving steroids and supportive management of suspected anaphylactic shock. The cause of the anaphylaxis is not clear. He has not started any new medications. Only new food was a hamburger at [employer]. I believe that the leukocytosis is reactive to his shock and represents a stress reaction rather than an acute infection. It is possible that this was a reaction to his meropenem, although he has been on this for some time. I will defer to Dr. Burnette whether to continue this. His CT is improved and his white count had returned to normal on Saturday prior to his acute illness. (2) Sigmoid colectomy Current Visit: No Status: Acute Assessment and Plan: Colostomy is functioning well and his wound is healing without problems. Continue wound care with antibiotic ointment to the open area daily and cover with gauze. Standard colostomy care. Plan is to proceed with ostomy takedown in 3 to 6 months after completion colonoscopy. (3) Clostridioides difficile carrier Current Visit: Yes Code(s): Z22.1 - CARRIER OF OTHER INTESTINAL INFECTIOUS DISEASES Status: Acute Assessment and Plan: Patient is antigen and toxin positive for C. difficile but does not have any abdominal pain or profuse diarrhea. His stools are soft and have been of the same consistency for a couple weeks now. He has been on chronic antibiotics and likely has overgrowth of C. difficile as result of that despite his probiotic use. I recommend continue probiotics, and will defer management of his C. difficile to Dr. Burnette.
[2020-07-07] MEDS ORDERED: Sodium Chloride 0.9% 1,000 ML IV SCH (13:45)
[2020-07-07] MEDS: Vancomycin HCl 25 MG/ML Oral PO SCH ×3 (13:45→21:30)
[2020-07-07] MEDS ORDERED: metroNIDAZOLE 500 MG in Premix Bag 1 BAG IVPB SCH (14:00)
[2020-07-07] MEDS ORDERED: Iopamidol-370 76% 500 ML 1 ML ONE (14:21)
[2020-07-07] MEDS ORDERED: diphenhydrAMINE 50 MG/ML VIAL ONE (15:17)
[2020-07-07] MEDS ORDERED: HYDROcodone/Acetaminophen 5/325 mg Tablet ONE (15:17)
[2020-07-07] MEDS: diphenhydrAMINE 50 MG/ML VIAL IVP PRN (15:22)
[2020-07-07] MEDS: HYDROcodone/Acetaminophen 5/325 mg Tablet PO PRN (15:22)
--- NOTE | 2020-07-07 15:43 | HP ---
CHIEF COMPLAINT: Abdominal pain. HISTORY OF PRESENT ILLNESS: A 49-year-old male with recent partial colectomy for colon cancer and anastomosis site leak and associated peritonitis and gram- negative ping bacteremia, on meropenem for the last 2 weeks, presenting today with sepsis related to possible anastomosis leak and definite C diff infection. He also has some rash that started overnight. He did go and see Dr. Griffin, General Surgery, in the clinic yesterday. At that time, he did not have any acute illness. On the way to home, he had a hamburger and soft drink. then over night and this morning, he started to have pruritus and rash and seems to be spreading more now. He got quite weak and the colostomy bag is putting out some green watery stool. His white count was 37,000. He has a PICC line, getting meropenem. The stat CT of abdomen and pelvis with intravenous contrast shows intraperitoneal fluid throughout the abdomen, left lower quadrant colostomy and Nena pouch. Mild wall thickening of the proximal jejunum. Mild gallbladder distention. The patient is admitted. He is also hypotensive with initial systolic blood pressure in 70s and with the Levophed, his latest blood pressure is 117/78. Dr. Griffin has been notified and the patient will be admitted in the ICU for further care. The patient does not feel that he had any detergents-related rash. He did not have any unusual food items during this last few days. He is allergic to sulfa. He is on Lasix and he is getting meropenem for this last 3 weeks. He did not have any fever at home. REVIEW OF SYSTEMS: 13-point review of systems reviewed and pertinents addressed in the history of present illness. Rest are negative including the patient did not have any chest pain, productive cough. No urinary symptoms, hematuria, dysuria, or hematochezia. No noticeable blood in the colostomy bag. Denies headache, tingling, numbness, or weakness in his extremities, but he has an extensive rash from head to toe and associated with pruritus. Mild trace edema in his ankle area; however, he is quite obese. ALLERGIES: HE IS ALLERGIC TO SULFA. PAST MEDICAL HISTORY: 1. Recent partial colectomy. 2. History of colon cancer and segmental resection of the sigmoid. 3. Osteoarthritis, hypertension, hyperlipidemia, hip replacement, obesity/sleep apnea. SOCIAL HISTORY: , lives with his . Nonsmoker, nonalcoholic. FAMILY HISTORY: Significant for type-2 diabetes mellitus and pancreatic cancer. HOME MEDICATIONS: 1. Benadryl. 2. Clonidine 0.1 mg twice a day. 3. Pravastatin 40 mg daily. 4. Potassium chloride 10 mEq daily. 5. Pantoprazole 20 mg daily. 6. Robaxin 500 mg q.8h p.r.n. 7. Losartan-hydrochlorothiazide 100/25 mg daily. 8. DuoNeb. 9. Callands. 10. Lasix 40 mg daily. 11. Fluoxetine 20 mg daily. 12. Coreg 12.5 mg daily. 13. Aspirin 81 mg daily. PHYSICAL EXAMINATION: VITAL SIGNS: Currently, with Levophed, his pressure improved and the latest one is 122/76, heart rate 119, now sats 97% on room air. GENERAL: He appears well, alert, oriented x3. Nontoxic looking. However, with the rash, he has extensive pruritus. He is also coughing and he had a few episodes of emesis while I am there. It is mostly food particles. HEENT: Pupils are equal, round, and reactive to light. Anicteric. Mucous membranes moist. CARDIOVASCULAR: Regular rate and rhythm without murmurs, rubs, or gallops. LUNGS: Clear to auscultation bilaterally. ABDOMEN: I saw the colostomy bag. The stoma looks okay and he has a green stuff in the colostomy bag. He has a maculopapular rash from head to toe mostly about 1 to 2 cm in size. NEUROLOGICAL: No focal deficits. LABORATORY DATA: His creatinine is 1.45. LFTs in the normal range. Lipase 60, bicarb is 21. White count 37.5, platelets 505, hemoglobin 11.7. negative for pulmonary embolism. Chest x-ray, no acute cardiopulmonary process. CT of abdomen and pelvis as mentioned above, has persistent mild gallbladder distention, improvement in the intraperitoneal fluid, left lower quadrant colostomy and Nena pouch, mild wall thickening of the proximal jejunum. IMPRESSION AND PLAN: This is a 49-year-old male with a recent history of anastomosis leak preceded by sigmoid colon resection, persistent leukocytosis with gram-negative ping bacteremia, on meropenem, presenting with the following; 1. Sepsis, hypotension secondary to Clostridium difficile. 2. Leukocytosis secondary to above. 3. Systemic rash could be related to drug induced in terms of meropenem versus Lasix, even though he has been taking for a while Lasix and meropenem for the last 3 weeks. this rash is throughout his body related probably to some kind of systemic triggers. I will hold the statin, hydrochlorothiazide, and Lasix for now. Start him on IV steroid and give him Benadryl as needed to calm the pruritus. I do not see temporal relation between meropenem and his rash now, so I will continue with meropenem and consult ID. Recent anastomosis leak and peritonitis, again, continue with the antibiotic and General Surgery consult with Dr. Griffin. I will also add vancomycin p.o. for his C difficile colitis. Flagyl IV not necessary as meropenem covers the anaerobes. 4. Acute kidney injury. His baseline creatinine is around 1.0, now he has 1.45 creatinine. I will give him some IV fluid and repeat the panel again. 5. Thrombocytosis, probably reactive. 6. Anemia of chronic disease, stable, but monitor closely. 7. Obstructive sleep apnea. Unsure whether he wears the CPAP at night. Continue with aspirin, Coreg. 8. Wound care consult. 9. The patient will be going to the ICU shortly. Currently, his pressure is improved. We will wean him off the Levophed. Renally dosed heparin b.i.d. for DVT prophylaxis. 10. Full code. 11. Protonix IV. Job ID: [id number]
[2020-07-07] MEDS ORDERED: Carvedilol 3.125 MG TAB PO SCH (17:00)
[2020-07-07] MEDS ORDERED: diphenhydrAMINE 25 MG CAP PO SCH (19:00)
[2020-07-07] MEDS ORDERED: diphenhydrAMINE 25 MG CAP ONE (19:21)
--- NOTE | 2020-07-07 21:15 | CON ---
DATE OF CONSULTATION: 07/07/2020 REASON: Allergic reaction. HISTORY OF PRESENT ILLNESS: Mr. 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 So, Dr. Griffin did a hand-assisted resection and primary anastomosis. The patient had leakage postoperatively and required a washout with colostomy placement. Postoperatively, he developed worsening neutrophilia and I switched him to a broader antimicrobial coverage. The only organism I isolated was E. faecalis. The patient improved steadily and discharged to complete meropenem and tomorrow will be the last day of treatment. Unfortunately, he has developed type 1 hypersensitivity reaction with urticaria, maybe angioedema as well, so he came in, has been treated with Levophed, methylprednisolone 60 q.8. He has received diphenhydramine as well q.6 hours. He is now feeling better, still with lot of hives over his body skin and itching, but the breathing is better. No sore throat, odynophagia, or dysphagia. No abdominal pain. No vomiting. No genitourinary symptoms. No neurological symptoms. PAST MEDICAL HISTORY: Obesity, sleep apnea, colon cancer, segmental resection of sigmoid leak with peritonitis, colostomy washout, antimicrobial therapy, hip replacements. FAMILY HISTORY: Type 2 diabetes, pancreatic cancer. SOCIAL HISTORY: Never smoker, . ALLERGIES: SULFA DRUGS. CURRENT MEDICATIONS: 1. Coreg. 2. Diphenhydramine. 3. I think meropenem was continued. 4. Methylprednisolone. PHYSICAL EXAMINATION: VITAL SIGNS: Temperature now is 98.4, blood pressure 120/92, O2 saturation 95 on 2 L nasal cannula. GENERAL: He appears in [id number] distress, but he is oriented, breathing a little heavy, a little labored. He has O2 by nasal cannula. SKIN: Diffuse urticarial eruption throughout the body skin. No lymphadenopathy. HEENT: Ocular movements conjugate. Oral cavity normal. NECK: Supple. LUNGS: Symmetric, clear breath sounds. HEART: S1, S2 regular rate. ABDOMEN: Soft, not distended or tender. No ascites. No bladder distention. Colostomy looks good. There is gas in the bag. There is a midline wound, which is healing well. No abdominal erythema or other discoloration. No joint inflammatory activity. Moves extremities equally. Cognitive function appears to be intact. LABORATORY DATA: White cell count 37.5, hemoglobin 11.7, platelets 505. He has 15% bands, 4% lymphocytes. His D-dimer is 4.44. Creatinine 1.45. Liver profile normal. Albumin 2.9. Lactic acid 3.1. SARS-CoV-2 not detected. Cultures sent from the abdominal wound I guess. There was lactoferrin in stool, which was elevated, and C difficile was done as well, which showed antigen and toxins positive. ASSESSMENT: Adeno CA, sigmoid, with resection, and then anastomosis and then leakage with peritonitis, washout, and colostomy, antimicrobial therapy, now with two problems. One is acute hypersensitivity reaction, most likely secondary to meropenem. The second is C difficile colitis, so we will discontinue meropenem, first of all he is at the end of therapy anyway, he has type 1 hypersensitivity to this antimicrobial agent and should never again be exposed to it, and the second reason is that of C Diff colitis, he will need oral vancomycin to treat, has been already started anyway. We will go ahead and discontinue meropenem and monitor his progress. Job ID: [id number] [facility]
[2020-07-07] MEDS: Famotidine/PF 20 mg/2ml Vial SLOW IVP SCH (21:25)
[2020-07-07] MEDS ORDERED: Carvedilol 6.25 MG TAB PO SCH (21:30)
[2020-07-07] MEDS ORDERED: Famotidine/PF 20 mg/2ml Vial ONE (21:36)
[2020-07-07] MEDS ORDERED: Heparin 10,000 UNITS/ 10 ML VIAL ONE (21:36)
[2020-07-07] MEDS: Heparin 5,000 UNITS/ML VIAL SC SCH (21:37)
[2020-07-08] MEDS: diphenhydrAMINE 25 MG CAP PO SCH ×4 (00:24→17:18)
[2020-07-08] MEDS: methylPREDNISolone Sod Succ/PF 125 MG/2 ML VIAL IVP SCH ×3 (00:24→16:49)
[2020-07-08] MEDS ORDERED: diphenhydrAMINE 25 MG CAP ONE ×3 (00:25→12:12)
[2020-07-08] MEDS ORDERED: methylPREDNISolone Sod Succ/PF 125 MG/2 ML VIAL ONE ×2 (00:25→05:47)
[2020-07-08] MEDS ORDERED: HYDROcodone/Acetaminophen 5/325 mg Tablet ONE (05:47)
[2020-07-08] MEDS: HYDROcodone/Acetaminophen 5/325 mg Tablet PO PRN ×2 (06:08→17:17)
[2020-07-08 07:01] LABS: #Lymphocytes 1.2 thou/uL (1.20-3.40); #Monocytes 0.5 thou/uL (0.11-0.59); #Neutrophils 10.1 thou/uL (1.40-6.50); %Basophils 0.4 % (0.0-1.0); %Eosinophils 0.1 % (0.0-10.0); %Lymphocytes 10.1 % (21.0-51.0); %Monocytes 3.9 % (0.0-10.0); %Neutrophils 85.5 % (42.0-75.0); Hemoglobin 9.6 g/dL (14.0-18.0); Mean Corpuscular HGB CONC 31.2 g/dL (32.0-36.0); Mean Corpuscular Hemoglobin 25.1 pg (27.0-31.0); Mean Corpuscular Volume 80.3 fL (78.0-98.0); Mean Platelet Volume 9.1 fL (7.4-10.4); Platelet Count 181 thou/uL (130-400); RBC Distribution Width 17.8 % (11.5-14.5); Red Blood Cell (RBC) Count 3.81 mill/uL (4.70-6.10); White Blood Cell (WBC) Count 11.8 thou/uL (4.8-10.8)
[2020-07-08 07:23] LABS: ALT (SGPT) 18 U/L (8-55); AST (SGOT) 12 U/L (5-34); Albumin 3.5 g/dL (3.5-5.0); Alkaline Phosphatase 71 U/L (40-110); Anion Gap 19 mmol/L (10-20); BUN (Urea Nitrogen) 37 mg/dL (8.9-20.6); Bilirubin, Total 0.5 mg/dL (0.2-1.2); Calc. Creatinine Clearance 0 mL/min (70-130); Calcium 8.4 mg/dL (7.8-10.44); Carbon Dioxide 20 mmol/L (22-29); Chloride 101 mmol/L (98-107); Globulin 3.1 g/dL (2.4-3.5); Glucose 167 mg/dL (70-105); Potassium 5.3 mmol/L (3.5-5.1); Protein, Total 6.6 g/dL (6.0-8.3); Sodium 135 mmol/L (136-145)
[2020-07-08] MEDS: Carvedilol 6.25 MG TAB PO SCH ×3 (09:45→20:38)
[2020-07-08] MEDS ORDERED: Famotidine/PF 20 mg/2ml Vial ONE (09:48)
[2020-07-08] MEDS: Heparin 5,000 UNITS/ML VIAL SC SCH ×2 (09:49→20:39)
[2020-07-08] MEDS: Famotidine/PF 20 mg/2ml Vial SLOW IVP SCH ×2 (09:58→20:39)
[2020-07-08] MEDS: Vancomycin HCl 25 MG/ML Oral PO SCH ×4 (10:02→20:41)
[2020-07-08] MEDS ORDERED: Sodium Chloride 0.9% 1,000 ML IV SCH (10:45)
[2020-07-08] MEDS ORDERED: Ibuprofen 600 MG TAB PO PRN (10:47)
[2020-07-08] MEDS ORDERED: Aspirin 81 mg Enteric Coated Tablet PO PRN (10:47)
[2020-07-08 12:05] LABS: Anion Gap 18 mmol/L (10-20); BUN (Urea Nitrogen) 35 mg/dL (8.9-20.6); Calc. Creatinine Clearance 0 mL/min (70-130); Calcium 8.3 mg/dL (7.8-10.44); Carbon Dioxide 21 mmol/L (22-29); Chloride 101 mmol/L (98-107); Glucose 151 mg/dL (70-105); Sodium 135 mmol/L (136-145)
--- NOTE | 2020-07-08 12:47 | CON ---
DATE OF CONSULTATION: REASON FOR CONSULTATION: Elevated creatinine. HISTORY OF PRESENT ILLNESS: This is a very pleasant 49-year-old gentleman who presented to the hospital for adenocarcinoma. The patient had a creatinine of 1.4 yesterday, which increased to 2.6. The patient was hypotensive and did receive contrast. The patient denied nausea, vomiting, or chest pain. PAST MEDICAL HISTORY: Obesity, sleep apnea, colon cancer, peritonitis, colostomy, hip replacement. FAMILY HISTORY: Negative for ESRD. ALLERGIES: REVIEWED. MEDICATIONS: Home medications: List reviewed. Hospital medications: Reviewed. REVIEW OF SYSTEMS: 15-point review of systems was performed and was negative except for positives noted above. HEENT: Eyes intact, no diplopia. Ears: No hearing loss or earache. Nose: No discharge or bleeding. Chest: No cough or phlegm. Abdomen: No nausea or vomiting. Genitourinary: No hematuria. No Casillas catheter. Musculoskeletal: No low back pain. No joint swelling or pain. Neurological: No syncope. No seizures. Skin: No complaints of rash or itching. Psychiatric: No depression. Constitutional: No weight loss or loss of appetite. PHYSICAL EXAMINATION: General: The patient is awake and alert. Vital Signs: Afebrile, pulse 75, breathing at 16, blood pressure 130/67. HEENT: Head normocephalic and atraumatic. Eyes intact, no ulcers. Nose intact, no ulcers. Ears intact, no ulcers. Neck: Supple. No JVD. Chest: Symmetrical and clear. Cardiovascular: Shows S1 and S2, no rub, no murmur. Gastrointestinal: Abdomen is soft, bowel sounds positive. Extremities: Show no edema or ulcers. Skin: Shows no rash or petechiae. Musculoskeletal: Shows no joint swelling or stiffness. Genitourinary: Shows no Casillas or CVA tenderness. Neurologic: Motor intact. Cranial nerves intact. LABORATORY DATA: Show creatinine 2.6, potassium . ASSESSMENT AND PLAN: 1. Acute kidney injury. 2. Chronic kidney disease multifactorial. I would avoid using contrast. Continue hydration. 3. Hyperkalemia. We will follow potassium closely. If does not improve, we will consider dialysis. 4. Anemia, stable. 5. Medication based on GFR appropriate. Job ID: [id number]
--- NOTE | 2020-07-08 14:03 | PDOC.HOSPP ---
- Subjective Encounter Date: 07/08/20 Encounter Time: 10:30 Subjective: Patient's rash completely resolved. However he still has residual rash in his hands and most notable in his penile area. The skin also kind of quite dry in that area. is quite concerned about this. He did not had any good p.o. intake as he was nauseated overnight. After Benadryl this morning he feels slightly better. Will try his. P.o. vancomycin this morning. The rash is related to meropenem which has been discontinued. - Objective Vital Signs & Weight: Vital Signs (12 hours) Temp Pulse Resp BP Pulse Ox 07/08/20 09:45 153/120 H 07/08/20 04:54 98.2 F 94 19 97 07/08/20 04:00 98.1 F 100 07/08/20 03:00 98.2 F Weight Admit Weight 5.39 oz Most Recent Monitor Data Heart Rate from ECG 94 NIBP 130/67 NIBP BP-Mean 88 Respiration from ECG 19 SpO2 99 I&O: 07/07/20 07/08/20 07/09/20 06:59 06:59 06:59 Intake Total 1368.7 Output Total 400 Balance 968.7 Result Diagrams: 07/08/20 06:41 07/08/20 11:37 Hospitalist ROS - Medication Medications: Active Medications Generic Name Dose Route Start Last Admin Trade Name Freq PRN Reason Stop Dose Admin Hydrocodone Bitart/Acetaminophen 1 tab 07/07/20 09:24 07/08/20 06:08 Hydrocodone/Acetaminophen 5/325 Mg Tablet PO 1 tab Q4H PRN Administration Moderate Pain (4-6) Carvedilol 6.25 mg 07/08/20 08:00 07/08/20 09:45 Carvedilol 6.25 Mg Tab PO 6.25 mg BID-WM SHAN Administration Diphenhydramine HCl 12.5 mg 07/07/20 11:42 07/07/20 15:22 Diphenhydramine 50 Mg/Ml Vial IVP 12.5 mg Q6H PRN Administration Pruritis Diphenhydramine HCl 25 mg 07/07/20 23:59 07/08/20 12:17 Diphenhydramine 25 Mg Cap PO 25 mg Q6HR SHAN Administration Famotidine 20 mg 07/07/20 21:00 07/08/20 09:58 Famotidine/Pf 20 Mg/2ml Vial SLOW IVP 20 mg Q12HR SHAN Administration Heparin Sodium (Porcine) 5,000 units 07/07/20 21:00 07/08/20 09:49 Heparin 5,000 Units/Ml Vial SC 5,000 units BID SHAN Administration Methylprednisolone Sodium Succinate 60 mg 07/07/20 14:00 07/08/20 06:09 Methylprednisolone Sod Succ/Pf 125 Mg/2 Ml Vial IVP 07/08/20 14:01 60 mg Q8HR SHAN Administration Ondansetron HCl 4 mg 07/07/20 11:42 07/07/20 12:22 Ondansetron Pf 4 Mg/2 Ml Vial IVP 4 mg Q4H PRN Administration Nausea/Vomiting Sodium Chloride 10 ml 07/07/20 21:00 07/08/20 09:58 Flush - Normal Saline 10 Ml Syringe IVF 10 ml Q12HR SHAN Administration Vancomycin HCl 250 mg 07/07/20 13:00 07/08/20 10:02 Vancomycin Hcl 25 Mg/Ml Oral PO Not Given QID SHAN - Exam General Appearance: NAD, awake alert Eye: PERRL ENT: normocephalic atraumatic Neck: supple Heart: RRR, normal peripheral pulses Respiratory: CTAB, normal chest expansion Gastrointestinal: soft, normal bowel sounds Gastrointestinal - other findings: Colostomy bag with green semisolid stool Skin - other findings: Rash resolved except in the penile area and in his hands Neurological: cranial nerve grossly intact, no focal deficits Musculoskeletal: generalized weakness Hosp A/P - Plan Sepsis secondary to allergic reaction/meropenem induced rash causing hypotension along with C. difficile colitis requiring Levophed transiently -Improved with resuscitation as well as Solu-Medrol. Type I hypersensitivity reaction to sulfa -Sulfa allergy---has been listed patient not be taking any sulfa-containing medications -DC the Solu-Medrol -Meropenem discontinued Acute kidney injury probably related to the hypotension and less renal perfusion -Continue with IV fluid -Dr. Wren following C. difficile colitis -Patient's p.o. intake is quite minimal yesterday. He he seems to be improving today will continue with p.o. vancomycin -Vancomycin p.o. should be continued for total of at least 2 weeks Recent sigmoid colon resection anastomosis leak -General surgery following with us. -Meropenem discontinued--he completed the therapy Once his p.o. intake improved we need to decide on antibiotic choice
[2020-07-08 16:42] VITALS: BMI 43.5
[2020-07-08] MEDS ORDERED: methylPREDNISolone Sod Succ/PF 125 MG/2 ML VIAL IVP SCH (16:45)
[2020-07-08] MEDS: Ferrous Sulfate 325 MG TAB PO SCH (16:55)
[2020-07-08] MEDS: Atorvastatin Calcium 10 MG TAB PO SCH ×2 (20:39→21:02)
[2020-07-08] MEDS: HYDROcodone/Acetaminophen 10/325 mg Tablet PO PRN (20:45)
[2020-07-08] MEDS: cloNIDine 0.1 MG TAB PO SCH (20:46)
[2020-07-08] MEDS: Boudreaux's Butt Paste 60 GM TUBE TOP SCH (20:49)
[2020-07-08] MEDS ORDERED: Non-Formulary Item 1 EACH (Carvedilol [Carvedilol] 12.5 MG Tablet) PO SCH (21:00)
[2020-07-08] MEDS: Calamine/Zinc Oxide 177 ML LOTION TP SCH (22:58)
[2020-07-09] MEDS: diphenhydrAMINE 25 MG CAP PO SCH ×5 (00:08→23:58)
[2020-07-09] MEDS: HYDROcodone/Acetaminophen 5/325 mg Tablet PO PRN ×3 (00:16→23:58)
[2020-07-09] MEDS: HYDROcodone/Acetaminophen 10/325 mg Tablet PO PRN ×2 (05:22→14:30)
[2020-07-09] MEDS ORDERED: Non-Formulary Item 1 EACH (Potassium Chloride [Potassium Chloride] 10 MEQ Capsule.Er) PO SCH (09:00)
[2020-07-09] MEDS ORDERED: Non-Formulary Item 1 EACH (Diclofenac Sodium [Diclofenac Sodium] 75 MG Tablet.Dr) PO SCH (09:00)
[2020-07-09] MEDS ORDERED: Non-Formulary Item 1 EACH (Fluoxetine Hcl [Fluoxetine Hcl] 20 MG Tablet) PO SCH (09:00)
[2020-07-09] MEDS ORDERED: Non-Formulary Item 1 EACH (Pantoprazole Sodium [Pantoprazole Sodium] 20 MG Tablet.Dr) PO SCH (09:00)
[2020-07-09] MEDS ORDERED: cloNIDine 0.1 MG TAB PO PRN (09:04)
[2020-07-09] MEDS: Carvedilol 6.25 MG TAB PO SCH ×2 (09:31→20:17)
[2020-07-09] MEDS: Heparin 5,000 UNITS/ML VIAL SC SCH ×2 (09:32→20:18)
[2020-07-09] MEDS: Potassium Chloride 10 MEQ TAB PO SCH (09:32)
[2020-07-09] MEDS: Calamine/Zinc Oxide 177 ML LOTION TP SCH ×2 (09:34→20:24)
[2020-07-09] MEDS: Pantoprazole 40 MG GRANULES PACKET PO SCH (09:34)
[2020-07-09] MEDS: Furosemide 40 MG TAB PO SCH (09:34)
[2020-07-09] MEDS: Ferrous Sulfate 325 MG TAB PO SCH ×2 (09:34→17:50)
[2020-07-09] MEDS: Vancomycin HCl 25 MG/ML Oral PO SCH ×4 (09:35→20:14)
[2020-07-09] MEDS: Famotidine/PF 20 mg/2ml Vial SLOW IVP SCH ×2 (09:36→20:16)
[2020-07-09] MEDS: Boudreaux's Butt Paste 60 GM TUBE TOP SCH ×2 (09:38→20:24)
[2020-07-09] MEDS: FLUoxetine HCl 20 MG CAP PO SCH (10:12)
--- NOTE | 2020-07-09 11:21 | PRG ---
DATE OF SERVICE: SUBJECTIVE: A 49-year-old gentleman being seen for acute kidney injury. The patient denied any nausea, vomiting, or chest pain. PHYSICAL EXAMINATION: GENERAL: The patient is awake, alert. VITAL SIGNS: Afebrile, pulse 75, breathing at 16, blood pressure 136/75. HEENT: Head normocephalic and atraumatic. Eyes intact, no ulcers. Nose intact, no ulcers. Ears intact, no ulcers. Neck: Supple. No JVD. Chest: Symmetrical and clear. Cardiovascular: Shows S1 and S2, no rub, no murmur. Gastrointestinal: Abdomen is soft, bowel sounds positive. Extremities: Show no edema or ulcers. Skin: Shows no rash or petechiae. Musculoskeletal: Shows no joint swelling or stiffness. Genitourinary: Shows no Casillas or CVA tenderness. Neurologic: Motor intact. Cranial nerves intact. LABS: Hemoglobin is 9.6, creatinine is pending. ASSESSMENT: 1. Acute kidney injury with chronic kidney disease, was improving. We will recheck labs. 2. Hypertension, stable on medication based on GFR appropriate. 3. Hyperkalemia. Recheck potassium. Job ID: [id number]
--- NOTE | 2020-07-09 13:52 | EKG ---
Test Reason : EMERGENCY Blood Pressure : / mmHG Vent. Rate : 119 BPM Atrial Rate : 119 BPM P-R Int : 160 ms QRS Dur : 084 ms QT Int : 338 ms P-R-T Axes : 064 040 059 degrees QTc Int : 475 ms Sinus tachycardia Otherwise normal ECG Confirmed by CANDICE WOLFE ([id number]), editor city LAISHA PERRY ([id number]) on 07/09/2020 1:51:53 PM Referred By: Confirmed By:CANDICE WOLFE
--- NOTE | 2020-07-09 14:08 | PDOC.GSPN ---
Surgery Progress Note: Subj - Subjective Narrative: Saw pt yesterday. Rash better, off levophed and started back on antihypertensive medications. Not making much urine and creatinine had risen. Wound looked good and culture negative. Ordered IVF and nephrology consult and communicated w hospitalist re these actions. Wound care team says wound looks good this AM. Will see Saturday if still in hospital. Hospitalist knows to contact Dr Mccarthy if surgical concerns but none currently. Has scheduled outpatient follow up in my clinic in 2 weeks. Surgery Progress Note: Obj - Vital signs Vital signs: Vital Signs - Most Recent Temp Pulse Resp BP Pulse Ox 97.2 F L 77 15 130/61 95 07/09/20 11:56 07/09/20 11:56 07/09/20 11:56 07/09/20 11:56 07/09/20 11:56 Surgery Progress Note: Results - Labs Result Diagrams: 07/08/20 06:41 07/08/20 11:37 - Radiology Interpretation CT scan - abdomen Status: image reviewed by me, report reviewed by me (Small fluid collection in the sigmoid mesentery appears to have resolved. The small fluid collection adjacent to the stomach is smaller. No acute findings in the abdomen) Surgery Progress Note: A/P - Problem (1) Anaphylaxis Current Visit: Yes Code(s): T78.2XXA - ANAPHYLACTIC SHOCK, UNSPECIFIED, INITIAL ENCOUNTER Status: Suspected (2) Sigmoid colectomy Current Visit: No Status: Acute (3) Clostridioides difficile carrier Current Visit: Yes Code(s): Z22.1 - CARRIER OF OTHER INTESTINAL INFECTIOUS DISEASES Status: Acute
--- NOTE | 2020-07-09 19:30 | PDOC.HOSPP ---
- Subjective Encounter Date: 07/09/20 Subjective: Patient reports he is feeling much better overall. Rash feels better. Otherwise he has a hard time delineating specifically what is better but he does feel generally better. - Objective Vital Signs & Weight: Vital Signs (12 hours) Temp Pulse Resp BP Pulse Ox 07/09/20 15:15 97.3 F L 67 18 144/77 H 97 07/09/20 11:56 97.2 F L 77 15 130/61 95 07/09/20 08:00 96.8 F L 75 16 146/75 H 99 Weight Admit Weight 330 lb Weight 330 lb Most Recent Monitor Data Heart Rate from ECG 94 NIBP 130/67 NIBP BP-Mean 88 Respiration from ECG 19 SpO2 99 I&O: 07/08/20 07/09/20 07/10/20 06:59 06:59 06:59 Intake Total 1368.7 1260 1810 Output Total 400 1700 1500 Balance 968.7 -440 310 Result Diagrams: 07/08/20 06:41 07/08/20 11:37 Hospitalist ROS - Medication Medications: Active Medications Generic Name Dose Route Start Last Admin Trade Name Freq PRN Reason Stop Dose Admin Hydrocodone Bitart/Acetaminophen 1 tab 07/07/20 09:24 07/09/20 00:16 Hydrocodone/Acetaminophen 5/325 Mg Tablet PO 1 tab Q4H PRN Administration Moderate Pain (4-6) Hydrocodone Bitart/Acetaminophen 1 tab 07/08/20 10:47 07/09/20 14:30 Hydrocodone/Acetaminophen 10/325 Mg Tablet PO 1 tab DAILYPRN PRN Administration Breakthrough Pain Atorvastatin Calcium 10 mg 07/08/20 21:00 07/08/20 21:02 Atorvastatin Calcium 10 Mg Tab PO Not Given HS SHAN Calamine/Zinc Oxide 0 ml 07/08/20 21:00 07/09/20 09:34 Calamine/Zinc Oxide 177 Ml Lotion TP 934 ml BID SHAN Administration Carvedilol 12.5 mg 07/08/20 21:00 07/09/20 09:31 Carvedilol 6.25 Mg Tab PO 12.5 mg BID SHAN Administration Diphenhydramine HCl 12.5 mg 07/07/20 11:42 07/07/20 15:22 Diphenhydramine 50 Mg/Ml Vial IVP 12.5 mg Q6H PRN Administration Pruritis Diphenhydramine HCl 25 mg 07/07/20 23:59 07/09/20 17:51 Diphenhydramine 25 Mg Cap PO 25 mg Q6HR SHAN Administration Famotidine 20 mg 07/07/20 21:00 07/09/20 09:36 Famotidine/Pf 20 Mg/2ml Vial SLOW IVP 20 mg Q12HR SHAN Administration Ferrous Sulfate 325 mg 07/08/20 17:00 07/09/20 17:50 Ferrous Sulfate 325 Mg Tab PO 325 mg BID-WM SHAN Administration Fluoxetine HCl 20 mg 07/09/20 09:00 07/09/20 10:12 Fluoxetine Hcl 20 Mg Cap PO 20 mg DAILY SHAN Administration Furosemide 40 mg 07/09/20 09:00 07/09/20 09:34 Furosemide 40 Mg Tab PO 40 mg DAILY SHAN Administration Heparin Sodium (Porcine) 5,000 units 07/07/20 21:00 07/09/20 09:32 Heparin 5,000 Units/Ml Vial SC 5,000 units BID SHAN Administration Ondansetron HCl 4 mg 07/07/20 11:42 07/07/20 12:22 Ondansetron Pf 4 Mg/2 Ml Vial IVP 4 mg Q4H PRN Administration Nausea/Vomiting Pantoprazole Sodium 20 mg 07/09/20 09:00 07/09/20 09:34 Pantoprazole 40 Mg Granules Packet PO 20 mg DAILY SHAN Administration Potassium Chloride 10 meq 07/09/20 09:00 07/09/20 09:32 Potassium Chloride 10 Meq Tab PO 10 meq DAILY SHAN Administration Sodium Chloride 10 ml 07/07/20 21:00 07/09/20 09:35 Flush - Normal Saline 10 Ml Syringe IVF 10 ml Q12HR SHAN Administration Vancomycin HCl 250 mg 07/07/20 13:00 07/09/20 17:55 Vancomycin Hcl 25 Mg/Ml Oral PO 250 mg QID SHAN Administration Zinc Oxide 0 gm 07/08/20 21:00 07/09/20 09:38 Kaya's Butt Paste 60 Gm Tube TOP 1 applic BID SHAN Administration - Exam General Appearance: NAD, awake alert General - other findings: Morbidly obese Heart: RRR, no murmur, no gallops, no rubs, normal peripheral pulses Respiratory: CTAB, no wheezes, no rales, no ronchi, normal chest expansion, no tachypnea, normal percussion Gastrointestinal: soft, non-tender, non-distended, normal bowel sounds, no palpable masses, no hepatomegaly, no splenomegaly, no bruit Gastrointestinal - other findings: Stoma looks healthy Extremities: no cyanosis, no clubbing, no edema Skin: normal turgor Musculoskeletal: normal tone, normal strength Psychiatric: normal affect, normal behavior, A&O x 3 Hosp A/P (1) Sepsis Code(s): A41.9 - SEPSIS, UNSPECIFIED ORGANISM Status: Acute (2) C. difficile colitis Code(s): A04.72 - ENTEROCOLITIS D/T CLOSTRIDIUM DIFFICILE, NOT SPCF RECUR Status: Acute (3) Morbid obesity Code(s): E66.01 - MORBID (SEVERE) OBESITY DUE TO EXCESS CALORIES Status: Acute (4) Severe scoliosis Code(s): M41.9 - SCOLIOSIS, UNSPECIFIED Status: Acute (5) Acute kidney injury Code(s): N17.9 - ACUTE KIDNEY FAILURE, UNSPECIFIED Status: Acute (6) Hypersensitivity reaction Code(s): T78.40XA - ALLERGY, UNSPECIFIED, INITIAL ENCOUNTER Status: Acute (7) Hypotension Status: Acute - Plan Sepsis: Presumably secondary to C. difficile colitis. Initially required some pressors. Off of those now. Continue treating underlying infection. Symptomatically worsening to the underlying hypersensitivity reaction: Hypersensitivity reaction likely due to meropenem: Meropenem has been discontinued. He remains on topical therapies. Symptoms seem to be significantly improved. Acute kidney injury: Concerning for ATN related to the drop in his blood pressure. Nephrology consulted. We will reassess his renal function in the morning. We will resume some hydration. History of severe scoliosis: Limits the patient's ability to ambulate prior to his admission. I asked the to bring his walker today. Physical therapy consult to help him mobilize. C. difficile colitis: Appreciate ID consult. Continue oral vancomycin. Status post resection of sigmoid adenocarcinoma: Stoma appears healthy. No indication for surgical intervention or input at this time. Disposition: Patient's primary concern at this point is his renal function. He appears to be stable otherwise. If his renal function appears to be improving in the morning may be able to discharge home.
[2020-07-09] MEDS ORDERED: Sodium Chloride 0.9% 1,000 ML IV SCH (19:45)
[2020-07-09] MEDS: Atorvastatin Calcium 10 MG TAB PO SCH ×2 (20:17→21:08)
[2020-07-09] MEDS: cloNIDine 0.1 MG TAB PO SCH (21:31)
[2020-07-10] MEDS: diphenhydrAMINE 50 MG/ML VIAL IVP PRN (03:18)
[2020-07-10] MEDS: Methocarbamol 500 MG TAB PO PRN ×2 (03:43→20:47)
[2020-07-10] MEDS: Lorazepam 1 MG TAB PO PRN ×2 (03:43→20:47)
[2020-07-10 04:36] LABS: #Lymphocytes 1.4 thou/uL (1.20-3.40); %Eosinophils 0.1 % (0.0-10.0); %Lymphocytes 8.8 % (21.0-51.0); %Monocytes 6.5 % (0.0-10.0); %Neutrophils 84.6 % (42.0-75.0); Hemoglobin 9.6 g/dL (14.0-18.0); Mean Corpuscular HGB CONC 32.3 g/dL (32.0-36.0); Mean Corpuscular Hemoglobin 26.4 pg (27.0-31.0); Mean Corpuscular Volume 81.8 fL (78.0-98.0); Platelet Count 190 thou/uL (130-400); RBC Distribution Width 17.4 % (11.5-14.5); Red Blood Cell (RBC) Count 3.61 mill/uL (4.70-6.10); White Blood Cell (WBC) Count 15.4 thou/uL (4.8-10.8)
[2020-07-10 04:59] LABS: Anion Gap 16 mmol/L (10-20); BUN (Urea Nitrogen) 31 mg/dL (8.9-20.6); Calc. Creatinine Clearance 191 mL/min (70-130); Calcium 8.3 mg/dL (7.8-10.44); Carbon Dioxide 21 mmol/L (22-29); Chloride 105 mmol/L (98-107); Glucose 110 mg/dL (70-105); Potassium 4.7 mmol/L (3.5-5.1); Sodium 137 mmol/L (136-145)
[2020-07-10] MEDS: diphenhydrAMINE 25 MG CAP PO SCH ×3 (05:27→18:08)
--- NOTE | 2020-07-10 08:35 | PDOC.HOSPP ---
- Subjective Encounter Date: 07/10/20 Subjective: Patient reports his dermatitis is worsened since yesterday. More rash over the back area especially. It was worse after his shower. Continues to have a fair amount of output from his stoma. - Objective Vital Signs & Weight: Vital Signs (12 hours) Temp Pulse Resp BP Pulse Ox 07/10/20 03:15 96 F L 66 20 134/68 96 07/09/20 23:55 96 F L 68 16 159/72 H 92 L Weight Admit Weight 330 lb Weight 330 lb Most Recent Monitor Data Heart Rate from ECG 94 NIBP 130/67 NIBP BP-Mean 88 Respiration from ECG 19 SpO2 99 I&O: 07/09/20 07/10/20 07/11/20 06:59 06:59 06:59 Intake Total 1260 3160 Output Total 1700 2875 Balance -440 285 Result Diagrams: 07/10/20 04:08 07/10/20 04:08 Hospitalist ROS - Medication Medications: Active Medications Generic Name Dose Route Start Last Admin Trade Name Freq PRN Reason Stop Dose Admin Hydrocodone Bitart/Acetaminophen 1 tab 07/07/20 09:24 07/09/20 23:58 Hydrocodone/Acetaminophen 5/325 Mg Tablet PO 1 tab Q4H PRN Administration Moderate Pain (4-6) Hydrocodone Bitart/Acetaminophen 1 tab 07/08/20 10:47 07/09/20 14:30 Hydrocodone/Acetaminophen 10/325 Mg Tablet PO 1 tab DAILYPRN PRN Administration Breakthrough Pain Atorvastatin Calcium 10 mg 07/08/20 21:00 07/09/20 21:08 Atorvastatin Calcium 10 Mg Tab PO Not Given HS SHAN Calamine/Zinc Oxide 0 ml 07/08/20 21:00 07/09/20 20:24 Calamine/Zinc Oxide 177 Ml Lotion TP 1 ml BID SHAN Administration Carvedilol 12.5 mg 07/08/20 21:00 07/09/20 20:17 Carvedilol 6.25 Mg Tab PO 12.5 mg BID SHAN Administration Diphenhydramine HCl 12.5 mg 07/07/20 11:42 07/10/20 03:18 Diphenhydramine 50 Mg/Ml Vial IVP 12.5 mg Q6H PRN Administration Pruritis Diphenhydramine HCl 25 mg 07/07/20 23:59 07/10/20 05:27 Diphenhydramine 25 Mg Cap PO 25 mg Q6HR SHAN Administration Famotidine 20 mg 07/07/20 21:00 07/09/20 20:16 Famotidine/Pf 20 Mg/2ml Vial SLOW IVP 20 mg Q12HR SHAN Administration Ferrous Sulfate 325 mg 07/08/20 17:00 07/09/20 17:50 Ferrous Sulfate 325 Mg Tab PO 325 mg BID-WM SHAN Administration Fluoxetine HCl 20 mg 07/09/20 09:00 07/09/20 10:12 Fluoxetine Hcl 20 Mg Cap PO 20 mg DAILY SHAN Administration Furosemide 40 mg 07/09/20 09:00 07/09/20 09:34 Furosemide 40 Mg Tab PO 40 mg DAILY SHAN Administration Heparin Sodium (Porcine) 5,000 units 07/07/20 21:00 07/09/20 20:18 Heparin 5,000 Units/Ml Vial SC 5,000 units BID SHAN Administration Sodium Chloride 1,000 mls @ 75 mls/hr 07/09/20 19:45 07/09/20 20:13 Normal Saline 0.9% IV 1,000 mls .[id number] SHAN Administration Lorazepam 2 mg 07/08/20 10:47 07/10/20 03:43 Lorazepam 1 Mg Tab PO 2 mg TID PRN Administration Anxiety Methocarbamol 500 mg 07/08/20 10:49 07/10/20 03:43 Methocarbamol 500 Mg Tab PO 500 mg QID PRN Administration Muscle Spasm Ondansetron HCl 4 mg 07/07/20 11:42 07/07/20 12:22 Ondansetron Pf 4 Mg/2 Ml Vial IVP 4 mg Q4H PRN Administration Nausea/Vomiting Pantoprazole Sodium 20 mg 07/09/20 09:00 07/09/20 09:34 Pantoprazole 40 Mg Granules Packet PO 20 mg DAILY SHAN Administration Potassium Chloride 10 meq 07/09/20 09:00 07/09/20 09:32 Potassium Chloride 10 Meq Tab PO 10 meq DAILY SHAN Administration Sodium Chloride 10 ml 07/07/20 21:00 07/09/20 20:14 Flush - Normal Saline 10 Ml Syringe IVF 10 ml Q12HR SHAN Administration Vancomycin HCl 250 mg 07/07/20 13:00 07/09/20 20:14 Vancomycin Hcl 25 Mg/Ml Oral PO 250 mg QID SHAN Administration Zinc Oxide 0 gm 07/08/20 21:00 07/09/20 20:24 Kaya's Butt Paste 60 Gm Tube TOP 1 applic BID SHAN Administration - Exam General Appearance: NAD, awake alert General - other findings: Morbidly obese Heart: RRR, no murmur, no gallops, no rubs, normal peripheral pulses Respiratory: CTAB, no wheezes, no rales, no ronchi, normal chest expansion, no tachypnea, normal percussion Gastrointestinal: soft, non-tender, non-distended, normal bowel sounds, no palpable masses, no hepatomegaly, no splenomegaly, no bruit Gastrointestinal - other findings: Stoma appears healthy Extremities: no cyanosis, no clubbing, no edema Skin - other findings: Diffuse small erythematous macules Musculoskeletal: normal tone, normal strength Psychiatric: normal affect, normal behavior, A&O x 3 Hosp A/P (1) Sepsis Code(s): A41.9 - SEPSIS, UNSPECIFIED ORGANISM Status: Acute (2) C. difficile colitis Code(s): A04.72 - ENTEROCOLITIS D/T CLOSTRIDIUM DIFFICILE, NOT SPCF RECUR Status: Acute (3) Morbid obesity Code(s): E66.01 - MORBID (SEVERE) OBESITY DUE TO EXCESS CALORIES Status: Acute (4) Severe scoliosis Code(s): M41.9 - SCOLIOSIS, UNSPECIFIED Status: Acute (5) Acute kidney injury Code(s): N17.9 - ACUTE KIDNEY FAILURE, UNSPECIFIED Status: Acute (6) Hypersensitivity reaction Code(s): T78.40XA - ALLERGY, UNSPECIFIED, INITIAL ENCOUNTER Status: Acute (7) Hypotension Status: Acute (8) Hypothyroidism Code(s): E03.9 - HYPOTHYROIDISM, UNSPECIFIED Status: Acute (9) Hypothermia Code(s): T68.XXXA - HYPOTHERMIA, INITIAL ENCOUNTER Status: Acute (10) Colostomy in place Code(s): Z93.3 - COLOSTOMY STATUS Status: Acute - Plan Sepsis: Presumably secondary to C. difficile colitis. Initially required some pressors. Off of those now. Continue treating underlying infection. Symptomatically worsening to the underlying hypersensitivity reaction. Hypersensitivity reaction likely due to meropenem: Meropenem has been discontinued. He remains on topical therapies. He initially received some steroids but these were subsequently discontinued. Since then he appears to have some worsening. We will resume his steroids with an IV dose of methylprednisolone and oral prednisone daily. Continue with H1 and H2 antagonist. Acute kidney injury: Likely related to the patient's initial hypotension. Nephrology consulted. GFR increased from 25 back up to 81 on 07/10/2020 with hydration. IV fluids discontinued. History of severe scoliosis: Limits the patient's ability to ambulate prior to his admission. I asked the to bring his walker. Physical therapy consult to help him mobilize. C. difficile colitis: Appreciate ID consult. Continue oral vancomycin. Status post resection of sigmoid adenocarcinoma: Stoma appears healthy. No indication for surgical intervention or input at this time. Hypothermia: Patient's temperature consistently around 96. Review of his recent labs reveal that he did have low or borderline low thyroid function tests. We will recheck thyroid studies. Hypothyroidism: As above. Patient had low free T3 and very borderline TSH and T4. Repeat labs. If persist will initiate supplementation. Disposition: Patient's primary concern at this point is his renal function. He appears to be stable otherwise. If his renal function appears to be improving in the morning may be able to discharge home.
[2020-07-10] MEDS: Boudreaux's Butt Paste 60 GM TUBE TOP SCH ×2 (09:14→20:48)
[2020-07-10] MEDS: Pantoprazole 40 MG GRANULES PACKET PO SCH (09:15)
[2020-07-10] MEDS ORDERED: methylPREDNISolone Sod Succ 40 MG VIAL IVP SCH (09:15)
[2020-07-10] MEDS: FLUoxetine HCl 20 MG CAP PO SCH (09:15)
[2020-07-10] MEDS: Carvedilol 6.25 MG TAB PO SCH ×2 (09:15→20:47)
[2020-07-10] MEDS: Ferrous Sulfate 325 MG TAB PO SCH ×2 (09:15→16:31)
[2020-07-10] MEDS: Potassium Chloride 10 MEQ TAB PO SCH (09:16)
[2020-07-10] MEDS: Furosemide 40 MG TAB PO SCH (09:16)
[2020-07-10] MEDS: Vancomycin HCl 25 MG/ML Oral PO SCH ×4 (09:25→20:47)
[2020-07-10] MEDS: Enoxaparin Sodium 40 MG/0.4 ML SYRINGE SC SCH (09:25)
[2020-07-10] MEDS: Famotidine 20 MG TAB PO SCH ×2 (09:25→20:47)
[2020-07-10] MEDS: Calamine/Zinc Oxide 177 ML LOTION TP SCH ×2 (09:27→20:48)
[2020-07-10 10:13] LABS: Free T4 (Free Thyroxine) 0.96 ng/dL (0.70-1.48); Thyroid Stimulating Hormone 0.4034 uIU/mL (0.35-4.94)
[2020-07-10] MEDS: HYDROcodone/Acetaminophen 10/325 mg Tablet PO PRN (13:29)
--- NOTE | 2020-07-10 16:25 | PRG ---
DATE OF SERVICE: 07/10/2020 SUBJECTIVE: A 49-year-old gentleman, being seen for acute kidney injury. The patient denies any nausea, vomiting, or chest pain. PHYSICAL EXAMINATION: General: The patient is awake and alert. Vital Signs: Afebrile, pulse 83, breathing at 16, blood pressure 131/84. HEENT: Head normocephalic and atraumatic. Eyes intact, no ulcers. Nose intact, no ulcers. Ears intact, no ulcers. Neck: Supple. No JVD. Chest: Symmetrical and clear. Cardiovascular: Shows S1 and S2, no rub, no murmur. Gastrointestinal: Abdomen is soft, bowel sounds positive. Extremities: Show no edema or ulcers. Skin: Shows no rash or petechiae. Musculoskeletal: Shows no joint swelling or stiffness. Genitourinary: Shows no [place] or CVA tenderness. Neurologic: Motor intact. Cranial nerves intact. LABORATORY DATA: Reviewed. ASSESSMENT AND PLAN: 1. Stage 2 chronic kidney disease, stable. 2. Acute kidney injury, resolved. 3. Hypertension, stable. 4. Anemia, stable. 5. Hyperkalemia, resolved. 6. No indication for dialysis. Job ID: [id number]
[2020-07-10] MEDS: Bacitracin 1 PK TOP PRN (16:32)
[2020-07-10] MEDS: Atorvastatin Calcium 10 MG TAB PO SCH (20:48)
[2020-07-11] MEDS: diphenhydrAMINE 25 MG CAP PO SCH ×2 (00:31→04:55)
[2020-07-11] MEDS: Enoxaparin Sodium 40 MG/0.4 ML SYRINGE SC SCH (08:48)
[2020-07-11] MEDS: FLUoxetine HCl 20 MG CAP PO SCH (08:48)
[2020-07-11] MEDS: Furosemide 40 MG TAB PO SCH (08:49)
[2020-07-11] MEDS: Potassium Chloride 10 MEQ TAB PO SCH (08:50)
[2020-07-11] MEDS: Ferrous Sulfate 325 MG TAB PO SCH ×2 (08:50→17:19)
[2020-07-11] MEDS: Pantoprazole 40 MG GRANULES PACKET PO SCH (08:50)
[2020-07-11] MEDS: predniSONE 20 MG TAB PO SCH (08:50)
[2020-07-11] MEDS: Carvedilol 6.25 MG TAB PO SCH ×2 (08:50→21:37)
[2020-07-11] MEDS: Famotidine 20 MG TAB PO SCH ×2 (08:50→21:37)
[2020-07-11] MEDS: Calamine/Zinc Oxide 177 ML LOTION TP SCH ×2 (08:51→21:44)
[2020-07-11] MEDS: Boudreaux's Butt Paste 60 GM TUBE TOP SCH ×2 (08:51→21:40)
[2020-07-11] MEDS: Lorazepam 1 MG TAB PO PRN (09:05)
[2020-07-11] MEDS: HYDROcodone/Acetaminophen 10/325 mg Tablet PO PRN (09:05)
[2020-07-11] MEDS: Vancomycin HCl 25 MG/ML Oral PO SCH ×4 (09:05→21:44)
[2020-07-11] MEDS: Bacitracin 1 PK TOP PRN (10:14)
[2020-07-11] MEDS ORDERED: Loratadine 10 MG TAB PO SCH (10:30)
[2020-07-11] MEDS ORDERED: Cetirizine HCl 5 MG/5 ML UDCUP PO SCH (10:30)
[2020-07-11] MEDS: hydrOXYzine 25 MG TAB PO SCH ×3 (11:34→23:42)
[2020-07-11] MEDS: Methocarbamol 500 MG TAB PO PRN ×2 (11:34→23:43)
--- NOTE | 2020-07-11 11:48 | PDOC.HOSPP ---
- Subjective Encounter Date: 07/11/20 Subjective: Patient continues to be very miserable with the pruritus. May be slightly more rash today than yesterday. - Objective Vital Signs & Weight: Vital Signs (12 hours) Temp Pulse Resp BP BP Pulse Ox 07/11/20 11:37 98.4 F 83 18 164/80 H 95 07/11/20 08:50 168/83 H 07/11/20 08:40 97.8 F 71 18 168/83 H 96 07/11/20 04:00 96.6 F L 70 17 160/81 H Weight Admit Weight 330 lb Weight 330 lb Most Recent Monitor Data Heart Rate from ECG 94 NIBP 130/67 NIBP BP-Mean 88 Respiration from ECG 19 SpO2 99 I&O: 07/10/20 07/11/20 07/12/20 06:59 06:59 06:59 Intake Total 3160 2160 Output Total 2878 4175 Balance Result Diagrams: 07/10/20 04:08 07/10/20 04:08 Additional Labs: Accuchecks 07/11/20 10:18 POC Glucose 125 H Hospitalist ROS - Medication Medications: Active Medications Generic Name Dose Route Start Last Admin Trade Name Freq PRN Reason Stop Dose Admin Hydrocodone Bitart/Acetaminophen 1 tab 07/07/20 09:24 07/09/20 23:58 Hydrocodone/Acetaminophen 5/325 Mg Tablet PO 1 tab Q4H PRN Administration Moderate Pain (4-6) Hydrocodone Bitart/Acetaminophen 1 tab 07/08/20 10:47 07/11/20 09:05 Hydrocodone/Acetaminophen 10/325 Mg Tablet PO 1 tab DAILYPRN PRN Administration Breakthrough Pain Atorvastatin Calcium 10 mg 07/08/20 21:00 07/10/20 20:48 Atorvastatin Calcium 10 Mg Tab PO Not Given HS SAHN Bacitracin 1 pk 07/10/20 14:51 07/11/20 10:14 Bacitracin 1 Pk TOP 1 pk DAILYPRN PRN Administration DRESSING CHANGES Calamine/Zinc Oxide 0 ml 07/08/20 21:00 07/11/20 08:51 Calamine/Zinc Oxide 177 Ml Lotion TP 177 ml BID SHAN Administration Carvedilol 12.5 mg 07/08/20 21:00 07/11/20 08:50 Carvedilol 6.25 Mg Tab PO 12.5 mg BID SHAN Administration Diphenhydramine HCl 12.5 mg 07/07/20 11:42 07/10/20 03:18 Diphenhydramine 50 Mg/Ml Vial IVP 12.5 mg Q6H PRN Administration Pruritis Enoxaparin Sodium 40 mg 07/10/20 09:00 07/11/20 08:48 Enoxaparin Sodium 40 Mg/0.4 Ml Syringe SC 40 mg 0900 SHAN Administration Famotidine 20 mg 07/10/20 09:00 07/11/20 08:50 Famotidine 20 Mg Tab PO 20 mg BID SHAN Administration Ferrous Sulfate 325 mg 07/08/20 17:00 07/11/20 08:50 Ferrous Sulfate 325 Mg Tab PO 325 mg BID-WM SHAN Administration Fluoxetine HCl 20 mg 07/09/20 09:00 07/11/20 08:48 Fluoxetine Hcl 20 Mg Cap PO 20 mg DAILY SHAN Administration Furosemide 40 mg 07/09/20 09:00 07/11/20 08:49 Furosemide 40 Mg Tab PO 40 mg DAILY SHAN Administration Hydroxyzine HCl 25 mg 07/11/20 12:00 07/11/20 11:34 Hydroxyzine 25 Mg Tab PO 25 mg Q6HR SHAN Administration Loratadine 10 mg 07/11/20 10:30 07/11/20 11:33 Loratadine 10 Mg Tab PO 07/11/20 14:00 10 mg NOW SHAN Administration Lorazepam 2 mg 07/08/20 10:47 07/11/20 09:05 Lorazepam 1 Mg Tab PO 2 mg TID PRN Administration Anxiety Methocarbamol 500 mg 07/08/20 10:49 07/11/20 11:34 Methocarbamol 500 Mg Tab PO 500 mg QID PRN Administration Muscle Spasm Ondansetron HCl 4 mg 07/07/20 11:42 07/07/20 12:22 Ondansetron Pf 4 Mg/2 Ml Vial IVP 4 mg Q4H PRN Administration Nausea/Vomiting Pantoprazole Sodium 20 mg 07/09/20 09:00 07/11/20 08:50 Pantoprazole 40 Mg Granules Packet PO 20 mg DAILY SHAN Administration Potassium Chloride 10 meq 07/09/20 09:00 07/11/20 08:50 Potassium Chloride 10 Meq Tab PO 10 meq DAILY SHAN Administration Prednisone 40 mg 07/11/20 08:00 07/11/20 08:50 Prednisone 20 Mg Tab PO 40 mg QAM-WM SHAN Administration Sodium Chloride 10 ml 07/07/20 21:00 07/11/20 08:51 Flush - Normal Saline 10 Ml Syringe IVF 10 ml Q12HR SHAN Administration Vancomycin HCl 250 mg 07/07/20 13:00 07/11/20 09:05 Vancomycin Hcl 25 Mg/Ml Oral PO 250 mg QID SHAN Administration Zinc Oxide 0 gm 07/08/20 21:00 07/11/20 08:51 Kaya's Butt Paste 60 Gm Tube TOP 1 applic BID SHAN Administration - Exam General Appearance: NAD, awake alert General - other findings: Morbidly obese Heart: RRR, no murmur, no gallops, no rubs, normal peripheral pulses Respiratory: CTAB, no wheezes, no rales, no ronchi, normal chest expansion, no tachypnea, normal percussion Gastrointestinal: soft, non-tender, non-distended, normal bowel sounds, no palpable masses, no hepatomegaly, no splenomegaly, no bruit Gastrointestinal - other findings: Left colostomy appears healthy Extremities: no cyanosis, no clubbing, no edema Skin - other findings: Diffuse erythematous macular rash slightly increased from yesterday Neurological: no focal deficits Musculoskeletal: normal tone, normal strength, no muscle wasting Psychiatric: normal affect, normal behavior, A&O x 3 Hosp A/P (1) Sepsis Code(s): A41.9 - SEPSIS, UNSPECIFIED ORGANISM Status: Acute (2) C. difficile colitis Code(s): A04.72 - ENTEROCOLITIS D/T CLOSTRIDIUM DIFFICILE, NOT SPCF RECUR Status: Acute (3) Morbid obesity Code(s): E66.01 - MORBID (SEVERE) OBESITY DUE TO EXCESS CALORIES Status: Acute (4) Severe scoliosis Code(s): M41.9 - SCOLIOSIS, UNSPECIFIED Status: Acute (5) Acute kidney injury Code(s): N17.9 - ACUTE KIDNEY FAILURE, UNSPECIFIED Status: Acute (6) Hypersensitivity reaction Code(s): T78.40XA - ALLERGY, UNSPECIFIED, INITIAL ENCOUNTER Status: Acute (7) Hypotension Status: Acute (8) Hypothyroidism Code(s): E03.9 - HYPOTHYROIDISM, UNSPECIFIED Status: Acute (9) Hypothermia Code(s): T68.XXXA - HYPOTHERMIA, INITIAL ENCOUNTER Status: Acute (10) Colostomy in place Code(s): Z93.3 - COLOSTOMY STATUS Status: Acute - Plan Sepsis: Presumably secondary to C. difficile colitis. Initially required some pressors. Off of those now. Continue treating underlying infection. Symptomatically worsening due to the underlying hypersensitivity reaction. Hypersensitivity reaction likely due to meropenem: Meropenem has been discontinued. He remains on topical therapies. He initially received some steroids but these were subsequently discontinued. Since then he appears to have some worsening. Steroids were resumed on 07/10/2020 with an IV dose of methylprednisolone and initiation of oral prednisone. Continue with H1 and H2 antagonist. On 07/11/2020 the Benadryl was changed to scheduled Atarax. Added loratadine 10 mg p.o. twice daily. Topical hydrocortisone 0.2% added. Acute kidney injury: Likely related to the patient's initial hypotension. Nephrology consulted. GFR increased from 25 back up to 81 on 07/10/2020 with hydration. IV fluids discontinued. History of severe scoliosis: Limits the patient's ability to ambulate prior to his admission. I asked the to bring his walker. Physical therapy consult to help him mobilize. C. difficile colitis: Appreciate ID consult. Continue oral vancomycin. Status post resection of sigmoid adenocarcinoma: Stoma appears healthy. No indication for surgical intervention or input at this time. Hypothermia: Patient's temperature consistently around 96. Review of his recent labs reveal that he did have low or borderline low thyroid function tests. Repeat thyroid studies appear generally normal. Temperature seems to be slightly more normalized. Hypothyroidism: As above. Patient had low free T3 and very borderline TSH and T4. Repeat labs were within the normal range. Disposition: Patient's renal function has recovered nicely. He is tolerating oral vancomycin adequately for the C. difficile. Primary concern at this point is that fairly severe medication reaction to the meropenem. We will give him 1 more day to continue to work on his medication regimen to try to get this under better control. Transfer to the medical floor.
[2020-07-11] MEDS: HYDROcodone/Acetaminophen 5/325 mg Tablet PO PRN (13:05)
[2020-07-11] MEDS ORDERED: Cetirizine HCl 10 MG TAB PO SCH (21:00)
[2020-07-11] MEDS ORDERED: Hydrocortisone Valerate 0.2% Cream 60 gm Tube TOP SCH (21:00)
[2020-07-11] MEDS: Atorvastatin Calcium 10 MG TAB PO SCH (21:37)
[2020-07-11] MEDS: Loratadine 10 MG TAB PO SCH (21:37)
[2020-07-11] MEDS ORDERED: Triamcinolone 0.1% Cream 15 GM TUBE TOP SCH (22:00)
[2020-07-12] MEDS: hydrOXYzine 25 MG TAB PO SCH (05:12)
[2020-07-12 05:53] LABS: #Eosinphils 0.1 thou/uL (0.0-0.7); #Monocytes 1.1 thou/uL (0.11-0.59); #Neutrophils 7.1 thou/uL (1.40-6.50); %Basophils 0.2 % (0.0-1.0); %Eosinophils 0.5 % (0.0-10.0); %Lymphocytes 19.6 % (21.0-51.0); %Monocytes 10.8 % (0.0-10.0); %Neutrophils 68.8 % (42.0-75.0); Mean Corpuscular Hemoglobin 26.8 pg (27.0-31.0); Mean Corpuscular Volume 81.2 fL (78.0-98.0); Platelet Count 193 thou/uL (130-400); RBC Distribution Width 17.1 % (11.5-14.5); Red Blood Cell (RBC) Count 3.35 mill/uL (4.70-6.10); White Blood Cell (WBC) Count 10.3 thou/uL (4.8-10.8)
[2020-07-12 06:16] LABS: Anion Gap 12 mmol/L (10-20); BUN (Urea Nitrogen) 23 mg/dL (8.9-20.6); Calc. Creatinine Clearance 228 mL/min (70-130); Calcium 8.6 mg/dL (7.8-10.44); Carbon Dioxide 28 mmol/L (22-29); Chloride 103 mmol/L (98-107); Glucose 100 mg/dL (70-105); Potassium 3.9 mmol/L (3.5-5.1); Sodium 139 mmol/L (136-145)
[2020-07-12] MEDS: HYDROcodone/Acetaminophen 5/325 mg Tablet PO PRN (06:53)
--- NOTE | 2020-07-12 07:10 | PRG ---
DATE OF SERVICE: 07/11/2020 SUBJECTIVE: Patient was seen and examined at bedside and overnight events noted. Patient denies any shortness of breath or chest pain or palpitation. No history of nausea or vomiting or diarrhea or fever or chills or cramps. OBJECTIVE: General: This is a well-built male, in no acute distress. Vital Signs: Temperature 98.4. Heart Rate 83. Respiratory rate 18. Blood pressure 164/80. HEENT: Atraumatic, normocephalic. Oral mucosa is moist. Neck: Supple. Cardiovascular: S1, S2 heard. Rate and rhythm regular. Respiratory: Clear to auscultation. Gastrointestinal: Abdomen is soft. Musculoskeletal: No tenderness. No edema. Dermatologic: No skin rash. Neurologic: Alert and awake and oriented x3. No focal neurologic deficits. Moving all the extremities. Psychiatric: Mood and affect normal. LABORATORY DATA: Potassium 4.7, BUN is 31, and creatinine 0.9. ASSESSMENT AND PLAN: 1. Acute kidney injury on chronic kidney disease stage 2. His renal function is much better, most likely secondary to allergic reaction to the drug. 2. Edema 3. Hypertension. 4. Anemia. 5. Hyperkalemia, better. 6. Labs are much better. I will sign off. Please call back with any questions. Avoid nephrotoxins and monitor renal function closely. Job ID: [id number] [facility]
[2020-07-12] MEDS ORDERED: Triamcinolone 0.1% Cream 15 GM TUBE TOP SCH (09:00)
[2020-07-12] MEDS: Vancomycin HCl 25 MG/ML Oral PO SCH (09:19)
[2020-07-12] MEDS: Potassium Chloride 10 MEQ TAB PO SCH (09:19)
[2020-07-12] MEDS: FLUoxetine HCl 20 MG CAP PO SCH (09:19)
[2020-07-12] MEDS: Famotidine 20 MG TAB PO SCH (09:20)
[2020-07-12] MEDS: Ferrous Sulfate 325 MG TAB PO SCH (09:20)
[2020-07-12] MEDS: Loratadine 10 MG TAB PO SCH (09:20)
[2020-07-12] MEDS: Pantoprazole 40 MG GRANULES PACKET PO SCH (09:20)
[2020-07-12] MEDS: Furosemide 40 MG TAB PO SCH (09:20)
[2020-07-12] MEDS: predniSONE 20 MG TAB PO SCH (09:20)
[2020-07-12] MEDS: Carvedilol 6.25 MG TAB PO SCH (09:20)
[2020-07-12] MEDS: Enoxaparin Sodium 40 MG/0.4 ML SYRINGE SC SCH (09:21)
[2020-07-12 09:31] VITALS: BP 168/83
[2020-07-12] MEDS: Calamine/Zinc Oxide 177 ML LOTION TP SCH (09:32)
[2020-07-12] MEDS: Boudreaux's Butt Paste 60 GM TUBE TOP SCH (09:32)
[2020-07-12 12:10] VITALS: TEMP 98.9
--- NOTE | 2020-07-12 15:11 | DIS ---
DATE OF ADMISSION: 07/07/2020 DATE OF DISCHARGE: 07/12/2020 DISCHARGE DISPOSITION: To home. PRIMARY DISCHARGE DIAGNOSES: Clostridium difficile colitis, sepsis, acute kidney injury, all of which is resolving. SECONDARY DISCHARGE DIAGNOSES: History of sigmoid colon cancer with segmental colectomy and subsequent complications with peritonitis and colostomy, morbid obesity, severe scoliosis, hypothyroidism, chronic anemia. PROCEDURES DONE DURING HOSPITALIZATION: CT angio chest showed no evidence of PE. CT abdomen and pelvis with contrast done. No acute abnormality was seen in the abdomen. There is interval improvement in free intraperitoneal fluid and stranding/edema throughout the abdomen when compared to prior CAT scan done on 18 of June. Left lower quadrant colostomy and Nena's pouch were seen. Mild wall thickening of the proximal jejunum. Stool for C difficile was positive. Blood cultures x2, no growth. Stool for Campylobacter and Shiga toxins were negative. Initial white count of 37, discharge white count of 10, H and H of 9 and 27, platelet count 193, MCV 81. Discharge BUN and creatinine are 23 and 0.8, admitting BUN and creatinine were 37 and 2.6. Albumin is 3.5. COVID-19 PCR was not detected. INPATIENT CONSULTS: 1. Dr. Perez for Nephrology. 2. Dr. Griffin for General Surgery. DISCHARGE MEDICATIONS: 1. Vancomycin 250 mg p.o. 4 times daily for another 8 days for C difficile colitis. 2. Prednisone 20 mg p.o. daily for another 3 days. 3. Pepcid 20 mg twice daily for 5 days. 4. Multivitamin 1 tab once daily. 5. Hydrochlorothiazide 25 mg p.o. daily. 6. Lasix 40 mg p.o. daily. 7. Ferrous sulfate 325 mg twice daily. 8. Aspirin 81 mg daily. 9. DuoNeb 4 times daily p.r.n. 10. Claritin 10 mg p.o. daily for 5 days. 11. Clonidine 0.1 mg p.o. twice daily. 12. Benadryl 25 mg p.o. q.4 hourly p.r.n. 13. Protonix 20 mg daily. 14. Robaxin 500 mg q.8 hourly p.r.n. 15. Pravastatin 40 mg p.o. q.p.m. 16. Potassium chloride 10 mEq p.o. daily. 17. [place] p.r.n. for pain. 18. Motrin p.r.n. for pain. 19. Lorazepam 2 mg p.o. 3 times daily p.r.n. for pain. 20. Prozac 20 mg p.o. daily. 21. Carvedilol 12.5 mg twice daily. ALLERGIES: ALLERGIC TO SULFA. DISCHARGE PLAN: The patient to follow up with nurse practitioner, Shasha Varela, in 1 week. He needs to follow up with Dr. Griffin as advised. BRIEF COURSE DURING HOSPITALIZATION: The patient initially got admitted on the with complaints of abdominal pain. The patient has had recent sigmoid colectomy with subsequent complication including leak and peritonitis resulting in colostomy. He was on meropenem prior to arrival here for peritonitis. In view of this history, the patient was admitted to medical floor. Stool test came back positive for C difficile. The patient also had a rash due to meropenem, which was subsequently discontinued. He has recovered well with colostomy output from C difficile on oral vancomycin. The patient's rash has almost resolved. He had acute kidney injury on admission, which was resolved. He initially was hypotensive and was on pressors, which has completely resolved. He has severe scoliosis and ambulates with a walker minimally. Mr. Crum is hemodynamically stable and will be shortly discharged home. I have given complete updates to him and his at bedside. His medications were reconciled. His was given complete updates about discharge medications as well. I have called the [facility] pharmacy and confirmed that the 250 mg vancomycin is available here on the [address] which he will roll picker, and the rest of the medications he will roll picker from his regular pharmacy, [facility] in [place]. Please note, I have seen and examined the patient on the day of discharge. Job ID: [id number] [facility]
[2020-07-13] MEDS ORDERED: Pantoprazole 40 MG GRANULES PACKET PO SCH (09:00)
== END 2020-07-12 12:49 | disposition home or self-care (01) | DRG 871 ==
LOC: ERS 03:22 → ERHOLD 09:30 → 2NO 07-08 15:06 → SJJU 07-11 14:56
PROVIDERS: ADMIT Internal Medicine; ATTEND Internal Medicine
PROC: 3E043XZ Introduction of Vasopressor into Central Vein, Percutaneous Approach (ICD-10-PCS; principal; 2020-07-07)
DX: A41.4 Sepsis due to anaerobes (principal); R65.21 Severe sepsis with septic shock; A04.72 Enterocolitis due to Clostridium difficile, not specified as recurrent; N17.9 Acute kidney failure, unspecified; I13.0 Hypertensive heart and chronic kidney disease with heart failure and stage 1 through stage 4 chronic kidney disease, or unspecified chronic kidney disease; Z68.41 Body mass index [BMI] 40.0-44.9, adult; T88.6XXA Anaphylactic reaction due to adverse effect of correct drug or medicament properly administered, initial encounter; Z20.822 Contact with and (suspected) exposure to COVID-19; E66.01 Morbid (severe) obesity due to excess calories; M41.9 Scoliosis, unspecified; E03.9 Hypothyroidism, unspecified; I50.9 Heart failure, unspecified; E78.5 Hyperlipidemia, unspecified; F41.9 Anxiety disorder, unspecified; F32.9 Major depressive disorder, single episode, unspecified; F17.210 Nicotine dependence, cigarettes, uncomplicated; G47.33 Obstructive sleep apnea (adult) (pediatric); M19.90 Unspecified osteoarthritis, unspecified site; K21.9 Gastro-esophageal reflux disease without esophagitis; D63.8 Anemia in other chronic diseases classified elsewhere; D69.6 Thrombocytopenia, unspecified; N18.2 Chronic kidney disease, stage 2 (mild); L27.0 Generalized skin eruption due to drugs and medicaments taken internally; Z96.643 Presence of artificial hip joint, bilateral; Z85.038 Personal history of other malignant neoplasm of large intestine; Z90.49 Acquired absence of other specified parts of digestive tract; Z88.2 Allergy status to sulfonamides; Z79.82 Long term (current) use of aspirin; Z79.890 Hormone replacement therapy; Z79.899 Other long term (current) drug therapy; Z79.51 Long term (current) use of inhaled steroids; E87.5 Hyperkalemia; T68.XXXA Hypothermia, initial encounter; Z79.891 Long term (current) use of opiate analgesic
CPT/HCPCS: 0240U; 36415; 36416; 71045; 71275; 74177; 80048; 80053; 80307; 82274; 83605; 83630; 83690; 84439; 84443; 84481; 84484; 85025; 85379; 86140; 87040; 87045; 87046; 87070; 87205; 87324; 87427; 87449; 93005; 96365; 96366; 96367; G0483; J0692; J1200; J1644; J1650; J2185; J2405; J2920; J2930; J3370; J7512; P9047; Q0163; Q9967; S0028

== ENCOUNTER 2020-08-28 14:58 | Emergency (ER) | payer MEDICARE ==
[~2020-08-28 14:58] MED LIST changes: +Iopamidol-370 76% 500 ML 1 ML ONE; -Lidocaine 1% PF 5 ML VIAL ONE; -PROPOFOL 200 MG/20 ML VIAL ONE
[2020-08-28 17:10] LABS: #Basophils 0.1 thou/uL (0.0-0.2); #Eosinphils 0.4 thou/uL (0.0-0.7); #Lymphocytes 3.1 thou/uL (1.20-3.40); #Monocytes 1.4 thou/uL (0.11-0.59); #Neutrophils 9.8 thou/uL (1.40-6.50); %Basophils 0.6 % (0.0-1.0); %Eosinophils 2.8 % (0.0-10.0); %Lymphocytes 20.7 % (21.0-51.0); %Monocytes 9.4 % (0.0-10.0); %Neutrophils 66.5 % (42.0-75.0); Hemoglobin 11.5 g/dL (14.0-18.0); Mean Corpuscular HGB CONC 33.4 g/dL (32.0-36.0); Mean Corpuscular Hemoglobin 27.7 pg (27.0-31.0); Mean Corpuscular Volume 83.1 fL (78.0-98.0); Platelet Count 316 thou/uL (130-400); Red Blood Cell (RBC) Count 4.16 mill/uL (4.70-6.10); White Blood Cell (WBC) Count 14.7 thou/uL (4.8-10.8)
[2020-08-28 17:30] LABS: ALT (SGPT) 19 U/L (8-55); AST (SGOT) 20 U/L (5-34); Alkaline Phosphatase 102 U/L (40-110); Anion Gap 14 mmol/L (10-20); BUN (Urea Nitrogen) 8 mg/dL (8.9-20.6); Bilirubin, Total 0.4 mg/dL (0.2-1.2); Calc. Creatinine Clearance 0 mL/min (70-130); Calcium 9.3 mg/dL (7.8-10.44); Carbon Dioxide 28 mmol/L (22-29); Chloride 98 mmol/L (98-107); Globulin 3.4 g/dL (2.4-3.5); Glucose 97 mg/dL (70-105); Lipase 27 U/L (8-78); Magnesium 1.6 mg/dL (1.6-2.6); Potassium 3.2 mmol/L (3.5-5.1); Protein, Total 7.4 g/dL (6.0-8.3); Sodium 137 mmol/L (136-145)
[2020-08-28] MEDS ORDERED: Potassium Chloride 20 MEQ TAB ONE (18:00)
== END 2020-08-28 18:45 | disposition home or self-care (01) ==
LOC: ERS 14:58
DX: R10.9 Unspecified abdominal pain (principal); Z93.3 Colostomy status; E78.5 Hyperlipidemia, unspecified; I11.0 Hypertensive heart disease with heart failure; I50.9 Heart failure, unspecified; M19.90 Unspecified osteoarthritis, unspecified site; F17.220 Nicotine dependence, chewing tobacco, uncomplicated; Z79.899 Other long term (current) drug therapy; Z79.82 Long term (current) use of aspirin
CPT/HCPCS: 74177; 80053; 82274; 83690; 83735; 85025; 86850; 86900; 86901; 87324; 87449; 94760; Q9967

== ENCOUNTER 2020-09-12 14:30 | Outpatient (CLI) | payer MEDICARE ==
[2020-09-13 04:20] LABS: SARS-CoV-2 PCR by NAA Not Detected (NotDetected)
== END 2020-09-12 14:31 | disposition home or self-care (01) ==
LOC: LABBT 14:30
PROVIDERS: ATTEND Internal Medicine Gastroenterology
DX: Z20.822 Contact with and (suspected) exposure to COVID-19 (principal)
CPT/HCPCS: 80307; G0483; U0003; U0005; 87635

== ENCOUNTER 2020-09-16 09:12 | Day surgery (SDC) | payer MEDICARE ==
[2020-09-15 10:36] VITALS: BMI 42.2
[2020-09-16] MEDS ORDERED: PROPOFOL 200 MG/20 ML VIAL ONE (11:14)
== END 2020-09-16 13:08 | disposition home or self-care (01) ==
LOC: SDC 09:12
PROVIDERS: ATTEND Internal Medicine Gastroenterology
PROC: 0DBH8ZX Excision of Cecum, Via Natural or Artificial Opening Endoscopic, Diagnostic (ICD-10-PCS; principal; 2020-09-16)
PROC: 0DBM8ZX Excision of Descending Colon, Via Natural or Artificial Opening Endoscopic, Diagnostic (ICD-10-PCS; 2020-09-16)
DX: Z08 Encounter for follow-up examination after completed treatment for malignant neoplasm (principal); D12.0 Benign neoplasm of cecum; D12.4 Benign neoplasm of descending colon; K57.30 Diverticulosis of large intestine without perforation or abscess without bleeding; Z85.038 Personal history of other malignant neoplasm of large intestine; Z79.82 Long term (current) use of aspirin; Z79.899 Other long term (current) drug therapy; Z88.1 Allergy status to other antibiotic agents; Z88.2 Allergy status to sulfonamides; Z90.49 Acquired absence of other specified parts of digestive tract; Z93.3 Colostomy status
CPT/HCPCS: 88305; J2704

== ENCOUNTER 2020-11-11 10:15 | Inpatient (IN) | payer MEDICARE ==
[2020-11-15 11:09] VITALS: BMI 41.4
[2020-11-16] MEDS ORDERED: Ketorolac Tromethamine 30 MG/ML VIAL ONE (10:09)
[2020-11-16] MEDS ORDERED: Acetaminophen 500 MG TAB ONE (10:09)
[2020-11-16] MEDS ORDERED: metroNIDAZOLE 500 MG/100 ML BAG ONE ×2 (10:10→16:10)
[2020-11-16] MEDS ORDERED: Aztreonam 2 GM in Sodium Chloride 0.9% 100 ML IVPB SCH ×3 (10:15→18:45)
[2020-11-16] MEDS ORDERED: Lidocaine 2% Jelly 5 ML TUBE ONE (10:16)
[2020-11-16] MEDS ORDERED: Fentanyl 100 MCG/2 ML VIAL ONE ×3 (10:16→18:35)
[2020-11-16] MEDS ORDERED: Bupivacaine 0.25% HCL 30 ML VIAL ONE (10:51)
[2020-11-16] MEDS ORDERED: Lidocaine 1% w/Epinephrine 1:100K 20 ML VIAL ONE (10:51)
[2020-11-16] MEDS ORDERED: Midazolam HCl 2 mg/2 ml Vial ONE (11:08)
[2020-11-16] MEDS ORDERED: Bupivacaine HCl 0.5%/Epinephrine 1:200,000/PF 30 ml Vial ONE (11:26)
[2020-11-16] MEDS ORDERED: Dexamethasone 20 MG/5 ML VIAL ONE (11:50)
[2020-11-16] MEDS ORDERED: ePHEDrine Sulfate 50 MG/10 ML VIAL ONE (11:50)
[2020-11-16] MEDS ORDERED: Lidocaine 1% PF 5 ML VIAL ONE (11:50)
[2020-11-16] MEDS ORDERED: PROPOFOL 200 MG/20 ML VIAL ONE (11:50)
[2020-11-16] MEDS ORDERED: Rocuronium Bromide 10 MG/ML (10ML VIAL) ONE (11:50)
[2020-11-16] MEDS ORDERED: HYDROmorphone 0.5 MG/0.5 ML SYRINGE ONE (17:21)
[2020-11-16] MEDS ORDERED: Promethazine HCl 25 MG/ML VIAL SLOW IVP PRN (18:22)
[2020-11-16] MEDS ORDERED: Promethazine HCl 25 MG/ML VIAL IM PRN ×3 (18:22→18:29)
[2020-11-16] MEDS ORDERED: HYDROmorphone 2 MG/ML VIAL SLOW IVP PRN (18:22)
[2020-11-16] MEDS ORDERED: PACU-Morphine 4MG/ML VIAL SLOW IVP PRN (18:22)
[2020-11-16] MEDS ORDERED: Ondansetron HCl/PF 4 MG/2 ML Vial IVP PRN (18:22)
[2020-11-16] MEDS ORDERED: hydrALAZINE 20 MG/ML VIAL SLOW IVP PRN ×2 (18:25→20:36)
[2020-11-16] MEDS ORDERED: Ondansetron PF 4 MG/2 ML Vial IVP PRN ×2 (18:25→18:29)
[2020-11-16] MEDS ORDERED: Zolpidem Tartrate 5 MG TAB PO PRN (18:29)
[2020-11-16] MEDS ORDERED: Naloxone HCl 0.4 mg/ml Vial IV PRN (18:29)
[2020-11-16] MEDS ORDERED: HYDROmorphone 10 mg/100 ml CADD IVPB PRN (18:29)
[2020-11-16] MEDS ORDERED: diphenhydrAMINE 50 MG/ML VIAL IVP PRN (18:29)
[2020-11-16] MEDS ORDERED: diphenhydrAMINE 50 MG/ML VIAL IM PRN (18:29)
[2020-11-16] MEDS ORDERED: metroNIDAZOLE 500 MG in Premix Bag 1 BAG IVPB SCH (18:30)
[2020-11-16] MEDS ORDERED: Communication Order-Pharmacy FS SCH (18:30)
[2020-11-16] MEDS: D5 1/2 NS w/20 mEq KCL 1,000 ML IV SCH (20:53)
[2020-11-16] MEDS: metroNIDAZOLE 500 MG in Premix Bag 1 BAG IVPB SCH (20:53)
[2020-11-16] MEDS: Famotidine 20 MG TAB PO SCH (20:54)
[2020-11-16] MEDS: Famotidine/PF 20 mg/2ml Vial SLOW IVP SCH (20:54)
[2020-11-17] MEDS: Aztreonam 2 GM in Sodium Chloride 0.9% 100 ML IVPB SCH ×3 (00:06→15:19)
[2020-11-17] MEDS: D5 1/2 NS w/20 mEq KCL 1,000 ML IV SCH ×3 (04:00→20:38)
[2020-11-17] MEDS: metroNIDAZOLE 500 MG in Premix Bag 1 BAG IVPB SCH ×2 (04:02→12:35)
[2020-11-17 05:38] LABS: #Monocytes 1.4 thou/uL (0.11-0.59); #Neutrophils 15.5 thou/uL (1.40-6.50); %Basophils 0.2 % (0.0-1.0); %Eosinophils 0.1 % (0.0-10.0); %Lymphocytes 5.7 % (21.0-51.0); %Neutrophils 86.1 % (42.0-75.0); Mean Corpuscular HGB CONC 33.2 g/dL (32.0-36.0); Mean Corpuscular Hemoglobin 29.9 pg (27.0-31.0); Mean Corpuscular Volume 89.9 fL (78.0-98.0); Mean Platelet Volume 7.6 fL (7.4-10.4); Platelet Count 242 thou/uL (130-400); RBC Distribution Width 14.4 % (11.5-14.5); Red Blood Cell (RBC) Count 4.69 mill/uL (4.70-6.10)
[2020-11-17 05:58] LABS: Anion Gap 14 mmol/L (10-20); BUN (Urea Nitrogen) 11 mg/dL (8.9-20.6); Calc. Creatinine Clearance 206 mL/min (70-130); Calcium 8.2 mg/dL (7.8-10.44); Carbon Dioxide 25 mmol/L (22-29); Chloride 101 mmol/L (98-107); Glucose 133 mg/dL (70-105); Potassium 4.2 mmol/L (3.5-5.1); Sodium 136 mmol/L (136-145)
[2020-11-17] MEDS ORDERED: Sodium Chloride 0.9% 1,000 ML IV SCH (06:45)
[2020-11-17] MEDS: Famotidine/PF 20 mg/2ml Vial SLOW IVP SCH (08:47)
[2020-11-17] MEDS: Enoxaparin Sodium 40 MG/0.4 ML SYRINGE SC SCH (08:47)
[2020-11-17] MEDS: Famotidine 20 MG TAB PO SCH ×2 (11:32→20:50)
[2020-11-17] MEDS ORDERED: Lorazepam 1 MG TAB PO PRN (14:59)
[2020-11-17] MEDS ORDERED: HYDROcodone/Acetaminophen 10/325 mg Tablet PO PRN (15:58)
[2020-11-17] MEDS: HYDROcodone/Acetaminophen 10/325 mg Tablet PO PRN ×2 (16:41→20:26)
[2020-11-17] MEDS ORDERED: Lorazepam 1 MG TAB PO SCH (16:45)
[2020-11-17] MEDS: Lorazepam 1 MG TAB PO SCH (20:37)
[2020-11-17] MEDS: Carvedilol 6.25 MG TAB PO SCH (20:37)
[2020-11-17] MEDS: Atorvastatin Calcium 10 MG TAB PO SCH (20:37)
[2020-11-17] MEDS: diphenhydrAMINE 25 MG CAP PO PRN (20:50)
[2020-11-18] MEDS: HYDROcodone/Acetaminophen 10/325 mg Tablet PO PRN ×6 (00:22→22:04)
[2020-11-18] MEDS: diphenhydrAMINE 25 MG CAP PO PRN ×3 (00:23→08:37)
[2020-11-18] MEDS: Famotidine/PF 20 mg/2ml Vial SLOW IVP SCH ×2 (00:24→08:39)
[2020-11-18] MEDS: D5 1/2 NS w/20 mEq KCL 1,000 ML IV SCH (05:09)
[2020-11-18 05:42] LABS: #Eosinphils 0.1 thou/uL (0.0-0.7); #Lymphocytes 1.7 thou/uL (1.20-3.40); #Monocytes 1.1 thou/uL (0.11-0.59); #Neutrophils 8.2 thou/uL (1.40-6.50); %Basophils 0.2 % (0.0-1.0); %Eosinophils 1.1 % (0.0-10.0); %Lymphocytes 15.3 % (21.0-51.0); %Monocytes 9.8 % (0.0-10.0); %Neutrophils 73.6 % (42.0-75.0); Hemoglobin 12.1 g/dL (14.0-18.0); Mean Corpuscular Hemoglobin 29.6 pg (27.0-31.0); Mean Corpuscular Volume 89.6 fL (78.0-98.0); Mean Platelet Volume 7.1 fL (7.4-10.4); Platelet Count 195 thou/uL (130-400); RBC Distribution Width 14.7 % (11.5-14.5); Red Blood Cell (RBC) Count 4.11 mill/uL (4.70-6.10); White Blood Cell (WBC) Count 11.1 thou/uL (4.8-10.8)
[2020-11-18 06:05] LABS: ALT (SGPT) 15 U/L (8-55); AST (SGOT) 25 U/L (5-34); Albumin 3.3 g/dL (3.5-5.0); Alkaline Phosphatase 54 U/L (40-110); Anion Gap 11 mmol/L (10-20); BUN (Urea Nitrogen) 10 mg/dL (8.9-20.6); Bilirubin, Total 0.9 mg/dL (0.2-1.2); Calc. Creatinine Clearance 215 mL/min (70-130); Calcium 7.6 mg/dL (7.8-10.44); Carbon Dioxide 26 mmol/L (22-29); Chloride 101 mmol/L (98-107); Globulin 2.5 g/dL (2.4-3.5); Glucose 126 mg/dL (70-105); Potassium 3.9 mmol/L (3.5-5.1); Protein, Total 5.8 g/dL (6.0-8.3); Sodium 134 mmol/L (136-145)
[2020-11-18] MEDS: Famotidine 20 MG TAB PO SCH (08:36)
[2020-11-18] MEDS: FLUoxetine HCl 20 MG CAP PO SCH (08:37)
[2020-11-18] MEDS: Lorazepam 1 MG TAB PO SCH ×3 (08:37→20:08)
[2020-11-18] MEDS: Loratadine 10 MG TAB PO SCH (08:37)
[2020-11-18] MEDS: Aspirin 81 mg Enteric Coated Tablet PO SCH (08:37)
[2020-11-18] MEDS: Potassium Chloride 10 MEQ TAB PO SCH (08:37)
[2020-11-18] MEDS: Carvedilol 6.25 MG TAB PO SCH ×2 (08:38→20:08)
[2020-11-18] MEDS: Furosemide 40 MG TAB PO SCH (08:39)
[2020-11-18] MEDS ORDERED: Ibuprofen 200 MG TAB PO PRN (09:56)
[2020-11-18] MEDS ORDERED: hydrOXYzine 25 MG TAB PO PRN (09:56)
[2020-11-18] MEDS: Enoxaparin Sodium 40 MG/0.4 ML SYRINGE SC SCH (10:56)
[2020-11-18] MEDS: Hydrochlorothiazide 25 MG TAB PO SCH (11:00)
[2020-11-18] MEDS ORDERED: methylPREDNISolone Sod Succ/PF 125 MG/2 ML VIAL IVP SCH (13:00)
[2020-11-18] MEDS ORDERED: diphenhydrAMINE 50 MG in Sodium Chloride 0.9% 50 ML IVPB SCH (13:00)
[2020-11-18] MEDS: Methocarbamol 500 MG TAB PO PRN ×2 (13:58→22:06)
[2020-11-18] MEDS ORDERED: hydrOXYzine 25 MG TAB PO SCH (14:00)
[2020-11-18] MEDS: Ferrous Sulfate 325 MG TAB PO SCH (17:50)
[2020-11-18] MEDS: hydrOXYzine 25 MG TAB PO SCH (19:58)
[2020-11-18] MEDS: methylPREDNISolone Sod Succ 40 MG VIAL IVP SCH (20:09)
[2020-11-18] MEDS: Atorvastatin Calcium 10 MG TAB PO SCH (20:09)
[2020-11-18] MEDS ORDERED: Montelukast Sodium 10 mg Tablet PO SCH (21:00)
[2020-11-19] MEDS: hydrOXYzine 25 MG TAB PO SCH ×2 (05:02→12:12)
[2020-11-19] MEDS: Methocarbamol 500 MG TAB PO PRN ×2 (05:03→16:02)
[2020-11-19] MEDS: HYDROcodone/Acetaminophen 10/325 mg Tablet PO PRN ×3 (05:06→16:01)
[2020-11-19] MEDS ORDERED: Multivit, Therapeutic 1 TAB PO SCH (09:00)
[2020-11-19] MEDS: Carvedilol 6.25 MG TAB PO SCH (09:41)
[2020-11-19] MEDS: FLUoxetine HCl 20 MG CAP PO SCH (09:42)
[2020-11-19] MEDS: Aspirin 81 mg Enteric Coated Tablet PO SCH (09:42)
[2020-11-19] MEDS: Ferrous Sulfate 325 MG TAB PO SCH (09:43)
[2020-11-19] MEDS: Hydrochlorothiazide 25 MG TAB PO SCH (09:43)
[2020-11-19] MEDS: Lorazepam 1 MG TAB PO SCH ×2 (09:43→16:01)
[2020-11-19] MEDS: Potassium Chloride 10 MEQ TAB PO SCH (09:43)
[2020-11-19] MEDS: Furosemide 40 MG TAB PO SCH (09:43)
[2020-11-19] MEDS: Loratadine 10 MG TAB PO SCH (09:43)
[2020-11-19] MEDS: Enoxaparin Sodium 40 MG/0.4 ML SYRINGE SC SCH (09:43)
[2020-11-19] MEDS: methylPREDNISolone Sod Succ 40 MG VIAL IVP SCH ×2 (09:44→16:19)
[2020-11-19] MEDS ORDERED: Acetaminophen 500 MG TAB PO PRN (15:57)
[2020-11-19 16:08] VITALS: BP 145/78; TEMP 97.8
[2020-11-20] MEDS ORDERED: predniSONE 50 MG TAB PO SCH (08:00)
== END 2020-11-19 17:38 | disposition home or self-care (01) | DRG 331 ==
LOC: SURG A 11-16 09:18 → SURG B 11-16 19:37
PROVIDERS: ADMIT Surgery; ATTEND Surgery
PROC: 0DQM0ZZ Repair Descending Colon, Open Approach (ICD-10-PCS; principal; 2020-11-16)
PROC: 0D1B0Z4 Bypass Ileum to Cutaneous, Open Approach (ICD-10-PCS; 2020-11-16)
DX: Z43.3 Encounter for attention to colostomy (principal); M19.90 Unspecified osteoarthritis, unspecified site; I10 Essential (primary) hypertension; K66.0 Peritoneal adhesions (postprocedural) (postinfection); E78.5 Hyperlipidemia, unspecified; M41.9 Scoliosis, unspecified; L50.9 Urticaria, unspecified; R21 Rash and other nonspecific skin eruption; Z85.038 Personal history of other malignant neoplasm of large intestine; Z79.82 Long term (current) use of aspirin; Z79.899 Other long term (current) drug therapy; Z88.2 Allergy status to sulfonamides; Z88.8 Allergy status to other drugs, medicaments and biological substances; Z88.1 Allergy status to other antibiotic agents; Z90.49 Acquired absence of other specified parts of digestive tract
CPT/HCPCS: 36415; 80048; 80053; 85025; J1100; J1170; J1200; J1650; J1885; J2250; J2405; J2704; J2920; J2930; J3010; J3480; J3490; Q0163; S0020; S0028

== ENCOUNTER 2020-11-11 10:15 | Outpatient (CLI) | payer MEDICARE ==
[2020-11-11 11:24] LABS: #Basophils 0.1 10x3/uL (0.0-0.2); #Eosinphils 0.2 10x3/uL (0.0-0.5); #Monocytes 0.8 10x3/uL (0.0-1.1); #Neutrophils 7.2 10x3/uL (1.5-8.4); %Basophils 0.6 % (0.0-2.0); %Eosinophils 2.3 % (0.0-6.0); %Lymphocytes 15.7 % (18.0-47.0); Hemoglobin 14.4 g/dL (13.5-17.5); Mean Corpuscular HGB CONC 32.9 g/dL (32.0-36.0); Mean Corpuscular Hemoglobin 28.3 pg (27.0-33.0); Mean Corpuscular Volume 86.1 fl (81.2-95.1); Mean Platelet Volume 9.6 fl (7.4-10.4); Platelet Count 235 10x3/uL (150-450); RBC Distribution Width 15.3 % (11.5-14.5); Red Blood Cell (RBC) Count 5.09 10x6/uL (4.32-5.72); White Blood Cell (WBC) Count 9.9 10x3/uL (3.5-10.5)
[2020-11-11 11:46] LABS: Anion Gap 17 mmol/L (10-20); BUN (Urea Nitrogen) 6 mg/dL (8.9-20.6); Calc. Creatinine Clearance 0 mL/min (70-130); Calcium 9.8 mg/dL (7.8-10.44); Carbon Dioxide 26 mmol/L (22-29); Chloride 102 mmol/L (98-107); Glucose 118 mg/dL (70-105); Potassium 4.3 mmol/L (3.5-5.1); Sodium 141 mmol/L (136-145)
[2020-11-11 14:20] LABS: Hemoglobin A1c 4.9 % (4.0-6.0)
[2020-11-11 17:57] LABS: SARS-CoV-2 PCR by NAA Not Detected (NotDetected)
== END 2020-11-11 10:16 | disposition home or self-care (01) ==
LOC: LABBT 10:15
PROVIDERS: ATTEND Surgery
DX: Z01.818 Encounter for other preprocedural examination (principal); Z93.3 Colostomy status; Z20.822 Contact with and (suspected) exposure to COVID-19
CPT/HCPCS: 80048; 83036; 85025; 93005; U0003; U0005; 87635; 93010

== ENCOUNTER 2020-11-27 15:56 | Inpatient (IN) | payer MEDICARE ==
[2020-11-27 17:33] LABS: Hemoglobin 14.7 g/dL (14.0-18.0); Mean Corpuscular HGB CONC 33.9 g/dL (32.0-36.0); Mean Corpuscular Hemoglobin 29.8 pg (27.0-31.0); Mean Corpuscular Volume 87.9 fL (78.0-98.0); Mean Platelet Volume 7.2 fL (7.4-10.4); Platelet Count 363 thou/uL (130-400); RBC Distribution Width 13.9 % (11.5-14.5); Red Blood Cell (RBC) Count 4.92 mill/uL (4.70-6.10); White Blood Cell (WBC) Count 22.7 thou/uL (4.8-10.8)
[2020-11-27 17:52] LABS: ALT (SGPT) 27 U/L (8-55); AST (SGOT) 15 U/L (5-34); Alkaline Phosphatase 96 U/L (40-110); Anion Gap 13 mmol/L (10-20); BUN (Urea Nitrogen) 12 mg/dL (8.4-25.7); Bilirubin, Total 0.6 mg/dL (0.2-1.2); Calc. Creatinine Clearance 0 mL/min (70-130); Calcium 9.7 mg/dL (7.8-10.44); Carbon Dioxide 28 mmol/L (22-29); Chloride 99 mmol/L (98-107); Globulin 3.3 g/dL (2.4-3.5); Glucose 100 mg/dL (70-105); Potassium 3.4 mmol/L (3.5-5.1); Protein, Total 7.3 g/dL (6.0-8.3); Sodium 137 mmol/L (136-145)
[2020-11-27 18:00] LABS: Band 8 % (5-11); Eosinophils 3 % (0-10); Lymphocytes 9 % (21-51); MDiff Complete? YES; Monocytes 8 % (0-10); Neutrophil 68 % (42-75); Platelet Morphology Comment Appears Adequate; RBC Morphology Normal; Reactive Lymphocytes 4 % (0-10)
[2020-11-27] MEDS ORDERED: Vancomycin 1 GM/200 ML BAG ONE (18:39)
[2020-11-27 19:25] LABS: Bilirubin Negative (Negative); Blood, Urine Negative (Negative); Clarity Clear (Clear); Glucose, Urine (Dipstick) Negative (Negative); Ketone, Urine Negative (Negative); Leukocyte Negative (Negative); Nitrite Negative (Negative); Protein, Urine (Dipstick) Negative (Neg-Trace); Specific Gravity, Urine 1.015 (1.005-1.030); Urobilinogen 0.2 mg/dL (Less than 2); pH, Urine 6.5 (5.0-9.0)
[2020-11-27] MEDS ORDERED: hydrOXYzine 25 MG TAB ONE (19:59)
[2020-11-27] MEDS ORDERED: HYDROcodone/Acetaminophen 5/325 mg Tablet ONE ×2 (20:35→21:02)
[2020-11-27] MEDS ORDERED: Methocarbamol 1 GM/10 ML VIAL SLOW IVP SCH (20:45)
[2020-11-27] MEDS ORDERED: Acetaminophen 325 MG TAB PO PRN (21:45)
[2020-11-27] MEDS ORDERED: Ondansetron ODT 4 MG TAB SL PRN (21:45)
[2020-11-27] MEDS ORDERED: Ondansetron PF 4 MG/2 ML Vial IVP PRN ×2 (21:45→21:54)
[2020-11-27 21:51] VITALS: BMI 42.6
[2020-11-27] MEDS ORDERED: Promethazine HCl 25 MG/ML VIAL IM PRN (21:54)
[2020-11-27] MEDS ORDERED: Dextrose 50% Abboject 50 ML SYRINGE SLOW IVP PRN (21:54)
[2020-11-27] MEDS ORDERED: Dextrose 5% in Water 1,000 ML IV PRN (21:54)
[2020-11-27] MEDS ORDERED: hydrALAZINE 20 MG/ML VIAL SLOW IVP PRN (21:54)
[2020-11-27] MEDS ORDERED: Famotidine/PF 20 mg/2ml Vial SLOW IVP SCH (22:00)
[2020-11-27] MEDS ORDERED: Famotidine 20 MG TAB PO SCH (22:00)
[2020-11-27] MEDS ORDERED: Enoxaparin Sodium 40 MG/0.4 ML SYRINGE SC SCH (22:00)
[2020-11-27] MEDS: metroNIDAZOLE 500 MG in Premix Bag 1 BAG IVPB SCH (22:52)
[2020-11-27] MEDS: Sodium Chloride 0.9% 1,000 ML IV SCH (22:52)
[2020-11-28 00:01] LABS: SARS-CoV-2 NAA Rapid Test Not Detected (NotDetected)
[2020-11-28] MEDS: HYDROcodone/Acetaminophen 10/325 mg Tablet PO PRN ×4 (03:34→18:15)
[2020-11-28] MEDS: metroNIDAZOLE 500 MG in Premix Bag 1 BAG IVPB SCH ×3 (05:21→22:29)
[2020-11-28] MEDS: Morphine 2 MG/ML VIAL SLOW IVP PRN (05:34)
[2020-11-28 05:38] LABS: #Basophils 0.1 thou/uL (0.0-0.2); #Eosinphils 0.2 thou/uL (0.0-0.7); #Lymphocytes 2.1 thou/uL (1.20-3.40); #Monocytes 1.5 thou/uL (0.11-0.59); #Neutrophils 11.2 thou/uL (1.40-6.50); %Basophils 0.4 % (0.0-1.0); %Eosinophils 1.5 % (0.0-10.0); %Lymphocytes 14.1 % (21.0-51.0); %Monocytes 9.9 % (0.0-10.0); %Neutrophils 74.2 % (42.0-75.0); Hemoglobin 12.4 g/dL (14.0-18.0); Mean Corpuscular HGB CONC 33.4 g/dL (32.0-36.0); Mean Corpuscular Hemoglobin 29.6 pg (27.0-31.0); Mean Corpuscular Volume 88.7 fL (78.0-98.0); Mean Platelet Volume 7.4 fL (7.4-10.4); Platelet Count 265 thou/uL (130-400); RBC Distribution Width 13.9 % (11.5-14.5); Red Blood Cell (RBC) Count 4.17 mill/uL (4.70-6.10); White Blood Cell (WBC) Count 15.1 thou/uL (4.8-10.8)
[2020-11-28 06:07] LABS: Anion Gap 13 mmol/L (10-20); BUN (Urea Nitrogen) 10 mg/dL (8.4-25.7); Calc. Creatinine Clearance 235 mL/min (70-130); Calcium 8.5 mg/dL (7.8-10.44); Carbon Dioxide 25 mmol/L (22-29); Chloride 105 mmol/L (98-107); Glucose 104 mg/dL (70-105); Potassium 3.7 mmol/L (3.5-5.1); Sodium 139 mmol/L (136-145)
[2020-11-28] MEDS: Famotidine/PF 20 mg/2ml Vial SLOW IVP SCH ×2 (08:55→21:07)
[2020-11-28] MEDS: Famotidine 20 MG TAB PO SCH ×2 (08:55→21:06)
[2020-11-28] MEDS: Sodium Chloride 0.9% 1,000 ML IV SCH ×2 (09:28→22:28)
[2020-11-28] MEDS: Morphine 4 MG/ML VIAL SLOW IVP PRN ×2 (10:48→13:03)
[2020-11-28] MEDS ORDERED: hydrOXYzine 25 MG TAB PO PRN ×2 (12:30→15:26)
[2020-11-28] MEDS ORDERED: Aspirin 81 mg Enteric Coated Tablet PO PRN (15:22)
[2020-11-28] MEDS ORDERED: diphenhydrAMINE 25 MG CAP PO PRN (15:24)
[2020-11-28] MEDS: Lorazepam 1 MG TAB PO SCH ×2 (15:44→21:05)
[2020-11-28] MEDS: Methocarbamol 500 MG TAB PO SCH ×2 (17:03→21:06)
[2020-11-28] MEDS: Ferrous Sulfate 325 MG TAB PO SCH (17:03)
[2020-11-28] MEDS: Enoxaparin Sodium 40 MG/0.4 ML SYRINGE SC SCH (21:05)
[2020-11-28] MEDS: HYDROcodone/Acetaminophen 10/325 mg Tablet PO SCH (21:06)
[2020-11-28] MEDS: Carvedilol 6.25 MG TAB PO SCH (21:06)
[2020-11-29] MEDS: HYDROcodone/Acetaminophen 10/325 mg Tablet PO PRN ×3 (01:04→16:57)
[2020-11-29 05:24] LABS: #Basophils 0.1 thou/uL (0.0-0.2); #Eosinphils 0.3 thou/uL (0.0-0.7); #Lymphocytes 1.7 thou/uL (1.20-3.40); #Monocytes 1.5 thou/uL (0.11-0.59); #Neutrophils 9.7 thou/uL (1.40-6.50); %Basophils 0.4 % (0.0-1.0); %Eosinophils 2.1 % (0.0-10.0); %Lymphocytes 13.1 % (21.0-51.0); %Monocytes 11.1 % (0.0-10.0); %Neutrophils 73.3 % (42.0-75.0); Hemoglobin 11.2 g/dL (14.0-18.0); Mean Corpuscular HGB CONC 34.1 g/dL (32.0-36.0); Mean Corpuscular Hemoglobin 30.4 pg (27.0-31.0); Mean Corpuscular Volume 89.2 fL (78.0-98.0); Mean Platelet Volume 7.5 fL (7.4-10.4); Platelet Count 240 thou/uL (130-400); RBC Distribution Width 13.9 % (11.5-14.5); Red Blood Cell (RBC) Count 3.68 mill/uL (4.70-6.10); White Blood Cell (WBC) Count 13.3 thou/uL (4.8-10.8)
[2020-11-29] MEDS: Morphine 4 MG/ML VIAL SLOW IVP PRN (05:26)
[2020-11-29] MEDS: metroNIDAZOLE 500 MG in Premix Bag 1 BAG IVPB SCH ×3 (05:26→21:39)
[2020-11-29] MEDS: Sodium Chloride 0.9% 1,000 ML IV SCH ×3 (05:27→21:39)
[2020-11-29] MEDS: Atorvastatin Calcium 10 MG TAB PO SCH (08:42)
[2020-11-29] MEDS: Multivit, Therapeutic 1 TAB PO SCH (08:42)
[2020-11-29] MEDS: Potassium Chloride 10 MEQ TAB PO SCH (08:42)
[2020-11-29] MEDS: FLUoxetine HCl 20 MG CAP PO SCH (08:42)
[2020-11-29] MEDS: Methocarbamol 500 MG TAB PO SCH ×3 (08:42→20:25)
[2020-11-29] MEDS: Loratadine 10 MG TAB PO SCH (08:42)
[2020-11-29] MEDS: Famotidine 20 MG TAB PO SCH ×2 (08:42→20:26)
[2020-11-29] MEDS: Furosemide 40 MG TAB PO SCH (08:42)
[2020-11-29] MEDS: Ferrous Sulfate 325 MG TAB PO SCH ×2 (08:42→16:54)
[2020-11-29] MEDS: Famotidine/PF 20 mg/2ml Vial SLOW IVP SCH ×2 (08:43→21:25)
[2020-11-29] MEDS: HYDROcodone/Acetaminophen 10/325 mg Tablet PO SCH ×3 (08:47→20:25)
[2020-11-29] MEDS: Lorazepam 1 MG TAB PO SCH ×3 (08:47→20:26)
[2020-11-29] MEDS: Carvedilol 6.25 MG TAB PO SCH ×2 (11:31→20:25)
[2020-11-29] MEDS: Hydrochlorothiazide 25 MG TAB PO SCH (11:31)
[2020-11-29] MEDS: Enoxaparin Sodium 40 MG/0.4 ML SYRINGE SC SCH (20:25)
[2020-11-30] MEDS: HYDROcodone/Acetaminophen 10/325 mg Tablet PO PRN ×3 (00:44→15:09)
[2020-11-30] MEDS: metroNIDAZOLE 500 MG in Premix Bag 1 BAG IVPB SCH ×3 (05:30→21:38)
[2020-11-30] MEDS: Lorazepam 1 MG TAB PO SCH ×3 (08:36→20:33)
[2020-11-30] MEDS: Hydrochlorothiazide 25 MG TAB PO SCH (08:36)
[2020-11-30] MEDS: Multivit, Therapeutic 1 TAB PO SCH (08:36)
[2020-11-30] MEDS: Ferrous Sulfate 325 MG TAB PO SCH ×2 (08:36→16:58)
[2020-11-30] MEDS: Loratadine 10 MG TAB PO SCH (08:37)
[2020-11-30] MEDS: Famotidine 20 MG TAB PO SCH ×2 (08:37→20:33)
[2020-11-30] MEDS: Furosemide 40 MG TAB PO SCH (08:37)
[2020-11-30] MEDS: FLUoxetine HCl 20 MG CAP PO SCH (08:37)
[2020-11-30] MEDS: Carvedilol 6.25 MG TAB PO SCH ×2 (08:37→20:33)
[2020-11-30] MEDS: Famotidine/PF 20 mg/2ml Vial SLOW IVP SCH ×2 (08:37→20:45)
[2020-11-30] MEDS: Atorvastatin Calcium 10 MG TAB PO SCH (08:38)
[2020-11-30] MEDS: Potassium Chloride 10 MEQ TAB PO SCH (08:38)
[2020-11-30] MEDS: HYDROcodone/Acetaminophen 10/325 mg Tablet PO SCH ×3 (08:38→20:33)
[2020-11-30] MEDS: Methocarbamol 500 MG TAB PO SCH ×3 (08:44→20:33)
[2020-11-30] MEDS: Morphine 4 MG/ML VIAL SLOW IVP PRN (14:00)
[2020-11-30] MEDS: Sodium Chloride 0.9% 1,000 ML IV SCH ×2 (16:30→20:32)
[2020-11-30] MEDS: Enoxaparin Sodium 40 MG/0.4 ML SYRINGE SC SCH (20:33)
[2020-12-01] MEDS: HYDROcodone/Acetaminophen 10/325 mg Tablet PO PRN ×2 (00:39→04:07)
[2020-12-01 06:04] LABS: #Eosinphils 0.3 thou/uL (0.0-0.7); #Lymphocytes 1.5 thou/uL (1.20-3.40); #Monocytes 1.2 thou/uL (0.11-0.59); #Neutrophils 7.5 thou/uL (1.40-6.50); %Basophils 0.4 % (0.0-1.0); %Eosinophils 3.2 % (0.0-10.0); %Lymphocytes 14.1 % (21.0-51.0); %Monocytes 11.2 % (0.0-10.0); %Neutrophils 71.1 % (42.0-75.0); Mean Corpuscular HGB CONC 34.1 g/dL (32.0-36.0); Mean Corpuscular Hemoglobin 30.6 pg (27.0-31.0); Mean Corpuscular Volume 89.8 fL (78.0-98.0); Mean Platelet Volume 7.4 fL (7.4-10.4); Platelet Count 226 thou/uL (130-400); RBC Distribution Width 13.7 % (11.5-14.5); Red Blood Cell (RBC) Count 3.59 mill/uL (4.70-6.10); White Blood Cell (WBC) Count 10.5 thou/uL (4.8-10.8)
[2020-12-01] MEDS: metroNIDAZOLE 500 MG in Premix Bag 1 BAG IVPB SCH (06:09)
[2020-12-01 06:23] LABS: ALT (SGPT) 17 U/L (8-55); AST (SGOT) 17 U/L (5-34); Albumin 3.1 g/dL (3.5-5.0); Alkaline Phosphatase 72 U/L (40-110); Anion Gap 10 mmol/L (10-20); BUN (Urea Nitrogen) 6 mg/dL (8.4-25.7); Bilirubin, Total 0.3 mg/dL (0.2-1.2); Calc. Creatinine Clearance 255 mL/min (70-130); Calcium 8.8 mg/dL (7.8-10.44); Carbon Dioxide 25 mmol/L (22-29); Chloride 109 mmol/L (98-107); Globulin 2.6 g/dL (2.4-3.5); Glucose 96 mg/dL (70-105); Protein, Total 5.7 g/dL (6.0-8.3); Sodium 140 mmol/L (136-145)
[2020-12-01] MEDS: Carvedilol 6.25 MG TAB PO SCH (08:43)
[2020-12-01] MEDS: Ferrous Sulfate 325 MG TAB PO SCH (08:44)
[2020-12-01] MEDS: FLUoxetine HCl 20 MG CAP PO SCH (08:44)
[2020-12-01] MEDS: Furosemide 40 MG TAB PO SCH (08:44)
[2020-12-01] MEDS: Famotidine 20 MG TAB PO SCH (08:44)
[2020-12-01] MEDS: Atorvastatin Calcium 10 MG TAB PO SCH (08:44)
[2020-12-01] MEDS: Potassium Chloride 10 MEQ TAB PO SCH (08:44)
[2020-12-01] MEDS: Multivit, Therapeutic 1 TAB PO SCH (08:44)
[2020-12-01] MEDS: HYDROcodone/Acetaminophen 10/325 mg Tablet PO SCH (08:45)
[2020-12-01] MEDS: Lorazepam 1 MG TAB PO SCH (08:45)
[2020-12-01] MEDS: Loratadine 10 MG TAB PO SCH (08:45)
[2020-12-01] MEDS: Methocarbamol 500 MG TAB PO SCH (08:45)
[2020-12-01] MEDS: Hydrochlorothiazide 25 MG TAB PO SCH (08:45)
[2020-12-01 12:05] VITALS: BP 113/72; TEMP 99
[2020-12-01] MEDS: Morphine 2 MG/ML VIAL SLOW IVP PRN (13:09)
[2020-12-01] MEDS ORDERED: metroNIDAZOLE 500 MG TAB PO SCH (15:00)
== END 2020-12-01 13:59 | disposition home health service (06) | DRG 920 ==
LOC: ERS 15:56 → SURG A 20:06 → INTOOBSV 20:06 → OBSVTOIN 11-29 18:20
PROVIDERS: ADMIT Surgery; ATTEND Surgery
DX: K91.840 Postprocedural hemorrhage of a digestive system organ or structure following a digestive system procedure (principal); Z68.41 Body mass index [BMI] 40.0-44.9, adult; E66.01 Morbid (severe) obesity due to excess calories; I10 Essential (primary) hypertension; E78.00 Pure hypercholesterolemia, unspecified; M19.90 Unspecified osteoarthritis, unspecified site; Z96.643 Presence of artificial hip joint, bilateral; Z20.822 Contact with and (suspected) exposure to COVID-19; Z90.89 Acquired absence of other organs; Z90.49 Acquired absence of other specified parts of digestive tract; Z85.038 Personal history of other malignant neoplasm of large intestine
CPT/HCPCS: 36415; 71045; 74177; 80048; 80053; 81003; 83605; 85025; 87040; 87070; 87077; 87086; 87186; 87205; 96365; 96375; J1650; J1956; J2270; J2800; J3370; Q9967; S0028; U0002; U0005

== ENCOUNTER 2020-12-11 14:46 | Inpatient (IN) | payer MEDICARE ==
[2020-12-11 16:15] LABS: #Basophils 0.1 thou/uL (0.0-0.2); #Eosinphils 0.4 thou/uL (0.0-0.7); #Lymphocytes 2.4 thou/uL (1.20-3.40); %Basophils 0.5 % (0.0-1.0); %Eosinophils 4.4 % (0.0-10.0); %Monocytes 10.3 % (0.0-10.0); %Neutrophils 60.8 % (42.0-75.0); Hemoglobin 12.9 g/dL (14.0-18.0); Mean Corpuscular HGB CONC 34.1 g/dL (32.0-36.0); Mean Corpuscular Hemoglobin 29.6 pg (27.0-31.0); Mean Corpuscular Volume 86.7 fL (78.0-98.0); Mean Platelet Volume 7.5 fL (7.4-10.4); Platelet Count 258 thou/uL (130-400); RBC Distribution Width 12.9 % (11.5-14.5); Red Blood Cell (RBC) Count 4.37 mill/uL (4.70-6.10); White Blood Cell (WBC) Count 9.8 thou/uL (4.8-10.8)
[2020-12-11 16:36] LABS: Bilirubin Negative (Negative); Blood, Urine Negative (Negative); Clarity Clear (Clear); Glucose, Urine (Dipstick) Normal (Negative); Ketone, Urine Negative (Negative); Leukocyte Negative Leu/uL (Negative); Nitrite Negative (Negative); Protein, Urine (Dipstick) Negative (Neg-Trace); Urobilinogen Normal mg/dL (Less than 2); pH, Urine 6.5 (5.0-9.0)
[2020-12-11 16:37] LABS: ALT (SGPT) 22 U/L (8-55); AST (SGOT) 23 U/L (5-34); Alkaline Phosphatase 82 U/L (40-110); Anion Gap 14 mmol/L (10-20); BUN (Urea Nitrogen) 7 mg/dL (8.4-25.7); Bilirubin, Total 0.5 mg/dL (0.2-1.2); Calc. Creatinine Clearance 0 mL/min (70-130); Calcium 9.3 mg/dL (7.8-10.44); Carbon Dioxide 27 mmol/L (22-29); Chloride 99 mmol/L (98-107); Globulin 3.2 g/dL (2.4-3.5); Glucose 85 mg/dL (70-105); Protein, Total 7.2 g/dL (6.0-8.3); Sodium 137 mmol/L (136-145)
[2020-12-11 16:45] LABS: Potassium 2.9 mmol/L (3.5-5.1)
[2020-12-11] MEDS ORDERED: Piperacillin/Tazobactam 3.375 GM VIAL ONE (17:28)
[2020-12-11] MEDS ORDERED: diphenhydrAMINE 25 MG CAP PO PRN (20:53)
[2020-12-11] MEDS: Piperacillin/Tazobactam 3.375 GM in Sodium Chloride 0.9% 100 ML IVPB SCH (22:07)
[2020-12-11] MEDS: D5 1/2 NS w/20 mEq KCL 1,000 ML IV SCH (22:07)
[2020-12-11] MEDS: Atorvastatin Calcium 10 MG TAB PO SCH (22:07)
[2020-12-11] MEDS: Carvedilol 6.25 MG TAB PO SCH (22:08)
[2020-12-11] MEDS: Lorazepam 1 MG TAB PO SCH (22:08)
[2020-12-11] MEDS: HYDROcodone/Acetaminophen 10/325 mg Tablet PO SCH (22:09)
[2020-12-11] MEDS: Methocarbamol 500 MG TAB PO SCH (22:09)
[2020-12-11] MEDS ORDERED: Piperacillin/Tazobactam 3.375 GM in Sodium Chloride 0.9% 100 ML IVPB SCH (23:59)
[2020-12-12] MEDS: HYDROcodone/Acetaminophen 10/325 mg Tablet PO PRN ×2 (03:14→12:40)
[2020-12-12] MEDS: D5 1/2 NS w/20 mEq KCL 1,000 ML IV SCH ×2 (03:15→14:30)
[2020-12-12] MEDS: Piperacillin/Tazobactam 3.375 GM in Sodium Chloride 0.9% 100 ML IVPB SCH ×4 (03:17→20:55)
[2020-12-12 06:06] VITALS: BMI 41.1
[2020-12-12] MEDS ORDERED: Ferrous Sulfate 325 MG TAB PO SCH (08:00)
[2020-12-12] MEDS: Lorazepam 1 MG TAB PO SCH ×3 (08:07→20:56)
[2020-12-12] MEDS: Potassium Chloride 10 MEQ TAB PO SCH (08:08)
[2020-12-12] MEDS: Carvedilol 6.25 MG TAB PO SCH ×2 (08:08→20:55)
[2020-12-12] MEDS: FLUoxetine HCl 20 MG CAP PO SCH (08:08)
[2020-12-12] MEDS: Furosemide 40 MG TAB PO SCH (08:09)
[2020-12-12] MEDS: Atorvastatin Calcium 10 MG TAB PO SCH ×2 (08:09→20:57)
[2020-12-12] MEDS: Loratadine 10 MG TAB PO SCH (08:10)
[2020-12-12] MEDS: Hydrochlorothiazide 25 MG TAB PO SCH (08:10)
[2020-12-12] MEDS: HYDROcodone/Acetaminophen 10/325 mg Tablet PO SCH ×3 (08:10→20:56)
[2020-12-12] MEDS: Multivitamin W/ Minerals 1 TAB PO SCH (08:10)
[2020-12-12] MEDS: Methocarbamol 500 MG TAB PO SCH ×3 (08:10→20:56)
[2020-12-12] MEDS: hydrOXYzine 25 MG TAB PO PRN (08:14)
[2020-12-12 11:01] LABS: #Eosinphils 0.5 thou/uL (0.0-0.7); #Lymphocytes 1.6 thou/uL (1.20-3.40); #Monocytes 0.9 thou/uL (0.11-0.59); #Neutrophils 4.2 thou/uL (1.40-6.50); %Basophils 0.4 % (0.0-1.0); %Eosinophils 6.9 % (0.0-10.0); %Lymphocytes 21.9 % (21.0-51.0); %Neutrophils 58.9 % (42.0-75.0); Hemoglobin 11.9 g/dL (14.0-18.0); Mean Corpuscular HGB CONC 35.9 g/dL (32.0-36.0); Mean Corpuscular Volume 86.3 fL (78.0-98.0); Mean Platelet Volume 7.7 fL (7.4-10.4); Platelet Count 217 thou/uL (130-400); RBC Distribution Width 12.9 % (11.5-14.5); Red Blood Cell (RBC) Count 3.83 mill/uL (4.70-6.10); White Blood Cell (WBC) Count 7.1 thou/uL (4.8-10.8)
[2020-12-12 11:20] LABS: Anion Gap 11 mmol/L (10-20); BUN (Urea Nitrogen) 5 mg/dL (8.4-25.7); Calc. Creatinine Clearance 219 mL/min (70-130); Calcium 8.9 mg/dL (7.8-10.44); Carbon Dioxide 26 mmol/L (22-29); Chloride 105 mmol/L (98-107); Glucose 103 mg/dL (70-105); Potassium 3.1 mmol/L (3.5-5.1); Sodium 139 mmol/L (136-145)
[2020-12-12] MEDS ORDERED: metroNIDAZOLE 500 MG in Premix Bag 1 BAG IVPB SCH (14:00)
[2020-12-12] MEDS ORDERED: Magnesium Citrate 300 ML BOT PO SCH (15:30)
[2020-12-13] MEDS: HYDROcodone/Acetaminophen 10/325 mg Tablet PO PRN (00:01)
[2020-12-13] MEDS: hydrOXYzine 25 MG TAB PO PRN (00:01)
[2020-12-13] MEDS: D5 1/2 NS w/20 mEq KCL 1,000 ML IV SCH ×3 (00:02→14:33)
[2020-12-13] MEDS: Piperacillin/Tazobactam 3.375 GM in Sodium Chloride 0.9% 100 ML IVPB SCH ×4 (03:27→20:26)
[2020-12-13 05:45] LABS: #Basophils 0.1 thou/uL (0.0-0.2); #Eosinphils 0.6 thou/uL (0.0-0.7); #Monocytes 0.8 thou/uL (0.11-0.59); #Neutrophils 3.9 thou/uL (1.40-6.50); %Basophils 0.9 % (0.0-1.0); %Eosinophils 8.5 % (0.0-10.0); %Lymphocytes 27.2 % (21.0-51.0); %Monocytes 10.5 % (0.0-10.0); Hemoglobin 12.1 g/dL (14.0-18.0); Mean Corpuscular Hemoglobin 30.6 pg (27.0-31.0); Mean Corpuscular Volume 87.4 fL (78.0-98.0); Mean Platelet Volume 7.6 fL (7.4-10.4); Platelet Count 207 thou/uL (130-400); RBC Distribution Width 12.8 % (11.5-14.5); Red Blood Cell (RBC) Count 3.96 mill/uL (4.70-6.10); White Blood Cell (WBC) Count 7.4 thou/uL (4.8-10.8)
[2020-12-13] MEDS ORDERED: Piperacillin/Tazobactam 3.375 GM VIAL ONE (08:27)
[2020-12-13] MEDS ORDERED: Sodium Chloride 0.9% 100 ML ONE (08:27)
[2020-12-13] MEDS ORDERED: PROPOFOL 200 MG/20 ML VIAL ONE (08:56)
[2020-12-13] MEDS: FLUoxetine HCl 20 MG CAP PO SCH (10:29)
[2020-12-13] MEDS: Lorazepam 1 MG TAB PO SCH ×3 (10:29→20:23)
[2020-12-13] MEDS: Methocarbamol 500 MG TAB PO SCH ×3 (10:29→20:23)
[2020-12-13] MEDS: Hydrochlorothiazide 25 MG TAB PO SCH (10:30)
[2020-12-13] MEDS: Furosemide 40 MG TAB PO SCH (10:30)
[2020-12-13] MEDS: Multivitamin W/ Minerals 1 TAB PO SCH (10:30)
[2020-12-13] MEDS: Atorvastatin Calcium 10 MG TAB PO SCH ×2 (10:30→20:24)
[2020-12-13] MEDS: Carvedilol 6.25 MG TAB PO SCH ×2 (10:30→22:13)
[2020-12-13] MEDS: HYDROcodone/Acetaminophen 10/325 mg Tablet PO SCH ×3 (10:31→20:25)
[2020-12-13] MEDS: Potassium Chloride 10 MEQ TAB PO SCH (10:31)
[2020-12-13] MEDS: Loratadine 10 MG TAB PO SCH (10:31)
[2020-12-13] MEDS: Potassium Chloride 20 MEQ TAB PO SCH (15:58)
[2020-12-14] MEDS: HYDROcodone/Acetaminophen 10/325 mg Tablet PO PRN ×3 (00:08→12:35)
[2020-12-14] MEDS: D5 1/2 NS w/20 mEq KCL 1,000 ML IV SCH ×2 (00:08→09:55)
[2020-12-14] MEDS: Piperacillin/Tazobactam 3.375 GM in Sodium Chloride 0.9% 100 ML IVPB SCH (03:45)
[2020-12-14] MEDS: hydrOXYzine 25 MG TAB PO PRN (05:13)
[2020-12-14 06:07] LABS: #Basophils 0.1 thou/uL (0.0-0.2); #Eosinphils 0.6 thou/uL (0.0-0.7); #Lymphocytes 2.2 thou/uL (1.20-3.40); #Monocytes 0.9 thou/uL (0.11-0.59); %Basophils 0.7 % (0.0-1.0); %Eosinophils 7.9 % (0.0-10.0); %Lymphocytes 28.5 % (21.0-51.0); %Monocytes 11.4 % (0.0-10.0); %Neutrophils 51.4 % (42.0-75.0); Hemoglobin 11.5 g/dL (14.0-18.0); Mean Corpuscular HGB CONC 33.2 g/dL (32.0-36.0); Mean Corpuscular Hemoglobin 29.5 pg (27.0-31.0); Mean Corpuscular Volume 88.8 fL (78.0-98.0); Mean Platelet Volume 7.5 fL (7.4-10.4); Platelet Count 241 thou/uL (130-400); RBC Distribution Width 12.9 % (11.5-14.5); Red Blood Cell (RBC) Count 3.88 mill/uL (4.70-6.10); White Blood Cell (WBC) Count 7.7 thou/uL (4.8-10.8)
[2020-12-14 06:17] LABS: Anion Gap 6 mmol/L (10-20); BUN (Urea Nitrogen) 5 mg/dL (8.4-25.7); Calc. Creatinine Clearance 216 mL/min (70-130); Calcium 8.7 mg/dL (7.8-10.44); Carbon Dioxide 31 mmol/L (22-29); Chloride 106 mmol/L (98-107); Glucose 104 mg/dL (70-105); Potassium 3.8 mmol/L (3.5-5.1); Sodium 139 mmol/L (136-145)
[2020-12-14] MEDS: Potassium Chloride 20 MEQ TAB PO SCH (07:41)
[2020-12-14] MEDS: Multivitamin W/ Minerals 1 TAB PO SCH (07:41)
[2020-12-14] MEDS: Hydrochlorothiazide 25 MG TAB PO SCH (07:44)
[2020-12-14] MEDS: Lorazepam 1 MG TAB PO SCH (07:44)
[2020-12-14] MEDS: Loratadine 10 MG TAB PO SCH (07:45)
[2020-12-14] MEDS: FLUoxetine HCl 20 MG CAP PO SCH (07:45)
[2020-12-14] MEDS: HYDROcodone/Acetaminophen 10/325 mg Tablet PO SCH (07:45)
[2020-12-14] MEDS: Carvedilol 6.25 MG TAB PO SCH (07:45)
[2020-12-14] MEDS: Furosemide 40 MG TAB PO SCH (07:45)
[2020-12-14] MEDS ORDERED: Piperacillin/Tazobactam 3.375 GM in Sodium Chloride 0.9% 100 ML IVPB SCH (09:00)
[2020-12-14] MEDS: Methocarbamol 500 MG TAB PO SCH (09:55)
[2020-12-14 12:33] VITALS: BP 103/69; TEMP 97.8
== END 2020-12-14 12:45 | disposition home health service (06) | DRG 394 ==
LOC: ERS 14:46 → SURG A 17:32 → OBSVTOIN 12-13 13:46
PROVIDERS: ADMIT Surgery; ATTEND Surgery
PROC: 0DBB8ZX Excision of Ileum, Via Natural or Artificial Opening Endoscopic, Diagnostic (ICD-10-PCS; principal; 2020-12-13)
DX: K94.11 Enterostomy hemorrhage (principal); Z68.41 Body mass index [BMI] 40.0-44.9, adult; L02.211 Cutaneous abscess of abdominal wall; K57.10 Diverticulosis of small intestine without perforation or abscess without bleeding; E66.01 Morbid (severe) obesity due to excess calories; E78.5 Hyperlipidemia, unspecified; I10 Essential (primary) hypertension; R19.09 Other intra-abdominal and pelvic swelling, mass and lump; Z96.643 Presence of artificial hip joint, bilateral; Y83.3 Surgical operation with formation of external stoma as the cause of abnormal reaction of the patient, or of later complication, without mention of misadventure at the time of the procedure; Z90.89 Acquired absence of other organs; Z90.49 Acquired absence of other specified parts of digestive tract; Z79.899 Other long term (current) drug therapy; Z79.82 Long term (current) use of aspirin; Z85.038 Personal history of other malignant neoplasm of large intestine
CPT/HCPCS: 36415; 74177; 80048; 80053; 81003; 83605; 85025; 87040; 88305; 88341; 88342; 88360; 96365; 96366; 96376; G0378; J2543; J2704; J3480; J3490; Q9967

== ENCOUNTER 2021-01-11 12:47 | Outpatient (CLI) | payer MEDICARE | END 2021-01-11 12:48 | disposition home or self-care (01) | LOC: NM 12:47 | PROVIDERS: ATTEND Surgery | DX: D3A.019 Benign carcinoid tumor of the small intestine, unspecified portion (principal) | CPT/HCPCS: 78802; 78803; A4641; A9572 ==

== ENCOUNTER 2021-02-07 10:45 | Inpatient (IN) | payer MEDICARE ==
[2021-02-10] MEDS ORDERED: Fentanyl 100 MCG/2 ML VIAL ONE ×3 (06:19→15:15)
[2021-02-10] MEDS ORDERED: Phenylephrine 10 MG/ML VIAL ONE (06:19)
[2021-02-10] MEDS ORDERED: SUGAMMADEX SODIUM 500 MG/5 ML VIAL ONE (06:19)
[2021-02-10] MEDS ORDERED: Famotidine/PF 20 mg/2ml Vial ONE (06:19)
[2021-02-10] MEDS ORDERED: HYDROmorphone 0.5 MG/0.5 ML SYRINGE ONE (06:19)
[2021-02-10] MEDS ORDERED: Ketorolac Tromethamine 30 MG/ML VIAL ONE ×2 (06:24→13:39)
[2021-02-10] MEDS ORDERED: cefOXitin Sodium/Dextrose 2 GM/50 ML BAG ONE (06:24)
[2021-02-10] MEDS ORDERED: Acetaminophen 500 MG TAB ONE (06:24)
[2021-02-10] MEDS ORDERED: PROPOFOL 200 MG/20 ML VIAL ONE (07:53)
[2021-02-10] MEDS ORDERED: Rocuronium Bromide 10 MG/ML (10ML VIAL) ONE ×2 (07:53→08:59)
[2021-02-10] MEDS ORDERED: Lidocaine 1% PF 5 ML VIAL ONE (07:53)
[2021-02-10] MEDS ORDERED: Aztreonam 2 GM in Sodium Chloride 0.9% 100 ML IVPB SCH (08:15)
[2021-02-10] MEDS ORDERED: metroNIDAZOLE 500 MG in Premix Bag 1 BAG IVPB SCH (08:15)
[2021-02-10] MEDS ORDERED: metroNIDAZOLE 500 MG/100 ML BAG ONE (08:36)
[2021-02-10] MEDS ORDERED: Dexamethasone 20 MG/5 ML VIAL ONE (08:59)
[2021-02-10] MEDS ORDERED: PHENYLEPHRINE-NS 100 MCG/ML 10 ML SYRINGE ONE (08:59)
[2021-02-10] MEDS ORDERED: Vecuronium 10 MG VIAL ONE (08:59)
[2021-02-10] MEDS ORDERED: Lidocaine 1% w/Epinephrine 1:100K 20 ML VIAL ONE (08:59)
[2021-02-10] MEDS ORDERED: Ondansetron PF 4 MG/2 ML Vial ONE (08:59)
[2021-02-10] MEDS ORDERED: Bupivacaine 0.25% HCL 30 ML VIAL ONE (08:59)
[2021-02-10] MEDS ORDERED: Albumin 5% 500 ML ONE (09:29)
[2021-02-10] MEDS ORDERED: Promethazine HCl 25 MG/ML VIAL IM PRN ×2 (12:30→13:25)
[2021-02-10] MEDS ORDERED: Ondansetron HCl/PF 4 MG/2 ML Vial IVP PRN (12:30)
[2021-02-10] MEDS ORDERED: Promethazine HCl 25 MG/ML VIAL IVPB PRN (12:30)
[2021-02-10] MEDS ORDERED: Ondansetron PF 4 MG/2 ML Vial IVP PRN (13:25)
[2021-02-10] MEDS ORDERED: Morphine 2 MG/ML VIAL SLOW IVP PRN (13:25)
[2021-02-10] MEDS ORDERED: hydrALAZINE 20 MG/ML VIAL SLOW IVP PRN (13:25)
[2021-02-10] MEDS ORDERED: HYDROcodone/Acetaminophen 10/325 mg Tablet PO PRN (13:29)
[2021-02-10] MEDS ORDERED: D5 1/2 NS w/20 mEq KCL 1,000 ML ONE (13:55)
[2021-02-10] MEDS ORDERED: Ketorolac Tromethamine 30 MG/ML VIAL IVP PRN (14:00)
[2021-02-10 16:56] VITALS: BMI 43.1
[2021-02-10] MEDS: Morphine 4 MG/ML VIAL SLOW IVP PRN (17:22)
[2021-02-10] MEDS: metroNIDAZOLE 500 MG in Premix Bag 1 BAG IVPB SCH ×2 (17:23→21:52)
[2021-02-10] MEDS: Lorazepam 1 MG TAB PO SCH ×2 (17:55→20:21)
[2021-02-10] MEDS: Methocarbamol 500 MG TAB PO SCH ×2 (17:55→20:27)
[2021-02-10] MEDS: D5 1/2 NS w/20 mEq KCL 1,000 ML IV SCH ×2 (18:53→18:55)
[2021-02-10] MEDS: Aztreonam 2 GM in Sodium Chloride 0.9% 100 ML IVPB SCH (18:54)
[2021-02-10] MEDS: Ketorolac Tromethamine 30 MG/ML VIAL IVP SCH (20:15)
[2021-02-10] MEDS: Atorvastatin Calcium 10 MG TAB PO SCH (20:18)
[2021-02-10] MEDS: Carvedilol 6.25 MG TAB PO SCH (20:19)
[2021-02-10] MEDS: Famotidine/PF 20 mg/2ml Vial SLOW IVP SCH (20:20)
[2021-02-10] MEDS: Famotidine 20 MG TAB PO SCH (20:27)
[2021-02-10] MEDS: HYDROcodone/Acetaminophen 10/325 mg Tablet PO PRN (20:31)
[2021-02-11] MEDS: HYDROcodone/Acetaminophen 10/325 mg Tablet PO PRN ×7 (00:30→23:42)
[2021-02-11] MEDS: Aztreonam 2 GM in Sodium Chloride 0.9% 100 ML IVPB SCH ×2 (01:58→18:24)
[2021-02-11] MEDS: Ketorolac Tromethamine 30 MG/ML VIAL IVP SCH ×4 (01:59→20:00)
[2021-02-11] MEDS: D5 1/2 NS w/20 mEq KCL 1,000 ML IV SCH ×2 (02:02→18:23)
[2021-02-11] MEDS: metroNIDAZOLE 500 MG in Premix Bag 1 BAG IVPB SCH (04:26)
[2021-02-11 05:07] LABS: #Monocytes 0.9 thou/uL (0.11-0.59); #Neutrophils 11.9 thou/uL (1.40-6.50); %Basophils 0.1 % (0.0-1.0); %Eosinophils 0.1 % (0.0-10.0); %Lymphocytes 7.3 % (21.0-51.0); %Monocytes 6.4 % (0.0-10.0); %Neutrophils 86.1 % (42.0-75.0); Hemoglobin 12.9 g/dL (14.0-18.0); Mean Corpuscular HGB CONC 33.7 g/dL (32.0-36.0); Mean Corpuscular Hemoglobin 30.3 pg (27.0-31.0); Mean Corpuscular Volume 89.9 fL (78.0-98.0); Mean Platelet Volume 7.5 fL (7.4-10.4); Platelet Count 187 thou/uL (130-400); RBC Distribution Width 13.5 % (11.5-14.5); Red Blood Cell (RBC) Count 4.25 mill/uL (4.70-6.10); White Blood Cell (WBC) Count 13.8 thou/uL (4.8-10.8)
[2021-02-11 05:27] LABS: Anion Gap 13 mmol/L (10-20); BUN (Urea Nitrogen) 10 mg/dL (8.4-25.7); Calc. Creatinine Clearance 178 mL/min (70-130); Calcium 8.2 mg/dL (7.8-10.44); Carbon Dioxide 23 mmol/L (22-29); Chloride 103 mmol/L (98-107); Glucose 110 mg/dL (70-105); Sodium 135 mmol/L (136-145)
[2021-02-11] MEDS: FLUoxetine HCl 20 MG CAP PO SCH (08:31)
[2021-02-11] MEDS: Hydrochlorothiazide 25 MG TAB PO SCH (08:31)
[2021-02-11] MEDS: Famotidine 20 MG TAB PO SCH ×2 (08:32→21:15)
[2021-02-11] MEDS: Furosemide 40 MG TAB PO SCH (08:32)
[2021-02-11] MEDS: Loratadine 10 MG TAB PO SCH (08:32)
[2021-02-11] MEDS: Lorazepam 1 MG TAB PO SCH ×3 (08:32→20:06)
[2021-02-11] MEDS: Carvedilol 6.25 MG TAB PO SCH ×2 (08:32→20:04)
[2021-02-11] MEDS: Potassium Chloride 10 MEQ TAB PO SCH (08:32)
[2021-02-11] MEDS: Methocarbamol 500 MG TAB PO SCH ×3 (08:33→20:29)
[2021-02-11] MEDS: Enoxaparin Sodium 40 MG/0.4 ML SYRINGE SC SCH (08:33)
[2021-02-11] MEDS: Famotidine/PF 20 mg/2ml Vial SLOW IVP SCH ×2 (08:33→20:04)
[2021-02-11] MEDS ORDERED: Aztreonam 2 GM in Sodium Chloride 0.9% 100 ML IVPB SCH (12:00)
[2021-02-11] MEDS ORDERED: Acetaminophen 325 MG TAB PO PRN (13:27)
[2021-02-11] MEDS: Morphine 4 MG/ML VIAL SLOW IVP PRN (13:32)
[2021-02-11] MEDS: hydrOXYzine 25 MG TAB PO PRN ×2 (17:01→23:42)
[2021-02-11] MEDS: Atorvastatin Calcium 10 MG TAB PO SCH (20:04)
[2021-02-12] MEDS: Ketorolac Tromethamine 30 MG/ML VIAL IVP SCH ×4 (01:54→20:06)
[2021-02-12] MEDS: D5 1/2 NS w/20 mEq KCL 1,000 ML IV SCH (01:55)
[2021-02-12] MEDS: HYDROcodone/Acetaminophen 10/325 mg Tablet PO PRN ×4 (04:13→16:47)
[2021-02-12] MEDS ORDERED: Furosemide 20 MG/2 ML VIAL SLOW IVP SCH (08:15)
[2021-02-12] MEDS: Hydrochlorothiazide 25 MG TAB PO SCH (08:22)
[2021-02-12] MEDS: Loratadine 10 MG TAB PO SCH (08:22)
[2021-02-12] MEDS: Lorazepam 1 MG TAB PO SCH ×3 (08:22→22:59)
[2021-02-12] MEDS: Carvedilol 6.25 MG TAB PO SCH ×2 (08:22→23:04)
[2021-02-12] MEDS: FLUoxetine HCl 20 MG CAP PO SCH (08:23)
[2021-02-12] MEDS: Famotidine 20 MG TAB PO SCH ×2 (08:23→21:59)
[2021-02-12] MEDS: Potassium Chloride 10 MEQ TAB PO SCH (08:23)
[2021-02-12] MEDS: Furosemide 40 MG TAB PO SCH (08:23)
[2021-02-12] MEDS: Famotidine/PF 20 mg/2ml Vial SLOW IVP SCH ×2 (08:41→20:10)
[2021-02-12] MEDS: Enoxaparin Sodium 40 MG/0.4 ML SYRINGE SC SCH (08:41)
[2021-02-12] MEDS: Methocarbamol 500 MG TAB PO SCH ×3 (08:44→23:00)
[2021-02-12] MEDS: hydrOXYzine 25 MG TAB PO PRN ×2 (12:55→22:59)
[2021-02-12] MEDS: Atorvastatin Calcium 10 MG TAB PO SCH (20:09)
[2021-02-13] MEDS: Ketorolac Tromethamine 30 MG/ML VIAL IVP SCH ×2 (01:55→08:17)
[2021-02-13] MEDS: HYDROcodone/Acetaminophen 10/325 mg Tablet PO PRN ×5 (05:42→22:03)
[2021-02-13 05:53] LABS: #Eosinphils 0.4 thou/uL (0.0-0.7); #Lymphocytes 1.2 thou/uL (1.20-3.40); #Monocytes 0.8 thou/uL (0.11-0.59); #Neutrophils 8.2 thou/uL (1.40-6.50); %Basophils 0.4 % (0.0-1.0); %Eosinophils 4.1 % (0.0-10.0); %Lymphocytes 10.8 % (21.0-51.0); %Monocytes 7.1 % (0.0-10.0); %Neutrophils 77.5 % (42.0-75.0); Hemoglobin 10.9 g/dL (14.0-18.0); Mean Corpuscular Hemoglobin 32.4 pg (27.0-31.0); Mean Corpuscular Volume 92.6 fL (78.0-98.0); Mean Platelet Volume 7.8 fL (7.4-10.4); Platelet Count 165 thou/uL (130-400); RBC Distribution Width 13.4 % (11.5-14.5); Red Blood Cell (RBC) Count 3.36 mill/uL (4.70-6.10); White Blood Cell (WBC) Count 10.6 thou/uL (4.8-10.8)
[2021-02-13 06:11] LABS: Anion Gap 12 mmol/L (10-20); BUN (Urea Nitrogen) 26 mg/dL (8.4-25.7); Calc. Creatinine Clearance 96 mL/min (70-130); Carbon Dioxide 25 mmol/L (22-29); Chloride 105 mmol/L (98-107); Glucose 118 mg/dL (70-105); Potassium 3.5 mmol/L (3.5-5.1); Sodium 138 mmol/L (136-145)
[2021-02-13] MEDS: Loratadine 10 MG TAB PO SCH (10:03)
[2021-02-13] MEDS: Carvedilol 6.25 MG TAB PO SCH ×2 (10:04→22:03)
[2021-02-13] MEDS: Lorazepam 1 MG TAB PO SCH ×3 (10:04→22:03)
[2021-02-13] MEDS: Potassium Chloride 10 MEQ TAB PO SCH (10:04)
[2021-02-13] MEDS: FLUoxetine HCl 20 MG CAP PO SCH (10:04)
[2021-02-13] MEDS: Famotidine 20 MG TAB PO SCH ×2 (10:05→22:03)
[2021-02-13] MEDS: Methocarbamol 500 MG TAB PO SCH ×3 (10:05→22:03)
[2021-02-13] MEDS: Famotidine/PF 20 mg/2ml Vial SLOW IVP SCH ×2 (10:05→22:07)
[2021-02-13] MEDS: Furosemide 40 MG TAB PO SCH (10:08)
[2021-02-13] MEDS: Hydrochlorothiazide 25 MG TAB PO SCH (10:08)
[2021-02-13] MEDS: Enoxaparin Sodium 40 MG/0.4 ML SYRINGE SC SCH (10:15)
[2021-02-13] MEDS: hydrOXYzine 25 MG TAB PO PRN (14:07)
[2021-02-13] MEDS: Atorvastatin Calcium 10 MG TAB PO SCH (22:03)
[2021-02-14] MEDS: HYDROcodone/Acetaminophen 10/325 mg Tablet PO PRN ×4 (05:51→21:03)
[2021-02-14] MEDS: Famotidine/PF 20 mg/2ml Vial SLOW IVP SCH ×2 (08:49→21:44)
[2021-02-14] MEDS: Enoxaparin Sodium 40 MG/0.4 ML SYRINGE SC SCH (08:54)
[2021-02-14] MEDS: Loratadine 10 MG TAB PO SCH (08:55)
[2021-02-14] MEDS: Potassium Chloride 10 MEQ TAB PO SCH (08:55)
[2021-02-14] MEDS: Methocarbamol 500 MG TAB PO SCH ×3 (08:55→19:56)
[2021-02-14] MEDS: Lorazepam 1 MG TAB PO SCH ×3 (08:55→19:56)
[2021-02-14] MEDS: Hydrochlorothiazide 25 MG TAB PO SCH (08:55)
[2021-02-14] MEDS: Furosemide 40 MG TAB PO SCH (08:55)
[2021-02-14] MEDS: Carvedilol 6.25 MG TAB PO SCH ×2 (08:55→19:55)
[2021-02-14] MEDS: FLUoxetine HCl 20 MG CAP PO SCH (08:55)
[2021-02-14] MEDS: Famotidine 20 MG TAB PO SCH ×3 (08:56→19:57)
[2021-02-14 09:27] LABS: #Eosinphils 0.3 thou/uL (0.0-0.7); #Lymphocytes 1.5 thou/uL (1.20-3.40); #Neutrophils 6.7 thou/uL (1.40-6.50); %Basophils 0.1 % (0.0-1.0); %Lymphocytes 15.8 % (21.0-51.0); %Monocytes 10.1 % (0.0-10.0); Mean Corpuscular HGB CONC 35.2 g/dL (32.0-36.0); Mean Corpuscular Hemoglobin 32.4 pg (27.0-31.0); Mean Corpuscular Volume 92.1 fL (78.0-98.0); Mean Platelet Volume 7.1 fL (7.4-10.4); Platelet Count 199 thou/uL (130-400); RBC Distribution Width 13.5 % (11.5-14.5); White Blood Cell (WBC) Count 9.4 thou/uL (4.8-10.8)
[2021-02-14 10:12] LABS: Anion Gap 11 mmol/L (10-20); BUN (Urea Nitrogen) 11 mg/dL (8.4-25.7); Calc. Creatinine Clearance 218 mL/min (70-130); Calcium 8.4 mg/dL (7.8-10.44); Carbon Dioxide 27 mmol/L (22-29); Chloride 105 mmol/L (98-107); Glucose 124 mg/dL (70-105); Sodium 140 mmol/L (136-145)
[2021-02-14] MEDS ORDERED: Docusate 100 MG CAP PO PRN (17:00)
[2021-02-14] MEDS ORDERED: Potassium Chloride 20 MEQ TAB PO SCH (17:00)
[2021-02-14] MEDS: Atorvastatin Calcium 10 MG TAB PO SCH (19:55)
[2021-02-15] MEDS: HYDROcodone/Acetaminophen 10/325 mg Tablet PO PRN ×6 (01:02→23:37)
[2021-02-15 06:23] LABS: Anion Gap 12 mmol/L (10-20); BUN (Urea Nitrogen) 8 mg/dL (8.4-25.7); Calc. Creatinine Clearance 229 mL/min (70-130); Calcium 8.9 mg/dL (7.8-10.44); Carbon Dioxide 30 mmol/L (22-29); Chloride 101 mmol/L (98-107); Glucose 94 mg/dL (70-105); Potassium 3.2 mmol/L (3.5-5.1); Sodium 140 mmol/L (136-145)
[2021-02-15] MEDS: Furosemide 40 MG TAB PO SCH (09:08)
[2021-02-15] MEDS: Methocarbamol 500 MG TAB PO SCH ×3 (09:08→20:32)
[2021-02-15] MEDS: Hydrochlorothiazide 25 MG TAB PO SCH (09:08)
[2021-02-15] MEDS: Potassium Chloride 10 MEQ TAB PO SCH (09:08)
[2021-02-15] MEDS: Lorazepam 1 MG TAB PO SCH ×3 (09:09→20:26)
[2021-02-15] MEDS: FLUoxetine HCl 20 MG CAP PO SCH (09:09)
[2021-02-15] MEDS: Carvedilol 6.25 MG TAB PO SCH ×2 (09:09→20:27)
[2021-02-15] MEDS: Loratadine 10 MG TAB PO SCH (09:10)
[2021-02-15] MEDS: hydrOXYzine 25 MG TAB PO PRN ×2 (09:12→20:26)
[2021-02-15] MEDS: Famotidine/PF 20 mg/2ml Vial SLOW IVP SCH (13:36)
[2021-02-15] MEDS: Enoxaparin Sodium 40 MG/0.4 ML SYRINGE SC SCH (14:56)
[2021-02-15] MEDS: Potassium Chloride 20 MEQ TAB PO SCH ×2 (14:56→17:39)
[2021-02-15] MEDS ORDERED: Potassium Chloride 20 MEQ TAB PO SCH (17:00)
[2021-02-15] MEDS: Atorvastatin Calcium 10 MG TAB PO SCH (20:26)
[2021-02-15] MEDS: Famotidine 20 MG TAB PO SCH (20:26)
[2021-02-15] MEDS: Morphine 4 MG/ML VIAL SLOW IVP PRN (20:27)
[2021-02-16] MEDS: Famotidine/PF 20 mg/2ml Vial SLOW IVP SCH ×3 (01:54→21:06)
[2021-02-16] MEDS: Potassium Chloride 10 MEQ TAB PO SCH (09:07)
[2021-02-16] MEDS: FLUoxetine HCl 20 MG CAP PO SCH (09:07)
[2021-02-16] MEDS: Carvedilol 6.25 MG TAB PO SCH ×2 (09:08→20:25)
[2021-02-16] MEDS: Potassium Chloride 20 MEQ TAB PO SCH (09:08)
[2021-02-16] MEDS: Furosemide 40 MG TAB PO SCH (09:09)
[2021-02-16] MEDS: Hydrochlorothiazide 25 MG TAB PO SCH (09:09)
[2021-02-16] MEDS: Lorazepam 1 MG TAB PO SCH ×3 (09:09→20:25)
[2021-02-16] MEDS: Enoxaparin Sodium 40 MG/0.4 ML SYRINGE SC SCH (10:11)
[2021-02-16] MEDS: Loratadine 10 MG TAB PO SCH (10:12)
[2021-02-16] MEDS: Famotidine 20 MG TAB PO SCH ×2 (10:12→20:26)
[2021-02-16] MEDS: Methocarbamol 500 MG TAB PO SCH ×3 (10:33→20:24)
[2021-02-16] MEDS: HYDROcodone/Acetaminophen 10/325 mg Tablet PO PRN ×3 (10:34→20:26)
[2021-02-16] MEDS ORDERED: Bupivacaine 0.25% HCL 30 ML VIAL ONE (11:37)
[2021-02-16] MEDS ORDERED: EPINEPHrine 1 MG/ML AMP ONE (11:38)
[2021-02-16] MEDS ORDERED: Fentanyl 100 MCG/2 ML VIAL ONE ×2 (11:40→14:18)
[2021-02-16] MEDS ORDERED: Ondansetron PF 4 MG/2 ML Vial ONE (12:23)
[2021-02-16] MEDS ORDERED: PHENYLEPHRINE-NS 100 MCG/ML 10 ML SYRINGE ONE (12:23)
[2021-02-16] MEDS ORDERED: Glycopyrrolate 0.2 MG/ML 5 ML SYRINGE ONE (12:23)
[2021-02-16] MEDS ORDERED: Rocuronium Bromide 10 MG/ML (10ML VIAL) ONE (12:23)
[2021-02-16] MEDS ORDERED: PROPOFOL 200 MG/20 ML VIAL ONE (12:23)
[2021-02-16] MEDS ORDERED: Dexamethasone 20 MG/5 ML VIAL ONE (12:23)
[2021-02-16] MEDS ORDERED: Lidocaine 1% PF 5 ML VIAL ONE (12:23)
[2021-02-16] MEDS ORDERED: PACU-Morphine 4MG/ML VIAL SLOW IVP PRN (12:47)
[2021-02-16] MEDS ORDERED: Ondansetron HCl/PF 4 MG/2 ML Vial IVP PRN (12:47)
[2021-02-16] MEDS ORDERED: Promethazine HCl 25 MG/ML VIAL IM PRN (12:47)
[2021-02-16] MEDS ORDERED: Meperidine HCl/PF 25 MG/ML VIAL SLOW IVP PRN (12:47)
[2021-02-16] MEDS ORDERED: Promethazine HCl 25 MG/ML VIAL IVPB PRN (12:47)
[2021-02-16] MEDS: Aztreonam 2 GM in Sodium Chloride 0.9% 100 ML IVPB SCH (14:47)
[2021-02-16] MEDS: hydrOXYzine 25 MG TAB PO PRN ×2 (15:33→20:29)
[2021-02-16] MEDS ORDERED: Docusate 100 MG CAP PO SCH (17:17)
[2021-02-16] MEDS: Clindamycin 150 MG CAP PO SCH (20:24)
[2021-02-16] MEDS: Atorvastatin Calcium 10 MG TAB PO SCH (20:25)
[2021-02-17] MEDS: Aztreonam 2 GM in Sodium Chloride 0.9% 100 ML IVPB SCH ×2 (00:21→11:46)
[2021-02-17] MEDS: HYDROcodone/Acetaminophen 10/325 mg Tablet PO PRN ×5 (00:21→17:44)
[2021-02-17] MEDS: Clindamycin 150 MG CAP PO SCH ×3 (04:28→20:39)
[2021-02-17] MEDS: FLUoxetine HCl 20 MG CAP PO SCH (08:47)
[2021-02-17] MEDS: Famotidine 20 MG TAB PO SCH ×2 (08:47→20:40)
[2021-02-17] MEDS: Methocarbamol 500 MG TAB PO SCH ×3 (08:47→20:39)
[2021-02-17] MEDS: Saccharomyces boulardii 250 MG CAP PO SCH (08:47)
[2021-02-17] MEDS: Enoxaparin Sodium 40 MG/0.4 ML SYRINGE SC SCH (08:47)
[2021-02-17] MEDS: Potassium Chloride 10 MEQ TAB PO SCH (08:48)
[2021-02-17] MEDS: Furosemide 40 MG TAB PO SCH (08:48)
[2021-02-17] MEDS: hydrOXYzine 25 MG TAB PO PRN ×2 (08:48→17:47)
[2021-02-17] MEDS: Lorazepam 1 MG TAB PO SCH ×3 (08:50→20:40)
[2021-02-17] MEDS: Famotidine/PF 20 mg/2ml Vial SLOW IVP SCH ×2 (08:51→20:40)
[2021-02-17] MEDS: Hydrochlorothiazide 25 MG TAB PO SCH (08:51)
[2021-02-17] MEDS: Carvedilol 6.25 MG TAB PO SCH ×2 (08:51→20:39)
[2021-02-17] MEDS: Polyethylene Glycol 3350 17 GM Packet PO SCH (08:52)
[2021-02-17] MEDS: Loratadine 10 MG TAB PO SCH (08:52)
[2021-02-17] MEDS: diphenhydrAMINE 25 MG CAP PO PRN (11:44)
[2021-02-17] MEDS: Atorvastatin Calcium 10 MG TAB PO SCH (20:40)
[2021-02-18] MEDS: hydrOXYzine 25 MG TAB PO PRN ×2 (00:01→08:29)
[2021-02-18] MEDS: Aztreonam 2 GM in Sodium Chloride 0.9% 100 ML IVPB SCH ×2 (00:01→12:49)
[2021-02-18] MEDS: HYDROcodone/Acetaminophen 10/325 mg Tablet PO PRN ×3 (00:03→12:50)
[2021-02-18] MEDS: Clindamycin 150 MG CAP PO SCH ×2 (04:21→12:50)
[2021-02-18] MEDS: diphenhydrAMINE 25 MG CAP PO PRN ×2 (04:23→13:01)
[2021-02-18 06:29] LABS: #Eosinphils 0.1 thou/uL (0.0-0.7); #Lymphocytes 2.2 thou/uL (1.20-3.40); #Monocytes 1.8 thou/uL (0.11-0.59); #Neutrophils 9.9 thou/uL (1.40-6.50); %Basophils 0.1 % (0.0-1.0); %Eosinophils 0.5 % (0.0-10.0); %Lymphocytes 15.7 % (21.0-51.0); %Monocytes 12.6 % (0.0-10.0); %Neutrophils 71.1 % (42.0-75.0); Hemoglobin 11.2 g/dL (14.0-18.0); Mean Corpuscular HGB CONC 34.7 g/dL (32.0-36.0); Mean Corpuscular Hemoglobin 31.7 pg (27.0-31.0); Mean Corpuscular Volume 91.4 fL (78.0-98.0); Mean Platelet Volume 6.9 fL (7.4-10.4); Platelet Count 328 thou/uL (130-400); RBC Distribution Width 12.9 % (11.5-14.5); Red Blood Cell (RBC) Count 3.52 mill/uL (4.70-6.10); White Blood Cell (WBC) Count 13.9 thou/uL (4.8-10.8)
[2021-02-18 06:44] LABS: Anion Gap 14 mmol/L (10-20); BUN (Urea Nitrogen) 10 mg/dL (8.4-25.7); Calc. Creatinine Clearance 244 mL/min (70-130); Calcium 8.8 mg/dL (7.8-10.44); Carbon Dioxide 29 mmol/L (22-29); Chloride 99 mmol/L (98-107); Glucose 116 mg/dL (70-105); Potassium 3.7 mmol/L (3.5-5.1); Sodium 138 mmol/L (136-145)
[2021-02-18] MEDS: Carvedilol 6.25 MG TAB PO SCH (08:26)
[2021-02-18] MEDS: FLUoxetine HCl 20 MG CAP PO SCH (08:26)
[2021-02-18] MEDS: Saccharomyces boulardii 250 MG CAP PO SCH (08:26)
[2021-02-18] MEDS: Loratadine 10 MG TAB PO SCH (08:26)
[2021-02-18] MEDS: Hydrochlorothiazide 25 MG TAB PO SCH (08:26)
[2021-02-18] MEDS: Famotidine 20 MG TAB PO SCH (08:27)
[2021-02-18] MEDS: Potassium Chloride 10 MEQ TAB PO SCH (08:27)
[2021-02-18] MEDS: Furosemide 40 MG TAB PO SCH (08:28)
[2021-02-18] MEDS: Methocarbamol 500 MG TAB PO SCH ×2 (08:29→15:51)
[2021-02-18] MEDS: Lorazepam 1 MG TAB PO SCH ×2 (08:29→15:46)
[2021-02-18] MEDS: Polyethylene Glycol 3350 17 GM Packet PO SCH (08:30)
[2021-02-18] MEDS: Famotidine/PF 20 mg/2ml Vial SLOW IVP SCH (08:31)
[2021-02-18] MEDS: Enoxaparin Sodium 40 MG/0.4 ML SYRINGE SC SCH (08:43)
[2021-02-18] MEDS: Morphine 4 MG/ML VIAL SLOW IVP PRN (10:38)
[2021-02-18 15:34] VITALS: BP 111/72; TEMP 98.1
== END 2021-02-18 16:02 | disposition home health service (06) | DRG 330 ==
LOC: SURG A 02-10 06:03 → EDSTATUS 02-10 10:45 → SURG A 02-10 16:29
PROVIDERS: ADMIT Internal Medicine Gastroenterology; ATTEND Internal Medicine Gastroenterology
PROC: 0DBB0ZZ Excision of Ileum, Open Approach (ICD-10-PCS; principal; 2021-02-10)
PROC: 0DB80ZZ Excision of Small Intestine, Open Approach (ICD-10-PCS; 2021-02-10)
PROC: 0DB38ZX Excision of Lower Esophagus, Via Natural or Artificial Opening Endoscopic, Diagnostic (ICD-10-PCS; 2021-02-10)
PROC: 0DJD8ZZ Inspection of Lower Intestinal Tract, Via Natural or Artificial Opening Endoscopic (ICD-10-PCS; 2021-02-10)
PROC: 3E0G8GC Introduction of Other Therapeutic Substance into Upper GI, Via Natural or Artificial Opening Endoscopic (ICD-10-PCS; 2021-02-10)
PROC: 0JQ80ZZ Repair Abdomen Subcutaneous Tissue and Fascia, Open Approach (ICD-10-PCS; 2021-02-16)
DX: Z43.2 Encounter for attention to ileostomy (principal); Z68.41 Body mass index [BMI] 40.0-44.9, adult; T81.31XA Disruption of external operation (surgical) wound, not elsewhere classified, initial encounter; D3A.012 Benign carcinoid tumor of the ileum; F41.9 Anxiety disorder, unspecified; M19.90 Unspecified osteoarthritis, unspecified site; J45.909 Unspecified asthma, uncomplicated; F32.9 Major depressive disorder, single episode, unspecified; E78.00 Pure hypercholesterolemia, unspecified; G47.30 Sleep apnea, unspecified; K44.9 Diaphragmatic hernia without obstruction or gangrene; Z96.643 Presence of artificial hip joint, bilateral; K64.8 Other hemorrhoids; M41.9 Scoliosis, unspecified; K57.10 Diverticulosis of small intestine without perforation or abscess without bleeding; E66.01 Morbid (severe) obesity due to excess calories; K21.00 Gastro-esophageal reflux disease with esophagitis, without bleeding; Z20.822 Contact with and (suspected) exposure to COVID-19; Y83.8 Other surgical procedures as the cause of abnormal reaction of the patient, or of later complication, without mention of misadventure at the time of the procedure; Z85.038 Personal history of other malignant neoplasm of large intestine; Z79.82 Long term (current) use of aspirin; Z95.5 Presence of coronary angioplasty implant and graft; Z79.899 Other long term (current) drug therapy; Z88.2 Allergy status to sulfonamides; Z80.0 Family history of malignant neoplasm of digestive organs; Z83.71 Family history of colonic polyps
CPT/HCPCS: 36415; 36416; 74176; 80048; 83036; 85025; 88305; 88309; J0171; J0694; J1100; J1170; J1650; J1885; J1940; J2270; J2370; J2405; J2704; J3010; J3480; J3490; P9045; S0020; S0028; U0003; U0005

== ENCOUNTER 2021-04-13 12:26 | Emergency (ER) | payer MEDICARE ==
[2021-04-13 13:19] LABS: #Basophils 0.1 thou/uL (0.0-0.2); #Eosinphils 0.1 thou/uL (0.0-0.7); #Lymphocytes 1.9 thou/uL (1.20-3.40); #Monocytes 0.8 thou/uL (0.11-0.59); #Neutrophils 6.7 thou/uL (1.40-6.50); %Basophils 0.6 % (0.0-1.0); %Eosinophils 1.4 % (0.0-10.0); %Lymphocytes 19.7 % (21.0-51.0); %Monocytes 8.2 % (0.0-10.0); %Neutrophils 70.1 % (42.0-75.0); Hemoglobin 14.2 g/dL (14.0-18.0); Mean Corpuscular HGB CONC 35.1 g/dL (32.0-36.0); Mean Corpuscular Hemoglobin 32.1 pg (27.0-31.0); Mean Corpuscular Volume 91.3 fL (78.0-98.0); Mean Platelet Volume 7.2 fL (7.4-10.4); Platelet Count 248 thou/uL (130-400); RBC Distribution Width 13.1 % (11.5-14.5); Red Blood Cell (RBC) Count 4.42 mill/uL (4.70-6.10); White Blood Cell (WBC) Count 9.6 thou/uL (4.8-10.8)
[2021-04-13 13:54] LABS: ALT (SGPT) 24 U/L (8-55); AST (SGOT) 27 U/L (5-34); Albumin 4.1 g/dL (3.5-5.0); Alkaline Phosphatase 88 U/L (40-110); Anion Gap 13 mmol/L (10-20); BUN (Urea Nitrogen) 7 mg/dL (8.4-25.7); Bilirubin, Total 0.6 mg/dL (0.2-1.2); Calc. Creatinine Clearance 0 mL/min (70-130); Calcium 9.8 mg/dL (7.8-10.44); Carbon Dioxide 28 mmol/L (22-29); Chloride 102 mmol/L (98-107); Globulin 3.8 g/dL (2.4-3.5); Glucose 105 mg/dL (70-105); Potassium 3.8 mmol/L (3.5-5.1); Protein, Total 7.9 g/dL (6.0-8.3); Sodium 139 mmol/L (136-145)
[2021-04-13] MEDS ORDERED: Acetaminophen 500 MG TAB ONE (13:59)
[2021-04-13] MEDS ORDERED: Ketorolac Tromethamine 30 MG/ML VIAL ONE (13:59)
== END 2021-04-13 16:03 | disposition home or self-care (01) ==
LOC: ERS 12:26
DX: S29.011A Strain of muscle and tendon of front wall of thorax, initial encounter (principal); I10 Essential (primary) hypertension; E78.5 Hyperlipidemia, unspecified; F17.220 Nicotine dependence, chewing tobacco, uncomplicated; Z79.899 Other long term (current) drug therapy; X58.XXXA Exposure to other specified factors, initial encounter
CPT/HCPCS: 36415; 71045; 71275; 80053; 84484; 85025; 85379; 93005; 96374; J1885

== ENCOUNTER 2021-06-06 09:48 | Outpatient (CLI) | payer MEDICARE ==
[2021-06-06 12:07] LABS: #Basophils 0.1 10x3/uL (0.0-0.2); #Eosinphils 0.2 10x3/uL (0.0-0.5); #Monocytes 1.3 10x3/uL (0.0-1.1); #Neutrophils 10.9 10x3/uL (1.5-8.4); %Basophils 0.5 % (0.0-2.0); %Eosinophils 1.1 % (0.0-6.0); %Lymphocytes 16.9 % (18.0-47.0); %Monocytes 8.6 % (0.0-10.0); Hemoglobin 14.9 g/dL (13.5-17.5); Mean Corpuscular HGB CONC 34.7 g/dL (32.0-36.0); Mean Corpuscular Hemoglobin 31.1 pg (27.0-33.0); Mean Corpuscular Volume 89.8 fl (81.2-95.1); Mean Platelet Volume 10.3 fl (7.4-10.4); Platelet Count 277 10x3/uL (150-450); RBC Distribution Width 12.7 % (11.5-14.5); Red Blood Cell (RBC) Count 4.79 10x6/uL (4.32-5.72); White Blood Cell (WBC) Count 15.1 10x3/uL (3.5-10.5)
[2021-06-06 12:27] LABS: Anion Gap 16 mmol/L (10-20); BUN (Urea Nitrogen) 10 mg/dL (8.4-25.7); Calc. Creatinine Clearance 0 mL/min (70-130); Calcium 9.7 mg/dL (7.8-10.44); Carbon Dioxide 29 mmol/L (22-29); Chloride 100 mmol/L (98-107); Glucose 86 mg/dL (70-105); Potassium 3.2 mmol/L (3.5-5.1); Sodium 142 mmol/L (136-145)
[2021-06-06 16:45] LABS: SARS-CoV-2 PCR by NAA Not Detected (NotDetected)
== END 2021-06-06 09:49 | disposition home or self-care (01) ==
LOC: LABBT 09:48
PROVIDERS: ATTEND Surgery
DX: Z01.812 Encounter for preprocedural laboratory examination (principal); Z20.822 Contact with and (suspected) exposure to COVID-19
CPT/HCPCS: 80048; 85025; U0003; U0005

== ENCOUNTER 2021-06-09 07:57 | Day surgery (SDC) | payer MEDICARE ==
[2021-06-07 14:37] VITALS: BMI 42.5
[2021-06-09] MEDS ORDERED: ceFAZolin 2 GM/DEX 5% 100 ML BAG ONE (08:31)
[2021-06-09] MEDS ORDERED: Ketorolac Tromethamine 30 MG/ML VIAL ONE (08:31)
[2021-06-09] MEDS ORDERED: Acetaminophen 500 MG TAB ONE (08:31)
[2021-06-09] MEDS ORDERED: Midazolam HCl 2 mg/2 ml Vial ONE (08:54)
[2021-06-09] MEDS ORDERED: Fentanyl 100 MCG/2 ML VIAL ONE (08:54)
[2021-06-09] MEDS ORDERED: Ketamine 50 MG/ML (10ML VIAL) ONE (10:18)
[2021-06-09] MEDS ORDERED: Fentanyl 250 MCG/5 ML VIAL ONE (10:18)
[2021-06-09] MEDS ORDERED: Bupivacaine HCl 0.5%/Epinephrine 1:200,000/PF 30 ml Vial ONE (11:05)
[2021-06-09] MEDS ORDERED: PROPOFOL 200 MG/20 ML VIAL ONE (11:05)
[2021-06-09] MEDS ORDERED: Glycopyrrolate 0.2 MG/ML 5 ML SYRINGE ONE (11:05)
[2021-06-09] MEDS ORDERED: Lidocaine 2% PF 5 ML VIAL ONE (11:05)
[2021-06-09] MEDS ORDERED: Rocuronium Bromide 10 MG/ML (10ML VIAL) ONE (11:05)
[2021-06-09] MEDS ORDERED: Rocuronium Bromide 50 MG/5 ML VIAL ONE (12:23)
[2021-06-09] MEDS ORDERED: Ondansetron HCl/PF 4 MG/2 ML Vial IVP PRN (14:32)
[2021-06-09] MEDS ORDERED: Promethazine HCl 25 MG/ML VIAL IM PRN (14:32)
[2021-06-09] MEDS ORDERED: Promethazine HCl 25 MG/ML VIAL IVPB PRN (14:32)
[2021-06-09] MEDS ORDERED: HYDROcodone/Acetaminophen 5/325 mg Tablet ONE (15:51)
== END 2021-06-09 16:20 | disposition home or self-care (01) ==
LOC: SDC 07:57
PROVIDERS: ATTEND Surgery
PROC: 0WUF0JZ Supplement Abdominal Wall with Synthetic Substitute, Open Approach (ICD-10-PCS; principal; 2021-06-09)
PROC: 3E0T3BZ Introduction of Anesthetic Agent into Peripheral Nerves and Plexi, Percutaneous Approach (ICD-10-PCS; 2021-06-09)
DX: K43.2 Incisional hernia without obstruction or gangrene (principal); K66.0 Peritoneal adhesions (postprocedural) (postinfection); M19.90 Unspecified osteoarthritis, unspecified site; I10 Essential (primary) hypertension; E78.00 Pure hypercholesterolemia, unspecified; G89.29 Other chronic pain; M54.9 Dorsalgia, unspecified; M41.9 Scoliosis, unspecified; E66.01 Morbid (severe) obesity due to excess calories; Z68.41 Body mass index [BMI] 40.0-44.9, adult; Z79.82 Long term (current) use of aspirin; Z79.899 Other long term (current) drug therapy; Z88.1 Allergy status to other antibiotic agents; Z88.2 Allergy status to sulfonamides; Z53.31 Laparoscopic surgical procedure converted to open procedure
CPT/HCPCS: 49560; 49568; 64486; C1781 ×2; J1885; J2001; J2250; J2704; J3010

== ENCOUNTER 2021-06-28 17:53 | Inpatient (IN) | payer MEDICARE ==
[2021-06-28] MEDS ORDERED: Sodium Chloride 0.9% 1,000 ML IV SCH (19:00)
[2021-06-28 19:11] LABS: #Basophils 0.1 thou/uL (0.0-0.2); #Eosinphils 0.3 thou/uL (0.0-0.7); #Lymphocytes 2.3 thou/uL (1.20-3.40); #Monocytes 1.5 thou/uL (0.11-0.59); #Neutrophils 13.2 thou/uL (1.40-6.50); %Basophils 0.4 % (0.0-1.0); %Eosinophils 1.8 % (0.0-10.0); %Lymphocytes 13.2 % (21.0-51.0); %Monocytes 8.5 % (0.0-10.0); %Neutrophils 76.1 % (42.0-75.0); Hemoglobin 12.5 g/dL (14.0-18.0); Mean Corpuscular HGB CONC 34.8 g/dL (32.0-36.0); Mean Corpuscular Hemoglobin 31.6 pg (27.0-31.0); Platelet Count 346 thou/uL (130-400); RBC Distribution Width 11.2 % (11.5-14.5); Red Blood Cell (RBC) Count 3.96 mill/uL (4.70-6.10); White Blood Cell (WBC) Count 17.4 thou/uL (4.8-10.8)
[2021-06-28] MEDS ORDERED: Piperacillin/Tazobactam 3.375 GM in Sodium Chloride 0.9% 100 ML IVPB SCH (19:15)
[2021-06-28 19:33] LABS: SARS-CoV-2 NAA Rapid Test Not Detected (NotDetected)
[2021-06-28 19:38] LABS: Anion Gap 14 mmol/L (10-20); BUN (Urea Nitrogen) 12 mg/dL (8.4-25.7); Calc. Creatinine Clearance 0 mL/min (70-130); Calcium 9.8 mg/dL (7.8-10.44); Carbon Dioxide 29 mmol/L (22-29); Chloride 96 mmol/L (98-107); Glucose 96 mg/dL (70-105); Sodium 136 mmol/L (136-145)
[2021-06-28 19:50] LABS: Potassium 2.9 mmol/L (3.5-5.1)
[2021-06-28] MEDS: Carvedilol 6.25 MG TAB PO SCH (20:28)
[2021-06-28] MEDS: HYDROcodone/Acetaminophen 10/325 mg Tablet PO PRN (20:28)
[2021-06-28] MEDS: Pantoprazole 40 MG VIAL IVP SCH (20:29)
[2021-06-28] MEDS: Atorvastatin Calcium 10 MG TAB PO SCH (20:29)
[2021-06-28] MEDS: Methocarbamol 500 MG TAB PO SCH (20:42)
[2021-06-28] MEDS: Potassium Chloride 10 MEQ in Premix Bag 1 BAG IVPB SCH ×4 (20:42→23:56)
[2021-06-28] MEDS: hydrOXYzine 25 MG TAB PO PRN (23:58)
[2021-06-29] MEDS: Piperacillin/Tazobactam 3.375 GM in Sodium Chloride 0.9% 100 ML IVPB SCH ×3 (00:35→18:54)
[2021-06-29 04:54] VITALS: BMI 49.6
[2021-06-29] MEDS: VANCOMYCIN 1.75 GM/350 ML BAG 1.75 GM in Premix Bag 1 BAG IVPB SCH ×2 (05:11→13:15)
[2021-06-29] MEDS: HYDROcodone/Acetaminophen 10/325 mg Tablet PO PRN (09:54)
[2021-06-29] MEDS: Carvedilol 6.25 MG TAB PO SCH ×2 (10:03→21:29)
[2021-06-29] MEDS: FLUoxetine HCl 20 MG CAP PO SCH ×2 (10:36→16:41)
[2021-06-29] MEDS: Furosemide 40 MG TAB PO SCH (10:36)
[2021-06-29] MEDS: Hydrochlorothiazide 25 MG TAB PO SCH (10:36)
[2021-06-29] MEDS: Methocarbamol 500 MG TAB PO SCH ×3 (10:36→21:30)
[2021-06-29] MEDS: Loratadine 10 MG TAB PO SCH (10:36)
[2021-06-29] MEDS: Potassium Chloride 10 MEQ TAB PO SCH (10:37)
[2021-06-29] MEDS: Pantoprazole 40 MG VIAL IVP SCH ×2 (10:37→21:30)
[2021-06-29] MEDS ORDERED: Fentanyl 100 MCG/2 ML VIAL ONE ×5 (12:45→14:43)
[2021-06-29] MEDS ORDERED: Famotidine/PF 20 mg/2ml Vial ONE (12:45)
[2021-06-29] MEDS ORDERED: SUGAMMADEX SODIUM 200 MG/2 ML VIAL ONE (13:05)
[2021-06-29] MEDS ORDERED: PROPOFOL 200 MG/20 ML VIAL ONE (13:15)
[2021-06-29] MEDS ORDERED: Ondansetron PF 4 MG/2 ML Vial ONE (13:15)
[2021-06-29] MEDS ORDERED: Rocuronium Bromide 10 MG/ML (10ML VIAL) ONE (13:15)
[2021-06-29] MEDS ORDERED: Lidocaine 1% PF 5 ML VIAL ONE (13:15)
[2021-06-29] MEDS ORDERED: Phenylephrine 10 MG/ML VIAL ONE (13:15)
[2021-06-29] MEDS ORDERED: Metoclopramide HCl 10 MG/2 ML VIAL ONE (13:15)
[2021-06-29] MEDS ORDERED: Ketorolac Tromethamine 30 MG/ML VIAL IVP PRN (14:17)
[2021-06-29] MEDS ORDERED: PACU-Morphine 4MG/ML VIAL SLOW IVP PRN (14:17)
[2021-06-29] MEDS ORDERED: Promethazine HCl 25 MG/ML VIAL IM PRN (14:17)
[2021-06-29] MEDS ORDERED: Promethazine HCl 25 MG/ML VIAL IVPB PRN (14:17)
[2021-06-29] MEDS ORDERED: Ondansetron HCl/PF 4 MG/2 ML Vial IVP PRN (14:17)
[2021-06-29] MEDS ORDERED: Ketorolac Tromethamine 30 MG/ML VIAL ONE (14:44)
[2021-06-29] MEDS: HYDROcodone/Acetaminophen 10/325 mg Tablet PO SCH (17:42)
[2021-06-29] MEDS: Lorazepam 1 MG TAB PO PRN (17:43)
[2021-06-29] MEDS: D5 1/2 NS w/20 mEq KCL 1,000 ML IV SCH (17:44)
[2021-06-29 20:41] LABS: Vancomycin, Trough 30.5 ug/mL
[2021-06-29] MEDS: Atorvastatin Calcium 10 MG TAB PO SCH (21:30)
[2021-06-30] MEDS: HYDROcodone/Acetaminophen 10/325 mg Tablet PO SCH ×5 (00:07→23:55)
[2021-06-30] MEDS: D5 1/2 NS w/20 mEq KCL 1,000 ML IV SCH ×4 (00:13→22:09)
[2021-06-30 06:06] LABS: #Basophils 0.1 thou/uL (0.0-0.2); #Eosinphils 0.4 thou/uL (0.0-0.7); #Lymphocytes 1.8 thou/uL (1.20-3.40); #Monocytes 0.8 thou/uL (0.11-0.59); #Neutrophils 5.9 thou/uL (1.40-6.50); %Basophils 0.6 % (0.0-1.0); %Eosinophils 4.2 % (0.0-10.0); %Lymphocytes 19.7 % (21.0-51.0); %Monocytes 8.5 % (0.0-10.0); Mean Corpuscular HGB CONC 34.5 g/dL (32.0-36.0); Mean Corpuscular Hemoglobin 31.5 pg (27.0-31.0); Mean Corpuscular Volume 91.3 fL (78.0-98.0); Mean Platelet Volume 6.9 fL (7.4-10.4); Platelet Count 317 thou/uL (130-400); RBC Distribution Width 11.1 % (11.5-14.5); Red Blood Cell (RBC) Count 3.49 mill/uL (4.70-6.10); White Blood Cell (WBC) Count 8.9 thou/uL (4.8-10.8)
[2021-06-30 06:21] LABS: Anion Gap 11 mmol/L (10-20); BUN (Urea Nitrogen) 6 mg/dL (8.4-25.7); Calc. Creatinine Clearance 273 mL/min (70-130); Calcium 8.9 mg/dL (7.8-10.44); Carbon Dioxide 27 mmol/L (22-29); Chloride 104 mmol/L (98-107); Glucose 97 mg/dL (70-105); Magnesium 1.9 mg/dL (1.6-2.6); Potassium 3.2 mmol/L (3.5-5.1); Sodium 139 mmol/L (136-145)
[2021-06-30 06:25] LABS: Vancomycin, Random 14.2 ug/mL (See Comment)
[2021-06-30] MEDS ORDERED: VANCOMYCIN 1.75 GM/350 ML BAG 1.75 GM in Premix Bag 1 BAG IVPB SCH (08:00)
[2021-06-30] MEDS ORDERED: Potassium Chloride 20 MEQ TAB PO SCH (08:15)
[2021-06-30] MEDS: Furosemide 40 MG TAB PO SCH (08:57)
[2021-06-30] MEDS: FLUoxetine HCl 20 MG CAP PO SCH (08:57)
[2021-06-30] MEDS: Hydrochlorothiazide 25 MG TAB PO SCH (08:57)
[2021-06-30] MEDS: Carvedilol 6.25 MG TAB PO SCH ×2 (08:57→22:07)
[2021-06-30] MEDS: Methocarbamol 500 MG TAB PO SCH ×3 (08:57→22:08)
[2021-06-30] MEDS: Potassium Chloride 10 MEQ TAB PO SCH (08:58)
[2021-06-30] MEDS: hydrOXYzine 25 MG TAB PO PRN (08:58)
[2021-06-30] MEDS: Loratadine 10 MG TAB PO SCH (08:58)
[2021-06-30] MEDS: Saccharomyces boulardii 250 MG CAP PO SCH (08:58)
[2021-06-30] MEDS: Pantoprazole 40 MG VIAL IVP SCH ×2 (08:59→22:11)
[2021-06-30] MEDS ORDERED: Vancomycin 1.5 GRAM/300 ML BAG 1.5 GM in Premix Bag 1 BAG IVPB SCH (09:00)
[2021-06-30] MEDS ORDERED: Morphine 4 MG/ML VIAL SLOW IVP PRN (09:32)
[2021-06-30] MEDS ORDERED: Morphine 4 MG/ML VIAL ONE (09:32)
[2021-06-30] MEDS ORDERED: Morphine 4 MG/ML VIAL SLOW IVP SCH (09:45)
[2021-06-30] MEDS: Lorazepam 1 MG TAB PO PRN ×2 (11:51→23:55)
[2021-06-30] MEDS: ceFAZolin Sodium/D5W 2 GM in Premix Bag 1 BAG IVPB SCH (22:07)
[2021-06-30] MEDS: Atorvastatin Calcium 10 MG TAB PO SCH (22:08)
[2021-06-30] MEDS: Enoxaparin Sodium 40 MG/0.4 ML SYRINGE SC SCH (22:08)
[2021-07-01] MEDS: HYDROcodone/Acetaminophen 10/325 mg Tablet PO SCH ×4 (05:02→23:36)
[2021-07-01] MEDS: ceFAZolin Sodium/D5W 2 GM in Premix Bag 1 BAG IVPB SCH ×3 (05:03→20:05)
[2021-07-01 06:49] LABS: Anion Gap 10 mmol/L (10-20); BUN (Urea Nitrogen) 6 mg/dL (8.4-25.7); Calc. Creatinine Clearance 253 mL/min (70-130); Calcium 9.3 mg/dL (7.8-10.44); Carbon Dioxide 29 mmol/L (22-29); Chloride 106 mmol/L (98-107); Glucose 144 mg/dL (70-105); Sodium 141 mmol/L (136-145)
[2021-07-01] MEDS: D5 1/2 NS w/20 mEq KCL 1,000 ML IV SCH ×2 (07:20→12:22)
[2021-07-01] MEDS: Pantoprazole 40 MG VIAL IVP SCH ×2 (08:29→20:05)
[2021-07-01] MEDS: Methocarbamol 500 MG TAB PO SCH ×3 (08:31→20:04)
[2021-07-01] MEDS: Potassium Chloride 10 MEQ TAB PO SCH (08:31)
[2021-07-01] MEDS: Furosemide 40 MG TAB PO SCH (08:32)
[2021-07-01] MEDS: Saccharomyces boulardii 250 MG CAP PO SCH (08:32)
[2021-07-01] MEDS: Carvedilol 6.25 MG TAB PO SCH ×2 (08:32→20:05)
[2021-07-01] MEDS: Hydrochlorothiazide 25 MG TAB PO SCH (08:32)
[2021-07-01] MEDS: FLUoxetine HCl 20 MG CAP PO SCH (08:32)
[2021-07-01] MEDS: Loratadine 10 MG TAB PO SCH (08:32)
[2021-07-01] MEDS: hydrOXYzine 25 MG TAB PO PRN ×3 (09:50→23:36)
[2021-07-01] MEDS: Lorazepam 1 MG TAB PO PRN (17:55)
[2021-07-01] MEDS: Enoxaparin Sodium 40 MG/0.4 ML SYRINGE SC SCH (20:04)
[2021-07-01] MEDS: Atorvastatin Calcium 10 MG TAB PO SCH (20:04)
[2021-07-02] MEDS: ceFAZolin Sodium/D5W 2 GM in Premix Bag 1 BAG IVPB SCH ×3 (04:11→20:04)
[2021-07-02] MEDS: HYDROcodone/Acetaminophen 10/325 mg Tablet PO SCH ×3 (05:56→17:44)
[2021-07-02] MEDS: Pantoprazole 40 MG VIAL IVP SCH ×2 (08:43→20:07)
[2021-07-02] MEDS: Furosemide 40 MG TAB PO SCH (08:44)
[2021-07-02] MEDS: Loratadine 10 MG TAB PO SCH (08:44)
[2021-07-02] MEDS: Hydrochlorothiazide 25 MG TAB PO SCH (08:44)
[2021-07-02] MEDS: FLUoxetine HCl 20 MG CAP PO SCH (08:44)
[2021-07-02] MEDS: Methocarbamol 500 MG TAB PO SCH ×3 (08:44→20:07)
[2021-07-02] MEDS: Saccharomyces boulardii 250 MG CAP PO SCH (08:44)
[2021-07-02] MEDS: Potassium Chloride 10 MEQ TAB PO SCH (08:44)
[2021-07-02] MEDS: Carvedilol 6.25 MG TAB PO SCH ×2 (08:45→20:04)
[2021-07-02] MEDS: hydrOXYzine 25 MG TAB PO PRN ×2 (08:50→15:07)
[2021-07-02] MEDS ORDERED: FLU VACC QS2021-22(6MOS UP)/PF 60 MCG/0.5 ML SYRINGE IM ONE (09:00)
[2021-07-02] MEDS: Atorvastatin Calcium 10 MG TAB PO SCH (20:04)
[2021-07-02] MEDS: Enoxaparin Sodium 40 MG/0.4 ML SYRINGE SC SCH (20:06)
[2021-07-03] MEDS: HYDROcodone/Acetaminophen 10/325 mg Tablet PO SCH ×3 (00:01→12:24)
[2021-07-03] MEDS: ceFAZolin Sodium/D5W 2 GM in Premix Bag 1 BAG IVPB SCH ×2 (04:23→12:24)
[2021-07-03] MEDS: hydrOXYzine 25 MG TAB PO PRN (05:33)
[2021-07-03] MEDS: Potassium Chloride 10 MEQ TAB PO SCH (08:46)
[2021-07-03] MEDS: Pantoprazole 40 MG VIAL IVP SCH (08:46)
[2021-07-03] MEDS: Saccharomyces boulardii 250 MG CAP PO SCH (08:47)
[2021-07-03] MEDS: Loratadine 10 MG TAB PO SCH (08:47)
[2021-07-03] MEDS: Carvedilol 6.25 MG TAB PO SCH (08:47)
[2021-07-03] MEDS: FLUoxetine HCl 20 MG CAP PO SCH (08:47)
[2021-07-03] MEDS: Methocarbamol 500 MG TAB PO SCH ×2 (08:47→14:47)
[2021-07-03] MEDS: Hydrochlorothiazide 25 MG TAB PO SCH (08:47)
[2021-07-03] MEDS: Furosemide 40 MG TAB PO SCH (08:47)
[2021-07-03 12:09] VITALS: BP 120/75; TEMP 98.4
[2021-07-03] MEDS: Lorazepam 1 MG TAB PO PRN (12:24)
== END 2021-07-03 15:51 | disposition home or self-care (01) | DRG 863 ==
LOC: SURG A 18:14 → ERHOLD 06-29 08:29 → SURG A 06-29 08:29 → ERHOLD 06-29 08:32 → SURG A 06-29 08:40
PROVIDERS: ADMIT Surgery; ATTEND Surgery
PROC: 0J980ZZ Drainage of Abdomen Subcutaneous Tissue and Fascia, Open Approach (ICD-10-PCS; principal; 2021-06-28)
DX: T81.49XA Infection following a procedure, other surgical site, initial encounter (principal); Z68.42 Body mass index [BMI] 45.0-49.9, adult; F11.20 Opioid dependence, uncomplicated; Y84.8 Other medical procedures as the cause of abnormal reaction of the patient, or of later complication, without mention of misadventure at the time of the procedure; E66.01 Morbid (severe) obesity due to excess calories; Z96.643 Presence of artificial hip joint, bilateral; Z90.49 Acquired absence of other specified parts of digestive tract; Z93.3 Colostomy status; Z93.2 Ileostomy status; G47.30 Sleep apnea, unspecified; Z83.3 Family history of diabetes mellitus; Z80.8 Family history of malignant neoplasm of other organs or systems; Z20.822 Contact with and (suspected) exposure to COVID-19; Z85.038 Personal history of other malignant neoplasm of large intestine; G89.29 Other chronic pain; M41.9 Scoliosis, unspecified; E78.00 Pure hypercholesterolemia, unspecified; I10 Essential (primary) hypertension; F17.290 Nicotine dependence, other tobacco product, uncomplicated; Z88.5 Allergy status to narcotic agent; Z88.2 Allergy status to sulfonamides; Z88.8 Allergy status to other drugs, medicaments and biological substances; Z79.899 Other long term (current) drug therapy
CPT/HCPCS: 36415; 80048; 80202; 83497; 83735; 84100; 85025; 87070; 87077; 87186; 87205; C9113; J1650; J1885; J2270; J2370; J2405; J2543; J2704; J2765; J3010; J3370; J3480; J3490; J7030; J7050; S0028; U0002

== ENCOUNTER 2022-03-15 14:10 | Outpatient (CLI) | payer MEDICARE | END 2022-03-15 14:11 | disposition home or self-care (01) | LOC: RAD-FRANK 14:10 | PROVIDERS: ATTEND Nurse Practitioner Family | DX: M79.672 Pain in left foot (principal) ==

== ENCOUNTER 2024-01-10 12:16 | Outpatient (CLI) | payer OTHER ==
[2024-01-10 13:08] LABS: #Basophils 0.07 10x3/uL (0.0-0.2); %Basophils 0.6 % (0.0-1.0); %Eosinophils 2.4 % (0.0-10.0); %Lymphocytes 18.4 % (21.0-51.0); %Monocytes 9.3 % (0.0-10.0); %Neutrophils 68.8 % (42.0-75.0); Hematocrit 43.5 % (42.0-52.0); Hemoglobin 14.9 g/dL (14.0-18.0); Mean Corpuscular HGB CONC 34.3 g/dL (32.0-36.0); Mean Corpuscular Hemoglobin 31.9 pg (27.0-31.0); Mean Corpuscular Volume 93.1 fL (78.0-98.0); Mean Platelet Volume 9.5 fL (7.4-10.4); Platelet Count 249 10x3/uL (130-400); RBC Distribution Width 12.6 % (11.5-14.5); Red Blood Cell (RBC) Count 4.67 mill/uL (4.70-6.10)
[2024-01-10 13:24] LABS: ALT (SGPT) 40 U/L (8-55); AST (SGOT) 34 U/L (5-34); Alkaline Phosphatase 94 U/L (40-110); Anion Gap 12 mmol/L (10-20); BUN (Urea Nitrogen) 9 mg/dL (8.4-25.7); Bilirubin, Total 0.7 mg/dL (0.2-1.2); Calc. Creatinine Clearance 0 mL/min (70-130); Calcium 9.7 mg/dL (7.8-10.44); Carbon Dioxide 30 mmol/L (22-29); Chloride 102 mmol/L (98-107); Estimated GFR 103; Globulin 3.4 g/dL (2.4-3.5); Glucose 96 mg/dL (70-105); Potassium 4.2 mmol/L (3.5-5.1); Protein, Total 7.4 g/dL (6.0-8.3); Sodium 140 mmol/L (136-145)
== END 2024-01-10 12:17 | disposition home or self-care (01) ==
LOC: ULT 12:16
PROVIDERS: ATTEND Nurse Practitioner Family
DX: D3A.012 Benign carcinoid tumor of the ileum (principal); K43.9 Ventral hernia without obstruction or gangrene; F43.9 Reaction to severe stress, unspecified; R19.8 Other specified symptoms and signs involving the digestive system and abdomen; L72.9 Follicular cyst of the skin and subcutaneous tissue, unspecified; K57.30 Diverticulosis of large intestine without perforation or abscess without bleeding; K76.0 Fatty (change of) liver, not elsewhere classified; Z85.038 Personal history of other malignant neoplasm of large intestine; Z98.890 Other specified postprocedural states
CPT/HCPCS: 36415; 74177; 76999; 80053; 82378; 85025; Q9967